=== PATIENT | male | born 1965 | race Caucasian/White ===

== ENCOUNTER 2017-08-10 19:44 | Observation (INO) | payer BC ==
[2017-08-10] MEDS ORDERED: Nitroglycerin 0.4 MG Tab.SL ONE ×4 (19:51→22:00)
[2017-08-10] MEDS ORDERED: Sodium Chloride 0.9% 1,000 ML IV ONE (20:09)
[2017-08-10] MEDS ORDERED: Nitroglycerin 0.4 MG Tab.SL SL PRN (20:12)
[2017-08-10] MEDS ORDERED: Morphine 2 MG/ML Syringe IVPUSH ONE ×2 (20:13→20:28)
[2017-08-10 20:27] LABS: CHLORIDE,CL 102 mmol/L (98-107); SODIUM,NA 137 mmol/L (136-145)
--- NOTE | 2017-08-10 20:39 | EDM.PDOC ---
ED HPI GENERAL MEDICAL PROBLEM - General Chief Complaint: Chest Pain Stated Complaint: chest pain Time Seen by Provider: 08/10/17 19:45 Source of Information: Reports: Patient, Family History Limitations: Reports: No Limitations - History of Present Illness INITIAL COMMENTS - FREE TEXT/NARRATIVE: Patient is a is a 52-year-old who was brought in by his secondary to chest pain patient states that the chest pain started about 5 minutes before leaving work once arrived at home he had a meal and then when out to feed the horses the pain intensified and was radiating to left arm, his brought him in for evaluation, patient has history of coronary arterial disease with 9 stents placed patient has been doing fairly well for about the last year and 3 months Onset: Today, Sudden Duration: Hour(s):, Constant, Heavy Location: Reports: Chest Quality: Reports: Sharp, Stabbing Severity: Severe Improves with: Reports: Medication Worsens with: Reports: Movement Context: Reports: Activity, Other (Coronary arterial disease) Associated Symptoms: Reports: Chest Pain - Related Data Allergies Allergy/AdvReac Type Severity Reaction Status Date / Time clarithromycin [From Biaxin] Allergy Rash Verified 08/10/17 20:18 Gadolinium-Containing Allergy Hives Verified 08/10/17 20:18 Contrast Medi gadoteridol [From Prohance] Allergy Hives Verified 08/10/17 20:18 Iodinated Contrast- Oral and Allergy Hives Verified 08/10/17 20:18 IV Dye ondansetron HCl Allergy Rash Verified 08/10/17 20:18 [From Zofran (as hydrochloride)] Penicillins Allergy Rash Verified 08/10/17 20:18 Bqxefso-Yha-Wbw Reductase Allergy rabdomyalisis, Verified 08/10/17 20:18 Inhibitor muscle aches Home Meds: Home Meds Baclofen 10 mg PO QID PRN 06/13/13 [History] Metoprolol Tartrate [Lopressor] 100 mg PO Q12H 06/13/13 [History] Pantoprazole Sodium 40 mg PO QAM 06/13/13 [History] clonazePAM [Clonazepam] 4 mg PO BEDTIME 06/13/13 [History] traZODone HCl [Trazodone HCl] 100 mg PO BEDTIME 06/13/13 [History] Prasugrel [Effient] 10 mg PO QAM 09/12/13 [History] Cholecalciferol (Vitamin D3) [Vitamin D3] 400 units PO QAM 03/12/15 [History] Aspirin 325 mg PO QAM 07/03/15 [History] Evolocumab [Repatha Sureclick] 140 mg SQ ASDIRECTED 05/06/16 [History] Benzonatate [Tessalon Perles] 100 mg PO TID #21 cap 06/08/16 [Rx] Cefdinir [Omnicef] 300 mg PO BID 06/08/16 [History] Past Medical History HEENT History: Reports: Allergic Rhinitis, Impaired Vision, Other (See Below) Other HEENT History: Glasses Cardiovascular History: Reports: Angina, CAD, High Cholesterol, Hypertension, PTCA, Stents, Syncope, Other (See Below) Other Cardiovascular History: stents x10 with most recent procedures as below, history of recurrent syncope, dyslipidemia Respiratory History: Reports: COPD, Other (See Below) Other Respiratory History: COPD by chest x-ray Gastrointestinal History: Reports: Cholelithiasis, GERD. Denies: Celiac Disease , Chronic Constipation, Chronic Diarrhea, Colon Polyp, Diverticulosis, Gastritis , GI Bleed, Hepatitis, Helicobacter Pylori, Hiatal Hernia, Inflammatory Bowel Disease, Irritable Bowel Syndrome, Jaundice, Pancreatitis Genitourinary History: Reports: Renal Calculus, Other (See Below) Other Genitourinary History: History of hyperurcemia with recurrent right-sided urolithiasis with last episode about 2004, bilateral epididymal cysts left greater than right Musculoskeletal History: Reports: Arthritis, Back Pain, Chronic, Fracture, Gout , Osteoarthritis, Osteoporosis, Other (See Below) Other Musculoskeletal History: Left clavicular fracture and left scapular fracture in about 2007, right sided rib fractures x3 in about 2008, hyperuricemia diagnosed on 05/23/14 with no previous history of gout attacks, history of previous spinal fusion as below with degenerative disc disease in the L2-L5 region by MRI as below, polymyalgia rheumatica, left talar subchondral cyst Neurological History: Reports: Concussion, Headaches, Chronic, Head Trauma, Migraines, Other (See Below) Other Neuro History: Borderline cerebral atrophy by CT scan of the head on , previous head concussion in about 2008 Psychiatric History: Reports: Addiction, Anxiety, Depression, Other (See Below) Other Psychiatric History: Chronic Klonopin and trazodone use with previous of chronic narcotic use/seeking behavior secondary to his osteoarthritis Endocrine/Metabolic History: Reports: Osteoporosis, Vitamin D Deficiency Hematologic History: Reports: Polycythemia, Other (See Below) Other Hematologic History: Polycythemia requiring phlebotomies in the past Immunologic History: Reports: None. Denies: AIDS, HIV, SLE Oncologic (Cancer) History: Reports: None. Denies: Basal Cell Carcinoma, Hodgkin's Lymphoma, Leukemia, Lymphoma, Malignant Melanoma, Non-Hodgkin's Lymphoma, Squamous Cell Carcinoma Dermatologic History: Reports: None. Denies: Eczema, Psoriasis - Infectious Disease History Infectious Disease History: Reports: Chicken Pox - Past Surgical History HEENT Surgical History: Reports: Oral Surgery, Tonsillectomy, Other (See Below) Cardiovascular Surgical History: Reports: Coronary Artery Bypass, Coronary Artery Stent, Other (See Below) GI Surgical History: Reports: Appendectomy, Cholecystectomy, Colonoscopy, EGD, Hernia, Inguinal, Other (See Below) Male Surgical History: Reports: Circumcision, Renal Calculus, Other (See Below) Neurological Surgical History: Reports: Lumbar Spine, Spinal Fusion, Other (See Below) Musculoskeletal Surgical History: Reports: Arthroscopic Procedure, Other (See Below) - Past Imaging History Past Imaging History: Reports: Angiography, CAT Scan, DEXA Scan, HIDA Scan, MRI , Stress Testing, Ultrasound Social & Family History - Family History HEENT: Reports: Allergic Rhinitis, Other (See Below) Other HEENT Family History: 4 brothers with allergic rhinitis Cardiac: Reports: Afib, Arrhythmia, Bypass, CAD, Heart Failure, High Cholesterol , MA, Other (See Below) Other Cardiac Family History: Father with fatal CHF at age 64 with father having an MA and CABG x4 at age 45, brother with atrial fibrillation, parents with hyperlipidemia, father with hypertension Respiratory: Reports: COPD, Other (See Below) Other Respiratory Family Hisory: Father with COPD with history of tobacco use GI: Reports: Diverticulosis, Other (See Below) Other GI Family History: Brother with diverticulosis : Reports: Renal Calculus, Renal Disease/Insufficiency, Other (See Below) Other Family History: Father with urolithiasis, mother with fatal renal disease/renal failure at about age 82 OBGYN: Reports: None. Denies: Dysfunctional uterine bleeding, Recurrent Spontaneous Musculoskeletal: Reports: Arthritis, Osteoarthritis, Other (See Below) Other Musculoskeletal Family History: Mother with osteoarthritis Neurological: Reports: None. Denies: Alzheimers Disease, Cerebral Aneurysms, CVA, Dementia, Migraines, MS, Neuropathy, Peripheral, Parkinson's, Seizure, TIA Psychiatric: Reports: None. Denies: Abuse, Victim of, ADD, ADHD, Anxiety, Depression, Psych Hospitalization(s), Suicide Attempt Endocrine/Metabolic: Reports: Diabetes, Type I, Diabetes, type II, IDDM, Other ( See Below) Other Endocrine/Metabolic Family History: Father and niece with type I IDDM both in their 20s, sister with IDDM, mother with AODM Hematologic: Reports: Anemia, Other (See Below) Other Hematologic Family History: Brother with history of lower GI bleed secondary to diverticulosis Immunologic: Reports: None. Denies: AIDS, HIV, SLE Dermatologic: Reports: None. Denies: Eczema, Psoriasis Oncologic: Reports: None. Denies: Colon, Hodgkin's Lymphoma, Leukemia, Non- Hodgkin's Lymphoma, Prostate, Skin - Tobacco Use Smoking Status *Q: Former Smoker Years of Tobacco use: 23 Packs/Tins Daily: 1.0 Used Tobacco, but Quit: Yes Month Tobacco Last Used: Between ages 15 and 38 with average use of 1 pack per day Second Hand Smoke Exposure: No - Caffeine Use Caffeine Use: Reports: Coffee Caffeine Use Comment: 2 pops a day and 2 cups of coffee a day - Alcohol Use Days Per Week of Alcohol Use: 0 (No previous DWIs, problems with alcohol abuse, etc.) Number of Drinks Per Day: 0 Total Drinks Per Week: 0 - Recreational Drug Use Recreational Drug Use: No Drug Use in Last 12 Months: No Recreational Drug Type: Denies: Amphetamines (Speed), Cocaine, Heroin, Inhalants (Glues, Solvents, Aerosols), LSD (Acid), Marijuana/Hashish, Methamphetamine, Morphine Recreational Drug Use Frequency: Daily - Living Situation & Occupation Living situation: Reports: , , with Spouse, with Family Occupation: Employed ED ROS GENERAL - Review of Systems Review Of Systems: See Below Constitutional: Reports: No Symptoms. Denies: Diaphoresis HEENT: Reports: No Symptoms Respiratory: Reports: Shortness of Breath Cardiovascular: Reports: Chest Pain (Radiating to left arm) Endocrine: Reports: No Symptoms GI/Abdominal: Reports: No Symptoms : Reports: No Symptoms Musculoskeletal: Reports: No Symptoms Skin: Reports: No Symptoms Neurological: Reports: No Symptoms Psychiatric: Reports: No Symptoms ED EXAM, GENERAL - Physical Exam Exam: See Below Exam Limited By: No Limitations General Appearance: Alert, WD/WN, No Apparent Distress Ears: Normal External Exam, Normal Canal, Hearing Grossly Normal, Normal TMs Ear Exam: Bilateral Ear: Auricle Normal, Canal Normal, TM normal Nose: Normal Inspection, Normal Mucosa, No Blood Throat/Mouth: Normal Inspection, Normal Lips, Normal Teeth, Normal Gums, Normal Oropharynx, Normal Voice, No Airway Compromise Head: Atraumatic, Normocephalic Neck: Normal Inspection, Supple, Non-Tender, Full Range of Motion Respiratory/Chest: Lungs Clear, Chest Non-Tender, Respiratory Distress Cardiovascular: Regular Rate, Rhythm, No Murmur GI/Abdominal: Normal Bowel Sounds, Soft, Non-Tender, No Organomegaly, No Distention, No Abnormal Bruit, No Mass (Male) Exam: Deferred Rectal (Males) Exam: Deferred Back Exam: Normal Inspection, Full Range of Motion, NT Extremities: Normal Inspection, Normal Range of Motion, Non-Tender, Normal Capillary Refill, No Pedal Edema Neurological: Alert, Oriented, CN II-XII Intact, Normal Cognition, Normal Gait, Normal Reflexes, No Motor/Sensory Deficits Psychiatric: Normal Affect, Normal Mood Skin Exam: Warm, Dry, Intact, Normal Color, No Rash Lymphatic: No Adenopathy Course - Vital Signs Last Recorded V/S: Last Vital Signs Temp Pulse Resp BP 149/90 H 08/10/17 20:21 Pulse Ox - Orders/Labs/Meds Orders: Active Orders 24 hr Category Date Time Status EKG Documentation Completion [RC] ASDIRECTED Care 08/10/17 20:25 Ordered Chest 1V Frontal [CR] Stat Exams 08/10/17 20:12 Ordered LACTIC ACID [CHEM] Stat Lab 08/10/17 20:03 Received Nitroglycerin [Nitrostat] Med 08/10/17 20:12 Ordered 0.4 mg SL Q5M PRN Medication Orders Nitroglycerin (Nitrostat) 0.4 mg SL Q5M PRN PRN Reason: Chest Pain Labs: Laboratory Tests 08/10/17 08/10/17 08/10/17 Range/Units 20:03 20:03 20:03 WBC 9.6 (4.0-10.2) K/uL RBC 5.44 H (4.33-5.41) M/uL Hgb 17.2 H (13.1-16.8) g/dL Hct 49.5 H (39.0-49.0) % MCV 91.0 (84.0-98.0) fL MCH 31.6 (28.2-33.3) pg MCHC 34.7 (31.7-36.0) g/dL RDW 13.7 (11.2-14.1) % Plt Count 172 (150-350) K/uL Neut % (Auto) 65.5 (45.0-80.0) % Lymph % (Auto) 20.9 (10.0-50.0) % Ball[place] % (Auto) 10.9 (2.0-14.0) % Eos % (Auto) 2.1 (0.0-5.0) % Baso % (Auto) 0.6 (0.0-2.0) % Neut # (Auto) 6.25 (1.40-7.00) K/uL Lymph # (Auto) 2.00 (0.50-3.50) K/uL Ball[place] # (Auto) 1.04 H (0.00-1.00) K/uL Eos # (Auto) 0.20 (0.00-0.50) K/uL Baso # (Auto) 0.06 (0.00-0.20) K/uL PT 11.0 (9.8-11.7) SEC INR 1.0 APTT 26.6 (22.1-29.8) SEC D-Dimer, Quantitative (0-400) ng/mL Sodium 137 (136-145) mmol/L Potassium 4.2 (3.5-5.1) mmol/L Chloride 102 (98-107) mmol/L Carbon Dioxide 24.5 (21.0-32.0) mmol/L BUN 23 H (7-18) mg/dL Creatinine 1.09 (0.51-1.17) mg/dL Est Cr Clr Drug Dosing 70.73 mL/min Estimated GFR (MDRD) > 60 mL/min Glucose 91 (74-106) mg/dL Calcium 9.4 (8.5-10.1) mg/dL Magnesium 2.0 (1.8-2.4) mg/dL Total Bilirubin 1.1 H (0.2-1.0) mg/dL AST 31 (15-37) U/L ALT 54 (12-78) U/L Alkaline Phosphatase 98 (46-116) IU/L Creatine Kinase 250 (26-308) U/L Creatine Kinase Index 0.4 (0.0-2.5) % CK-MB (CK-2) 1.10 (0.00-3.60) ng/mL Troponin I 0.000 (0.000-0.056) ng/mL NT-Pro-B Natriuret Pep 20 (0-125) pg/mL Total Protein 8.1 (6.4-8.2) g/dL Albumin 4.1 (3.4-5.0) g/dL 08/10/17 Range/Units 20:03 WBC (4.0-10.2) K/uL RBC (4.33-5.41) M/uL Hgb (13.1-16.8) g/dL Hct (39.0-49.0) % MCV (84.0-98.0) fL MCH (28.2-33.3) pg MCHC (31.7-36.0) g/dL RDW (11.2-14.1) % Plt Count (150-350) K/uL Neut % (Auto) (45.0-80.0) % Lymph % (Auto) (10.0-50.0) % Ballard % (Auto) (2.0-14.0) % Eos % (Auto) (0.0-5.0) % Baso % (Auto) (0.0-2.0) % Neut # (Auto) (1.40-7.00) K/uL Lymph # (Auto) (0.50-3.50) K/uL Ballard # (Auto) (0.00-1.00) K/uL Eos # (Auto) (0.00-0.50) K/uL Baso # (Auto) (0.00-0.20) K/uL PT (9.8-11.7) SEC INR APTT (22.1-29.8) SEC D-Dimer, Quantitative 454 H (0-400) ng/mL Sodium (136-145) mmol/L Potassium (3.5-5.1) mmol/L Chloride (98-107) mmol/L Carbon Dioxide (21.0-32.0) mmol/L BUN (7-18) mg/dL Creatinine (0.51-1.17) mg/dL Est Cr Clr Drug Dosing mL/min Estimated GFR (MDRD) mL/min Glucose (74-106) mg/dL Calcium (8.5-10.1) mg/dL Magnesium (1.8-2.4) mg/dL Total Bilirubin (0.2-1.0) mg/dL AST (15-37) U/L ALT (12-78) U/L Alkaline Phosphatase (46-116) IU/L Creatine Kinase (26-308) U/L Creatine Kinase Index (0.0-2.5) % CK-MB (CK-2) (0.00-3.60) ng/mL Troponin I (0.000-0.056) ng/mL NT-Pro-B Natriuret Pep (0-125) pg/mL Total Protein (6.4-8.2) g/dL Albumin (3.4-5.0) g/dL Meds: Medications Generic Name Dose Route Start Last Admin Trade Name Freq PRN Reason Stop Dose Admin Nitroglycerin 0.4 mg 08/10/17 20:12 Nitrostat SL Q5M PRN Chest Pain Discontinued Medications Generic Name Dose Route Start Last Admin Trade Name Freq PRN Reason Stop Dose Admin Morphine Sulfate 2 mg 08/10/17 20:13 08/10/17 20:20 Morphine IVPUSH 08/10/17 20:14 2 mg ONETIME ONE Administration Morphine Sulfate 2 mg 08/10/17 20:28 Morphine IVPUSH 08/10/17 20:29 ONETIME ONE Nitroglycerin Confirm 08/10/17 19:51 08/10/17 20:21 Nitrostat Administered 08/10/17 19:52 Not Given Dose 0.4 mg .ROUTE .STK-MED ONE Departure - Departure Time of Disposition: 21:00 Disposition: Refer to Observation Condition: Fair Clinical Impression: Chest pain at rest - Problem List & Annotations (1) Coronary arteriosclerosis, CAD SNOMED Code(s): 81642178 Code(s): I25.10 - ATHSCL HEART DISEASE OF [place] CORONARY ARTERY W/O ANG PCTRS Status: Acute Priority: High Current Visit: No Annotation/Comment: : Patient seen with chest pain history of severe coronary tube disease troponins negative BNP negative plan is to observe him overnight dual troponins 3 contact cardiology in the morning if indicated. (2) HTN, Benign essential hypertension SNOMED Code(s): 6153839 Code(s): I10 - ESSENTIAL (PRIMARY) HYPERTENSION Status: Chronic Priority : Medium Current Visit: No Annotation/Comment:: Blood Pressure mildly elevated secondary to colic type pain, however improved with adequate control during this visit - Problem List Review Problem List Initiated/Reviewed/Updated: Yes - My Orders Last 24 Hours: My Active Orders 08/10/17 20:03 LACTIC ACID [CHEM] Stat 08/10/17 20:12 Chest 1V Frontal [CR] Stat Nitroglycerin [Nitrostat] 0.4 mg SL Q5M PRN 08/10/17 20:25 EKG Documentation Completion [RC] ASDIRECTED - Assessment/Plan Admission H&P: Please use this note as an admission H&P Last 24 Hours: My Active Orders 08/10/17 20:03 LACTIC ACID [CHEM] Stat 08/10/17 20:12 Chest 1V Frontal [CR] Stat Nitroglycerin [Nitrostat] 0.4 mg SL Q5M PRN 08/10/17 20:25 EKG Documentation Completion [RC] ASDIRECTED Plan: Admit to hospital for observation and treatment troponins 3
[2017-08-10] MEDS ORDERED: Non-Formulary Medication 1 Each (Metoprolol Tartrate 100 MG) PO SCH (21:30)
[2017-08-10] MEDS: Morphine 2 MG/ML Syringe IVPUSH PRN (21:40)
[2017-08-10] MEDS: traZODone 50 MG Tab PO SCH (23:02)
[2017-08-10] MEDS: Metoprolol Tartrate 50 MG Tab PO SCH (23:02)
[2017-08-11] MEDS: Morphine 2 MG/ML Syringe IVPUSH PRN ×5 (01:07→19:50)
[2017-08-11] MEDS: Pantoprazole 40 MG Tab.CR PO SCH (07:51)
[2017-08-11] MEDS: Metoprolol Tartrate 50 MG Tab PO SCH ×2 (07:51→17:22)
[2017-08-11] MEDS: Cholecalciferol (Vitamin D3) 400 Unit Tab PO SCH (07:51)
[2017-08-11] MEDS: PRASUGREL 10 MG PO SCH (07:52)
[2017-08-11] MEDS ORDERED: Metoprolol Tartrate 50 MG Tab PO SCH (08:00)
--- NOTE | 2017-08-11 13:29 | PCM.PN ---
- General Info Date of Service: 08/11/17 Functional Status: Reports: Other (still with chest pain relieved by morphine) - Review of Systems General: Reports: Other (nausea) HEENT: Reports: Headaches Pulmonary: Reports: No Symptoms Cardiovascular: Reports: Chest Pain Gastrointestinal: Reports: Nausea Genitourinary: Reports: No Symptoms Musculoskeletal: Reports: Back Pain Skin: Reports: No Symptoms Neurological: Reports: No Symptoms Psychiatric: Reports: No Symptoms - Patient Data Vitals - Most Recent: Last Vital Signs Temp 98.0 F 08/11/17 12:00 Pulse 67 08/11/17 12:00 Resp 20 08/11/17 12:00 BP 111/71 08/11/17 12:00 Pulse Ox 97 08/11/17 12:00 Weight - Most Recent: 196 lb 9.591 oz I&O - Last 24 Hours: Intake & Output 08/10/17 08/11/17 08/11/17 22:59 06:59 14:59 Intake Total 440 Balance 440 Lab Results Last 24 Hours: Laboratory Results - last 24 hr 08/11/17 08/11/17 08/11/17 Range/Units 01:00 07:20 07:20 D-Dimer, Quantitative 231 (0-400) ng/mL Troponin I 0.000 0.000 (0.000-0.056) ng/mL Med Orders - Current: Current Medications Cholecalciferol (Vitamin D3) [address] [facility] Last Admin: 08/11/17 07:51 Dose: 400 units Metoprolol Tartrate (Lopressor) 100 mg PO BID [facility] Last Admin: 08/11/17 07:51 Dose: 100 mg Morphine Sulfate (Morphine) 2 mg IVPUSH Q1H PRN PRN Reason: Chest Pain Last Admin: 08/11/17 11:51 Dose: 2 mg Nitroglycerin (Nitrostat) 0.4 mg SL Q5M PRN PRN Reason: Chest Pain Non-Formulary Medication (Prasugrel [Effient]) [address] [facility] Last Admin: 08/11/17 07:52 Dose: Not Given Pantoprazole Sodium (Protonix) [address] [facility] Last Admin: 08/11/17 07:51 Dose: 40 mg Sodium Chloride (Saline Flush) 10 ml FLUSH ASDIRECTED PRN PRN Reason: Keep Vein Open Trazodone HCl (Trazodone) 100 mg PO BEDTIME [facility] Last Admin: 08/10/17 23:02 Dose: 100 mg Discontinued Medications Sodium Chloride (Normal Saline) 1,000 mls @ as directed IV .STK-MED ONE Stop: 08/10/17 20:10 Metoprolol Tartrate (Lopressor) 100 mg PO BID [facility] Morphine Sulfate (Morphine) 2 mg IVPUSH ONETIME ONE Stop: 08/10/17 20:14 Last Admin: 08/10/17 20:20 Dose: 2 mg Morphine Sulfate (Morphine) 2 mg IVPUSH ONETIME ONE Stop: 08/10/17 20:29 Last Admin: 08/10/17 20:33 Dose: 2 mg Nitroglycerin (Nitrostat) Confirm Administered Dose 0.4 mg .ROUTE .STK-MED ONE Stop: 08/10/17 19:52 Last Admin: 08/10/17 20:21 Dose: Not Given Nitroglycerin (Nitrostat) 0.4 mg .ROUTE .STK-MED ONE Stop: 08/10/17 22:01 Nitroglycerin (Nitrostat) 0.4 mg .ROUTE .STK-MED ONE Stop: 08/10/17 22:01 Nitroglycerin (Nitrostat) 0.4 mg .ROUTE .STK-MED ONE Stop: 08/10/17 22:01 Non-Formulary Medication (Metoprolol Tartrate) 100 mg PO Q12H [facility] Last Admin: 08/10/17 22:56 Dose: Not Given - Exam Quality Assessment: Supplemental Oxygen, DVT Prophylaxis General: Alert, Cooperative, No Acute Distress HEENT: Mucous Membr. Moist/[place] Neck: Trachea Midline, No JVD Lungs: Clear to Auscultation, Normal Respiratory Effort Cardiovascular: Regular Rate, Regular Rhythm GI/Abdominal Exam: Soft, Non-Tender, No Distention, Abnormal Bowel Sounds ( hyperactive) (Male) Exam: Deferred Back Exam: Normal Inspection Extremities: Normal Inspection, Non-Tender, No Pedal Edema Skin: Warm, Dry, Intact Neurological: No New Focal Deficit Psy/Mental Status: Alert, Normal Affect, Normal Mood - Problem List & Annotations (1) Chest pain at rest SNOMED Code(s): 5254062 Code(s): R07.9 - CHEST PAIN, UNSPECIFIED Status: Acute Current Visit: Yes (2) Chest pain of uncertain etiology SNOMED Code(s): 98254702 Code(s): R07.89 - OTHER CHEST PAIN Status: Acute Priority: High Current Visit: No (3) Coronary arteriosclerosis, CAD SNOMED Code(s): 28745878 Code(s): I25.10 - ATHSCL HEART DISEASE OF [place] CORONARY ARTERY W/O ANG PCTRS Status: Acute Priority: High Current Visit: No Annotation/Comment: : Patient seen with chest pain history of severe coronary tube disease troponins negative BNP negative plan is to observe him overnight dual troponins 3 contact cardiology in the morning if indicated. (4) Asthma without status asthmaticus SNOMED Code(s): 07621077 Code(s): J45.909 - UNSPECIFIED ASTHMA, UNCOMPLICATED Status: Chronic Current Visit: No (5) COPD (chronic obstructive pulmonary disease) SNOMED Code(s): 53163256 Code(s): J44.9 - CHRONIC OBSTRUCTIVE PULMONARY DISEASE, UNSPECIFIED Status : Chronic Priority: Medium Current Visit: No Qualifiers: COPD type: emphysema Emphysema type: panlobular Qualified Code(s): J43.1 - Panlobular emphysema Annotation/Comment:: No recent fever or bronchitic-type symptoms (6) Chronic anxiety SNOMED Code(s): 431363056 Code(s): F41.9 - ANXIETY DISORDER, UNSPECIFIED Status: Chronic Current Visit: No (7) Chronic back pain SNOMED Code(s): 299496276 Code(s): M54.9 - DORSALGIA, UNSPECIFIED; G89.29 - OTHER CHRONIC PAIN Status : Chronic Priority: High Current Visit: No Annotation/Comment:: Acute exacerbation of his low back pain with good results with treatment in the emergency room as above. Work excuse provided. Topical care, sedation precautions, etc. discussed (8) Coronary artery disease SNOMED Code(s): 02507592 Code(s): I25.10 - ATHSCL HEART DISEASE OF [place] CORONARY ARTERY W/O ANG PCTRS Status: Chronic Priority: Medium Current Visit: No Qualifiers: Coronary Disease-Associated Artery/Lesion type: [place] artery [place] vs. transplanted heart: [place] heart Associated angina: without angina Qualified Code(s): I25.10 - Atherosclerotic heart disease of [place] coronary artery without angina pectoris Annotation/Comment:: No recent chest pain or anginal complaints (9) Gastroesophageal reflux disease with esophagitis SNOMED Code(s): 879283773 Code(s): K21.0 - GASTRO-ESOPHAGEAL REFLUX DISEASE WITH ESOPHAGITIS Status: Chronic Priority: Medium Current Visit: No Annotation/Comment:: Under good control with no change in current medical therapy (10) HTN, Benign essential hypertension SNOMED Code(s): 9936981 Code(s): I10 - ESSENTIAL (PRIMARY) HYPERTENSION Status: Chronic Priority : Medium Current Visit: No Annotation/Comment:: Blood Pressure mildly elevated secondary to colic type pain, however improved with adequate control during this visit (11) Hyperlipidemia SNOMED Code(s): 53775122 Code(s): E78.5 - HYPERLIPIDEMIA, UNSPECIFIED Status: Chronic Priority: Medium Current Visit: No Qualifiers: Hyperlipidemia type: mixed hyperlipidemia Qualified Code(s): E78.2 - Mixed hyperlipidemia Annotation/Comment:: Currently under therapy (12) Hypertension SNOMED Code(s): 53494516 Code(s): I10 - ESSENTIAL (PRIMARY) HYPERTENSION Status: Chronic Priority : Medium Current Visit: No Qualifiers: Hypertension type: essential hypertension Qualified Code(s): I10 - Essential (primary) hypertension Annotation/Comment:: Blood pressure somewhat elevated initially in the emergency room secondary to his pain with blood pressures normally under good control by his history. Patient denies any medication noncompliance (13) Hyperuricemia SNOMED Code(s): 04995302 Code(s): E79.0 - HYPERURICEMIA W/O SIGNS OF INFLAM ARTHRIT AND TOPHACEOUS DIS Status: Chronic Priority: Low Current Visit: No Annotation/Comment: : Newly diagnosed today-? (14) Migraine SNOMED Code(s): 49295390 Code(s): G43.909 - MIGRAINE, UNSP, NOT INTRACTABLE, WITHOUT STATUS MIGRAINOSUS Status: Chronic Current Visit: No Annotation/Comment:: Good response to IV therapy as above. No further additional medications especially in light of patient's previous history of narcotic abuse. Patient sleeping and symptom-free at time of discharge. No work excuse apparently needed (15) Mixed anxiety and depressive disorder SNOMED Code(s): 177783916 Code(s): F41.8 - OTHER SPECIFIED ANXIETY DISORDERS Status: Chronic Priority: Medium Current Visit: No Annotation/Comment:: Adequate control by his history (16) Moderate recurrent major depression SNOMED Code(s): 295494987 Code(s): F33.1 - MAJOR DEPRESSIVE DISORDER, RECURRENT, MODERATE Status: Chronic Current Visit: No (17) Osteoarthritis SNOMED Code(s): 906194994 Code(s): M19.90 - UNSPECIFIED OSTEOARTHRITIS, UNSPECIFIED SITE Status: Chronic Priority: Medium Current Visit: No Qualifiers: Osteoarthritis location: multiple joints Osteoarthritis type: primary Qualified Code(s): M15.0 - Primary generalized (osteo)arthritis Annotation/Comment:: Stable by history with history of hyperuricemia and polymyalgia rheumatica (18) Peptic reflux disease SNOMED Code(s): 02760759 Code(s): K21.9 - GASTRO-ESOPHAGEAL REFLUX DISEASE WITHOUT ESOPHAGITIS Status: Chronic Priority: Medium Current Visit: No Annotation/Comment:: Stable by history (19) Vitamin D deficiency SNOMED Code(s): 04700190 Code(s): E55.9 - VITAMIN D DEFICIENCY, UNSPECIFIED Status: Chronic Current Visit: No - Problem List Review Problem List Initiated/Reviewed/Updated: Yes - My Orders Last 24 Hours: My Active Orders 08/11/17 11:53 Sodium Chloride 0.9% [Saline Flush] 10 ml FLUSH ASDIRECTED PRN 08/11/17 13:19 Promethazine [Phenergan] 25 mg IM Q6H PRN 08/18/17 08:00 Echo Comp wo Cont [US] Routine - Plan Plan:: 08/11/17 Alfredito Ko MD Still with some chest pain and now back pain. Nausea. Wanting phenergan. He was told his heart might be enlarged. Will order echocardiogram.
[2017-08-11] MEDS: Promethazine 25 MG/ML SDV IM PRN ×2 (14:16→19:50)
[2017-08-11] MEDS: Sodium Chloride 0.9% 10 ML Syringe FLUSH PRN ×2 (14:18→19:51)
[2017-08-11] MEDS: traZODone 50 MG Tab PO SCH (19:51)
[2017-08-12] MEDS: Promethazine 25 MG/ML SDV IM PRN (04:48)
[2017-08-12] MEDS: Pantoprazole 40 MG Tab.CR PO SCH (07:31)
[2017-08-12] MEDS: Cholecalciferol (Vitamin D3) 400 Unit Tab PO SCH (07:31)
[2017-08-12] MEDS: Sodium Chloride 0.9% 10 ML Syringe FLUSH PRN (07:32)
[2017-08-12] MEDS: PRASUGREL 10 MG PO SCH (07:35)
[2017-08-12] MEDS: Metoprolol Tartrate 50 MG Tab PO SCH (08:36)
[2017-08-12 09:37] LABS: CHLORIDE,CL 103 mmol/L (98-107); SODIUM,NA 137 mmol/L (136-145)
[2017-08-12] MEDS ORDERED: Acetaminophen 325 MG Tab PO PRN (13:00)
[2017-08-12 15:59] VITALS: BP 143/89
--- NOTE | 2017-08-12 17:12 | PCM.PN ---
- General Info Date of Service: 08/12/17 Functional Status: Reports: Pain Controlled - Review of Systems General: Reports: No Symptoms HEENT: Reports: No Symptoms Pulmonary: Reports: No Symptoms Cardiovascular: Reports: No Symptoms Gastrointestinal: Reports: No Symptoms Genitourinary: Reports: No Symptoms Musculoskeletal: Reports: No Symptoms Skin: Reports: No Symptoms Neurological: Reports: No Symptoms Psychiatric: Reports: No Symptoms - Patient Data Vitals - Most Recent: Last Vital Signs Temp 98.3 F 08/12/17 15:57 Pulse 84 08/12/17 15:57 Resp 18 08/12/17 15:57 BP 143/89 H 08/12/17 15:57 Pulse Ox 97 08/12/17 15:57 Weight - Most Recent: 196 lb 9.591 oz I&O - Last 24 Hours: Intake & Output 08/12/17 08/12/17 08/12/17 06:59 14:59 22:59 Intake Total 720 Balance 720 Lab Results Last 24 Hours: Laboratory Results - last 24 hr 08/12/17 08/12/17 Range/Units 09:02 09:02 WBC 8.6 (4.0-10.2) K/uL RBC 5.44 H (4.33-5.41) M/uL Hgb 17.3 H (13.1-16.8) g/dL Hct 50.1 H (39.0-49.0) % MCV 92.1 (84.0-98.0) fL MCH 31.8 (28.2-33.3) pg MCHC 34.5 (31.7-36.0) g/dL RDW 13.8 (11.2-14.1) % Plt Count 155 (150-350) K/uL Neut % (Auto) 67.8 (45.0-80.0) % Lymph % (Auto) 18.4 (10.0-50.0) % [place] % (Auto) 11.4 (2.0-14.0) % Eos % (Auto) 1.9 (0.0-5.0) % Baso % (Auto) 0.5 (0.0-2.0) % Neut # (Auto) 5.82 (1.40-7.00) K/uL Lymph # (Auto) 1.58 (0.50-3.50) K/uL [place] # (Auto) 0.98 (0.00-1.00) K/uL Eos # (Auto) 0.16 (0.00-0.50) K/uL Baso # (Auto) 0.04 (0.00-0.20) K/uL Sodium 137 (136-145) mmol/L Potassium 3.9 (3.5-5.1) mmol/L Chloride 103 (98-107) mmol/L Carbon Dioxide 27.0 (21.0-32.0) mmol/L BUN 23 H (7-18) mg/dL Creatinine 0.97 (0.51-1.17) mg/dL Est Cr Clr Drug Dosing 79.88 mL/min Estimated GFR (MDRD) > 60 mL/min Glucose 119 H (74-106) mg/dL Calcium 9.1 (8.5-10.1) mg/dL Total Bilirubin 1.1 H (0.2-1.0) mg/dL AST 58 H (15-37) U/L ALT 56 (12-78) U/L Alkaline Phosphatase 91 (46-116) IU/L Troponin I 0.000 (0.000-0.056) ng/mL Total Protein 7.5 (6.4-8.2) g/dL Albumin 3.7 (3.4-5.0) g/dL Med Orders - Current: Current Medications Acetaminophen (Tylenol) 650 mg PO Q4H PRN PRN Reason: Pain/Fever Last Admin: 08/12/17 13:18 Dose: 650 mg Cholecalciferol (Vitamin D3) 400 units PO [facility] Last Admin: 08/12/17 07:31 Dose: 400 units Metoprolol Tartrate (Lopressor) 100 mg PO BID [facility] Last Admin: 08/12/17 08:36 Dose: Not Given Morphine Sulfate (Morphine) 2 mg IVPUSH Q1H PRN PRN Reason: Chest Pain Last Admin: 08/11/17 19:50 Dose: 2 mg Nitroglycerin (Nitrostat) 0.4 mg SL Q5M PRN PRN Reason: Chest Pain Non-Formulary Medication (Prasugrel [Effient]) 10 mg PO [facility] Last Admin: 08/12/17 07:35 Dose: Not Given Pantoprazole Sodium (Protonix) 40 mg PO [facility] Last Admin: 08/12/17 07:31 Dose: 40 mg Promethazine HCl (Phenergan) 25 mg IM Q6H PRN PRN Reason: Nausea/Vomiting Last Admin: 08/12/17 04:48 Dose: 25 mg Sodium Chloride (Saline Flush) 10 ml FLUSH ASDIRECTED PRN PRN Reason: Keep Vein Open Last Admin: 08/12/17 07:32 Dose: 10 ml Trazodone HCl (Trazodone) 100 mg PO BEDTIME [facility] Last Admin: 08/11/17 19:51 Dose: 100 mg Discontinued Medications Sodium Chloride (Normal Saline) 1,000 mls @ as directed IV .STK-MED ONE Stop: 08/10/17 20:10 Metoprolol Tartrate (Lopressor) 100 mg PO BID [facility] Morphine Sulfate (Morphine) 2 mg IVPUSH ONETIME ONE Stop: 08/10/17 20:14 Last Admin: 08/10/17 20:20 Dose: 2 mg Morphine Sulfate (Morphine) 2 mg IVPUSH ONETIME ONE Stop: 08/10/17 20:29 Last Admin: 08/10/17 20:33 Dose: 2 mg Nitroglycerin (Nitrostat) Confirm Administered Dose 0.4 mg .ROUTE .STK-MED ONE Stop: 08/10/17 19:52 Last Admin: 08/10/17 20:21 Dose: Not Given Nitroglycerin (Nitrostat) 0.4 mg .ROUTE .STK-MED ONE Stop: 08/10/17 22:01 Nitroglycerin (Nitrostat) 0.4 mg .ROUTE .STK-MED ONE Stop: 08/10/17 22:01 Nitroglycerin (Nitrostat) 0.4 mg .ROUTE .STK-MED ONE Stop: 08/10/17 22:01 Non-Formulary Medication (Metoprolol Tartrate) 100 mg PO Q12H [facility] Last Admin: 08/10/17 22:56 Dose: Not Given - Exam General: Alert, Cooperative, No Acute Distress HEENT: Mucous Membr. Moist/[place] Neck: Trachea Midline, No JVD Lungs: Clear to Auscultation, Normal Respiratory Effort Cardiovascular: Regular Rate, Regular Rhythm GI/Abdominal Exam: Soft, Non-Tender, No Distention (Male) Exam: Deferred Back Exam: Normal Inspection, Decreased Range of Motion Extremities: Normal Inspection, Non-Tender, No Pedal Edema Skin: Warm, Dry, Intact Neurological: No New Focal Deficit Psy/Mental Status: Alert, Normal Affect, Normal Mood - Problem List & Annotations (1) Chest pain at rest SNOMED Code(s): 8655566 Code(s): R07.9 - CHEST PAIN, UNSPECIFIED Status: Acute Current Visit: Yes (2) Chest pain of uncertain etiology SNOMED Code(s): 21403263 Code(s): R07.89 - OTHER CHEST PAIN Status: Acute Priority: High Current Visit: No (3) Coronary arteriosclerosis, CAD SNOMED Code(s): 81525517 Code(s): I25.10 - ATHSCL HEART DISEASE OF [place] CORONARY ARTERY W/O ANG PCTRS Status: Acute Priority: High Current Visit: No Annotation/Comment: : Patient seen with chest pain history of severe coronary tube disease troponins negative BNP negative plan is to observe him overnight dual troponins 3 contact cardiology in the morning if indicated. (4) Asthma without status asthmaticus SNOMED Code(s): 71939027 Code(s): J45.909 - UNSPECIFIED ASTHMA, UNCOMPLICATED Status: Chronic Current Visit: No (5) COPD (chronic obstructive pulmonary disease) SNOMED Code(s): 34233806 Code(s): J44.9 - CHRONIC OBSTRUCTIVE PULMONARY DISEASE, UNSPECIFIED Status : Chronic Priority: Medium Current Visit: No Qualifiers: COPD type: emphysema Emphysema type: panlobular Qualified Code(s): J43.1 - Panlobular emphysema Annotation/Comment:: No recent fever or bronchitic-type symptoms (6) Chronic anxiety SNOMED Code(s): 080276232 Code(s): F41.9 - ANXIETY DISORDER, UNSPECIFIED Status: Chronic Current Visit: No (7) Chronic back pain SNOMED Code(s): 621626004 Code(s): M54.9 - DORSALGIA, UNSPECIFIED; G89.29 - OTHER CHRONIC PAIN Status : Chronic Priority: High Current Visit: No Annotation/Comment:: Acute exacerbation of his low back pain with good results with treatment in the emergency room as above. Work excuse provided. Topical care, sedation precautions, etc. discussed (8) Coronary artery disease SNOMED Code(s): 03996524 Code(s): I25.10 - ATHSCL HEART DISEASE OF [place] CORONARY ARTERY W/O ANG PCTRS Status: Chronic Priority: Medium Current Visit: No Qualifiers: Coronary Disease-Associated Artery/Lesion type: [place] artery [place] vs. transplanted heart: [place] heart Associated angina: without angina Qualified Code(s): I25.10 - Atherosclerotic heart disease of [place] coronary artery without angina pectoris Annotation/Comment:: No recent chest pain or anginal complaints (9) Gastroesophageal reflux disease with esophagitis SNOMED Code(s): 614792882 Code(s): K21.0 - GASTRO-ESOPHAGEAL REFLUX DISEASE WITH ESOPHAGITIS Status: Chronic Priority: Medium Current Visit: No Annotation/Comment:: Under good control with no change in current medical therapy (10) HTN, Benign essential hypertension SNOMED Code(s): 0873371 Code(s): I10 - ESSENTIAL (PRIMARY) HYPERTENSION Status: Chronic Priority : Medium Current Visit: No Annotation/Comment:: Blood Pressure mildly elevated secondary to colic type pain, however improved with adequate control during this visit (11) Hyperlipidemia SNOMED Code(s): 24778708 Code(s): E78.5 - HYPERLIPIDEMIA, UNSPECIFIED Status: Chronic Priority: Medium Current Visit: No Qualifiers: Hyperlipidemia type: mixed hyperlipidemia Qualified Code(s): E78.2 - Mixed hyperlipidemia Annotation/Comment:: Currently under therapy (12) Hypertension SNOMED Code(s): 95431950 Code(s): I10 - ESSENTIAL (PRIMARY) HYPERTENSION Status: Chronic Priority : Medium Current Visit: No Qualifiers: Hypertension type: essential hypertension Qualified Code(s): I10 - Essential (primary) hypertension Annotation/Comment:: Blood pressure somewhat elevated initially in the emergency room secondary to his pain with blood pressures normally under good control by his history. Patient denies any medication noncompliance (13) Hyperuricemia SNOMED Code(s): 80244984 Code(s): E79.0 - HYPERURICEMIA W/O SIGNS OF INFLAM ARTHRIT AND TOPHACEOUS DIS Status: Chronic Priority: Low Current Visit: No Annotation/Comment: : Newly diagnosed today-? (14) Migraine SNOMED Code(s): 03888094 Code(s): G43.909 - MIGRAINE, UNSP, NOT INTRACTABLE, WITHOUT STATUS MIGRAINOSUS Status: Chronic Current Visit: No Annotation/Comment:: Good response to IV therapy as above. No further additional medications especially in light of patient's previous history of narcotic abuse. Patient sleeping and symptom-free at time of discharge. No work excuse apparently needed (15) Mixed anxiety and depressive disorder SNOMED Code(s): 673846285 Code(s): F41.8 - OTHER SPECIFIED ANXIETY DISORDERS Status: Chronic Priority: Medium Current Visit: No Annotation/Comment:: Adequate control by his history (16) Moderate recurrent major depression SNOMED Code(s): 478276049 Code(s): F33.1 - MAJOR DEPRESSIVE DISORDER, RECURRENT, MODERATE Status: Chronic Current Visit: No (17) Osteoarthritis SNOMED Code(s): 723812667 Code(s): M19.90 - UNSPECIFIED OSTEOARTHRITIS, UNSPECIFIED SITE Status: Chronic Priority: Medium Current Visit: No Qualifiers: Osteoarthritis location: multiple joints Osteoarthritis type: primary Qualified Code(s): M15.0 - Primary generalized (osteo)arthritis Annotation/Comment:: Stable by history with history of hyperuricemia and polymyalgia rheumatica (18) Peptic reflux disease SNOMED Code(s): 07673973 Code(s): K21.9 - GASTRO-ESOPHAGEAL REFLUX DISEASE WITHOUT ESOPHAGITIS Status: Chronic Priority: Medium Current Visit: No Annotation/Comment:: Stable by history (19) Vitamin D deficiency SNOMED Code(s): 26713156 Code(s): E55.9 - VITAMIN D DEFICIENCY, UNSPECIFIED Status: Chronic Current Visit: No - Problem List Review Problem List Initiated/Reviewed/Updated: Yes - My Orders Last 24 Hours: My Active Orders 08/12/17 13:00 Acetaminophen [Tylenol] 650 mg PO Q4H PRN 08/12/17 17:02 Discontinue Telemetry Monitoring [Cardiac Monitoring Discontinue] [RC] Click to Edit Peripheral IV Discontinue [OM.PC] Routine 08/12/17 17:09 Ready for Discharge [RC] PER UNIT ROUTINE 08/18/17 08:00 Echo Comp wo Cont [US] Routine - Plan Plan:: 08/11/17 Alfredito Ko MD Still with some chest pain and now back pain. Nausea. Wanting phenergan. He was told his heart might be enlarged. Will order echocardiogram. 08/12/17 Alfredito Ko MD Feels better. Troponins negative. Home today. Echocardiogram as outpatient and follow up with [facility] cardiology.
--- NOTE | 2017-08-12 17:13 | PCM.DCSUM1 ---
Discharge Summary - Discharge Data Discharge Date: 08/12/17 Discharge Disposition: Home, Self-Care 01 Condition: Good - Discharge Diagnosis/Problem(s) (1) Chest pain at rest SNOMED Code(s): 4686655 ICD Code: R07.9 - CHEST PAIN, UNSPECIFIED Status: Acute Current Visit: Yes (2) Chest pain of uncertain etiology SNOMED Code(s): 52908806 ICD Code: R07.89 - OTHER CHEST PAIN Status: Acute Priority: High Current Visit: No (3) Coronary arteriosclerosis, CAD SNOMED Code(s): 51389669 ICD Code: I25.10 - ATHSCL HEART DISEASE OF [place] CORONARY ARTERY W/O ANG PCTRS Status: Acute Priority: High Current Visit: No Problem Details: Patient seen with chest pain history of severe coronary tube disease troponins negative BNP negative plan is to observe him overnight dual troponins 3 contact cardiology in the morning if indicated. (4) Asthma without status asthmaticus SNOMED Code(s): 61593267 ICD Code: J45.909 - UNSPECIFIED ASTHMA, UNCOMPLICATED Status: Chronic Current Visit: No (5) COPD (chronic obstructive pulmonary disease) SNOMED Code(s): 08812865 ICD Code: J44.9 - CHRONIC OBSTRUCTIVE PULMONARY DISEASE, UNSPECIFIED Status : Chronic Priority: Medium Current Visit: No Problem Details: No recent fever or bronchitic-type symptoms Qualifiers: COPD type: emphysema Emphysema type: panlobular Qualified Code(s): J43.1 - Panlobular emphysema (6) Chronic anxiety SNOMED Code(s): 548023821 ICD Code: F41.9 - ANXIETY DISORDER, UNSPECIFIED Status: Chronic Current Visit: No (7) Chronic back pain SNOMED Code(s): 217873917 ICD Code: M54.9 - DORSALGIA, UNSPECIFIED; G89.29 - OTHER CHRONIC PAIN Status: Chronic Priority: High Current Visit: No Problem Details: Acute exacerbation of his low back pain with good results with treatment in the emergency room as above. Work excuse provided. Topical care, sedation precautions, etc. discussed (8) Coronary artery disease SNOMED Code(s): 19998108 ICD Code: I25.10 - ATHSCL HEART DISEASE OF [place] CORONARY ARTERY W/O ANG PCTRS Status: Chronic Priority: Medium Current Visit: No Problem Details : No recent chest pain or anginal complaints Qualifiers: Coronary Disease-Associated Artery/Lesion type: [place] artery [place] vs. transplanted heart: [place] heart Associated angina: without angina Qualified Code(s): I25.10 - Atherosclerotic heart disease of [place] coronary artery without angina pectoris (9) Gastroesophageal reflux disease with esophagitis SNOMED Code(s): 766216895 ICD Code: K21.0 - GASTRO-ESOPHAGEAL REFLUX DISEASE WITH ESOPHAGITIS Status : Chronic Priority: Medium Current Visit: No Problem Details: Under good control with no change in current medical therapy (10) HTN, Benign essential hypertension SNOMED Code(s): 2063729 ICD Code: I10 - ESSENTIAL (PRIMARY) HYPERTENSION Status: Chronic Priority : Medium Current Visit: No Problem Details: Blood Pressure mildly elevated secondary to colic type pain, however improved with adequate control during this visit (11) Hyperlipidemia SNOMED Code(s): 53740155 ICD Code: E78.5 - HYPERLIPIDEMIA, UNSPECIFIED Status: Chronic Priority: Medium Current Visit: No Problem Details: Currently under therapy Qualifiers: Hyperlipidemia type: mixed hyperlipidemia Qualified Code(s): E78.2 - Mixed hyperlipidemia (12) Hypertension SNOMED Code(s): 19434534 ICD Code: I10 - ESSENTIAL (PRIMARY) HYPERTENSION Status: Chronic Priority : Medium Current Visit: No Problem Details: Blood pressure somewhat elevated initially in the emergency room secondary to his pain with blood pressures normally under good control by his history. Patient denies any medication noncompliance Qualifiers: Hypertension type: essential hypertension Qualified Code(s): I10 - Essential (primary) hypertension (13) Hyperuricemia SNOMED Code(s): 30995629 ICD Code: E79.0 - HYPERURICEMIA W/O SIGNS OF INFLAM ARTHRIT AND TOPHACEOUS DIS Status: Chronic Priority: Low Current Visit: No Problem Details: Newly diagnosed today-? (14) Migraine SNOMED Code(s): 86371851 ICD Code: G43.909 - MIGRAINE, UNSP, NOT INTRACTABLE, WITHOUT STATUS MIGRAINOSUS Status: Chronic Current Visit: No Problem Details: Good response to IV therapy as above. No further additional medications especially in light of patient's previous history of narcotic abuse. Patient sleeping and symptom-free at time of discharge. No work excuse apparently needed (15) Mixed anxiety and depressive disorder SNOMED Code(s): 597811918 ICD Code: F41.8 - OTHER SPECIFIED ANXIETY DISORDERS Status: Chronic Priority: Medium Current Visit: No Problem Details: Adequate control by his history (16) Moderate recurrent major depression SNOMED Code(s): 206659374 ICD Code: F33.1 - MAJOR DEPRESSIVE DISORDER, RECURRENT, MODERATE Status: Chronic Current Visit: No (17) Osteoarthritis SNOMED Code(s): 140867885 ICD Code: M19.90 - UNSPECIFIED OSTEOARTHRITIS, UNSPECIFIED SITE Status: Chronic Priority: Medium Current Visit: No Problem Details: Stable by history with history of hyperuricemia and polymyalgia rheumatica Qualifiers: Osteoarthritis location: multiple joints Osteoarthritis type: primary Qualified Code(s): M15.0 - Primary generalized (osteo)arthritis (18) Peptic reflux disease SNOMED Code(s): 21178584 ICD Code: K21.9 - GASTRO-ESOPHAGEAL REFLUX DISEASE WITHOUT ESOPHAGITIS Status: Chronic Priority: Medium Current Visit: No Problem Details: Stable by history (19) Vitamin D deficiency SNOMED Code(s): 88821416 ICD Code: E55.9 - VITAMIN D DEFICIENCY, UNSPECIFIED Status: Chronic Current Visit: No - Patient Instructions Diet: Heart Healthy Diet Activity: As Tolerated Driving: May Drive Today Showering/Bathing: May Shower Other/Special Instructions: Echocardiogram next Thursday08/18/17 at the [facility] in [place]. The hospital will call you with the time. Follow up with director semiconductor at [facility]. We will try to get you an appointment with Dr. Beal. - Discharge Plan Home Medications: Home Meds Baclofen 10 mg PO QID PRN 06/13/13 [History] Metoprolol Tartrate [Lopressor] 100 mg PO Q12H 06/13/13 [History] Pantoprazole Sodium 40 mg PO QAM 06/13/13 [History] clonazePAM [Clonazepam] 4 mg PO BEDTIME 06/13/13 [History] traZODone HCl [Trazodone HCl] 2 tab PO BEDTIME 06/13/13 [History] Prasugrel [Effient] 10 mg PO QAM 09/12/13 [History] Cholecalciferol (Vitamin D3) [Vitamin D3] 400 units PO QAM 03/12/15 [History] Aspirin 325 mg PO QAM 07/03/15 [History] Evolocumab [Repatha Sureclick] 140 mg SQ ASDIRECTED 05/06/16 [History] Nitroglycerin [IJP: Nitroglycerin] 0.4 mg SL Q5M PRN tablet, sublingual [Rx] Forms: ED Department Discharge Referrals: PCP,Unknown [Ordering Only Provider] - - Discharge Summary/Plan Comment DC Time >30 min.: No - Patient Data Vitals - Most Recent: Last Vital Signs Temp 98.3 F 08/12/17 15:57 Pulse 84 08/12/17 15:57 Resp 18 08/12/17 15:57 BP 143/89 H 08/12/17 15:57 Pulse Ox 97 08/12/17 15:57 Weight - Most Recent: 196 lb 9.591 oz I&O - Last 24 hours: Intake & Output 08/12/17 08/12/17 08/12/17 06:59 14:59 22:59 Intake Total 720 Balance 720 Lab Results - Last 24 hrs: Laboratory Results - last 24 hr 08/12/17 08/12/17 Range/Units 09:02 09:02 WBC 8.6 (4.0-10.2) K/uL RBC 5.44 H (4.33-5.41) M/uL Hgb 17.3 H (13.1-16.8) g/dL Hct 50.1 H (39.0-49.0) % MCV 92.1 (84.0-98.0) fL MCH 31.8 (28.2-33.3) pg MCHC 34.5 (31.7-36.0) g/dL RDW 13.8 (11.2-14.1) % Plt Count 155 (150-350) K/uL Neut % (Auto) 67.8 (45.0-80.0) % Lymph % (Auto) 18.4 (10.0-50.0) % [place] % (Auto) 11.4 (2.0-14.0) % Eos % (Auto) 1.9 (0.0-5.0) % Baso % (Auto) 0.5 (0.0-2.0) % Neut # (Auto) 5.82 (1.40-7.00) K/uL Lymph # (Auto) 1.58 (0.50-3.50) K/uL [place] # (Auto) 0.98 (0.00-1.00) K/uL Eos # (Auto) 0.16 (0.00-0.50) K/uL Baso # (Auto) 0.04 (0.00-0.20) K/uL Sodium 137 (136-145) mmol/L Potassium 3.9 (3.5-5.1) mmol/L Chloride 103 (98-107) mmol/L Carbon Dioxide 27.0 (21.0-32.0) mmol/L BUN 23 H (7-18) mg/dL Creatinine 0.97 (0.51-1.17) mg/dL Est Cr Clr Drug Dosing 79.88 mL/min Estimated GFR (MDRD) > 60 mL/min Glucose 119 H (74-106) mg/dL Calcium 9.1 (8.5-10.1) mg/dL Total Bilirubin 1.1 H (0.2-1.0) mg/dL AST 58 H (15-37) U/L ALT 56 (12-78) U/L Alkaline Phosphatase 91 (46-116) IU/L Troponin I 0.000 (0.000-0.056) ng/mL Total Protein 7.5 (6.4-8.2) g/dL Albumin 3.7 (3.4-5.0) g/dL Med Orders - Current: Current Medications Acetaminophen (Tylenol) 650 mg PO Q4H PRN PRN Reason: Pain/Fever Last Admin: 08/12/17 13:18 Dose: 650 mg Cholecalciferol (Vitamin D3) 400 units PO [facility] Last Admin: 08/12/17 07:31 Dose: 400 units Metoprolol Tartrate (Lopressor) 100 mg PO BID [facility]END[facility] TO [facility] Last Admin: 08/12/17 08:36 Dose: Not Given Morphine Sulfate (Morphine) 2 mg IVPUSH Q1H PRN PRN Reason: Chest Pain Last Admin: 08/11/17 19:50 Dose: 2 mg Nitroglycerin (Nitrostat) 0.4 mg SL Q5M PRN PRN Reason: Chest Pain Non-Formulary Medication (Prasugrel [Effient]) 10 mg PO [facility] Last Admin: 08/12/17 07:35 Dose: Not Given Pantoprazole Sodium (Protonix) 40 mg PO [facility] Last Admin: 08/12/17 07:31 Dose: 40 mg Promethazine HCl (Phenergan) 25 mg IM Q6H PRN PRN Reason: Nausea/Vomiting Last Admin: 08/12/17 04:48 Dose: 25 mg Sodium Chloride (Saline Flush) 10 ml FLUSH ASDIRECTED PRN PRN Reason: Keep Vein Open Last Admin: 08/12/17 07:32 Dose: 10 ml Trazodone HCl (Trazodone) 100 mg PO BEDTIME [facility]END[facility] TO [facility] Last Admin: 08/11/17 19:51 Dose: 100 mg Discontinued Medications Sodium Chloride (Normal Saline) 1,000 mls @ as directed IV .STK-MED ONE Stop: 08/10/17 20:10 Metoprolol Tartrate (Lopressor) 100 mg PO BID [facility] TO [facility] Morphine Sulfate (Morphine) 2 mg IVPUSH ONETIME ONE Stop: 08/10/17 20:14 Last Admin: 08/10/17 20:20 Dose: 2 mg Morphine Sulfate (Morphine) 2 mg IVPUSH ONETIME ONE Stop: 08/10/17 20:29 Last Admin: 08/10/17 20:33 Dose: 2 mg Nitroglycerin (Nitrostat) Confirm Administered Dose 0.4 mg .ROUTE .STK-MED ONE Stop: 08/10/17 19:52 Last Admin: 08/10/17 20:21 Dose: Not Given Nitroglycerin (Nitrostat) 0.4 mg .ROUTE .STK-MED ONE Stop: 08/10/17 22:01 Nitroglycerin (Nitrostat) 0.4 mg .ROUTE .STK-MED ONE Stop: 08/10/17 22:01 Nitroglycerin (Nitrostat) 0.4 mg .ROUTE .STK-MED ONE Stop: 08/10/17 22:01 Non-Formulary Medication (Metoprolol Tartrate) 100 mg PO Q12H PENDING SALE TO [facility] Last Admin: 08/10/17 22:56 Dose: Not Given *Q Meaningful Use (DIS) - VTE *Q VTE Criteria *Q: - Stroke *Q Stroke Criteria *Q: - AMI *Q AMI Criteria *Q:
== END 2017-08-12 17:55 | disposition home or self-care (01) ==
LOC: LL.ED 19:44 → LL.MS 21:00
PROVIDERS: ADMIT Family Medicine; ATTEND Family Medicine
DX: R07.89 Other chest pain (principal); I25.10 Atherosclerotic heart disease of native coronary artery without angina pectoris; J45.909 Unspecified asthma, uncomplicated; J43.1 Panlobular emphysema; F41.9 Anxiety disorder, unspecified; M54.9 Dorsalgia, unspecified; I10 Essential (primary) hypertension; E78.5 Hyperlipidemia, unspecified; E79.0 Hyperuricemia without signs of inflammatory arthritis and tophaceous disease; G43.909 Migraine, unspecified, not intractable, without status migrainosus; F33.1 Major depressive disorder, recurrent, moderate; M15.0 Primary generalized (osteo)arthritis; K21.9 Gastro-esophageal reflux disease without esophagitis; E55.9 Vitamin D deficiency, unspecified; Z79.82 Long term (current) use of aspirin; Z79.899 Other long term (current) drug therapy; Z88.0 Allergy status to penicillin; Z88.1 Allergy status to other antibiotic agents; Z88.8 Allergy status to other drugs, medicaments and biological substances; Z91.041 Radiographic dye allergy status; Z87.891 Personal history of nicotine dependence
CPT/HCPCS: 36415; 71045; 80053; 82550; 82553; 83605; 83735; 83880; 84484; 85025; 85379; 85610; 85730; 93005; 96361; 96374; 99285; A9270-GY; J2270; J2550; J7030; J7050

== ENCOUNTER 2017-09-30 19:26 | Emergency (ER) | payer BC ==
[2017-09-30] MEDS ORDERED: Sodium Chloride 0.9% 10 ML Syringe FLUSH PRN (19:34)
[2017-09-30] MEDS: Promethazine 25 MG/ML SDV IM ONE (20:02)
[2017-09-30] MEDS: Ondansetron 4 MG/2 ML SDV IVPUSH ONE (20:34)
[2017-09-30 20:57] LABS: CHLORIDE,CL 104 mmol/L (98-107)
[2017-09-30 21:02] LABS: SODIUM,NA 135 mmol/L (136-145)
[2017-09-30] MEDS: Sodium Chloride 0.9% 1,000 ML IV ONE (21:31)
--- NOTE | 2017-09-30 21:50 | EDM.PDOC ---
ED HPI GENERAL MEDICAL PROBLEM - General Chief Complaint: Gastrointestinal Problem Stated Complaint: chills, nausea, vomiting Time Seen by Provider: 09/30/17 20:00 Source of Information: Reports: Patient History Limitations: Reports: No Limitations - History of Present Illness INITIAL COMMENTS - FREE TEXT/NARRATIVE: Patient comes to ER complaining of sudden onset feeling chilled followed by nausea and vomiting. This started while he was returning from [facility] after having an angiogram and stent placement. By the time he arrived in the ER , chills had resolved. Patient still had nausea/emesis and some abdominal discomfort. No bowel changes. No fevers. No other acute changes. Procedure performed by (mid LAD stent) Abdomen Pain Score (Numeric/FACES): 4 - Related Data Allergies Allergy/AdvReac Type Severity Reaction Status Date / Time clarithromycin [From Biaxin] Allergy Rash Verified 09/30/17 19:31 Gadolinium-Containing Allergy Hives Verified 09/30/17 19:31 Contrast Medi gadoteridol [From Prohance] Allergy Hives Verified 09/30/17 19:31 Iodinated Contrast- Oral and Allergy Hives Verified 09/30/17 19:31 IV Dye ondansetron HCl Allergy Rash Verified 09/30/17 19:31 [From Zofran (as hydrochloride)] Penicillins Allergy Rash Verified 09/30/17 19:31 [id number]-[id number]-Tjl Reductase Allergy rabdomyalisis, Verified 09/30/17 19:31 Inhibitor muscle aches Home Meds: Home Meds Baclofen 10 mg PO QID PRN 06/13/13 [History] Metoprolol Tartrate [Lopressor] 100 mg PO Q12H 06/13/13 [History] Pantoprazole Sodium 40 mg PO QAM 06/13/13 [History] clonazePAM [Clonazepam] 4 mg PO BEDTIME 06/13/13 [History] traZODone HCl [Trazodone HCl] 2 tab PO BEDTIME 06/13/13 [History] Prasugrel [Effient] 10 mg PO QAM 09/12/13 [History] Cholecalciferol (Vitamin D3) [Vitamin D3] 400 units PO QAM 03/12/15 [History] Aspirin 325 mg PO QAM 07/03/15 [History] Evolocumab [Repatha Sureclick] 140 mg SQ ASDIRECTED 05/06/16 [History] Nitroglycerin [IJP: Nitroglycerin] 0.4 mg SL Q5M PRN tablet, sublingual [Rx] Past Medical History HEENT History: Reports: Allergic Rhinitis, Impaired Vision, Other (See Below) Other HEENT History: Glasses Cardiovascular History: Reports: Angina, CAD, High Cholesterol, Hypertension, PTCA, Stents, Syncope, Other (See Below) Other Cardiovascular History: stents x10 with most recent procedures as below, history of recurrent syncope, dyslipidemia Respiratory History: Reports: COPD, Other (See Below) Other Respiratory History: COPD by chest x-ray Gastrointestinal History: Reports: Cholelithiasis, GERD Genitourinary History: Reports: Renal Calculus, Other (See Below) Other Genitourinary History: History of hyperurcemia with recurrent right-sided urolithiasis with last episode about 2004, bilateral epididymal cysts left greater than right Musculoskeletal History: Reports: Arthritis, Back Pain, Chronic, Fracture, Gout , Osteoarthritis, Osteoporosis, Other (See Below) Other Musculoskeletal History: Left clavicular fracture and left scapular fracture in about 2007, right sided rib fractures x3 in about 2008, hyperuricemia diagnosed on 05/23/14 with no previous history of gout attacks, history of previous spinal fusion as below with degenerative disc disease in the L2-L5 region by MRI as below, polymyalgia rheumatica, left talar subchondral cyst Neurological History: Reports: Concussion, Headaches, Chronic, Head Trauma, Migraines, Other (See Below) Other Neuro History: Borderline cerebral atrophy by CT scan of the head on , previous head concussion in about 2008 Psychiatric History: Reports: Addiction, Anxiety, Depression, Other (See Below) Other Psychiatric History: Chronic Klonopin and trazodone use with previous of chronic narcotic use/seeking behavior secondary to his osteoarthritis Endocrine/Metabolic History: Reports: Osteoporosis, Vitamin D Deficiency Hematologic History: Reports: Polycythemia, Other (See Below) Other Hematologic History: Polycythemia requiring phlebotomies in the past Immunologic History: Reports: None Oncologic (Cancer) History: Reports: None Dermatologic History: Reports: None - Infectious Disease History Infectious Disease History: Reports: Chicken Pox - Past Surgical History Head Surgeries/Procedures: Reports: None HEENT Surgical History: Reports: Oral Surgery, Tonsillectomy, Other (See Below) Cardiovascular Surgical History: Reports: Coronary Artery Bypass, Coronary Artery Stent, Other (See Below) GI Surgical History: Reports: Appendectomy, Cholecystectomy, Colonoscopy, EGD, Hernia, Inguinal, Other (See Below) Male Surgical History: Reports: Circumcision, Renal Calculus, Other (See Below) Neurological Surgical History: Reports: Lumbar Spine, Spinal Fusion, Other (See Below) Musculoskeletal Surgical History: Reports: Arthroscopic Procedure, Other (See Below) - Past Imaging History Past Imaging History: Reports: Angiography, CAT Scan, DEXA Scan, HIDA Scan, MRI , Stress Testing, Ultrasound Social & Family History - Family History HEENT: Reports: Allergic Rhinitis, Other (See Below) Other HEENT Family History: 4 brothers with allergic rhinitis Cardiac: Reports: Afib, Arrhythmia, Bypass, CAD, Heart Failure, High Cholesterol , HI, Other (See Below) Other Cardiac Family History: Father with fatal CHF at age 64 with father having an HI and CABG x4 at age 45, brother with atrial fibrillation, parents with hyperlipidemia, father with hypertension Respiratory: Reports: COPD, Other (See Below) Other Respiratory Family Hisory: Father with COPD with history of tobacco use GI: Reports: Diverticulosis, Other (See Below) Other GI Family History: Brother with diverticulosis : Reports: Renal Calculus, Renal Disease/Insufficiency, Other (See Below) Other Family History: Father with urolithiasis, mother with fatal renal disease/renal failure at about age 82 OBGYN: Reports: None Musculoskeletal: Reports: Arthritis, Osteoarthritis, Other (See Below) Other Musculoskeletal Family History: Mother with osteoarthritis Neurological: Reports: None Psychiatric: Reports: None Endocrine/Metabolic: Reports: Diabetes, Type I, Diabetes, type II, IDDM, Other ( See Below) Other Endocrine/Metabolic Family History: Father and niece with type I IDDM both in their 20s, sister with IDDM, mother with AODM Hematologic: Reports: Anemia, Other (See Below) Other Hematologic Family History: Brother with history of lower GI bleed secondary to diverticulosis Immunologic: Reports: None Dermatologic: Reports: None Oncologic: Reports: None - Tobacco Use Smoking Status *Q: Former Smoker Years of Tobacco use: 23 Packs/Tins Daily: 1.0 Used Tobacco, but Quit: Yes Month/Year Tobacco Last Used: Between ages 15 and 38 with average use of 1 pack per day Second Hand Smoke Exposure: No - Caffeine Use Caffeine Use: Reports: Coffee Caffeine Use Comment: 2 pops a day and 2 cups of coffee a day - Alcohol Use Days Per Week of Alcohol Use: 0 (No previous DWIs, problems with alcohol abuse, etc.) Number of Drinks Per Day: 0 Total Drinks Per Week: 0 - Recreational Drug Use Recreational Drug Use: No Drug Use in Last 12 Months: No Recreational Drug Type: Denies: Amphetamines (Speed), Cocaine, Heroin, Inhalants (Glues, Solvents, Aerosols), LSD (Acid), Marijuana/Hashish, Methamphetamine, Morphine Recreational Drug Use Frequency: Daily - Living Situation & Occupation Living situation: Reports: , , with Spouse, with Family Occupation: Employed ED ROS GENERAL - Review of Systems Review Of Systems: See Below Constitutional: Reports: Chills, Decreased Appetite. Denies: Fever, Weakness, Fatigue, Night Sweats, Diaphoresis HEENT: Reports: No Symptoms Respiratory: Reports: No Symptoms Cardiovascular: Reports: No Symptoms. Denies: Chest Pain, Lightheadedness, Palpitations, Syncope GI/Abdominal: Reports: Abdominal Pain, Decreased Appetite, Nausea, Vomiting. Denies: Black Stool, Constipation, Diarrhea, Distension, Hematemesis : Reports: No Symptoms Musculoskeletal: Reports: No Symptoms Skin: Reports: No Symptoms, Other (Percutaneous angiogram right arm) Neurological: Reports: No Symptoms Psychiatric: Reports: No Symptoms Hematologic/Lymphatic: Reports: No Symptoms ED EXAM, GI/ABD - Physical Exam Exam: See Below Exam Limited By: No Limitations General Appearance: Alert, WD/WN, No Apparent Distress, Mild Distress (emesis) Eyes: Bilateral: Normal Appearance, EOMI Ears: Normal External Exam Nose: No: Nasal Deformity, Nasal Swelling, Nasal Drainage Throat/Mouth: Normal Lips, Normal Voice, No Airway Compromise Head: Atraumatic, Normocephalic Neck: Normal Inspection, Supple, Non-Tender, Full Range of Motion Respiratory/Chest: No Respiratory Distress, Lungs Clear, Normal Breath Sounds, No Accessory Muscle Use Cardiovascular: Regular Rate, Rhythm, No Edema, No Murmur GI/Abdominal Exam: Soft, Abnormal Bowel Sounds (mild decrease all quadrants), Other (no tenderness elicited with palpation of all 4 quadrants. ) (Male) Exam: Deferred Rectal (Males) Exam: Deferred Back Exam: Normal Inspection. No: CVA Tenderness (L), CVA Tenderness (R) Extremities: Normal Inspection, Non-Tender, Normal Capillary Refill Neurological: Alert, Oriented, CN II-XII Intact, Normal Cognition, Normal Gait, No Motor/Sensory Deficits Psychiatric: Normal Affect, Normal Mood Skin Exam: Warm, Intact, Normal Color EKG INTERPRETATION EKG Date: 09/30/17 Time: 19:39 Rhythm: NSR Rate (Beats/Min): 87 [place]: Normal P-Wave: Present QRS: Normal ST-T: Normal QT: Normal Comparison: No Change (overall no change except for higher rate today) Course - Vital Signs Last Recorded V/S: Last Vital Signs Temp 36.7 C 09/30/17 19:28 Pulse 81 09/30/17 23:30 Resp 21 H 09/30/17 23:30 BP 151/90 H 09/30/17 23:30 Pulse Ox 93 L 09/30/17 23:30 - Orders/Labs/Meds Labs: Laboratory Tests 09/30/17 09/30/17 Range/Units 20:33 21:02 WBC 16.4 H (4.0-10.2) K/uL RBC 5.72 H (4.33-5.41) M/uL Hgb 18.3 H* (13.1-16.8) g/dL Hct 50.7 H (39.0-49.0) % MCV 88.6 D (84.0-98.0) fL MCH 32.0 (28.2-33.3) pg MCHC 36.1 H (31.7-36.0) g/dL RDW 13.4 (11.2-14.1) % Plt Count 184 (150-350) K/uL Neut % (Auto) 81.0 H (45.0-80.0) % Lymph % (Auto) 8.7 L (10.0-50.0) % [place] % (Auto) 9.8 (2.0-14.0) % Eos % (Auto) 0.4 (0.0-5.0) % Baso % (Auto) 0.1 (0.0-2.0) % Neut # (Auto) 13.30 H (1.40-7.00) K/uL Lymph # (Auto) 1.42 (0.50-3.50) K/uL [place] # (Auto) 1.60 H (0.00-1.00) K/uL Eos # (Auto) 0.07 (0.00-0.50) K/uL Baso # (Auto) 0.02 (0.00-0.20) K/uL Sodium 135 L (136-145) mmol/L Potassium 5.5 H D (3.5-5.1) mmol/L Chloride 104 (98-107) mmol/L Carbon Dioxide 22.1 (21.0-32.0) mmol/L BUN 26 H (7-18) mg/dL Creatinine 0.78 (0.51-1.17) mg/dL Est Cr Clr Drug Dosing 98.84 mL/min Estimated GFR (MDRD) > 60 mL/min Glucose 134 H (74-106) mg/dL Calcium 9.2 (8.5-10.1) mg/dL Total Bilirubin 0.9 (0.2-1.0) mg/dL AST 46 H (15-37) U/L ALT 37 (12-78) U/L Alkaline Phosphatase 99 (46-116) IU/L Troponin I 0.003 (0.000-0.056) ng/mL Total Protein 8.0 (6.4-8.2) g/dL Albumin 3.6 (3.4-5.0) g/dL Meds: Medications Discontinued Medications Generic Name Dose Route Start Last Admin Trade Name Freq PRN Reason Stop Dose Admin Acetaminophen 650 mg 09/30/17 21:49 09/30/17 22:01 Tylenol PO 09/30/17 21:50 650 mg NOW ONE Administration Sodium Chloride 1,000 mls @ 999 mls/hr 09/30/17 21:28 09/30/17 21:55 Normal Saline IV 09/30/17 22:28 999 mls/hr .BOLUS ONE Infusion Ondansetron HCl 4 mg 09/30/17 19:34 09/30/17 20:34 Zofran IVPUSH 09/30/17 19:35 Not Given ONETIME ONE Promethazine HCl 25 mg 09/30/17 19:40 09/30/17 20:02 Phenergan IM 09/30/17 19:41 25 mg ONETIME ONE Administration Sodium Chloride 10 ml 09/30/17 19:34 Saline Flush FLUSH ASDIRECTED PRN Keep Vein Open - Re-Assessments/Exams Free Text/Narrative Re-Assessment/Exam: 09/30/17 21:53 Patient improved with phenergan IM. Very difficult to get labs as well as place IV. Labs performed via fingerstick. Hgb 18. K 5.5 (suspect hemolyzed specimen). Normal EKG, negative Troponin. WBC elevated at 16. May reflect demargination due to viral infection vs stress of nausea/emesis. Differential includes gastroenteritis as well as medication side effects. Fluids given. Call placed to at [place]. Discussed patient/complaints /labs. suspects nausea and emesis could very well be related to medications given to pt today during procedures at [place]. He did not feel that patient needed to return to [place]. Patient at this time would like to be discharged home after IV fluids are given. We did discuss the option of overnight observation. Patient at this time does not wish to stay here. Precautions reviewed prior to discharge. Pt to return to ER if he has chest pain/worsening problems. Recheck of potassium recommended tomorrow. Departure - Departure Time of Disposition: 22:45 Disposition: Home, Self-Care 01 Condition: Good Clinical Impression: Status post coronary artery stent placement, Dehydration Nausea & vomiting Qualifiers: Vomiting type: unspecified Vomiting Intractability: non-intractable Qualified Code(s): R11.2 - Nausea with vomiting, unspecified - Discharge Information Referrals: Sheets-Sandra Ko MD [Primary Care Provider] - Forms: ED Department Discharge Additional Instructions: Home, rest. Follow up as needed if you have worsening problems/chest pain, etc. Drink plenty of water. Stay hydrated! Suspect that you most likely either reacted to some of the medicines you received during your procedure today, or possibly have a viral GI infection. Have your potassium rechecked tomorrow. Call [facility] to arrange this. It was elevated tonight but that is likely due to using the blood from a fingerstick.
[2017-09-30] MEDS: Acetaminophen 325 MG Tab PO ONE (22:01)
[2017-09-30 23:31] VITALS: BP 151/90
== END 2017-09-30 22:57 | disposition home or self-care (01) ==
LOC: LL.ED 19:26
DX: E86.0 Dehydration (principal); R11.2 Nausea with vomiting, unspecified; E10.9 Type 1 diabetes mellitus without complications; I25.10 Atherosclerotic heart disease of native coronary artery without angina pectoris; E78.00 Pure hypercholesterolemia, unspecified; I10 Essential (primary) hypertension; J44.9 Chronic obstructive pulmonary disease, unspecified; Z88.1 Allergy status to other antibiotic agents; Z88.8 Allergy status to other drugs, medicaments and biological substances; Z88.0 Allergy status to penicillin; Z79.899 Other long term (current) drug therapy; Z87.442 Personal history of urinary calculi; Z90.49 Acquired absence of other specified parts of digestive tract; Z87.891 Personal history of nicotine dependence; Z95.5 Presence of coronary angioplasty implant and graft
CPT/HCPCS: 36415; 80053; 84484; 85025; 93005; 96360; 96372; 99284; A9270-GY; J2550; J7030

== ENCOUNTER 2017-12-22 13:12 | Inpatient (IN) | payer BC ==
[2017-12-22] MEDS ORDERED: Lactated Ringers 1,000 ML IV ONE (13:28)
--- NOTE | 2017-12-22 13:28 | EDM.PDOC ---
ED HPI GENERAL MEDICAL PROBLEM - General Chief Complaint: General Stated Complaint: fever, chills, lumbar pain Time Seen by Provider: 12/22/17 13:20 Source of Information: Reports: Patient, Old Records ([facility] chart/EMR), Other (Telephone consultation with regular provider, Gifty Sena PA-C, at [facility] [place]. Limited records from [facility] [place].) History Limitations: Reports: No Limitations - History of Present Illness INITIAL COMMENTS - FREE TEXT/NARRATIVE: The patient was brought to the emergency room via wheelchair from [facility] [place] for further evaluation in the emergency room of 2-3 day history of nonspecific fever , chills, and arthralgias including the left hip and back. He had a fever of 103.5 2 days ago with no known exposure to infection, food poisoning, etc. The patient did take 1000 mg of Tylenol at about 9 AM this morning. He has had some nausea without emesis with no excessive heat exposure, etc. The patient did have a normal bowel movement earlier this morning. Note some anorexia with decreased oral and fluid intake during the last couple of days. No recent history of abdominal pain, heartburn, diarrhea, melena, gross hematochezia, or any food intolerance, including fatty foods, etc.. He denies any gross hematuria , colic, or other UTI symptoms. The patient denies any chest pain/pressure, heart flutter, dizziness, orthostasis, orthopnea, diaphoresis, paresthesias, recent decreased exercise tolerance, or any other anginal-type symptoms. The patient also denies any recent cough, wheezing, dyspnea, etc.. Onset: Gradual Onset Date: 12/20/17 Onset Time: 00:00 Duration: Constant Location: Reports: Back, Lower Extremity, Left, Generalized. Denies: Head, Face , Neck, Chest, Abdomen, Upper Extremity, Left, Upper Extremity, Right, Lower Extremity, Right, Radiates to Quality: Reports: Ache, Same as Previous Episode Severity: Severe Improves with: Reports: None Worsens with: Reports: None Context: Reports: Other (As above). Denies: Sick Contact Associated Symptoms: Reports: Fever/Chills, Loss of Appetite, Nausea/Vomiting ( No emesis). Denies: Confusion, Chest Pain, Cough, Diaphoresis, Headaches, Malaise, Seizure, Shortness of Breath, Syncope Treatments PRESS LEADER: Reports: Acetaminophen Lumbar/bilat hip Pain Score (Numeric/FACES): 10 - Related Data Allergies Allergy/AdvReac Type Severity Reaction Status Date / Time clarithromycin [From Biaxin] Allergy Rash Verified 09/30/17 19:31 Gadolinium-Containing Allergy Hives Verified 09/30/17 19:31 Contrast Medi gadoteridol [From Prohance] Allergy Hives Verified 09/30/17 19:31 Iodinated Contrast- Oral and Allergy Hives Verified 09/30/17 19:31 IV Dye ondansetron HCl Allergy Rash Verified 09/30/17 19:31 [From Zofran (as hydrochloride)] Penicillins Allergy Rash Verified 09/30/17 19:31 Npqcrkt-Rys-Tii Reductase Allergy rabdomyalisis, Verified 09/30/17 19:31 Inhibitor muscle aches Home Meds: Home Meds Baclofen 10 mg PO QID PRN 06/13/13 [History] Metoprolol Tartrate [Lopressor] 100 mg PO Q12H 06/13/13 [History] Pantoprazole Sodium 40 mg PO QAM 06/13/13 [History] clonazePAM [Clonazepam] 4 mg PO BEDTIME 06/13/13 [History] traZODone HCl [Trazodone HCl] 2 tab PO BEDTIME 06/13/13 [History] Prasugrel [Effient] 10 mg PO QAM 09/12/13 [History] Cholecalciferol (Vitamin D3) [Vitamin D3] 400 units PO QAM 03/12/15 [History] Aspirin 325 mg PO QAM 07/03/15 [History] Evolocumab [Repatha Sureclick] 140 mg SQ ASDIRECTED 05/06/16 [History] Nitroglycerin [IJP: Nitroglycerin] 0.4 mg SL Q5M PRN tablet, sublingual [Rx] Cefuroxime Axetil [Ceftin] 500 mg PO BID 12/22/17 [History] Fluticasone Propionate [Flonase Allergy Relief] 1 spray NS BID PRN 12/22/17 [ History] Promethazine [Phenergan] 25 mg IJ ASDIRECTED PRN 12/22/17 [History] Past Medical History HEENT History: Reports: Allergic Rhinitis, Impaired Vision, Other (See Below). Denies: Cataract, Glaucoma, Hard of Hearing, Macular Degeneration, Retinal Detachment Other HEENT History: He wears glasses. Cardiovascular History: Reports: Angina, CAD, High Cholesterol, Hypertension, RI , PTCA, Stents, Syncope, Other (See Below). Denies: Afib, Aneurysm, Arrhythmia , Blood Clots/VTE/DVT, Heart Failure, Heart Murmur, PVD Other Cardiovascular History: stents x10 with most recent procedures as below, history of recurrent syncope, dyslipidemia Respiratory History: Reports: Bronchitis, Recurrent, COPD, Intubation, Previous , Other (See Below). Denies: Asthma, Intubation, Difficult, PE, Pneumothorax Other Respiratory History: COPD by chest x-ray Gastrointestinal History: Reports: Cholelithiasis, GERD, Other (See Below). Denies: Celiac Disease, Chronic Constipation, Chronic Diarrhea, Colon Polyp, Diverticulosis, Fecal Incontinence, Gastritis, GI Bleed, Hepatitis, Inflammatory Bowel Disease, Irritable Bowel Syndrome, Jaundice, Pancreatitis, PUD Other Gastrointestinal History: Fatty liver. Genitourinary History: Reports: Renal Calculus, Other (See Below). Denies: Acute Renal Failure, BPH, Chronic Renal Insuffiency, Hydronephrosis, STD, Urinary Incontinence, UTI, Recurrent Other Genitourinary History: History of hyperurcemia with recurrent right-sided urolithiasis with last episode about 2004, bilateral epididymal cysts left greater than right Musculoskeletal History: Reports: Arthritis, Back Pain, Chronic, Fracture, Gout , Neck Pain, Chronic, Osteoarthritis, Osteoporosis, Other (See Below). Denies: RA, SLE Other Musculoskeletal History: Left clavicular fracture and left scapular fracture in about 2007, right sided rib fractures x3 in about 2008, left-sided 12th rib fracture, hyperuricemia diagnosed on 05/23/14 with no previous history of gout attacks, history of previous spinal fusion as below with degenerative disc disease in the L2-L5 region by MRI as below, polymyalgia rheumatica, left talar subchondral cyst Neurological History: Reports: Concussion, Headaches, Chronic, Head Trauma, Migraines, Other (See Below). Denies: Alzheimers Disease, Cerebral Aneurysms, CVA, MS, Parkinson's, Seizure, TIA Other Neuro History: Borderline cerebral atrophy by CT scan of the head on , previous head concussion in about 2008 Psychiatric History: Reports: Addiction, Anxiety, Depression, Other (See Below) . Denies: Abuse, Victim of, ADD, ADHD, Dementia, Psych Hospitalization(s), PTSD , Suicide Attempt, Suicidal Ideation Other Psychiatric History: Chronic Klonopin and trazodone use with previous of chronic narcotic use/seeking behavior secondary to his osteoarthritis Endocrine/Metabolic History: Reports: Obesity/BMI 30+, Osteoporosis, Vitamin D Deficiency. Denies: Diabetes, Type I, Diabetes, Type II, Diabetes Mellitus, Type 3c, Hypothyroidism, IDDM Hematologic History: Reports: Polycythemia, Other (See Below). Denies: Anemia, Blood Transfusion(s), Iron Deficiency Other Hematologic History: Polycythemia requiring phlebotomies in the past Immunologic History: Reports: None. Denies: AIDS, HIV, SLE Oncologic (Cancer) History: Reports: None. Denies: Basal Cell Carcinoma, Colon , Hodgkin's Lymphoma, Leukemia, Lymphoma, Malignant Melanoma, Non-Hodgkin's Lymphoma, Prostate, Squamous Cell Carcinoma Dermatologic History: Reports: None. Denies: Eczema, Psoriasis - Infectious Disease History Infectious Disease History: Reports: Chicken Pox. Denies: C-Difficile, CRE- Carbapenem-Resistant Enterobacteriaceae, Measles, Meningitis, Mononucleosis, MRSA, Mumps, Pertussis (Whooping Cough), Rheumatic Fever, Rubella, Scarlet Fever , Shingles, TB, VRE - Past Surgical History Head Surgeries/Procedures: Reports: None HEENT Surgical History: Reports: None, Oral Surgery, Tonsillectomy, Other (See Below). Denies: Adenoidectomy, Cataract Surgery, Eye Surgery, Laser Surgery, LASIK, Myringotomy w Tube(s), Naso-Sinus Surgery Other HEENT Surgeries/Procedures: Phelps teeth extraction 4 at about age 17 Multiple teeth extractions. Tonsillectomy at about age 24. Cardiovascular Surgical History: Reports: Coronary Artery Bypass, Coronary Artery Stent, Other (See Below) Other Cardiovascular Surgeries/Procedures: He has had a total of at least 10 previous cardiac stents initially at age 38 then in about [id number] with PTCA/ stent 2 of the LAD in about 2004 with PTCA of the obtuse marginal artery at the same time. Subsequent PTCA/stent of the right coronary artery in about 2006. PTCA/stent 2 at [facility] on 07/20/14. PTCA/stent 1 in August 2017 also at [facility]. Respiratory Surgical History: Reports: None. Denies: Thoracentesis GI Surgical History: Reports: Appendectomy, Cholecystectomy, Colonoscopy, EGD, Hernia, Inguinal, Other (See Below). Denies: Hernia, Abdominal, Hernia Repair/ Other, Polypectomy Other GI Surgeries/Procedures: Appendectomy at about age 43 with subsequent laparoscopic cholecystectomy also at age 43. Last EGD and colonoscopy on . Bilateral inguinal hernia repair at about age 34. Male Surgical History: Reports: Circumcision, Renal Calculus, Other (See Below). Denies: TURBT-Transurethral Resection of Bladder Tumor, TURP- Transurethral Resection of Prostate Other Male Surgeries/Procedures: Circumcision as an . Right ureteral stone extraction at age 39. Endocrine Surgical History: Reports: None. Denies: Thyroid Biopsy Neurological Surgical History: Reports: Lumbar Spine, Spinal Fusion, Other (See Below). Denies: C-Spine, Discectomy, Laminectomy, Sacral Spine, Thoracic Spine , Vertebroplasty Other Neurological Surgeries/Procedures: L5-S1 spinal fusion in about 2006. Musculoskeletal Surgical History: Reports: Arthroscopic Procedure, Other (See Below). Denies: Carpal Tunnel, Ganglion Cyst, Joint Replacement, ORIF, Shoulder Surgery Other Musculoskeletal Surgeries/Procedures:: Left elbow arthroscopic surgery in about 2003. Oncologic Surgical History: Reports: None Dermatological Surgical History: Reports: None - Past Imaging History Past Imaging History: Reports: Angiography (August 2017 with results not available.), Cardiac Echo (Last echocardiogram on 08/18/17 with ejection fraction of 6065 percent.), CAT Scan (CT of the abdomen and pelvis on 10/09/17. CT of the head on 09/28/15 with previous evaluations on 02/09/14 and 01/18/13. Cardiac CT in August 2012. CT of the lumbar spine on 02/15/11. CT of the abdomen and pelvis with stone protocol negative on 07/23/10. [address] of the thoracic and lumbar region on 11/30/13 with previous evaluation on 10/11/11.), DEXA Scan (.), HIDA Scan (10/19/11.), MRI (MRI of the left ankle on 08/19/15 and the right ankle on 11/29/13. MRI of the right shoulder on 02/13/15. MRI of the lumbar spine on 12/20/13.), Stress Testing (Low Level cardiac stress test on 10/15/17.), Ultrasound (Bilateral scrotal ultrasound on 02/11/15. Abdominal ultrasound on 15/03.) Social & Family History - Family History HEENT: Reports: Allergic Rhinitis, Other (See Below). Denies: Glaucoma, Macular Degeneration, Retinal Detachment Other HEENT Family History: 4 brothers with allergic rhinitis Cardiac: Reports: Afib, Arrhythmia, Bypass, CAD, Heart Failure, High Cholesterol , RI, Other (See Below). Denies: Aneurysm, Blood Clots/VTE/DVT, Hypertension, PVD/COD, Syncope Other Cardiac Family History: Father with fatal CHF at age 64 with father having an RI and CABG x4 at age 45, brother with atrial fibrillation, parents with hyperlipidemia, father with hypertension Respiratory: Reports: COPD, Other (See Below). Denies: Asthma, PE, Sleep Apnea Other Respiratory Family Hisory: Father with COPD with history of tobacco use GI: Reports: Diverticulosis, Other (See Below). Denies: Celiac Disease, Cholelithiasis, Colon Polyps, GERD, Inflammatory Bowel Disease, Irritable Bowel Syndrome Other GI Family History: Brother with diverticulosis : Reports: Dialysis, Renal Calculus, Renal Disease/Insufficiency, Other (See Below) Other Family History: Father with urolithiasis, mother with fatal renal disease/renal failure at about age 82 with history of dialysis. OBGYN: Reports: None. Denies: Endometriosis, Recurrent Spontaneous Musculoskeletal: Reports: Arthritis, Osteoarthritis, Other (See Below). Denies : Gout, RA, SLE Other Musculoskeletal Family History: Mother with osteoarthritis Neurological: Reports: None. Denies: Alzheimers Disease, Cerebral Aneurysms, CVA, Dementia, Migraines, MS, Parkinson's, Seizure, TIA Psychiatric: Reports: None. Denies: Abuse, Victim of, ADD, ADHD, Bipolar, Psych Hospitalization(s), PTSD, Suicide Attempt, Other (See Below) Endocrine/Metabolic: Reports: Diabetes, Type I, Diabetes, type II, IDDM, Other ( See Below). Denies: Diabetes, Gestational, Diabetes Mellitus, Type 3c, Hypothyroidism Other Endocrine/Metabolic Family History: Father and niece with type I IDDM both in their 20s, sister with IDDM, mother with AODM Hematologic: Reports: Anemia, Other (See Below) Other Hematologic Family History: Brother with history of lower GI bleed secondary to diverticulosis Immunologic: Reports: None. Denies: AIDS, HIV, SLE Dermatologic: Reports: None. Denies: Eczema, Psoriasis Oncologic: Reports: None, Other (See Below). Denies: Colon, Prostate, Skin Other Oncologic Family History: Brother with unknown type of "blood" cancer at age 63. - Caffeine Use Caffeine Use: Reports: Coffee, Soda. Denies: Energy Drinks, Tea Caffeine Use Comment: 2 pops a day and 2 cups of coffee a day - Alcohol Use Alcohol Use History: No Days Per Week of Alcohol Use: 0 Number of Drinks Per Day: 0 Total Drinks Per Week: 0 Alcohol Use in Last Twelve Months: No - Recreational Drug Use Recreational Drug Use: No Drug Use in Last 12 Months: No Recreational Drug Type: Denies: Amphetamines (Speed), Cocaine, Heroin, Inhalants (Glues, Solvents, Aerosols), LSD (Acid), Marijuana/Hashish, Methamphetamine, Morphine, Oxycodone - Living Situation & Occupation Living situation: Reports: (Second since 1999 with 2 step children from this marriage), (First with no children from that marriage), with Spouse, with Family Occupation: Employed ([employer] department at [employer] [place] ED ROS GENERAL - Review of Systems Review Of Systems: ROS reveals no pertinent complaints other than HPI. ED EXAM, GENERAL - Physical Exam Exam: See Below Exam Limited By: No Limitations General Appearance: Alert, WD/WN, No Apparent Distress, Anxious (Moderate) Eye Exam: Bilateral Eye: EOMI, Normal Inspection (No nystagmus), PERRL Ears: Normal External Exam, Normal Canal, Hearing Grossly Normal, Normal TMs Nose: Normal Inspection, Normal Mucosa, No Blood Throat/Mouth: Normal Lips, Normal Gums, Normal Voice, No Airway Compromise. No : Normal Teeth (Multiple missing teeth), Normal Oropharynx (Dry oral mucosa), Dysphagia, Inflammation, Perioral Cyanosis Head: Atraumatic, Normocephalic. No: Facial Swelling, Facial Tenderness, Sinus Tenderness Neck: Normal Inspection, Supple, Non-Tender, Full Range of Motion. No: Carotid Bruit, Lymphadenopathy (L), Lymphadenopathy (R), Thyromegaly Respiratory/Chest: No Respiratory Distress, Lungs Clear, Normal Breath Sounds, No Accessory Muscle Use, Chest Non-Tender. No: Pleural Rub, Retractions Cardiovascular: Normal Peripheral Pulses, No Edema, No Gallop, No JVD, No Murmur , No Rub, Tachycardia (Regular rhythm). No: Gallop/S3, Gallop/S4, Friction Rub Peripheral Pulses: 2+: Radial (L), Radial (R), Dorsalis Pedis (L), Dorsalis Pedis (R) GI/Abdominal: Normal Bowel Sounds, Soft, Non-Tender, No Organomegaly, No Distention, No Abnormal Bruit, No Mass, Other (Obese). No: Guarding (Male) Exam: Deferred Rectal (Males) Exam: Deferred Back Exam: Normal Inspection, Full Range of Motion. No: CVA Tenderness (L), CVA Tenderness (R), Muscle Spasm Extremities: Normal Range of Motion, Non-Tender, No Pedal Edema, Normal Capillary Refill, Other (34 centimeter area of ecchymosis over the distal ulnar surface of the left humerus secondary to recent minor contusion on the saddle horn a couple days ago with no history of fall or significant injury). No: Matilda's Sign Neurological: Alert, Oriented, CN II-XII Intact, Normal Cognition, Normal Gait, Normal Reflexes (Negative Babinski), No Motor/Sensory Deficits Psychiatric: Anxious (Moderate), Depressed Mood (Moderate with adequate eye contact). No: Flat Affect, Tearful Skin Exam: Warm, Dry, Intact, No Rash, Ecchymosis (As above). No: Diaphoretic, Jaundice, Lymphangitis, Petechiae, Wound/Incision Lymphatic: No Adenopathy Course - Vital Signs Last Recorded V/S: Last Vital Signs Temp 38.1 C 12/22/17 14:32 Pulse 105 H 12/22/17 14:32 Resp 18 12/22/17 14:32 BP 129/88 12/22/17 14:32 Pulse Ox 98 12/22/17 14:32 Vital Signs - 24 hr 12/22/17 12/22/17 12/22/17 13:18 13:32 14:00 Temperature [ 36.9 C Oral] Pulse, 95 112 H 106 H Peripheral [ Brachial] Respiratory 20 17 18 Rate Blood Pressure 137/84 136/88 112/91 H [Upper Arm] O2 Sat by Pulse 97 97 99 Oximetry - Orders/Labs/Meds Orders: Active Orders 24 hr Category Date Time Status Cardiac Monitoring [RC] . DIRECTED Care 12/22/17 13:30 Active Peripheral IV Care [RC] . DIRECTED Care 12/22/17 13:28 Active CULTURE BLOOD [BC] Stat Lab 12/22/17 12:20 Received CULTURE BLOOD [BC] Stat Lab 12/22/17 13:37 Received CULTURE URINE [RM] Routine Lab 12/22/17 12:00 Received Lactated Ringers [Ringers, Lactated] 1,000 ml Med 12/22/17 13:45 Active IV ASDIRECTED Sodium Chloride 0.9% [Saline Flush] Med 12/22/17 13:28 Active 10 ml FLUSH ASDIRECTED PRN Blood Culture x2 Reflex Set [OM.PC] Urgent Oth 12/22/17 13:28 Ordered Obtain Past Medical Record [OM.PC] Routine Oth 12/22/17 13:28 Active Peripheral IV Insertion Adult [OM.PC] Routine Oth 12/22/17 13:28 Ordered Medication Orders Lactated Ringer's (Ringers, Lactated) 1,000 mls @ 150 mls/hr IV ASDIRECTED REYES Sodium Chloride (Saline Flush) 10 ml FLUSH ASDIRECTED PRN PRN Reason: Keep Vein Open Labs: Laboratory Tests 12/22/17 Range/Units 12:20 Lactic Acid 2.2 H (0.4-2.0) mmol/L Blood cultures 2 were collected Urine specimen collected from [facility] [place] was set up for culture and sensitivity by her laboratory. Blood work from [facility] [place] showed a sodium of 133, creatinine 1.40, total protein 8.9, ALT 98, AST 82, amylase 17, lipase 142, CRP 16.1 hemoglobin 19.6, with otherwise normal WBCs of 7.5 and total bilirubin of 0.7. UA showed no evidence of infection Meds: Medications Generic Name Dose Route Start Last Admin Trade Name Freq PRN Reason Stop Dose Admin Lactated Ringer's 1,000 mls @ 150 mls/hr 12/22/17 13:45 Ringers, Lactated IV ASDIRECTED REYES Sodium Chloride 10 ml 12/22/17 13:28 Saline Flush FLUSH ASDIRECTED PRN Keep Vein Open Discontinued Medications Generic Name Dose Route Start Last Admin Trade Name Freq PRN Reason Stop Dose Admin Lactated Ringer's 1,000 mls @ 999 mls/hr 12/22/17 13:28 12/22/17 13:56 Ringers, Lactated IV 12/22/17 14:28 999 mls/hr .BOLUS ONE Administration - Radiology Interpretation Free Text/Narrative:: Chest x-ray, 2 views, shows evidence of mild COPD changes with additional mild to moderate osteoarthritic changes. Mild prominence of the proximal aortic arch with no cardiomegaly, pulmonary infiltrates, pneumothorax, CHF, etc. Abdominal x-rays, 2 views, shows evidence of a 3?4 centimeters circular hypercalcification in the right hepatic lobe of unknown significance. Otherwise nonspecific mildly increased bowel gaseous pattern with no fluid levels, free air, ileus, or obstruction. Surgical clips noted in the right upper quadrant distant with previous cholecystectomy. Note status post L5-S1 spinal fixation. Mild to moderate bilateral coxarthrosis. Departure - Departure Time of Disposition: 14:30 Disposition: Refer to Observation Preliminary Cause of *Q: Sepsis & Multi System Organ Failure Clinical Impression: Dehydration, COPD (chronic obstructive pulmonary disease), HTN, Benign essential hypertension, Hyperlipidemia, Osteoarthritis, Mixed anxiety and depressive disorder, Peptic reflux disease, Coronary arteriosclerosis, CAD, Lactic acid increased, Polycythemia, Hyponatremia, Elevated LFTs - Discharge Information *PRESCRIPTION DRUG MONITORING PROGRAM REVIEWED*: Not Applicable *COPY OF PRESCRIPTION DRUG MONITORING REPORT IN PATIENT MORRO: Not Applicable - Problem List & Annotations (1) Dehydration SNOMED Code(s): 85159317 Code(s): E86.0 - DEHYDRATION Status: Acute Priority: High Current Visit : Yes Onset Date: 12/22/17 Annotation/Comment:: Note some dehydration with secondary hyponatremia. Aggressive IV hydration initially with 1 L lactated Ringer's IV bolus with subsequent progressive lactated Ringer's during observation. He will be admitted to observation status with close observation of his abdominal symptoms. (2) Lactic acid increased SNOMED Code(s): 98736562 Code(s): E87.2 - ACIDOSIS Status: Acute Priority: High Current Visit: Yes Onset Date: 12/22/17 Annotation/Comment:: Mildly elevated lactic acid elevation with normal CBCs, however elevated CRP and some tachycardia. Patient initially afebrile however did have fever prior to admission. Blood cultures 2 were collected. Initiate antibiotic therapy. Cardiac monitoring initiated in the emergency room with continuation during this hospitalization. No direct evidence of sepsis, however observe closely. Aggressive IV hydration as above with repeat lactic acid level in 3 hours and also in the a.m. leukocytosis (3) Elevated LFTs SNOMED Code(s): 956707778, 178412750 Code(s): R94.5 - ABNORMAL RESULTS OF LIVER FUNCTION STUDIES Status: Acute Priority: High Current Visit: Yes Onset Date: 12/22/17 Annotation/ Comment:: Persistent LFTs elevation today with previous history of LFTs elevation likely secondary to fatty liver. Note 34 centimeter circular lesion the right hepatic lobe. Consider CT scan of the abdomen and pelvis in the a.m. depending on his clinical course. (4) Hyponatremia SNOMED Code(s): 36515752 Code(s): E87.1 - HYPO-OSMOLALITY AND HYPONATREMIA Status: Acute Priority : Medium Current Visit: Yes Onset Date: 12/22/17 Annotation/Comment:: As above (5) Polycythemia SNOMED Code(s): 669061275 Code(s): D75.1 - SECONDARY POLYCYTHEMIA Status: Chronic Priority: Medium Current Visit: Yes Annotation/Comment:: History of polycythemia likely secondary to his COPD with no recent phlebotomies. Dehydration is a contributing component today. Continue to observe closely with repeat blood work in the a.m. (6) COPD (chronic obstructive pulmonary disease) SNOMED Code(s): 74253979 Code(s): J44.9 - CHRONIC OBSTRUCTIVE PULMONARY DISEASE, UNSPECIFIED Status : Chronic Priority: Medium Current Visit: Yes Annotation/Comment:: No recent bronchitic-type symptoms with no current medical therapy. Consider PFTs on an outpatient basis. Qualifiers: COPD type: emphysema Emphysema type: panlobular Qualified Code(s): J43.1 - Panlobular emphysema (7) HTN, Benign essential hypertension SNOMED Code(s): 4477787 Code(s): I10 - ESSENTIAL (PRIMARY) HYPERTENSION Status: Chronic Priority : Medium Current Visit: Yes Annotation/Comment:: Blood Pressures stable in the emergency room despite borderline question of sepsis. Continue to observe closely during this hospitalization. (8) Hyperlipidemia SNOMED Code(s): 65969536 Code(s): E78.5 - HYPERLIPIDEMIA, UNSPECIFIED Status: Chronic Priority: Medium Current Visit: Yes Annotation/Comment:: Currently under therapy. Note elevated LFTs. Lipid panel in the a.m. Qualifiers: Hyperlipidemia type: mixed hyperlipidemia Qualified Code(s): E78.2 - Mixed hyperlipidemia (9) Mixed anxiety and depressive disorder SNOMED Code(s): 007153599 Code(s): F41.8 - OTHER SPECIFIED ANXIETY DISORDERS Status: Chronic Priority: Medium Current Visit: Yes Annotation/Comment:: Adequate control by his history (10) Osteoarthritis SNOMED Code(s): 192980096 Code(s): M19.90 - UNSPECIFIED OSTEOARTHRITIS, UNSPECIFIED SITE Status: Chronic Priority: Medium Current Visit: Yes Annotation/Comment:: Stable by history with exception of nonspecific low back and left hip pain. Note history of hyperuricemia and polymyalgia rheumatica. Qualifiers: Osteoarthritis location: multiple joints Osteoarthritis type: primary Qualified Code(s): M15.0 - Primary generalized (osteo)arthritis (11) Peptic reflux disease SNOMED Code(s): 743455799 Code(s): K21.9 - GASTRO-ESOPHAGEAL REFLUX DISEASE WITHOUT ESOPHAGITIS Status: Chronic Priority: Medium Current Visit: Yes Annotation/Comment:: Stable by history. Initiate high dose IV Pepcid and IV Protonix. - Problem List Review Problem List Initiated/Reviewed/Updated: Yes - My Orders Last 24 Hours: My Active Orders 12/22/17 12:00 CULTURE URINE [RM] Routine 12/22/17 12:20 CULTURE BLOOD [BC] Stat 12/22/17 13:28 Peripheral IV Care [RC] . DIRECTED Sodium Chloride 0.9% [Saline Flush] 10 ml FLUSH ASDIRECTED PRN Blood Culture x2 Reflex Set [OM.PC] Urgent Obtain Past Medical Record [OM.PC] Routine Peripheral IV Insertion Adult [OM.PC] Routine 12/22/17 13:30 Cardiac Monitoring [RC] . DIRECTED 12/22/17 13:37 CULTURE BLOOD [BC] Stat 12/22/17 13:45 Lactated Ringers [Ringers, Lactated] 1,000 ml IV ASDIRECTED - Assessment/Plan Admission H&P: Please use this note as an admission H&P Last 24 Hours: My Active Orders 12/22/17 12:00 CULTURE URINE [RM] Routine 12/22/17 12:20 CULTURE BLOOD [BC] Stat 12/22/17 13:28 Peripheral IV Care [RC] . DIRECTED Sodium Chloride 0.9% [Saline Flush] 10 ml FLUSH ASDIRECTED PRN Blood Culture x2 Reflex Set [OM.PC] Urgent Obtain Past Medical Record [OM.PC] Routine Peripheral IV Insertion Adult [OM.PC] Routine 12/22/17 13:30 Cardiac Monitoring [RC] . DIRECTED 12/22/17 13:37 CULTURE BLOOD [BC] Stat 12/22/17 13:45 Lactated Ringers [Ringers, Lactated] 1,000 ml IV ASDIRECTED Assessment:: As above Plan: As above. Extensive precautions were given to the patient, who is in agreement with the treatment plan. Sedation precautions with no driving, etc. for 18 hours because of emergency room medications.
[2017-12-22] MEDS ORDERED: Fluticasone Propionate Nasal Spray 16 GM Bottle NASBOTH PRN (14:52)
[2017-12-22] MEDS ORDERED: Ketorolac 30 MG/ML SDV IVPUSH ONE (15:04)
[2017-12-22] MEDS: Metoclopramide 10 MG/2 ML SDV IVPUSH PRN ×2 (15:14→21:56)
[2017-12-22] MEDS: Acetaminophen 325 MG Tab PO PRN ×2 (15:15→20:17)
[2017-12-22] MEDS: traMADol 50 MG Tab PO PRN (15:58)
[2017-12-22] MEDS: Baclofen 10 MG Tab PO PRN (15:59)
[2017-12-22] MEDS: cefTRIAXone 1 GM in Sodium Chloride 0.9% 100 ML IV SCH (16:00)
[2017-12-22] MEDS: Famotidine 20 MG/2 ML SDV IVPUSH SCH (16:01)
[2017-12-22] MEDS: Sodium Chloride 0.9% 10 ML Syringe FLUSH PRN ×3 (16:01→20:20)
[2017-12-22] MEDS: metroNIDAZOLE/Normal Saline 500 MG in Premix Bag 1 BAG IV SCH (16:01)
[2017-12-22] MEDS: Pantoprazole 40 MG Vial IVPUSH SCH (16:01)
[2017-12-22] MEDS: Metoprolol Tartrate 50 MG Tab PO SCH (20:18)
[2017-12-22] MEDS: Sodium Chloride 0.9% 10 ML Syringe FLUSH SCH (20:21)
[2017-12-22] MEDS: Ketorolac 15 MG/ML SDV IVPUSH PRN (21:58)
[2017-12-22] MEDS: traZODone 50 MG Tab PO SCH (21:58)
[2017-12-23] MEDS: Sodium Chloride 0.9% 10 ML Syringe FLUSH PRN ×12 (01:55→18:45)
[2017-12-23] MEDS: metroNIDAZOLE/Normal Saline 500 MG in Premix Bag 1 BAG IV SCH ×3 (01:55→17:39)
[2017-12-23] MEDS: Pantoprazole 40 MG Vial IVPUSH SCH ×2 (03:54→16:58)
[2017-12-23] MEDS: traMADol 50 MG Tab PO PRN ×2 (03:55→19:25)
[2017-12-23] MEDS: Famotidine 20 MG/2 ML SDV IVPUSH SCH ×2 (03:55→16:58)
[2017-12-23] MEDS: cefTRIAXone 1 GM in Sodium Chloride 0.9% 100 ML IV SCH ×2 (04:41→16:58)
[2017-12-23] MEDS ORDERED: methylPREDNISolone Sodium Succinate 125 MG/2 ML SDV IVPUSH ONE (06:00)
[2017-12-23] MEDS ORDERED: diphenhydrAMINE 25 MG Cap PO ONE (06:00)
[2017-12-23] MEDS ORDERED: Acetaminophen 500 MG Tab PO ONE (06:00)
[2017-12-23] MEDS: Lactated Ringers 1,000 ML IV SCH ×3 (06:06→23:10)
[2017-12-23 07:27] LABS: CHLORIDE,CL 99 mmol/L (98-107); SODIUM,NA 133 mmol/L (136-145)
[2017-12-23] MEDS: Sodium Chloride 0.9% 10 ML Syringe FLUSH SCH ×2 (07:52→19:26)
[2017-12-23] MEDS ORDERED: Iopamidol 612 MG/ML 100 ML Bottle IVPUSH ONE (08:00)
[2017-12-23] MEDS: Metoclopramide 10 MG/2 ML SDV IVPUSH PRN (08:52)
--- NOTE | 2017-12-23 08:58 | PCM.PN ---
- General Info Date of Service: 12/23/17 Admission Dx/Problem (Free Text): 1. Sepsis 2. Abdominal pain with developing ileus 3. Dehydration Functional Status: Reports: Pain Controlled, Tolerating Diet, Ambulating, Urinating. Denies: New Symptoms, Incentive Spirometry Pain Score: 7 - Review of Systems General: Reports: Fever, Chills. Denies: Weakness, Fatigue, Night Sweats, Appetite (Adequate) HEENT: Reports: Headaches (Occasional). Denies: Dysphasia, Ear Pain, Eye Pain, Glasses, Post Nasal Drip, Sinus Congestion, Sore Throat, Rhinitis, Visual Changes Pulmonary: Reports: No Symptoms. Denies: Shortness of Breath, Pleuritic Chest Pain, Cough, Sputum, Wheezing Cardiovascular: Reports: No Symptoms. Denies: Chest Pain, Palpitations, Dyspnea on Exertion, Orthopnea, PND, Edema, Lightheadedness Gastrointestinal: Reports: Abdominal Pain, Nausea (Yesterday however not this morning with current Reglan therapy). Denies: Constipation, Decreased Appetite , Diarrhea (2 loose bowel movements since admission), Flatus, Hematochezia, Melena, Vomiting Genitourinary: Reports: No Symptoms. Denies: Dysuria, Frequency, Burning, Pain , Urgency, Incontinence, Hematuria, Retention, Flank Pain Musculoskeletal: Reports: No Symptoms. Denies: Neck Pain, Shoulder Pain, Arm Pain, Back Pain, Leg Pain Skin: Reports: No Symptoms. Denies: Jaundice, Pallor, Diaphoresis, Bruising Neurological: Reports: Headache (Yesterday but not this morning). Denies: Confusion, Dizziness, Numbness, Paresthesia, Tingling, Weakness Psychiatric: Reports: Depression (Mild), Anxiety (Mildimproved). Denies: Agitation, Cravings, Hallucinations, Suicidal Ideation - Patient Data Vitals - Most Recent: Last Vital Signs Temp 37.1 C 12/23/17 08:00 Pulse 82 12/23/17 08:00 Resp 16 12/23/17 08:00 BP 122/74 12/23/17 08:00 Pulse Ox 94 L 12/23/17 08:00 Vital Signs - 24 hr 12/22/17 12/22/17 12/22/17 13:18 13:32 14:00 Temperature [ 36.9 C Oral] Pulse, Peripheral Pulse, 95 112 H 106 H Peripheral [ Brachial] Respiratory 20 17 18 Rate Blood Pressure Blood Pressure 137/84 136/88 112/91 H [Upper Arm] O2 Sat by Pulse 97 97 99 Oximetry 12/22/17 12/22/17 12/22/17 14:32 15:00 16:00 Temperature [ 38.1 C 37.8 C Oral] Pulse, Peripheral Pulse, 105 H 95 Peripheral [ Brachial] Respiratory 18 16 Rate Blood Pressure Blood Pressure 129/88 116/72 [Upper Arm] O2 Sat by Pulse 98 96 94 L Oximetry 12/22/17 12/22/17 12/22/17 17:50 20:00 20:18 Temperature [ 37.3 C 36.6 C Oral] Pulse, 85 Peripheral Pulse, 85 Peripheral [ Brachial] Respiratory 14 Rate Blood Pressure 117/84 Blood Pressure 117/84 [Upper Arm] O2 Sat by Pulse 97 Oximetry 12/22/17 12/23/17 12/23/17 23:43 04:00 08:00 Temperature [ 36.4 C 36.7 C 37.1 C Oral] Pulse, Peripheral Pulse, 67 77 82 Peripheral [ Brachial] Respiratory 16 16 16 Rate Blood Pressure Blood Pressure 129/56 L 143/81 H 122/74 [Upper Arm] O2 Sat by Pulse 95 95 94 L Oximetry Weight - Most Recent: 88.451 kg I&O - Last 24 Hours: Intake & Output 12/22/17 12/23/17 12/23/17 22:59 06:59 14:59 Intake Total 1215 Output Total 100 Balance 1215 -100 Imaging Impressions - Last 24 Hours: Official x-ray report, from chest x-ray, 2 views, and abdominal x-rays, 2 views , from 12/22/17, which were ordered by [facility] prior to admission, shows evidence of possible developing ileus. No mention of previously suspected right hepatic lesions, however. manager monitoring shows normal sinus rhythm in the 80s his morning with previous borderline tachycardia in the 110s shortly after admission. No ectopy or arrhythmia Lab Results Last 24 Hours: Laboratory Results - last 24 hr 12/22/17 12/22/17 12/23/17 Range/Units 12:20 17:35 07:00 WBC 5.1 (4.0-10.2) K/uL RBC 5.20 (4.33-5.41) M/uL Hgb 16.4 D (13.1-16.8) g/dL Hct 46.5 (39.0-49.0) % MCV 89.4 (84.0-98.0) fL MCH 31.5 (28.2-33.3) pg MCHC 35.3 (31.7-36.0) g/dL RDW 13.5 (11.2-14.1) % Plt Count 124 L (150-350) K/uL Neut % (Auto) 81.9 H (45.0-80.0) % Lymph % (Auto) 7.4 L (10.0-50.0) % [place] % (Auto) 10.3 (2.0-14.0) % Eos % (Auto) 0.2 (0.0-5.0) % Baso % (Auto) 0.2 (0.0-2.0) % Neut # (Auto) 4.21 (1.40-7.00) K/uL Lymph # (Auto) 0.38 L (0.50-3.50) K/uL [place] # (Auto) 0.53 (0.00-1.00) K/uL Eos # (Auto) 0.01 (0.00-0.50) K/uL Baso # (Auto) 0.01 (0.00-0.20) K/uL Sodium (136-145) mmol/L Potassium (3.5-5.1) mmol/L Chloride (98-107) mmol/L Carbon Dioxide (21.0-32.0) mmol/L BUN (7-18) mg/dL Creatinine (0.51-1.17) mg/dL Est Cr Clr Drug Dosing mL/min Estimated GFR (MDRD) mL/min Glucose (74-106) mg/dL Lactic Acid 2.2 H 0.9 (0.4-2.0) mmol/L Calcium (8.5-10.1) mg/dL Total Bilirubin (0.2-1.0) mg/dL AST (15-37) U/L ALT (12-78) U/L Alkaline Phosphatase (46-116) IU/L Total Protein (6.4-8.2) g/dL Albumin (3.4-5.0) g/dL Triglycerides (30-150) mg/dL Cholesterol (100-200) mg/dL LDL Cholesterol, Calc (0-100) mg/dL HDL Cholesterol (40-60) mg/dL Amylase (25-115) U/L Lipase (73-393) U/L 12/23/17 12/23/17 Range/Units 07:00 07:00 WBC (4.0-10.2) K/uL RBC (4.33-5.41) M/uL Hgb (13.1-16.8) g/dL Hct (39.0-49.0) % MCV (84.0-98.0) fL MCH (28.2-33.3) pg MCHC (31.7-36.0) g/dL RDW (11.2-14.1) % Plt Count (150-350) K/uL Neut % (Auto) (45.0-80.0) % Lymph % (Auto) (10.0-50.0) % [place] % (Auto) (2.0-14.0) % Eos % (Auto) (0.0-5.0) % Baso % (Auto) (0.0-2.0) % Neut # (Auto) (1.40-7.00) K/uL Lymph # (Auto) (0.50-3.50) K/uL [place] # (Auto) (0.00-1.00) K/uL Eos # (Auto) (0.00-0.50) K/uL Baso # (Auto) (0.00-0.20) K/uL Sodium 133 L (136-145) mmol/L Potassium 3.6 (3.5-5.1) mmol/L Chloride 99 (98-107) mmol/L Carbon Dioxide 24.3 (21.0-32.0) mmol/L BUN 17 (7-18) mg/dL Creatinine 0.99 (0.51-1.17) mg/dL Est Cr Clr Drug Dosing 74.95 mL/min Estimated GFR (MDRD) > 60 mL/min Glucose 103 (74-106) mg/dL Lactic Acid 0.8 (0.4-2.0) mmol/L Calcium 8.5 (8.5-10.1) mg/dL Total Bilirubin 0.5 (0.2-1.0) mg/dL AST 69 H (15-37) U/L ALT 85 H (12-78) U/L Alkaline Phosphatase 85 (46-116) IU/L Total Protein 6.7 (6.4-8.2) g/dL Albumin 2.9 L (3.4-5.0) g/dL Triglycerides 199 H (30-150) mg/dL Cholesterol 263 H (100-200) mg/dL LDL Cholesterol, Calc 208 H (0-100) mg/dL HDL Cholesterol 15 L (40-60) mg/dL Amylase 15 L (25-115) U/L Lipase 127 (73-393) U/L Fred Results Last 24 Hours: Microbiology 12/22/17 15:00 Stool Occult Blood (FRED) - Final Stool / Feces NEGATIVE OCCULT BLOOD Preliminary urine culture results shows no growth per laboratory Preliminary blood culture results 2 positive for gram-negative rods per laboratory Med Orders - Current: Current Medications Acetaminophen (Tylenol) 650 mg PO Q4H PRN PRN Reason: Pain Last Admin: 12/22/17 20:17 Dose: 650 mg Aspirin (Aspirin) 325 mg PO QAM [facility] Baclofen (Lioresal) 10 mg PO QID PRN PRN Reason: Muscle Spasm Last Admin: 12/22/17 15:59 Dose: 10 mg Famotidine (Pepcid) 20 mg IVPUSH Q12H [facility] Last Admin: 12/23/17 03:55 Dose: 20 mg Fluticasone Propionate (Flonase) 1 gm NASBOTH BID PRN PRN Reason: Allergies Lactated Ringer's (Ringers, Lactated) 1,000 mls @ 150 mls/hr IV ASDIRECTED [facility] Last Admin: 12/23/17 06:06 Dose: 150 mls/hr Ceftriaxone Sodium 1 gm/ (Sodium Chloride) 100 mls @ 200 mls/hr IV Q12H [facility] Last Admin: 12/23/17 04:41 Dose: 200 mls/hr Metronidazole 500 mg/ Premix 100 mls @ 100 mls/hr IV Q8H [facility] Last Admin: 12/23/17 01:55 Dose: 100 mls/hr Vancomycin HCl 1 gm/ Dextrose/ (Water) 250 mls @ 165 mls/hr IV Q24H [facility] Last Admin: 12/23/17 03:02 Dose: 165 mls/hr Ketorolac Tromethamine (Toradol) 15 mg IVPUSH Q6H PRN PRN Reason: Pain (severe 7-10) Stop: 12/27/17 15:05 Last Admin: 12/22/17 21:58 Dose: 15 mg Metoclopramide HCl (Reglan) 10 mg IVPUSH Q6H PRN PRN Reason: Nausea/Vomiting Last Admin: 12/22/17 21:56 Dose: 10 mg Metoprolol Tartrate (Lopressor) 100 mg PO Q12HR [facility] Last Admin: 12/22/17 20:18 Dose: 100 mg Prasugrel [Effient] (10 Mg Own Med) 0 mg PO QAM [facility] Pantoprazole Sodium (Protonix Iv) 40 mg IVPUSH Q12H [facility] Last Admin: 12/23/17 03:54 Dose: 40 mg Sodium Chloride (Saline Flush) 10 ml FLUSH ASDIRECTED PRN PRN Reason: Keep Vein Open Last Admin: 12/23/17 04:42 Dose: 10 ml Sodium Chloride (Saline Flush) 10 ml FLUSH Q12HR [facility] Last Admin: 12/23/17 07:52 Dose: Not Given Tramadol HCl (Ultram) 50 mg PO Q6H PRN PRN Reason: Pain (moderate 4-6) Last Admin: 12/23/17 03:55 Dose: 50 mg Trazodone HCl (Trazodone) 200 mg PO BEDTIME [facility] Last Admin: 12/22/17 21:58 Dose: 200 mg Discontinued Medications Acetaminophen (Tylenol Extra Strength) 1,000 mg PO ONETIME ONE Stop: 12/23/17 06:01 Last Admin: 12/23/17 05:26 Dose: 1,000 mg Diphenhydramine HCl (Benadryl) 50 mg PO ONETIME ONE Stop: 12/23/17 06:01 Last Admin: 12/23/17 05:25 Dose: 50 mg Famotidine (Pepcid) 20 mg IVPUSH Q12H [facility] Lactated Ringer's (Ringers, Lactated) 1,000 mls @ 999 mls/hr IV .BOLUS ONE Stop: 12/22/17 14:28 Last Admin: 12/22/17 13:56 Dose: 999 mls/hr Ceftriaxone Sodium 1 gm/ (Sodium Chloride) 100 mls @ 200 mls/hr IV Q12H [facility] Metronidazole 500 mg/ Premix 100 mls @ 100 mls/hr IV Q8H [facility] Iopamidol (Isovue-300 (61%)) 100 ml IVPUSH ONETIME ONE Stop: 12/23/17 08:01 Ketorolac Tromethamine (Toradol) 30 mg IVPUSH ONETIME ONE Stop: 12/22/17 15:05 Last Admin: 12/22/17 15:14 Dose: 30 mg Methylprednisolone Sodium Succinate (Solu-Medrol) 125 mg IVPUSH ONETIME ONE Stop: 12/23/17 06:01 Last Admin: 12/23/17 05:25 Dose: 125 mg Pantoprazole Sodium (Protonix Iv) 40 mg IVPUSH Q12H [facility]YES - Exam Quality Assessment: DVT Prophylaxis. No: Supplemental Oxygen, Central Line/PICC , Urine Catheter, Skin Breakdown, Restraints General: Alert, Oriented, Cooperative, No Acute Distress HEENT: Pupils Equal, Pupils Reactive, EOMI, Mucous Membr. Moist/[place] Neck: Supple, Trachea Midline, No JVD, No Thyromegaly, +2 Carotid Pulse wo Bruit. No: Lymphadenopathy Lungs: Clear to Auscultation, Normal Respiratory Effort. No: Rub Cardiovascular: Regular Rate, Regular Rhythm, No Murmurs. No: Gallops, Rubs GI/Abdominal Exam: No Organomegaly, No Distention, No Abnormal Bruit, No Mass, Rebound (Borderline), Tender (Mild to moderate diffuse palpation pain), Abnormal Bowel Sounds (Moderately increased diffuse bowel sounds non-high- pitched in nature). No: Guarding (Male) Exam: Deferred Back Exam: Normal Inspection, Full Range of Motion. No: CVA Tenderness (L), CVA Tenderness (R), Muscle Spasm Extremities: Normal Inspection, Normal Range of Motion, Non-Tender, No Pedal Edema, Normal Capillary Refill. No: Matilda's Sign Peripheral Pulses: 2+: Radial (L), Radial (R), Dorsalis Pedis (L), Dorsalis Pedis (R) Skin: Warm, Dry, Intact Neurological: No New Focal Deficit Psy/Mental Status: Anxious (Mild improved), Depressed (Mild improved). No: Agitated, Hallucinations, Withdrawal Symptoms - Problem List & Annotations (1) Sepsis SNOMED Code(s): 12995275 Code(s): A41.9 - SEPSIS, UNSPECIFIED ORGANISM Status: Acute Priority: High Current Visit: Yes Onset Date: ~12/22/17 Qualifiers: Sepsis type: sepsis due to unspecified organism Qualified Code(s): A41.9 - Sepsis, unspecified organism Annotation/Comment:: Preliminary blood cultures 2 were positive for gram- negative rods as above. Results were obtained in the linen grader hours on with immediate initiation of vancomycin. Note previous initiation of IV Rocephin and IV Flagyl, which will also be continued. CT scan of the abdomen and pelvis to be conducted this morning as below. Secondary to confirmation of sepsis the patient was changed from observation status to inpatient/acute care on 12/23. (2) Lactic acid increased SNOMED Code(s): 93342080 Code(s): E87.2 - ACIDOSIS Status: Acute Priority: High Current Visit: Yes Onset Date: 12/22/17 Annotation/Comment:: Mildly elevated lactic acid elevation on admission with normal follow-up lactic acid levels 2 including this morning. Note normal CBCs, however elevated CRP and some tachycardia on admission. Patient initially afebrile however did have fever prior to admission. Blood cultures 2 were collected with preliminary results as above. Continue aggressive antibiotic therapy as above. Cardiac monitoring initiated in the emergency room secondary to suspicions of possible developing sepsis. (3) Dehydration SNOMED Code(s): 16776756 Code(s): E86.0 - DEHYDRATION Status: Acute Priority: High Current Visit : Yes Onset Date: 12/22/17 Annotation/Comment:: Note some dehydration on admission with secondary hyponatremia, which persists this morning. Continue aggressive IV hydration with initially 1 L lactated Ringer's IV bolus given in the emergency room with subsequent aggressive lactated Ringer's after admission. He was initially admitted to observation status with close observation of his abdominal symptoms, including abdominal checks with vitals. Note subsequent transfer to inpatient care secondary to sepsis as above. (4) Elevated LFTs SNOMED Code(s): 938311436, 632697126 Code(s): R94.5 - ABNORMAL RESULTS OF LIVER FUNCTION STUDIES Status: Acute Priority: High Current Visit: Yes Onset Date: 12/22/17 Annotation/ Comment:: Persistent LFTs elevation today with previous history of LFTs elevation likely secondary to fatty liver. Secondary to sepsis, previous amylase elevation, etc. CT scan of the abdomen with IV and oral contrast will be conducted this morning with patient premedicated with IV Solu-Medrol and oral Benadryl and Tylenol secondary to his previous allergy to contrast medium, including hives. Note 34 centimeter circular lesion in the right hepatic lobe based on my initial lesion of yesterday's x-rays was not mentioned in official radiological report as above. (5) Hyponatremia SNOMED Code(s): 47487973 Code(s): E87.1 - HYPO-OSMOLALITY AND HYPONATREMIA Status: Acute Priority : Medium Current Visit: Yes Onset Date: 12/22/17 Annotation/Comment:: As above (6) Polycythemia SNOMED Code(s): 781472289 Code(s): D75.1 - SECONDARY POLYCYTHEMIA Status: Chronic Priority: Medium Current Visit: Yes Annotation/Comment:: History of polycythemia likely secondary to his COPD with no recent phlebotomies. Dehydration was a contributing component on admission. Continue to observe closely with repeat blood work in the a.m. (7) COPD (chronic obstructive pulmonary disease) SNOMED Code(s): 80002636 Code(s): J44.9 - CHRONIC OBSTRUCTIVE PULMONARY DISEASE, UNSPECIFIED Status : Chronic Priority: Medium Current Visit: Yes Qualifiers: COPD type: emphysema Emphysema type: panlobular Qualified Code(s): J43.1 - Panlobular emphysema Annotation/Comment:: No recent bronchitic-type symptoms with no current medical therapy. Negative chest x-ray prior to admission as above. Sputum culture to be obtained. Consider PFTs on an outpatient basis. (8) HTN, Benign essential hypertension SNOMED Code(s): 2045166 Code(s): I10 - ESSENTIAL (PRIMARY) HYPERTENSION Status: Chronic Priority : Medium Current Visit: Yes Annotation/Comment:: Blood Pressures stable in the emergency room despite sepsis. Continue IV hydration as above continued close observation during this hospitalization. (9) Hyperlipidemia SNOMED Code(s): 37062906 Code(s): E78.5 - HYPERLIPIDEMIA, UNSPECIFIED Status: Chronic Priority: Medium Current Visit: Yes Qualifiers: Hyperlipidemia type: mixed hyperlipidemia Qualified Code(s): E78.2 - Mixed hyperlipidemia Annotation/Comment:: Currently under therapy. Note elevated LFTs as above likely secondary to fatty liver. Lipid panel this morning shows severe dyslipidemia. Continue to observe for now with medication adjustment depending on his clinical course. (10) Mixed anxiety and depressive disorder SNOMED Code(s): 051784089 Code(s): F41.8 - OTHER SPECIFIED ANXIETY DISORDERS Status: Chronic Priority: Medium Current Visit: Yes Annotation/Comment:: Adequate control during this hospitalization and improved from admission. (11) Osteoarthritis SNOMED Code(s): 210672906 Code(s): M19.90 - UNSPECIFIED OSTEOARTHRITIS, UNSPECIFIED SITE Status: Chronic Priority: Medium Current Visit: Yes Qualifiers: Osteoarthritis location: multiple joints Osteoarthritis type: primary Qualified Code(s): M15.0 - Primary generalized (osteo)arthritis Annotation/Comment:: Stable by history with exception of nonspecific low back and left hip pain on admission. Note history of hyperuricemia and polymyalgia rheumatica with no gout-type symptoms, etc.. IV Toradol given initially for pain control. (12) Peptic reflux disease SNOMED Code(s): 995238463 Code(s): K21.9 - GASTRO-ESOPHAGEAL REFLUX DISEASE WITHOUT ESOPHAGITIS Status: Chronic Priority: Medium Current Visit: Yes Annotation/Comment:: Stable by history. Continue high dose IV Pepcid and IV Protonix during this hospitalization. (13) Ileus SNOMED Code(s): 542641956 Code(s): K56.7 - ILEUS, UNSPECIFIED Status: Acute Priority: High Current Visit: Yes Onset Date: 12/22/17 Annotation/Comment:: Borderline beginning ileus per x-ray report as above. Patient did have 2 large bowel movement since admission. CT scan of the abdomen and pelvis as above. Patient's abdominal pain adequately controlled with IV Toradol. Nausea resolved with IV Reglan. Continue abdominal checks with vitals. (14) Hypoalbuminemia SNOMED Code(s): 680065246 Code(s): E88.09 - OTH DISORDERS OF PLASMA-PROTEIN METABOLISM, NEC Status: Acute Priority: Medium Current Visit: Yes Onset Date: ~12/23/17 Annotation/Comment:: Consider high-protein Glucerna supplements once patient's condition improve. (15) Coronary artery disease SNOMED Code(s): 01132733 Code(s): I25.10 - ATHSCL HEART DISEASE OF [place] CORONARY ARTERY W/O ANG PCTRS Status: Chronic Priority: Medium Current Visit: Yes Qualifiers: Coronary Disease-Associated Artery/Lesion type: [place] artery [place] vs. transplanted heart: [place] heart Associated angina: without angina Qualified Code(s): I25.10 - Atherosclerotic heart disease of [place] coronary artery without angina pectoris Annotation/Comment:: No recent chest pain or anginal complaints. Continue telemetry as above. - Problem List Review Problem List Initiated/Reviewed/Updated: Yes - My Orders Last 24 Hours: My Active Orders 12/22/17 12:00 CULTURE URINE [RM] Routine 12/22/17 12:20 CULTURE BLOOD [BC] Stat 12/22/17 13:28 Peripheral IV Care [RC] . DIRECTED Sodium Chloride 0.9% [Saline Flush] 10 ml FLUSH ASDIRECTED PRN Blood Culture x2 Reflex Set [OM.PC] Urgent Peripheral IV Insertion Adult [OM.PC] Routine 12/22/17 13:30 Cardiac Monitoring [RC] . DIRECTED 12/22/17 13:37 CULTURE BLOOD [BC] Stat 12/22/17 13:45 Lactated Ringers [Ringers, Lactated] 1,000 ml IV ASDIRECTED 12/22/17 14:52 Baclofen [Lioresal] 10 mg PO QID PRN Fluticasone Propionate [Flonase] 1 gm NASBOTH BID PRN 12/22/17 15:00 Communication Order [RC] Q4HR Communication Order [RC] ROUTINE Height and Weight [RC] DAILY Intake and Output Strict [RC] ASDIRECTED Oxygen Therapy [RC] PRN Pulse Oximetry [RC] ASDIRECTED Up With Assistance [RC] ASDIRECTED Vital Signs [RC] Q4HR OCCULT BLOOD DIAGNOSTIC [OP] Routine Acetaminophen [Tylenol] 650 mg PO Q4H PRN Metoclopramide [Reglan] 10 mg IVPUSH Q6H PRN traMADol [Ultram] 50 mg PO Q6H PRN GM Immunization Reflex [OM.PC] Click To Edit 12/22/17 15:02 Communication Order [RC] 199912/22/17 16:00 Famotidine [Pepcid] 20 mg IVPUSH Q12H Pantoprazole [ProTONIX IV] 40 mg IVPUSH Q12H cefTRIAXone [Rocephin] 1 gm Sodium Chloride 0.9% [Normal Saline] 100 ml IV Q12H 12/22/17 16:12 Resuscitation Status Routine 12/22/17 17:00 metroNIDAZOLE/Normal Saline [Flagyl 500 MG in NS 100 ML] 500 mg Premix Bag 1 bag IV Q8H 12/22/17 20:00 Metoprolol Tartrate [Lopressor] 100 mg PO Q12HR Sodium Chloride 0.9% [Saline Flush] 10 ml FLUSH Q12HR traZODone 200 mg PO BEDTIME 12/22/17 21:00 Ketorolac [Toradol] 15 mg IVPUSH Q6H PRN 12/22/17 23:10 H PYLORI STOOL ANTIGEN [MREF] Routine 12/23/17 03:00 Vancomycin 1 gm Dextrose 5% in Water 250 ml IV Q24H 12/23/17 05:11 Abdomen Pelvis w Cont [CT] Urgent Abdomen Pelvis w Cont [CT] Urgent Abdomen Series w Chest 1V [CR] Routine 12/23/17 08:00 Aspirin 325 mg PO QAM Prasugrel [Effient] 0 mg PO QAM 12/23/17 08:47 Admission Status [Patient Status] [ADT] Routine 12/23/17 Breakfast Nothing per Oral Now Diet [DIET] 12/24/17 05:11 Abdomen Series w Chest 1V [CR] Routine AMYLASE [CHEM] Routine CBC WITH AUTO DIFF [HEME] Routine COMPREHENSIVE METABOLIC PN,CMP [CHEM] Routine CRP [C-REACTIVE PROTEIN] [CHEM] Routine LIPASE [CHEM] Routine - Assessment Assessment:: As above - Plan Plan:: As above. Extensive precautions were given to the patient, who is in agreement with the treatment plan. The patient will require about 3-4 days of inpatient/ acute care secondary to multiple health problems as above.
[2017-12-23] MEDS: PRASUGREL 10 MG PO SCH (10:12)
[2017-12-23] MEDS: Metoprolol Tartrate 50 MG Tab PO SCH ×2 (10:13→19:23)
[2017-12-23] MEDS: Aspirin 325 MG Tab PO SCH (10:13)
[2017-12-23] MEDS: Ketorolac 15 MG/ML SDV IVPUSH PRN ×3 (11:23→23:10)
[2017-12-23] MEDS ORDERED: Pantoprazole 40 MG Vial IVPUSH SCH (15:00)
[2017-12-23] MEDS ORDERED: metroNIDAZOLE/Normal Saline 500 MG in Premix Bag 1 BAG IV SCH (15:00)
[2017-12-23] MEDS ORDERED: cefTRIAXone 1 GM in Sodium Chloride 0.9% 100 ML IV SCH (15:00)
[2017-12-23] MEDS ORDERED: Famotidine 20 MG/2 ML SDV IVPUSH SCH (15:00)
[2017-12-23] MEDS: Acetaminophen 325 MG Tab PO PRN (19:21)
[2017-12-23] MEDS: traZODone 50 MG Tab PO SCH (19:26)
[2017-12-23] MEDS: Baclofen 10 MG Tab PO PRN (23:10)
[2017-12-24] MEDS: metroNIDAZOLE/Normal Saline 500 MG in Premix Bag 1 BAG IV SCH ×2 (01:15→08:03)
[2017-12-24] MEDS: Acetaminophen 325 MG Tab PO PRN (01:15)
[2017-12-24] MEDS: traMADol 50 MG Tab PO PRN (01:17)
[2017-12-24] MEDS: Sodium Chloride 0.9% 10 ML Syringe FLUSH PRN ×2 (01:19→04:16)
[2017-12-24] MEDS: Pantoprazole 40 MG Vial IVPUSH SCH (04:12)
[2017-12-24] MEDS: cefTRIAXone 1 GM in Sodium Chloride 0.9% 100 ML IV SCH (04:12)
[2017-12-24] MEDS: Ketorolac 15 MG/ML SDV IVPUSH PRN (04:15)
[2017-12-24] MEDS: Famotidine 20 MG/2 ML SDV IVPUSH SCH (04:16)
[2017-12-24 07:38] LABS: CHLORIDE,CL 105 mmol/L (98-107); SODIUM,NA 138 mmol/L (136-145)
[2017-12-24 07:52] VITALS: BP 131/90
[2017-12-24] MEDS: Aspirin 325 MG Tab PO SCH (08:04)
[2017-12-24] MEDS: PRASUGREL 10 MG PO SCH (08:04)
[2017-12-24] MEDS: Metoprolol Tartrate 50 MG Tab PO SCH (08:05)
[2017-12-24] MEDS: Sodium Chloride 0.9% 10 ML Syringe FLUSH SCH (08:06)
--- NOTE | 2017-12-24 10:00 | PCM.DCSUM1 ---
Discharge Summary - Hospital Course HPI Initial Comments: See emergency room note/admission H&P Brief History: See emergency room note/admission H&P Diagnosis: Stroke: No Modified [place] Scale: No Symptoms at All Modified [place] Scale Score: 0 - Discharge Data Discharge Date: 12/24/17 Discharge Disposition: Home, Self-Care 01 Preliminary Cause of *Q: Sepsis & Multi System Organ Failure Condition: Good - Discharge Diagnosis/Problem(s) (1) Sepsis SNOMED Code(s): 26194914 ICD Code: A41.9 - SEPSIS, UNSPECIFIED ORGANISM Status: Acute Priority: High Current Visit: Yes Onset Date: ~12/22/17 Problem Details: Final blood culture and sensitivity results obtained with sepsis with salmonella from unknown source. The organism is sensitive to both Rocephin and Augmentin. Preliminary blood cultures 2 were positive for gram-negative rods. Results were obtained in the medical cost consultant hours on 12/23 with immediate initiation of additional IV vancomycin. Note previous initiation of IV Rocephin and IV Flagyl with patient to be discharged on oral Augmentin and probiotics. CT scan of the abdomen and pelvis conducted on 12/23 with results as below. Secondary to confirmation of sepsis the patient was changed from observation status to inpatient/acute care on 12/23 with patient recovering more quickly than anticipated and denies any current abdominal pain. He is having some moderate diarrhea secondary to aggressive antibody therapy as above with no direct evidence of C. difficile. Close follow-up by regular provider as per discharge instructions. He does not need a work excuse by his history. Hygiene issues were discussed including disinfecting the toilet seat, hands, etc. after each use. Family members will be tested, if they become symptomatic. He will also throw out all his vegetables at home and any other possible sources for salmonella, including recently recalled crackers. Once again source of infection is unknown at this time. Note newly diagnosed positive H pylori as above with additional treatment at discharge. Qualifiers: Sepsis type: sepsis due to unspecified organism Qualified Code(s): A41.9 - Sepsis, unspecified organism (2) Lactic acid increased SNOMED Code(s): 13376665 ICD Code: E87.2 - ACIDOSIS Status: Acute Priority: High Current Visit: Yes Onset Date: 12/22/17 Problem Details: Mildly elevated lactic acid elevation on admission with normal follow-up lactic acid levels 2. Note normal CBCs, however elevated CRP and some tachycardia on admission. Patient initially afebrile however did have fever prior to admission. Blood cultures 2 were collected with results as above. Continue aggressive antibiotic therapy as above. Cardiac monitoring was initiated in the emergency room secondary to suspicions of possible developing sepsis. (3) Dehydration SNOMED Code(s): 23639440 ICD Code: E86.0 - DEHYDRATION Status: Acute Priority: High Current Visit: Yes Onset Date: 12/22/17 Problem Details: Note some dehydration on admission with secondary hyponatremia, which is resolved this morning. Continue aggressive oral fluids at home. Note previous aggressive IV hydration initially with 1 L lactated Ringer's IV bolus given in the emergency room with subsequent aggressive lactated Ringer's during this entire hospitalization. He was initially admitted to observation status with close observation of his abdominal symptoms, including abdominal checks with vitals. Note subsequent transfer to inpatient care secondary to sepsis as above. (4) Elevated LFTs SNOMED Code(s): 632862191, 718252823 ICD Code: R94.5 - ABNORMAL RESULTS OF LIVER FUNCTION STUDIES Status: Acute Priority: High Current Visit: Yes Onset Date: 12/22/17 Problem Details : Resolved LFTs elevation today with previous history of LFTs elevation likely secondary to fatty liver. Secondary to sepsis, previous amylase elevation, etc. CT scan of the abdomen with IV and oral contrast was conducted on 12/23 with patient premedicated with IV Solu-Medrol and oral Benadryl and Tylenol secondary to his previous allergy to contrast medium, including hives. No allergic reactions after CT scan, which the patient tolerated well. Note 34 centimeter circular lesion in the right hepatic lobe based on my initial lesion of initial x-rays on admission was not mentioned in official radiological report and was also not present at yesterday's CT scan. (5) Hyponatremia SNOMED Code(s): 27723806 ICD Code: E87.1 - HYPO-OSMOLALITY AND HYPONATREMIA Status: Acute Priority : Medium Current Visit: Yes Onset Date: 12/22/17 Problem Details: As above (6) Polycythemia SNOMED Code(s): 472290300 ICD Code: D75.1 - SECONDARY POLYCYTHEMIA Status: Chronic Priority: Medium Current Visit: Yes Problem Details: History of polycythemia likely secondary to his COPD with no recent phlebotomies. Dehydration was a contributing component on admission. Continue to observe closely with repeat blood work at follow-up. Note previous history of tobacco use between ages 17 and 38 with maximum use of one pack per day. (7) COPD (chronic obstructive pulmonary disease) SNOMED Code(s): 45010816 ICD Code: J44.9 - CHRONIC OBSTRUCTIVE PULMONARY DISEASE, UNSPECIFIED Status : Chronic Priority: Medium Current Visit: Yes Problem Details: No recent bronchitic-type symptoms with no current medical therapy. Negative chest x-ray prior to admission as above. Sputum culture to be obtained. Consider PFTs on an outpatient basis. Qualifiers: COPD type: emphysema Emphysema type: panlobular Qualified Code(s): J43.1 - Panlobular emphysema (8) HTN, Benign essential hypertension SNOMED Code(s): 1700677 ICD Code: I10 - ESSENTIAL (PRIMARY) HYPERTENSION Status: Chronic Priority : Medium Current Visit: Yes Problem Details: Blood Pressures stable during this hospitalization despite sepsis. IV hydration was conducted as above. (9) Hyperlipidemia SNOMED Code(s): 78768601 ICD Code: E78.5 - HYPERLIPIDEMIA, UNSPECIFIED Status: Chronic Priority: Medium Current Visit: Yes Problem Details: Currently under therapy. Note elevated LFTs as above likely secondary to fatty liver. Lipid panel on 12/23 shows severe dyslipidemia with patient a candidate for more aggressive anticholesterol therapy, which will be discussed with his regular provider at follow-up. The patient was also counseled extensively on day of discharge with additional dietary information provided. Note significant history of heart disease as below. Probable medication adjustment at follow-up. Qualifiers: Hyperlipidemia type: mixed hyperlipidemia Qualified Code(s): E78.2 - Mixed hyperlipidemia (10) Mixed anxiety and depressive disorder SNOMED Code(s): 977011235 ICD Code: F41.8 - OTHER SPECIFIED ANXIETY DISORDERS Status: Chronic Priority: Medium Current Visit: Yes Problem Details: Adequate control during this hospitalization and improved from admission. (11) Osteoarthritis SNOMED Code(s): 056582431 ICD Code: M19.90 - UNSPECIFIED OSTEOARTHRITIS, UNSPECIFIED SITE Status: Chronic Priority: Medium Current Visit: Yes Problem Details: Stable by history with exception of initial nonspecific low back and left hip pain on admission. Note history of hyperuricemia and polymyalgia rheumatica with no gout -type symptoms, etc.. IV Toradol given initially for pain control. No significant arthritic complaints at discharge. Qualifiers: Osteoarthritis location: multiple joints Osteoarthritis type: primary Qualified Code(s): M15.0 - Primary generalized (osteo)arthritis (12) Peptic reflux disease SNOMED Code(s): 568854088 ICD Code: K21.9 - GASTRO-ESOPHAGEAL REFLUX DISEASE WITHOUT ESOPHAGITIS Status: Chronic Priority: Medium Current Visit: Yes Problem Details: Stable by history. High dose IV Pepcid and IV Protonix during this hospitalization. Note newly diagnosed H. pylori infection, which will be treated at discharge as below. (13) Ileus SNOMED Code(s): 183641973 ICD Code: K56.7 - ILEUS, UNSPECIFIED Status: Acute Priority: High Current Visit: Yes Onset Date: 12/22/17 Problem Details: Borderline beginning ileus per initial x-ray report on admission, however not evident in follow-up CT scan or today's x-rays as below. Patient did have 2 large bowel movement on day of admission with some mild diarrhea secondary to current antibody therapy. Patient's abdominal pain and nausea completely resolved at discharge with previous IV Toradol and IV Reglan therapy. (14) Hypoalbuminemia SNOMED Code(s): 500069952 ICD Code: E88.09 - OTH DISORDERS OF PLASMA-PROTEIN METABOLISM, NEC Status: Acute Priority: Medium Current Visit: Yes Onset Date: ~12/23/17 Problem Details: Initiate high-protein Glucerna supplements once patient's condition improve. (15) Coronary artery disease SNOMED Code(s): 14433303 ICD Code: I25.10 - ATHSCL HEART DISEASE OF [place] CORONARY ARTERY W/O ANG PCTRS Status: Chronic Priority: Medium Current Visit: Yes Problem Details: No recent chest pain or anginal complaints including during this entire hospitalization. Telemetry was normal during this hospitalization. Qualifiers: Coronary Disease-Associated Artery/Lesion type: [place] artery [place] vs. transplanted heart: [place] heart Associated angina: without angina Qualified Code(s): I25.10 - Atherosclerotic heart disease of [place] coronary artery without angina pectoris (16) Helicobacter pylori (H. pylori) infection SNOMED Code(s): 667898781 ICD Code: A04.8 - OTHER SPECIFIED BACTERIAL INTESTINAL INFECTIONS Status: Acute Priority: High Current Visit: Yes Onset Date: 12/24/17 Problem Details: As above (17) Diverticulosis SNOMED Code(s): 862170363 ICD Code: K57.90 - DVRTCLOS OF INTEST, PART UNSP, W/O PERF OR ABSCESS W/O BLEED Status: Acute Priority: Medium Current Visit: Yes Onset Date: Problem Details: Diverticulosis diet at discharge. Qualifiers: Diverticulosis site: diverticulosis of large intestine - Patient Summary/Data Operative Procedure(s) Performed: None Complications: None Consults: None Labs Pending at D/C: Final abdominal x-ray report from 12/24/17. Recommended Follow-up Testing/Procedures: As per discharge instructions Planned Operative Procedure(s) after DC: None however repeat EGD and colonoscopy depending on his clinical course with last procedures performed in 2015. - Patient Instructions Diet: Heart Healthy Diet Diet, Other: Diverticulosis. High-protein Glucerna supplement twice a day as snacks Activity: As Tolerated Driving: May Drive Today Showering/Bathing: May Shower Notify Provider of: Fever, Increased Pain, Nausea and/or Vomiting Other/Special Instructions: 1. Followup with your regular provider in 10-14 days as directed, including recommended CBC and comprehensive metabolic panel. Bring these discharge instructions with you to that visit. 2. Discuss follow- up stool specimens for culture and sensitivities and H. pylori antigen at that time with your regular provider. 3. Hygiene precautions as discussed, including disinfection of toilet seats, hands, etc. 4. Discuss possible more aggressive therapy for your severe dyslipidemia with consideration of additional statin therapy. 5. Strict compliance with low-fat, low-cholesterol , diverticulosis diet with weight loss and exercise in moderation as discussed. 6. Consider lung function tests/PFTs depending on your follow-up symptoms. 7. Throw out all fruits and vegetables and any other suspected foods, including crackers, etc. as discussed. 8. Immediately after this visit verify that your cellular telephone's voicemail has been activated and is empty. Also verify that your home telephone's answering machine is operating properly and has space to receive messages. Note that it is sometimes necessary for us to be able to contact you at a later date to discuss your medical care. 9. Repeat CT scan of the abdomen and pelvis with IV and oral contrast in about 36 months per recommendations from radiology secondary to nonspecific mesenteric lymph node enlargement during evaluation on 12/23/17. - Discharge Plan *PRESCRIPTION DRUG MONITORING PROGRAM REVIEWED*: Not Applicable *COPY OF PRESCRIPTION DRUG MONITORING REPORT IN PATIENT MORRO: Not Applicable Prescriptions/Med Rec: Amoxicillin/Potassium Clav [Augmentin 875-125 Tablet] 1 each PO BIDMEALS #20 tablet Bismuth Subsalicylate [Pepto-Bismol] 524 mg PO QID #112 tab.chew Lactobacillus Acidophilus/Fos [Acidophilus Probiotic Tablet] 2 each PO TID #90 tablet metroNIDAZOLE [Flagyl] 500 mg PO Q8H #42 tab Pantoprazole Sodium [Protonix] 40 mg PO BID #60 tablet. Home Medications: Home Meds Baclofen 10 mg PO QID PRN 06/13/13 [History] Metoprolol Tartrate [Lopressor] 100 mg PO Q12H 06/13/13 [History] clonazePAM [Clonazepam] 4 mg PO BEDTIME 06/13/13 [History] traZODone HCl [Trazodone HCl] 2 tab PO BEDTIME 06/13/13 [History] Prasugrel [Effient] 10 mg PO QAM 09/12/13 [History] Cholecalciferol (Vitamin D3) [Vitamin D3] 400 units PO QAM 03/12/15 [History] Aspirin 325 mg PO QAM 07/03/15 [History] Evolocumab [Repatha Sureclick] 140 mg SQ ASDIRECTED 05/06/16 [History] Nitroglycerin [IJP: Nitroglycerin] 0.4 mg SL Q5M PRN tablet, sublingual [Rx] Fluticasone Propionate [Flonase Allergy Relief] 1 spray NS BID PRN 12/22/17 [ History] Acetaminophen [Tylenol] 650 mg PO Q4H PRN tablet 12/24/17 [Rx] Amoxicillin/Potassium Clav [Augmentin 875-125 Tablet] 1 each PO BIDMEALS #20 tablet 12/24/17 [Rx] Bismuth Subsalicylate [Pepto-Bismol] 524 mg PO QID #112 tab.chew 12/24/17 [Rx] Lactobacillus Acidophilus/Fos [Acidophilus Probiotic Tablet] 2 each PO TID #90 tablet 12/24/17 [Rx] Pantoprazole Sodium [Protonix] 40 mg PO BID #60 tablet. 12/24/17 [Rx] metroNIDAZOLE [Flagyl] 500 mg PO Q8H #42 tab 12/24/17 [Rx] Patient Handouts: Helicobacter Pylori Infection, Heart-Healthy Eating Plan, Fat and Cholesterol Restricted Diet, [id number], Vancomycin injection, Diverticulosis, Metronidazole injection, Salmonella Gastroenteritis, Adult Forms: ED Department Discharge Referrals: Gifty Sena PA [Primary Care Provider] - - Discharge Summary/Plan Comment DC Time >30 min.: Yes (Coordination of care ) Discharge Summary/Plan Comment: As above. Extensive precautions were given to the patient, who is in agreement with the treatment plan. See Patient Instructions for further treatment and plan. - General Info Admission Dx/Problem (Free Text: 1. Sepsis 2. Abdominal pain with developing ileus 3. Dehydration Functional Status: Reports: Pain Controlled, Tolerating Diet, Ambulating, Urinating. Denies: New Symptoms, Incentive Spirometry Numeric/FACES Score: 0 - Review of Systems General: Reports: No Symptoms. Denies: Fever, Weakness, Fatigue, Malaise, Chills, Night Sweats, Appetite (Appetite good) HEENT: Reports: No Symptoms. Denies: Ear Pain, Eye Pain, Headaches, Post Nasal Drip, Sinus Congestion, Sore Throat, Rhinitis, Visual Changes Pulmonary: Reports: No Symptoms. Denies: Shortness of Breath, Pleuritic Chest Pain, Cough, Sputum, Wheezing Cardiovascular: Reports: No Symptoms. Denies: Chest Pain, Palpitations, Dyspnea on Exertion, Orthopnea, PND, Edema, Lightheadedness Gastrointestinal: Reports: Diarrhea (Mild to moderate secondary to current antibody therapy). Denies: Abdominal Pain, Constipation, Decreased Appetite, Difficulty Swallowing, Flatus, Hematochezia, Melena, Nausea, Vomiting Genitourinary: Reports: No Symptoms. Denies: Dysuria, Frequency, Burning, Pain , Urgency, Incontinence, Hematuria, Retention, Flank Pain Musculoskeletal: Reports: No Symptoms. Denies: Neck Pain, Shoulder Pain, Arm Pain, Back Pain, Leg Pain Skin: Reports: No Symptoms. Denies: Jaundice, Pallor, Diaphoresis, Bruising, Pruritis, Rash Neurological: Reports: No Symptoms. Denies: Confusion, Dizziness, Headache, Numbness, Paresthesia, Tingling, Weakness Psychiatric: Reports: No Symptoms. Denies: Confusion, Depression, Anxiety, Agitation, Cravings, Hallucinations - Patient Data Vitals - Most Recent: Last Vital Signs Temp 36.6 C 12/24/17 07:50 Pulse 65 12/24/17 08:05 Resp 16 12/24/17 07:50 BP 131/90 12/24/17 08:05 Pulse Ox 96 12/24/17 07:50 Vital Signs - 24 hr 12/23/17 12/23/17 12/23/17 12:00 16:00 19:18 Temperature [ 36.4 C 36.6 C 36.3 C Oral] Temperature [ Temporal] Pulse, Peripheral Pulse, 70 72 Peripheral [ Pulse Oximetry] Respiratory 16 18 Rate Blood Pressure Blood Pressure 127/81 127/88 117/84 [Upper Arm] O2 Sat by Pulse 95 94 L 97 Oximetry 12/23/17 12/24/17 12/24/17 19:23 00:00 04:00 Temperature [ Oral] Temperature [ 36.6 C 37.1 C Temporal] Pulse, 72 Peripheral Pulse, 68 67 Peripheral [ Pulse Oximetry] Respiratory 14 16 Rate Blood Pressure 117/70 Blood Pressure 127/84 119/74 [Upper Arm] O2 Sat by Pulse 95 95 Oximetry 12/24/17 12/24/17 07:50 08:05 Temperature [ 36.6 C Oral] Temperature [ Temporal] Pulse, 65 Peripheral Pulse, 65 Peripheral [ Pulse Oximetry] Respiratory 16 Rate Blood Pressure 131/90 Blood Pressure 131/90 [Upper Arm] O2 Sat by Pulse 96 Oximetry Weight - Most Recent: 87.26 kg I&O - Last 24 hours: Intake & Output 12/23/17 12/24/17 12/24/17 22:59 06:59 14:59 Intake Total 236 2180 100 Output Total 150 500 Balance 86 1680 100 Imaging Impressions - Last 24 hrs: laboratory monitor shows normal sinus rhythm in the 60s with no ectopy or arrhythmia Acute abdominal x-ray shows mild COPD changes with mild prominence of the proximal aortic arch but no cardiomegaly, CHF, pulmonary infiltrates, pneumothorax, free air, fluid levels, ileus, or obstruction. Note status post lumbar spine fixation and laparoscopic cholecystectomy. Persistent moderate stool. Report for CT scan of the abdomen and pelvis with both oral and IV contrast from 12/23/[address] evidence of ileus with only mildly prominent mesenteric lymph nodes in the right lower quadrant noted near the cecum. No evidence of pancreatitis. Additional evidence of sigmoid diverticulosis without diverticulitis. Lab Results - Last 24 hrs: Laboratory Results - last 24 hr 12/24/17 12/24/17 Range/Units 07:10 07:10 WBC 5.7 (4.0-10.2) K/uL RBC 4.69 (4.33-5.41) M/uL Hgb 14.8 D (13.1-16.8) g/dL Hct 42.0 (39.0-49.0) % MCV 89.6 (84.0-98.0) fL MCH 31.6 (28.2-33.3) pg MCHC 35.2 (31.7-36.0) g/dL RDW 13.5 (11.2-14.1) % Plt Count 130 L (150-350) K/uL Neut % (Auto) 70.9 (45.0-80.0) % Lymph % (Auto) 15.0 (10.0-50.0) % [place] % (Auto) 13.9 (2.0-14.0) % Eos % (Auto) 0.0 (0.0-5.0) % Baso % (Auto) 0.2 (0.0-2.0) % Neut # (Auto) 4.02 (1.40-7.00) K/uL Lymph # (Auto) 0.85 (0.50-3.50) K/uL [place] # (Auto) 0.79 (0.00-1.00) K/uL Eos # (Auto) 0.00 (0.00-0.50) K/uL Baso # (Auto) 0.01 (0.00-0.20) K/uL Sodium 138 (136-145) mmol/L Potassium 3.7 (3.5-5.1) mmol/L Chloride 105 (98-107) mmol/L Carbon Dioxide 26.3 (21.0-32.0) mmol/L BUN 17 (7-18) mg/dL Creatinine 0.83 (0.51-1.17) mg/dL Est Cr Clr Drug Dosing 89.40 mL/min Estimated GFR (MDRD) > 60 mL/min Glucose 133 H (74-106) mg/dL Calcium 8.3 L (8.5-10.1) mg/dL Total Bilirubin 0.2 (0.2-1.0) mg/dL AST 37 (15-37) U/L ALT 62 (12-78) U/L Alkaline Phosphatase 71 (46-116) IU/L C-Reactive Protein 7.6 H (<=0.9) mg/dL Total Protein 5.8 L (6.4-8.2) g/dL Albumin 2.5 L (3.4-5.0) g/dL Amylase 15 L (25-115) U/L Lipase 112 (73-393) U/L Laboratory Tests 12/22/17 12/22/17 12/23/17 Range/Units 12:20 17:35 07:00 WBC 5.1 (4.0-10.2) K/uL RBC 5.20 (4.33-5.41) M/uL Hgb 16.4 D (13.1-16.8) g/dL Hct 46.5 (39.0-49.0) % MCV 89.4 (84.0-98.0) fL MCH 31.5 (28.2-33.3) pg MCHC 35.3 (31.7-36.0) g/dL RDW 13.5 (11.2-14.1) % Plt Count 124 L (150-350) K/uL Neut % (Auto) 81.9 H (45.0-80.0) % Lymph % (Auto) 7.4 L (10.0-50.0) % [place] % (Auto) 10.3 (2.0-14.0) % Eos % (Auto) 0.2 (0.0-5.0) % Baso % (Auto) 0.2 (0.0-2.0) % Neut # (Auto) 4.21 (1.40-7.00) K/uL Lymph # (Auto) 0.38 L (0.50-3.50) K/uL [place] # (Auto) 0.53 (0.00-1.00) K/uL Eos # (Auto) 0.01 (0.00-0.50) K/uL Baso # (Auto) 0.01 (0.00-0.20) K/uL Sodium (136-145) mmol/L Potassium (3.5-5.1) mmol/L Chloride (98-107) mmol/L Carbon Dioxide (21.0-32.0) mmol/L BUN (7-18) mg/dL Creatinine (0.51-1.17) mg/dL Est Cr Clr Drug Dosing mL/min Estimated GFR (MDRD) mL/min Glucose (74-106) mg/dL Lactic Acid 2.2 H 0.9 (0.4-2.0) mmol/L Calcium (8.5-10.1) mg/dL Total Bilirubin (0.2-1.0) mg/dL AST (15-37) U/L ALT (12-78) U/L Alkaline Phosphatase (46-116) IU/L C-Reactive Protein (<=0.9) mg/dL Total Protein (6.4-8.2) g/dL Albumin (3.4-5.0) g/dL Triglycerides (30-150) mg/dL Cholesterol (100-200) mg/dL LDL Cholesterol, Calc (0-100) mg/dL HDL Cholesterol (40-60) mg/dL Amylase (25-115) U/L Lipase (73-393) U/L 12/23/17 12/23/17 12/24/17 Range/Units 07:00 07:00 07:10 WBC 5.7 (4.0-10.2) K/uL RBC 4.69 (4.33-5.41) M/uL Hgb 14.8 D (13.1-16.8) g/dL Hct 42.0 (39.0-49.0) % MCV 89.6 (84.0-98.0) fL MCH 31.6 (28.2-33.3) pg MCHC 35.2 (31.7-36.0) g/dL RDW 13.5 (11.2-14.1) % Plt Count 130 L (150-350) K/uL Neut % (Auto) 70.9 (45.0-80.0) % Lymph % (Auto) 15.0 (10.0-50.0) % [place] % (Auto) 13.9 (2.0-14.0) % Eos % (Auto) 0.0 (0.0-5.0) % Baso % (Auto) 0.2 (0.0-2.0) % Neut # (Auto) 4.02 (1.40-7.00) K/uL Lymph # (Auto) 0.85 (0.50-3.50) K/uL [place] # (Auto) 0.79 (0.00-1.00) K/uL Eos # (Auto) 0.00 (0.00-0.50) K/uL Baso # (Auto) 0.01 (0.00-0.20) K/uL Sodium 133 L (136-145) mmol/L Potassium 3.6 (3.5-5.1) mmol/L Chloride 99 (98-107) mmol/L Carbon Dioxide 24.3 (21.0-32.0) mmol/L BUN 17 (7-18) mg/dL Creatinine 0.99 (0.51-1.17) mg/dL Est Cr Clr Drug Dosing 74.95 mL/min Estimated GFR (MDRD) > 60 mL/min Glucose 103 (74-106) mg/dL Lactic Acid 0.8 (0.4-2.0) mmol/L Calcium 8.5 (8.5-10.1) mg/dL Total Bilirubin 0.5 (0.2-1.0) mg/dL AST 69 H (15-37) U/L ALT 85 H (12-78) U/L Alkaline Phosphatase 85 (46-116) IU/L C-Reactive Protein (<=0.9) mg/dL Total Protein 6.7 (6.4-8.2) g/dL Albumin 2.9 L (3.4-5.0) g/dL Triglycerides 199 H (30-150) mg/dL Cholesterol 263 H (100-200) mg/dL LDL Cholesterol, Calc 208 H (0-100) mg/dL HDL Cholesterol 15 L (40-60) mg/dL Amylase 15 L (25-115) U/L Lipase 127 (73-393) U/L // Range/Units 07:10 WBC (4.0-10.2) K/uL RBC (4.33-5.41) M/uL Hgb (13.1-16.8) g/dL Hct (39.0-49.0) % MCV (84.0-98.0) fL MCH (28.2-33.3) pg MCHC (31.7-36.0) g/dL RDW (11.2-14.1) % Plt Count (150-350) K/uL Neut % (Auto) (45.0-80.0) % Lymph % (Auto) (10.0-50.0) % [place] % (Auto) (2.0-14.0) % Eos % (Auto) (0.0-5.0) % Baso % (Auto) (0.0-2.0) % Neut # (Auto) (1.40-7.00) K/uL Lymph # (Auto) (0.50-3.50) K/uL [place] # (Auto) (0.00-1.00) K/uL Eos # (Auto) (0.00-0.50) K/uL Baso # (Auto) (0.00-0.20) K/uL Sodium 138 (136-145) mmol/L Potassium 3.7 (3.5-5.1) mmol/L Chloride 105 (98-107) mmol/L Carbon Dioxide 26.3 (21.0-32.0) mmol/L BUN 17 (7-18) mg/dL Creatinine 0.83 (0.51-1.17) mg/dL Est Cr Clr Drug Dosing 89.40 mL/min Estimated GFR (MDRD) > 60 mL/min Glucose 133 H (74-106) mg/dL Lactic Acid (0.4-2.0) mmol/L Calcium 8.3 L (8.5-10.1) mg/dL Total Bilirubin 0.2 (0.2-1.0) mg/dL AST 37 (15-37) U/L ALT 62 (12-78) U/L Alkaline Phosphatase 71 (46-116) IU/L C-Reactive Protein 7.6 H (<=0.9) mg/dL Total Protein 5.8 L (6.4-8.2) g/dL Albumin 2.5 L (3.4-5.0) g/dL Triglycerides (30-150) mg/dL Cholesterol (100-200) mg/dL LDL Cholesterol, Calc (0-100) mg/dL HDL Cholesterol (40-60) mg/dL Amylase 15 L (25-115) U/L Lipase 112 (73-393) U/L [facility] Results - Last 24 hrs: Microbiology 12/22/17 23:10 Helicobacter pylori Antigen - Final Stool / Feces 12/22/17 13:37 Aerobic Blood Culture - Final Blood - Venous - Lab Draw Anaerobic Blood Culture - Final 12/22/17 12:20 Aerobic Blood Culture - Final Blood - Venous Salmonella [place] Anaerobic Blood Culture - Final 12/22/17 15:00 Stool Occult Blood ([facility]) - Final Stool / Feces NEGATIVE OCCULT BLOOD Stool specimen positive for H. pylori antigen. [place] [facility] [place] with mixed [place]. Med Orders - Current: Current Medications Acetaminophen (Tylenol) 650 mg PO Q4H PRN PRN Reason: Pain Last Admin: 12/24/17 01:15 Dose: 650 mg Aspirin (Aspirin) 325 mg PO QAM [facility] [place] Last Admin: 12/24/17 08:04 Dose: 325 mg Baclofen (Lioresal) 10 mg PO QID PRN PRN Reason: Muscle Spasm Last Admin: 12/23/17 23:10 Dose: 10 mg Famotidine (Pepcid) 20 mg IVPUSH Q12H [facility] [place] Last Admin: 12/24/17 04:16 Dose: 20 mg Fluticasone Propionate (Flonase) 1 gm NASBOTH BID PRN PRN Reason: Allergies Lactated Ringer's (Ringers, Lactated) 1,000 mls @ 125 mls/hr IV ASDIRECTED [facility] [place] Last Admin: 12/23/17 23:10 Dose: 150 mls/hr Ceftriaxone Sodium 1 gm/ (Sodium Chloride) 100 mls @ 200 mls/hr IV Q12H [facility] [place] Last Admin: 12/24/17 04:12 Dose: 200 mls/hr Metronidazole 500 mg/ Premix 100 mls @ 100 mls/hr IV Q8H [facility] [place] Last Admin: 12/24/17 08:03 Dose: 100 mls/hr Vancomycin HCl 1 gm/ Sodium (Chloride) 250 mls @ 165 mls/hr IV Q24H [facility] [place] Last Admin: 12/24/17 04:15 Dose: 165 mls/hr Ketorolac Tromethamine (Toradol) 15 mg IVPUSH Q6H PRN PRN Reason: Pain (severe 7-10) Stop: 12/25/17 15:05 Last Admin: 12/24/17 04:15 Dose: 15 mg Metoclopramide HCl (Reglan) 10 mg IVPUSH Q6H PRN PRN Reason: Nausea/Vomiting Last Admin: 12/23/17 08:52 Dose: 10 mg Metoprolol Tartrate (Lopressor) 100 mg PO Q12HR [facility] [place] Last Admin: 12/24/17 08:05 Dose: 100 mg Prasugrel [Effient] (10 Mg Own Med) 0 mg PO QAM [facility] [place] Last Admin: 12/24/17 08:04 Dose: 10 mg Pantoprazole Sodium (Protonix Iv) 40 mg IVPUSH Q12H [facility] [place] Last Admin: 12/24/17 04:12 Dose: 40 mg Sodium Chloride (Saline Flush) 10 ml FLUSH ASDIRECTED PRN PRN Reason: Keep Vein Open Last Admin: 12/24/17 04:16 Dose: 10 ml Sodium Chloride (Saline Flush) 10 ml FLUSH Q12HR [facility] [place] Last Admin: 12/24/17 08:06 Dose: 10 ml Tramadol HCl (Ultram) 50 mg PO Q6H PRN PRN Reason: Pain (moderate 4-6) Last Admin: 12/24/17 01:17 Dose: 50 mg Trazodone HCl (Trazodone) 200 mg PO BEDTIME [facility] [place] Last Admin: 12/23/17 19:26 Dose: 200 mg Discontinued Medications Acetaminophen (Tylenol Extra Strength) 1,000 mg PO ONETIME ONE Stop: 12/23/17 06:01 Last Admin: 12/23/17 05:26 Dose: 1,000 mg Diphenhydramine HCl (Benadryl) 50 mg PO ONETIME ONE Stop: 12/23/17 06:01 Last Admin: 12/23/17 05:25 Dose: 50 mg Famotidine (Pepcid) 20 mg IVPUSH Q12H [facility] [place] Lactated Ringer's (Ringers, Lactated) 1,000 mls @ 999 mls/hr IV .BOLUS ONE Stop: 12/22/17 14:28 Last Admin: 12/22/17 13:56 Dose: 999 mls/hr Ceftriaxone Sodium 1 gm/ (Sodium Chloride) 100 mls @ 200 mls/hr IV Q12H [facility] [place] Metronidazole 500 mg/ Premix 100 mls @ 100 mls/hr IV Q8H [facility] [place] Vancomycin HCl 1 gm/ Dextrose/ (Water) 250 mls @ 165 mls/hr IV Q24H [facility] [place] Last Admin: 12/23/17 03:02 Dose: 165 mls/hr Iopamidol (Isovue-300 (61%)) 100 ml IVPUSH ONETIME ONE Stop: 12/23/17 08:01 Last Admin: 12/23/17 17:37 Dose: Not Given Ketorolac Tromethamine (Toradol) 30 mg IVPUSH ONETIME ONE Stop: 12/22/17 15:05 Last Admin: 12/22/17 15:14 Dose: 30 mg Methylprednisolone Sodium Succinate (Solu-Medrol) 125 mg IVPUSH ONETIME ONE Stop: 12/23/17 06:01 Last Admin: 12/23/17 05:25 Dose: 125 mg Pantoprazole Sodium (Protonix Iv) 40 mg IVPUSH Q12H [facility] [place] - Exam Quality Assessment: Reports: DVT Prophylaxis. Denies: Supplemental Oxygen, Central Line/PICC, Urine Catheter, Skin Breakdown General: Reports: Alert, Oriented, Cooperative, No Acute Distress HEENT: Reports: Pupils Equal, Pupils Reactive, EOMI, Mucous Membr. Moist/[place]. Denies: Scleral Icterus Neck: Reports: Supple, Trachea Midline, No JVD, No Thyromegaly, +2 Carotid Pulse wo Bruit. Denies: Lymphadenopathy Lungs: Reports: Clear to Auscultation, Normal Respiratory Effort. Denies: Rhonchi, Rub, Wheezing Cardiovascular: Reports: Regular Rate, Regular Rhythm, No Murmurs. Denies: Gallops, Rubs GI/Abdominal Exam: Normal Bowel Sounds, Soft, Non-Tender, No Organomegaly, No Distention, No Abnormal Bruit, No Mass, Pelvis Stable, Other (Obese). No: Guarding (Male) Exam: Deferred Rectal (Males) Exam: Deferred Back Exam: Reports: Normal Inspection, Full Range of Motion. Denies: CVA Tenderness (L), CVA Tenderness (R), Muscle Spasm Extremities: Normal Inspection, Normal Range of Motion, Non-Tender, No Pedal Edema, Normal Capillary Refill. No: Amtilda's Sign Skin: Reports: Warm, Dry, Intact. Denies: Ecchymosis Neurological: Reports: No New Focal Deficit Psy/Mental Status: Reports: Alert, Normal Affect, Normal Mood. Denies: Depressed, Agitated, Hallucinations, Withdrawal Symptoms
--- NOTE | 2017-12-24 11:07 | PCM.SN ---
- Free Text/Narrative Note: Note that patient denies previous allergy to penicillin with previous reaction of nonspecific fatigue but no significant rash, hives, etc. Penicillin will be removed from patient's allergy list.
== END 2017-12-24 12:22 | disposition home or self-care (01) | DRG 720 ==
LOC: LL.ED 13:12 → UNDOADMOB 14:23 → LL.MS 14:23 → OBSVTOIN 12-23 08:47
PROVIDERS: ADMIT Family Medicine; ATTEND Family Medicine
DX: A02.1 Salmonella sepsis (principal); E86.0 Dehydration; E87.1 Hypo-osmolality and hyponatremia; E87.2 Acidosis; K56.7 Ileus, unspecified; J44.9 Chronic obstructive pulmonary disease, unspecified; K57.30 Diverticulosis of large intestine without perforation or abscess without bleeding; I10 Essential (primary) hypertension; D75.1 Secondary polycythemia; E78.2 Mixed hyperlipidemia; E88.09 Other disorders of plasma-protein metabolism, not elsewhere classified; F41.8 Other specified anxiety disorders; M15.0 Primary generalized (osteo)arthritis; K21.9 Gastro-esophageal reflux disease without esophagitis; I25.10 Atherosclerotic heart disease of native coronary artery without angina pectoris; K76.0 Fatty (change of) liver, not elsewhere classified; B96.81 Helicobacter pylori [H. pylori] as the cause of diseases classified elsewhere; Z88.8 Allergy status to other drugs, medicaments and biological substances; Z79.899 Other long term (current) drug therapy; Z88.0 Allergy status to penicillin; Z79.82 Long term (current) use of aspirin
CPT/HCPCS: 36415; 74022; 74177; 80053; 80061; 82150; 82272; 83605; 83690; 85025; 86140; 87040; 87077; 87086; 87186; 87338; 96360; 96361; 96365; 96366; 96367; 96375; 96376; 99285; A9270-GY; C9113; G0378; J0696; J1885; J2765; J2930; J3370; J3490; J7050; J7060; J7120; Q9967

== ENCOUNTER 2018-10-28 20:19 | Observation (INO) | payer BC ==
[2018-10-28] MEDS ORDERED: Aspirin 81 MG Tab.Chew CHEW ONE (20:20)
[2018-10-28] MEDS ORDERED: Famotidine 20 MG/2 ML SDV IVPUSH ONE (20:20)
[2018-10-28] MEDS ORDERED: Ticagrelor 90 MG Tab PO ONE (20:20)
--- NOTE | 2018-10-28 20:20 | EDM.PDOC ---
ED HPI GENERAL MEDICAL PROBLEM - General Chief Complaint: Chest Pain Stated Complaint: chest pain Time Seen by Provider: 10/28/18 20:20 Source of Information: Reports: Patient, Old Records ([facility] chart/EMR) History Limitations: Reports: No Limitations - History of Present Illness INITIAL COMMENTS - FREE TEXT/NARRATIVE: Patient drove himself to the emergency room via private automobile for evaluation of 9/10 left-sided chest pressure radiating to the left arm with additional nausea and dyspnea and symptoms starting at about 19:15 hours this evening. The patient did take one sublingual nitroglycerin about 45 minutes prior to arrival with a repeat dose about 15 minutes prior to arrival with no improvement of his symptoms. He has been off of his aspirin and Effient for the last couple of weeks secondary to epidural steroid injections, although the patient did take 325 mg of aspirin earlier this morning. The patient denies any heart flutter, dizziness, orthostasis, orthopnea, diaphoresis, paresthesias, recent decreased exercise tolerance, or any other anginal-type symptoms. No recent history of abdominal pain, heartburn, emesis, diarrhea, melena, gross hematochezia, or any food intolerance, including fatty foods, etc.. He denies any gross hematuria, colic, or other UTI symptoms. The patient also denies any recent fever, cough, wheezing, dyspnea, etc.. Onset: Today, Sudden Onset Date: 10/28/18 Onset Time: 19:15 Duration: Constant Location: Reports: Head, Face, Chest, Upper Extremity, Left, Radiates to (As above). Denies: Abdomen, Back, Pelvis, Upper Extremity, Right Quality: Reports: Pressure, Same as Previous Episode Severity: Severe Improves with: Reports: None Worsens with: Reports: None Context: Denies: Sick Contact, Trauma Associated Symptoms: Reports: Chest Pain, Nausea/Vomiting (As above), Shortness of Breath. Denies: Confusion, Cough, Diaphoresis, Fever/Chills, Headaches, Loss of Appetite, Malaise, Syncope, Weakness Treatments SPEARER: Reports: Nitroglycerin Left Chest Pain Score (Numeric/FACES): 9 - Related Data Allergies Allergy/AdvReac Type Severity Reaction Status Date / Time clarithromycin [From Biaxin] Allergy Rash Verified 10/28/18 20:35 Gadolinium-Containing Allergy Hives Verified 10/28/18 20:35 Contrast Medi gadoteridol [From Prohance] Allergy Hives Verified 10/28/18 20:35 Iodinated Contrast- Oral and Allergy Hives Verified 10/28/18 20:35 IV Dye ondansetron [From Zofran] Allergy Shortness Verified 10/28/18 21:20 of Breath ondansetron HCl Allergy Rash Verified 10/28/18 20:35 [From Zofran (as hydrochloride)] Kjaibzn-Xcs-Sop Reductase Allergy rabdomyalisis, Verified 10/28/18 20:35 Inhibitor muscle aches Home Meds: Home Meds Baclofen 10 mg PO QID PRN 06/13/13 [History] Metoprolol Tartrate [Lopressor] 100 mg PO BID 06/13/13 [History] clonazePAM [Clonazepam] 4 mg PO BEDTIME 06/13/13 [History] traZODone HCl [Trazodone HCl] 2 tab PO BEDTIME 06/13/13 [History] Prasugrel [Effient] 10 mg PO QAM 09/12/13 [History] Cholecalciferol (Vitamin D3) [Vitamin D3] 400 units PO QAM 03/12/15 [History] Aspirin 325 mg PO QAM 07/03/15 [History] Evolocumab [Repatha Sureclick] 140 mg SQ ASDIRECTED 05/06/16 [History] Nitroglycerin [IJP: Nitroglycerin] 0.4 mg SL Q5M PRN tablet, sublingual [Rx] Acetaminophen [Tylenol] 650 mg PO Q4H PRN tablet 12/24/17 [Rx] Pantoprazole Sodium [Protonix] 40 mg PO BID #60 tablet. 12/24/17 [Rx] Past Medical History HEENT History: Reports: Allergic Rhinitis, Impaired Vision, Other (See Below). Denies: Cataract, Glaucoma, Hard of Hearing, Macular Degeneration, Retinal Detachment Other HEENT History: He wears glasses. Cardiovascular History: Reports: Angina, CAD, High Cholesterol, Hypertension, FL , PTCA, Stents, Syncope, Other (See Below). Denies: Afib, Aneurysm, Arrhythmia , Blood Clots/VTE/DVT, Heart Failure, Heart Murmur, PVD Other Cardiovascular History: stents x10 with most recent procedures as below, history of recurrent syncope, dyslipidemia Respiratory History: Reports: Bronchitis, Recurrent, COPD, Intubation, Previous , Other (See Below). Denies: Asthma, Intubation, Difficult, PE, Pneumothorax, Sleep Apnea, TB Other Respiratory History: COPD by chest x-ray Gastrointestinal History: Reports: Cholelithiasis, GERD, Helicobacter Pylori, Other (See Below). Denies: Celiac Disease, Chronic Constipation, Chronic Diarrhea, Colon Polyp, Fecal Incontinence, Gastritis, GI Bleed, Hepatitis, Hiatal Hernia, Jaundice, Pancreatitis, PUD Other Gastrointestinal History: Fatty liver. Genitourinary History: Reports: Renal Calculus, Other (See Below). Denies: Acute Renal Failure, Chronic Renal Insuffiency, STD, Urinary Incontinence, UTI, Recurrent Other Genitourinary History: History of hyperurcemia with recurrent right-sided urolithiasis with last episode about 2004, bilateral epididymal cysts left greater than right Musculoskeletal History: Reports: Arthritis, Back Pain, Chronic, Fracture, Gout , Neck Pain, Chronic, Osteoarthritis, Osteoporosis, Other (See Below). Denies: RA, SLE Other Musculoskeletal History: Left clavicular fracture and left scapular fracture in about 2007, right sided rib fractures x3 in about 2008, left-sided 12th rib fracture, hyperuricemia diagnosed on 05/23/14 with no previous history of gout attacks, history of previous spinal fusion as below with degenerative disc disease in the L2-L5 region by MRI as below with epidural steroid injection in the lumbar region in August 2018, polymyalgia rheumatica, left talar subchondral cyst. Bilateral pes planus. Neurological History: Reports: Concussion, Headaches, Chronic, Head Trauma, Migraines, Other (See Below). Denies: Cerebral Aneurysms, CVA, MS, Neuropathy, Peripheral, Parkinson's, Seizure, TIA, Vertigo Other Neuro History: Borderline cerebral atrophy by CT scan of the head on , previous head concussion in about 2008 Psychiatric History: Reports: Addiction, Anxiety, Depression, Other (See Below) . Denies: Abuse, Victim of, ADD, ADHD, Psych Hospitalization(s), PTSD, Suicide Attempt, Suicidal Ideation Other Psychiatric History: Chronic Klonopin and trazodone use with previous of chronic narcotic use/seeking behavior secondary to his osteoarthritis Endocrine/Metabolic History: Reports: Obesity/BMI 30+, Osteoporosis, Vitamin D Deficiency, Other (See Below). Denies: Diabetes, Type I, Diabetes, Type II, Diabetes Mellitus, Type 3c, Hypothyroidism, IDDM Other Endocrine/Metabolic History: Hyponatremia. Hematologic History: Reports: Polycythemia, Other (See Below). Denies: Anemia, Blood Transfusion(s), Iron Deficiency Other Hematologic History: Polycythemia requiring phlebotomies in the past Immunologic History: Reports: None. Denies: AIDS, HIV, SLE Oncologic (Cancer) History: Reports: None. Denies: Basal Cell Carcinoma, Hodgkin's Lymphoma, Leukemia, Lymphoma, Malignant Melanoma, Non-Hodgkin's Lymphoma, Squamous Cell Carcinoma Dermatologic History: Reports: None. Denies: Eczema, Psoriasis, Venous Stasis Dermatitis - Infectious Disease History Infectious Disease History: Reports: Chicken Pox, Helicobacter Pylori, Other ( See Below). Denies: C-Difficile, Measles, Meningitis, Mononucleosis, MRSA, Mumps, Rheumatic Fever, Rubella, TB Other Infectious Disease History: Salmonella sepsis/positive in blood cultures without sequelae. - Past Surgical History Head Surgeries/Procedures: Reports: None HEENT Surgical History: Reports: None, Oral Surgery, Tonsillectomy, Other (See Below). Denies: Adenoidectomy, Cataract Surgery, Eye Surgery, Laser Surgery, LASIK, Myringotomy w Tube(s), Naso-Sinus Surgery Other HEENT Surgeries/Procedures: [place] teeth extraction 4 at about age 17. Multiple teeth extractions. Tonsillectomy at about age 24. Cardiovascular Surgical History: Reports: Coronary Artery Bypass, Coronary Artery Stent, Other (See Below). Denies: Varicose, Vascular Surgery Other Cardiovascular Surgeries/Procedures: He has had a total of at least 10 previous cardiac stents initially at age 38 then in about [id number] with PTCA/ stent 2 of the LAD in about 2004 with PTCA of the obtuse marginal artery at the same time. Subsequent PTCA/stent of the right coronary artery in about 2006. PTCA/stent 2 at [facility] on 07/20/14. PTCA/stent 1 in August 2017 also at [facility]. Respiratory Surgical History: Reports: None. Denies: Thoracentesis GI Surgical History: Reports: Appendectomy, Cholecystectomy, Colonoscopy, EGD, Hernia, Inguinal, Other (See Below). Denies: Hernia, Abdominal, Hernia Repair/ Other, Polypectomy Other GI Surgeries/Procedures: Appendectomy at about age 43 with subsequent laparoscopic cholecystectomy also at age 43. Last EGD and colonoscopy on . Bilateral inguinal hernia repair at about age 34. Male Surgical History: Reports: Circumcision, Renal Calculus, Other (See Below) Other Male Surgeries/Procedures: Circumcision as an . Right ureteral stone extraction at age 39. Endocrine Surgical History: Reports: None Neurological Surgical History: Reports: Lumbar Spine, Spinal Fusion, Other (See Below). Denies: C-Spine, Discectomy, Laminectomy, Thoracic Spine, Vertebroplasty Other Neurological Surgeries/Procedures: L5-S1 spinal fusion in about 2006. Musculoskeletal Surgical History: Reports: Arthroscopic Procedure, Other (See Below). Denies: Carpal Tunnel, Ganglion Cyst, Joint Replacement, ORIF, Shoulder Surgery Other Musculoskeletal Surgeries/Procedures:: Left elbow arthroscopic surgery in about 2003. Oncologic Surgical History: Reports: None Dermatological Surgical History: Reports: None - Past Imaging History Past Imaging History: Reports: Angiography (August 2017 with results not available.), Cardiac Echo (Last echocardiogram on 08/18/17 with ejection fraction of 6065 percent.), CAT Scan (CT of the abdomen and pelvis on 12/23/17 and 10/09/17. CT of the head on 09/28/15 with previous evaluations on 02/09/14 and 01/18/13. Cardiac CT in August 2012. CT of the lumbar spine on 02/15/11. CT of the abdomen and pelvis with stone protocol negative on 07/23/[address]. [address] of the thoracic and lumbar region on 11/30/13 with previous evaluation on 10/11/11.), DEXA Scan (10/04/10.), HIDA Scan (10/19/11.), MRI (MRI of the lumbar spine on 05/24. MRI of the left ankle on 08/19/15 and the right ankle on 11/29/13. MRI of the right shoulder on 02/13/15. MRI of the lumbar spine on 12/20/13.), Stress Testing ([place] cardiac stress test on 10/15/17.), Ultrasound ([place] ultrasound on 04/30/88/12/16. Bilateral scrotal ultrasound on 02/11/15. Abdominal ultrasound on 11/13/09.) Social & Family History - Family History HEENT: Reports: Allergic Rhinitis, Other (See Below). Denies: Glaucoma, Macular Degeneration, Retinal Detachment Other HEENT Family History: 4 brothers with allergic rhinitis Cardiac: Reports: Afib, Arrhythmia, Bypass, CAD, Cardiomyopathy, Heart Failure, High Cholesterol, FL, Other (See Below). Denies: Aneurysm, Blood Clots/VTE/DVT , Heart Murmur, Hypertension, PVD/COD, Syncope Other Cardiac Family History: Father with fatal CHF at age 64 with father having an FL and CABG x4 at age 45, brother with atrial fibrillation, parents with hyperlipidemia, father with hypertension Respiratory: Reports: COPD, Other (See Below). Denies: Asthma, PE, Pneumothorax , Sleep Apnea Other Respiratory Family Hisory: Father with COPD with history of tobacco use GI: Reports: Diverticulosis, Other (See Below). Denies: Celiac Disease, Cholelithiasis, Colon Polyps, GERD, GI bleed, Inflammatory Bowel Disease, Irritable Bowel Syndrome, PUD Other GI Family History: Brother with diverticulosis : Reports: Dialysis, Renal Calculus, Renal Disease/Insufficiency, Other (See Below) Other Family History: Father with urolithiasis, mother with fatal renal disease/renal failure at about age 82 with history of dialysis. OBGYN: Reports: None. Denies: Endometriosis, Recurrent Spontaneous Musculoskeletal: Reports: Arthritis, Osteoarthritis, Other (See Below). Denies : Gout, RA, SLE Other Musculoskeletal Family History: Mother with osteoarthritis Neurological: Reports: None. Denies: Alzheimers Disease, Cerebral Aneurysms, CVA, Dementia, MS, Neuropathy, Peripheral, Parkinson's, Seizure, TIA Psychiatric: Reports: None. Denies: Abuse, Victim of, ADD, ADHD, Anxiety, Depression, Psych Hospitalization(s), PTSD, Suicide Attempt Endocrine/Metabolic: Reports: Diabetes, Type I, Diabetes, type II, IDDM, Other ( See Below). Denies: Diabetes, Gestational, Diabetes Mellitus, Type 3c, Hypothyroidism Other Endocrine/Metabolic Family History: Father and niece with type I IDDM both in their 20s, sister with IDDM, mother with AODM Hematologic: Reports: Anemia, Other (See Below). Denies: SLE Other Hematologic Family History: Brother with history of lower GI bleed secondary to diverticulosis Immunologic: Reports: None. Denies: AIDS, HIV, SLE Dermatologic: Reports: None. Denies: Eczema, Psoriasis Oncologic: Reports: Other (See Below) Other Oncologic Family History: Brother with unknown type of "blood" cancer at age 63 which did require stem cell implant. - Tobacco Use Smoking Status *Q: Former Smoker Tobacco Use Within Last Twelve Months: Cigarettes Years of Tobacco use: 21 Packs/Tins Daily: 1 Packs/Tins Daily Comment: Patient smoked between ages 17 and 38. Used Tobacco, but Quit: No Smoking Cessation Information Provided To Patient: No Second Hand Smoke Exposure: No Second Hand Smoke Education Provided: No - Caffeine Use Caffeine Use: Reports: Coffee, Soda. Denies: Energy Drinks, Tea Caffeine Use Comment: 2 pops a day and 2 cups of coffee a day - Alcohol Use Alcohol Use History: No Days Per Week of Alcohol Use: 0 Number of Drinks Per Day: 0 Number of Drinks Per Day Comment: No previous DWIs, problems with alcohol abuse , etc. Total Drinks Per Week: 0 Alcohol Use in Last Twelve Months: No - Recreational Drug Use Recreational Drug Use: No Drug Use in Last 12 Months: No Recreational Drug Type: Denies: Amphetamines (Speed), Cocaine, Heroin, Inhalants (Glues, Solvents, Aerosols), LSD (Acid), Marijuana/Hashish, Methamphetamine, Morphine, Oxycodone - Living Situation & Occupation Living situation: Reports: (Second since 1999 with 2 step children from this marriage), (First with no children from that marriage), with Spouse Occupation: Employed ([employer] department at [employer]. 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 ED EXAM, GENERAL - Physical Exam Exam: See Below Exam Limited By: No Limitations General Appearance: Alert, WD/WN, No Apparent Distress, Anxious (Moderate) Eye Exam: Bilateral Eye: EOMI, Normal Inspection (No nystagmus), PERRL Ears: Normal External Exam, Normal Canal, Hearing Grossly Normal, Normal TMs Nose: Normal Inspection, Normal Mucosa, No Blood Throat/Mouth: Normal Inspection, Normal Lips, Normal Teeth, Normal Gums, Normal Oropharynx, Normal Voice, No Airway Compromise. No: Dysphagia, Perioral Cyanosis Head: Atraumatic, Normocephalic. No: Facial Swelling, Facial Tenderness, Sinus Tenderness Neck: Normal Inspection, Supple, Non-Tender, Full Range of Motion. No: Carotid Bruit, Lymphadenopathy (L), Lymphadenopathy (R), Thyromegaly Respiratory/Chest: No Respiratory Distress, Lungs Clear, Normal Breath Sounds, No Accessory Muscle Use, Chest Non-Tender. No: Pleural Rub, Retractions Cardiovascular: Normal Peripheral Pulses, Regular Rate, Rhythm, No Edema, No Gallop, No JVD, No Murmur, No Rub. No: Gallop/S3, Gallop/S4, Friction Rub Peripheral Pulses: 2+: Radial (L), Radial (R), Dorsalis Pedis (L), Dorsalis Pedis (R) GI/Abdominal: Normal Bowel Sounds, Soft, Non-Tender, No Organomegaly, No Distention, No Abnormal Bruit, No Mass, Other (Obese). No: Guarding (Male) Exam: Deferred Rectal (Males) Exam: Deferred Back Exam: Normal Inspection, Full Range of Motion. No: CVA Tenderness (L), CVA Tenderness (R), Muscle Spasm Extremities: Normal Inspection, Normal Range of Motion, Non-Tender, No Pedal Edema, Normal Capillary Refill, Other (Moderate pes planus). No: Matilda's Sign Neurological: Alert, Oriented, CN II-XII Intact, Normal Cognition, Normal Gait, Normal Reflexes (Negative Babinski's), No Motor/Sensory Deficits Psychiatric: Anxious (Moderate), Depressed Mood (Mild with adequate eye contact) Skin Exam: Warm, Dry, Intact, Normal Color, No Rash. No: Diaphoretic, Wound/ Incision Lymphatic: No Adenopathy EKG INTERPRETATION EKG Date: 10/28/18 Time: 20:22 Rhythm: NSR Rate (Beats/Min): 78 [place]: Normal (Left cardiac axis) P-Wave: Enlarged (Diffuse biphasic P wavesmild) QRS: Normal (0.08 seconds borderline T-wave inversion in lead aVL) ST-T: Normal QT: Normal MI/PQ Interval: 0.16 seconds Comparison: No Change (Last EKG on 04/29/18, although mild sinus bradycardia 55 at that time.) EKG Interpretation Comments: 1. No acute ischemic changes 2. Left atrial enlargement Course - Vital Signs Last Recorded V/S: Last Vital Signs Temp 36.9 C 10/28/18 20:20 Pulse 74 10/28/18 22:15 Resp 13 10/28/18 22:15 BP 111/90 10/28/18 22:15 Pulse Ox 95 10/28/18 22:15 Vital Signs - 24 hr 10/28/18 10/28/18 10/28/18 20:20 20:40 20:50 Temperature [ 36.9 C Temporal] Pulse, 75 Peripheral Pulse, 82 80 Peripheral [ Pulse Oximetry] Respiratory 13 12 Rate Blood Pressure 135/91 H Blood Pressure 135/91 H 128/85 [Left Upper Arm ] O2 Sat by Pulse 93 L 93 L Oximetry 10/28/18 10/28/18 10/28/18 21:15 21:30 21:45 Temperature [ Temporal] Pulse, Peripheral Pulse, 79 72 67 Peripheral [ Pulse Oximetry] Respiratory 12 12 12 Rate Blood Pressure Blood Pressure 117/94 H 108/77 135/86 [Left Upper Arm ] O2 Sat by Pulse 93 L 92 L 94 L Oximetry 10/28/18 10/28/18 22:00 22:15 Temperature [ Temporal] Pulse, Peripheral Pulse, 70 74 Peripheral [ Pulse Oximetry] Respiratory 13 13 Rate Blood Pressure Blood Pressure 120/92 H 111/90 [Left Upper Arm ] O2 Sat by Pulse 93 L 95 Oximetry - Orders/Labs/Meds Orders: Active Orders 24 hr Category Date Time Status Cardiac Monitoring [RC] . DIRECTED Care 10/28/18 20:20 Active EKG Documentation Completion [RC] ASDIRECTED Care 10/28/18 20:20 Active Oxygen Therapy, ED [RC] CONTINUOUS Care 10/28/18 20:20 Active Peripheral IV Care [RC] . DIRECTED Care 10/28/18 20:20 Active Pulse Oximetry [RC] PRN Care 10/28/18 20:20 Active Up With Assistance [RC] PFP Care 10/28/18 20:20 Active Vital Signs [RC] PFP Care 10/28/18 20:20 Active Nothing per Oral Now Diet [DIET] Diet 10/28/18 Breakfast Active Chest 1V Frontal [CR] Stat Exams 10/28/18 20:20 Taken Nitroglycerin [Nitrostat] Med 10/28/18 20:33 Stat 0.4 mg SL ONETIME STA Sodium Chloride 0.9% [Saline Flush] Med 10/28/18 20:20 Active 10 ml FLUSH ASDIRECTED PRN Obtain Past Medical Record [OM.PC] Urgent Oth 10/28/18 20:20 Active Peripheral IV Insertion Adult [OM.PC] Stat Oth 10/28/18 20:20 Ordered Resuscitation Status Stat Resus Stat 10/28/18 20:20 Ordered EKG 12 Lead [EK] Stat Ther 10/28/18 20:20 Ordered Medication Orders Nitroglycerin (Nitrostat) 0.4 mg SL ONETIME STA Stop: 10/29/18 20:34 Last Admin: 10/28/18 20:40 Dose: 0.4 mg Sodium Chloride (Saline Flush) 10 ml FLUSH ASDIRECTED PRN PRN Reason: Keep Vein Open Last Admin: 10/28/18 21:18 Dose: 10 ml Admin: 10/28/18 21:17 Dose: 10 ml Admin: 10/28/18 20:42 Dose: 10 ml Admin: 10/28/18 20:28 Dose: 10 ml Labs: Laboratory Tests 10/28/18 10/28/18 10/28/18 Range/Units 20:20 20:20 20:20 WBC 7.7 (4.0-10.2) K/uL RBC 5.60 H (4.33-5.41) M/uL Hgb 17.6 H D (13.1-16.8) g/dL Hct 50.4 H (39.0-49.0) % MCV 90.0 D (84.0-98.0) fL MCH 31.4 (28.2-33.3) pg MCHC 34.9 (31.7-36.0) g/dL RDW 13.5 (11.2-14.1) % Plt Count 158 (150-350) K/uL Neut % (Auto) 57.5 (45.0-80.0) % Lymph % (Auto) 27.6 (10.0-50.0) % Dent % (Auto) 11.6 (2.0-14.0) % Eos % (Auto) 2.5 (0.0-5.0) % Baso % (Auto) 0.8 (0.0-2.0) % Neut # (Auto) 4.45 (1.40-7.00) K/uL Lymph # (Auto) 2.14 (0.50-3.50) K/uL Dent # (Auto) 0.90 (0.00-1.00) K/uL Eos # (Auto) 0.19 (0.00-0.50) K/uL Baso # (Auto) 0.06 (0.00-0.20) K/uL PT 10.5 (9.5-12.0) SEC INR 1.0 APTT 31.1 (21.0-31.3) SEC D-Dimer, Quantitative 243 (0-400) ng/mL Sodium (136-145) mmol/L Potassium (3.5-5.1) mmol/L Chloride (98-107) mmol/L Carbon Dioxide (21.0-32.0) mmol/L BUN (7-18) mg/dL Creatinine (0.51-1.17) mg/dL Est Cr Clr Drug Dosing Estimated GFR (MDRD) mL/min Glucose (74-106) mg/dL Lactic Acid (0.4-2.0) mmol/L Uric Acid (2.6-7.2) mg/dL Calcium (8.5-10.1) mg/dL Magnesium (1.8-2.4) mg/dL Total Bilirubin (0.2-1.0) mg/dL AST (15-37) U/L ALT (12-78) U/L Alkaline Phosphatase (46-116) IU/L Creatine Kinase (26-308) U/L Creatine Kinase Index (0.0-2.5) % CK-MB (CK-2) (0.00-3.60) ng/mL Troponin I (0.000-0.056) ng/mL NT-Pro-B Natriuret Pep (0-125) pg/mL Total Protein (6.4-8.2) g/dL Albumin (3.4-5.0) g/dL TSH, Ultra Sensitive (0.358-3.740) mIU/mL 10/28/18 10/28/18 Range/Units 20:20 20:20 WBC (4.0-10.2) K/uL RBC (4.33-5.41) M/uL Hgb (13.1-16.8) g/dL Hct (39.0-49.0) % MCV (84.0-98.0) fL MCH (28.2-33.3) pg MCHC (31.7-36.0) g/dL RDW (11.2-14.1) % Plt Count (150-350) K/uL Neut % (Auto) (45.0-80.0) % Lymph % (Auto) (10.0-50.0) % Dent % (Auto) (2.0-14.0) % Eos % (Auto) (0.0-5.0) % Baso % (Auto) (0.0-2.0) % Neut # (Auto) (1.40-7.00) K/uL Lymph # (Auto) (0.50-3.50) K/uL Dent # (Auto) (0.00-1.00) K/uL Eos # (Auto) (0.00-0.50) K/uL Baso # (Auto) (0.00-0.20) K/uL PT (9.5-12.0) SEC INR APTT (21.0-31.3) SEC D-Dimer, Quantitative (0-400) ng/mL Sodium 141 (136-145) mmol/L Potassium 3.6 (3.5-5.1) mmol/L Chloride 105 (98-107) mmol/L Carbon Dioxide 26.9 (21.0-32.0) mmol/L BUN 23 H (7-18) mg/dL Creatinine 1.02 (0.51-1.17) mg/dL Est Cr Clr Drug Dosing TNP Estimated GFR (MDRD) > 60 mL/min Glucose 95 (74-106) mg/dL Lactic Acid 0.8 (0.4-2.0) mmol/L Uric Acid 6.6 (2.6-7.2) mg/dL Calcium 9.0 (8.5-10.1) mg/dL Magnesium 2.1 (1.8-2.4) mg/dL Total Bilirubin 0.6 (0.2-1.0) mg/dL AST 32 (15-37) U/L ALT 49 (12-78) U/L Alkaline Phosphatase 91 (46-116) IU/L Creatine Kinase 261 (26-308) U/L Creatine Kinase Index 0.5 (0.0-2.5) % CK-MB (CK-2) 1.20 (0.00-3.60) ng/mL Troponin I 0.000 (0.000-0.056) ng/mL NT-Pro-B Natriuret Pep 25 (0-125) pg/mL Total Protein 7.4 (6.4-8.2) g/dL Albumin 3.8 (3.4-5.0) g/dL TSH, Ultra Sensitive 1.728 (0.358-3.740) mIU/mL Meds: Medications Generic Name Dose Route Start Last Admin Trade Name Freq PRN Reason Stop Dose Admin Nitroglycerin 0.4 mg 10/28/18 20:33 10/28/18 20:40 Nitrostat SL 10/29/18 20:34 0.4 mg ONETIME STA Administration Sodium Chloride 10 ml 10/28/18 20:20 10/28/18 21:18 Saline Flush FLUSH 10 ml ASDIRECTED PRN Administration Keep Vein Open Discontinued Medications Generic Name Dose Route Start Last Admin Trade Name Freq PRN Reason Stop Dose Admin Aspirin 324 mg 10/28/18 20:20 10/28/18 20:27 Aspirin CHEW 10/28/18 20:21 324 mg ONETIME ONE Administration Famotidine 40 mg 10/28/18 20:20 10/28/18 20:28 Pepcid IVPUSH 10/28/18 20:21 40 mg ONETIME ONE Administration Fentanyl 100 mcg 10/28/18 21:05 10/28/18 21:16 Sublimaze IVPUSH 10/28/18 21:06 100 mcg ONETIME ONE Administration Lorazepam 1 mg 10/28/18 21:06 10/28/18 21:16 Ativan IVPUSH 10/28/18 21:07 1 mg ONETIME ONE Administration Metoprolol Tartrate 2.5 mg 10/28/18 20:34 10/28/18 20:40 Lopressor IVPUSH 10/28/18 20:35 2.5 mg ONETIME ONE Administration Ondansetron HCl 4 mg 10/28/18 21:05 Zofran IVPUSH 10/28/18 21:06 ONETIME ONE Ticagrelor 180 mg 10/28/18 20:20 10/28/18 20:27 Brilinta PO 10/28/18 20:21 180 mg ONETIME ONE Administration - Radiology Interpretation Free Text/Narrative:: technology officer shows normal sinus rhythm with heart rate in the 70s to 80s with no ectopy or arrhythmia Chest x-ray, portable, shows mild pulmonary obstructive disease with no pulmonary infiltrates, CHF, cardiomegaly, pneumothorax, etc. Departure - Departure Time of Disposition: 22:20 Disposition: Refer to Observation Condition: Good Clinical Impression: Mixed anxiety and depressive disorder, Peptic reflux disease, Chest pain of uncertain etiology, Polycythemia, Dyslipidemia COPD (chronic obstructive pulmonary disease) Qualifiers: COPD type: emphysema Emphysema type: panlobular Qualified Code(s): J43.1 - Panlobular emphysema Hypertension Qualifiers: Hypertension type: essential hypertension Qualified Code(s): I10 - Essential ( primary) hypertension Osteoarthritis Qualifiers: Osteoarthritis location: multiple joints Osteoarthritis type: primary Qualified Code(s): M15.0 - Primary generalized (osteo)arthritis Hyperlipidemia Qualifiers: Hyperlipidemia type: mixed hyperlipidemia Qualified Code(s): E78.2 - Mixed hyperlipidemia Coronary artery disease Qualifiers: Coronary Disease-Associated Artery/Lesion type: habemat[place]l artery [place] vs. transplanted heart: habematolel heart Associated angina: without angina Qualified Code(s): I25.10 - Atherosclerotic heart disease of habematolel coronary artery without angina pectoris Referrals: Sandra Mackay MD [Primary Care Provider] - Forms: ED Department Discharge Care Plan Goals: See plan. - Problem List & Annotations (1) Chest pain of uncertain etiology SNOMED Code(s): 79232673 Code(s): R07.89 - OTHER CHEST PAIN Status: Acute Priority: High Onset Date: 10/28/18 Annotation/Comment:: Chest Pain protocol initiated immediately upon patient's arrival to the emergency room. Note significant previous cardiac history as above. Initiate standard rule out [place] orders. Cardiology consultation depending on his clinical course. Symptoms improved at time of admission. (2) COPD (chronic obstructive pulmonary disease) SNOMED Code(s): 68087706 Code(s): J44.9 - CHRONIC OBSTRUCTIVE PULMONARY DISEASE, UNSPECIFIED Status : Chronic Priority: Medium Annotation/Comment:: No recent bronchitic-type symptoms with no current medical therapy. Negative chest x-ray prior to admission as above. Consider PFTs on an outpatient basis. Qualifiers: COPD type: emphysema Emphysema type: panlobular Qualified Code(s): J43.1 - Panlobular emphysema (3) Hypertension SNOMED Code(s): 35861372 Code(s): I10 - ESSENTIAL (PRIMARY) HYPERTENSION Status: Chronic Priority : Medium Annotation/Comment:: Continue to observe blood pressure closely throughout hospitalization. No sequelae from nitroglycerin tablets 3 and IV Lopressor therapy. Qualifiers: Hypertension type: essential hypertension Qualified Code(s): I10 - Essential (primary) hypertension (4) Mixed anxiety and depressive disorder SNOMED Code(s): 500414880 Code(s): F41.8 - OTHER SPECIFIED ANXIETY DISORDERS Status: Chronic Priority: Medium Annotation/Comment:: Moderate control based on today's exam. Continue to observe closely with medication adjustments by his regular provider depending on his clinical course. (5) Osteoarthritis SNOMED Code(s): 512276502 Code(s): M19.90 - UNSPECIFIED OSTEOARTHRITIS, UNSPECIFIED SITE Status: Chronic Priority: Medium Annotation/Comment:: Note recent epidural steroid injection of the lumbar spine about one week ago with aspirin and Effient on hold as above. Note history of polymyalgia and hyperuricemia without history of gout attacks. His arthritis has otherwise been stable. Qualifiers: Osteoarthritis location: multiple joints Osteoarthritis type: primary Qualified Code(s): M15.0 - Primary generalized (osteo)arthritis (6) Peptic reflux disease SNOMED Code(s): 482388580 Code(s): K21.9 - GASTRO-ESOPHAGEAL REFLUX DISEASE WITHOUT ESOPHAGITIS Status: Chronic Priority: Medium Annotation/Comment:: Stable by history. High dose IV Pepcid given as GI prophylaxis with previously treated H. pylori infection. (7) Polycythemia SNOMED Code(s): 366614279 Code(s): D75.1 - SECONDARY POLYCYTHEMIA Status: Chronic Priority: Medium Annotation/Comment:: History of polycythemia likely secondary to his COPD with no recent phlebotomies. Continue to observe closely with repeat blood work at follow-up. Note previous history of tobacco use between ages 17 and 38 with maximum use of one pack per day. (8) Dyslipidemia SNOMED Code(s): 058933184 Code(s): E78.5 - HYPERLIPIDEMIA, UNSPECIFIED Status: Chronic Priority: Medium Annotation/Comment:: History of fatty liver. Lipid panel and glycosylated hemoglobin in the a.m. - Problem List Review Problem List Initiated/Reviewed/Updated: Yes - My Orders Last 24 Hours: My Active Orders 10/28/18 20:20 Cardiac Monitoring [RC] . DIRECTED EKG Documentation Completion [RC] ASDIRECTED Oxygen Therapy, ED [RC] CONTINUOUS Peripheral IV Care [RC] . DIRECTED Pulse Oximetry [RC] PRN Up With Assistance [RC] PFP Vital Signs [RC] PFP Chest 1V Frontal [CR] Stat Sodium Chloride 0.9% [Saline Flush] 10 ml FLUSH ASDIRECTED PRN Obtain Past Medical Record [OM.PC] Urgent Peripheral IV Insertion Adult [OM.PC] Stat Resuscitation Status Stat EKG 12 Lead [EK] Stat 10/28/18 20:33 Nitroglycerin [Nitrostat] 0.4 mg SL ONETIME STA 10/28/18 Breakfast Nothing per Oral Now Diet [DIET] - Assessment/Plan Admission H&P: Please use this note as an admission H&P Last 24 Hours: My Active Orders 10/28/18 20:20 Cardiac Monitoring [RC] . DIRECTED EKG Documentation Completion [RC] ASDIRECTED Oxygen Therapy, ED [RC] CONTINUOUS Peripheral IV Care [RC] . DIRECTED Pulse Oximetry [RC] PRN Up With Assistance [RC] PFP Vital Signs [RC] PFP Chest 1V Frontal [CR] Stat Sodium Chloride 0.9% [Saline Flush] 10 ml FLUSH ASDIRECTED PRN Obtain Past Medical Record [OM.PC] Urgent Peripheral IV Insertion Adult [OM.PC] Stat Resuscitation Status Stat EKG 12 Lead [EK] Stat 10/28/18 20:33 Nitroglycerin [Nitrostat] 0.4 mg SL ONETIME STA 10/28/18 Breakfast Nothing per Oral Now Diet [DIET] Assessment:: As above Plan: As above. Extensive precautions were given to the patient, who is in agreement with the treatment plan. The patient's condition is stable enough for observation status and general supervision.
[2018-10-28] MEDS: Sodium Chloride 0.9% 10 ML Syringe FLUSH PRN ×4 (20:28→21:18)
[2018-10-28] MEDS ORDERED: Nitroglycerin 0.4 MG Tab.SL SL STA (20:33)
[2018-10-28] MEDS ORDERED: Metoprolol Tartrate 5 MG/5 ML SDV IVPUSH ONE (20:34)
[2018-10-28 20:56] LABS: CHLORIDE,CL 105 mmol/L (98-107); SODIUM,NA 141 mmol/L (136-145)
[2018-10-28] MEDS ORDERED: fentaNYL 100 MCG/2 ML SDV IVPUSH ONE (21:05)
[2018-10-28] MEDS ORDERED: Ondansetron 4 MG/2 ML SDV IVPUSH ONE (21:05)
[2018-10-28] MEDS ORDERED: LORazepam 2 MG/ML SDV IVPUSH ONE (21:06)
[2018-10-28] MEDS ORDERED: Baclofen 10 MG Tab PO PRN (23:34)
[2018-10-28] MEDS ORDERED: Non-Formulary Medication 1 Each (Evolocumab [Repatha Sureclick] 140 MG) SQ SCH (23:34)
[2018-10-28] MEDS ORDERED: Sodium Chloride 0.9% 10 ML Syringe FLUSH PRN (23:35)
[2018-10-29] MEDS: Acetaminophen 325 MG Tab PO PRN ×2 (01:57→08:50)
[2018-10-29] MEDS ORDERED: Meperidine PF 50 MG/ML Amp IM ONE ×2 (02:56→03:00)
[2018-10-29] MEDS ORDERED: Promethazine 25 MG/ML SDV IM ONE ×2 (02:57→03:00)
[2018-10-29] MEDS ORDERED: Phenytoin 1,000 MG in Sodium Chloride 0.9% 100 ML IV ONE (03:45)
[2018-10-29] MEDS ORDERED: PRASUGREL 10 MG PO SCH (08:00)
[2018-10-29] MEDS ORDERED: Aspirin 325 MG Tab PO SCH (08:00)
[2018-10-29] MEDS ORDERED: Metoprolol Tartrate 50 MG Tab PO SCH (08:00)
[2018-10-29 08:01] LABS: CHLORIDE,CL 107 mmol/L (98-107); SODIUM,NA 142 mmol/L (136-145)
[2018-10-29 08:10] LABS: HEMOGLOBIN A1C 5.8 % (4.3-5.7)
[2018-10-29] MEDS ORDERED: Lactated Ringers 1,000 ML IV ONE (08:27)
[2018-10-29] MEDS ORDERED: methylPREDNISolone Sodium Succinate 125 MG/2 ML SDV IVPUSH ONE (08:27)
[2018-10-29] MEDS: Sodium Chloride 0.9% 10 ML Syringe FLUSH PRN (08:51)
[2018-10-29] MEDS ORDERED: Lactated Ringers 1,000 ML IV SCH (09:30)
--- NOTE | 2018-10-29 13:12 | PCM.DCSUM1 ---
Discharge Summary - Hospital Course HPI Initial Comments: See emergency room note/admission H&P Brief History: See emergency room note/admission H&P Diagnosis: Stroke: No Modified Castleberry Scale: No Symptoms at All Modified Castleberry Scale Score: 0 - Discharge Data Discharge Date: 10/29/18 Discharge Disposition: Home, Self-Care 01 Condition: Good - Discharge Diagnosis/Problem(s) (1) Chest pain of uncertain etiology SNOMED Code(s): 17897043 ICD Code: R07.89 - OTHER CHEST PAIN Status: Acute Priority: High Current Visit: No Onset Date: 10/28/18 Problem Details: Negative workup for acute WA. Note that patient had recently been off his aspirin and Effient secondary to steroid epidural lumbar injection about one week ago. Only mild 3/ 10 nonspecific left-sided chest wall discomfort at this time with no true anginal complaints. Note moderate CPK elevation this morning with normal CK MB and cardiac index. No evidence of rhabdomyolysis despite heat wave yesterday prior to patient's admission to this facility. His CRP was also negative this morning with no rashes, etc.. As a precautionary measure patient was given a 1 L IV bolus of lactated Ringer's with additional continuation of lactated Ringer' s at 100 ml/h until hospital discharge. Solu-Medrol 125 mg was given IV morning with Depo-Medrol also to be given at discharge. He will be initiated on Coenzyme Q10 at discharge with close follow-up by his regular provider as per discharge instructions. Chest Pain protocol was initiated immediately upon patient's arrival to the emergency room. Note significant previous cardiac history as per emergency room note. Cardiology consultation at follow-up depending on his clinical course. He may benefit from a repeat Cardiolite stress test. Work excuse was provided with activity restrictions discussed. Note that his symptoms had already improved at time of admission. (2) COPD (chronic obstructive pulmonary disease) SNOMED Code(s): 21864162 ICD Code: J44.9 - CHRONIC OBSTRUCTIVE PULMONARY DISEASE, UNSPECIFIED Status : Chronic Priority: Medium Current Visit: No Problem Details: No recent bronchitic-type symptoms with no current medical therapy. Negative chest x-ray prior to admission. Consider PFTs on an outpatient basis. Qualifiers: COPD type: emphysema Emphysema type: panlobular Qualified Code(s): J43.1 - Panlobular emphysema (3) Hypertension SNOMED Code(s): 69337530 ICD Code: I10 - ESSENTIAL (PRIMARY) HYPERTENSION Status: Chronic Priority : Medium Current Visit: No Problem Details: Blood pressures remained stable throughout hospitalization. No sequelae from nitroglycerin tablets 3 and IV Lopressor therapy during initial care both prior to arrival and in the emergency room. Close follow-up by his regular provider. Qualifiers: Hypertension type: essential hypertension Qualified Code(s): I10 - Essential (primary) hypertension (4) Mixed anxiety and depressive disorder SNOMED Code(s): 881772454 ICD Code: F41.8 - OTHER SPECIFIED ANXIETY DISORDERS Status: Chronic Priority: Medium Current Visit: No Problem Details: Moderate control based on exams during this hospitalization and in the emergency room. Continue to observe closely with medication adjustments by his regular provider depending on his clinical course. Some anxiety component to patient's chest pain symptoms. (5) Osteoarthritis SNOMED Code(s): 454622898 ICD Code: M19.90 - UNSPECIFIED OSTEOARTHRITIS, UNSPECIFIED SITE Status: Chronic Priority: Medium Current Visit: No Problem Details: Note recent epidural steroid injection of the lumbar spine about one week ago with aspirin and Effient on hold as above. Note history of polymyalgia and hyperuricemia without history of gout attacks. His arthritis has otherwise been stable, despite CPK elevation as above. Qualifiers: Osteoarthritis location: multiple joints Osteoarthritis type: primary Qualified Code(s): M15.0 - Primary generalized (osteo)arthritis (6) Peptic reflux disease SNOMED Code(s): 707423698 ICD Code: K21.9 - GASTRO-ESOPHAGEAL REFLUX DISEASE WITHOUT ESOPHAGITIS Status: Chronic Priority: Medium Current Visit: No Problem Details: Stable by history. High dose IV Pepcid given as GI prophylaxis in the emergency room with previously treated H. pylori infection. Consider further GI workup depending on his clinical course. (7) Polycythemia SNOMED Code(s): 309670490 ICD Code: D75.1 - SECONDARY POLYCYTHEMIA Status: Chronic Priority: Medium Current Visit: No Problem Details: History of polycythemia likely secondary to his COPD with no recent phlebotomies and improved elevated hemoglobin prior to discharge. Continue to observe closely by his regular providers. Note previous history of tobacco use between ages 17 and 38 with maximum use of one pack per day. (8) Dyslipidemia SNOMED Code(s): 043283347 ICD Code: E78.5 - HYPERLIPIDEMIA, UNSPECIFIED Status: Chronic Priority: Medium Current Visit: No Problem Details: Persistent severe dyslipidemia based on lipid profile this morning despite his Repatha therapy. 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 Note known history of fatty liver. Compliance with his heart healthy diet was strongly encouraged with information provided at discharge. Weight loss in moderation is also advisable. His glycosylated hemoglobin this morning was normal at 5.8%. (9) Elevated CK SNOMED Code(s): 871690841 ICD Code: R74.8 - ABNORMAL LEVELS OF OTHER SERUM ENZYMES Status: Acute Priority: High Current Visit: Yes Onset Date: 10/29/18 Problem Details: As above. Note progressive CK elevation today despite aggressive therapy as above. He actually feels better after the progressive therapy this morning than he did earlier today. Close follow-up by regular provider as per discharge instructions. - Patient Summary/Data Operative Procedure(s) Performed: None Complications: None Consults: None Labs Pending at D/C: None Recommended Follow-up Testing/Procedures: As per discharge instructions Planned Operative Procedure(s) after DC: None Hospital Course: Patient was placed in observation status on telemetry with negative workup for acute WA as above. Despite CPK elevation no evidence of anginal complaints with aggressive treatment on day of discharge as above. Emotional support was provided. Patient was given a work excuse. Close follow-up by his regular provider as above. No complications during this hospitalization. - Patient Instructions Diet: Heart Healthy Diet Activity: No Strenuous Activities (50% maximum activity level until released by your regular providers) Driving: May Drive Today Showering/Bathing: May Shower Notify Provider of: Increased Pain, Nausea and/or Vomiting Other/Special Instructions: 1. Followup with your regular provider in 5-7 days as directed for reevaluation and recommended repeat EKG, CBC, comprehensive metabolic panel, troponin I, CK, and CK-MB. Bring these discharge instructions with you to that visit. 2. Discuss possible repeat Cardiolite stress test, cardiology referral and/or adjustment of your cholesterol therapy with your regular provider at follow-up. 3. Work excuse- See Form. 4. Strict compliance with low-fat, low-cholesterol diet with weight loss in moderation. 5. Immediately after this visit verify that your cellular telephone's voicemail has been activated and is empty. Also verify that your home telephone's answering machine is operating properly and has space to receive messages. Note that it is sometimes necessary for us to be able to contact you at a later date to discuss your medical care. 6. Please remember that we are ALWAYS here for you and want to answer any questions you may have. Feel free to call the hospital any time and we call you back JAX. - Discharge Plan *PRESCRIPTION DRUG MONITORING PROGRAM REVIEWED*: No *COPY OF PRESCRIPTION DRUG MONITORING REPORT IN PATIENT MORRO: No Prescriptions/Med Rec: Ubidecarenone [Coenzyme Q10] 100 mg PO BID #60 cap Home Medications: Home Meds Baclofen 10 mg PO QID PRN 06/13/13 [History] Metoprolol Tartrate [Lopressor] 100 mg PO BID 06/13/13 [History] clonazePAM [Clonazepam] 4 mg PO BEDTIME 06/13/13 [History] traZODone HCl [Trazodone HCl] 2 tab PO BEDTIME 06/13/13 [History] Prasugrel [Effient] 10 mg PO QAM 09/12/13 [History] Cholecalciferol (Vitamin D3) [Vitamin D3] 400 units PO QAM 03/12/15 [History] Aspirin 325 mg PO QAM 07/03/15 [History] Evolocumab [Repatha Sureclick] 140 mg SQ ASDIRECTED 05/06/16 [History] Nitroglycerin [IJP: Nitroglycerin] 0.4 mg SL Q5M PRN tablet, sublingual [Rx] Acetaminophen [Tylenol] 650 mg PO Q4H PRN tablet 12/24/17 [Rx] Pantoprazole Sodium [Protonix] 40 mg PO BID #60 tablet. 12/24/17 [Rx] Acetaminophen [Tylenol] 650 mg PO Q4H PRN tablet 10/29/18 [Rx] Ubidecarenone [Coenzyme Q10] 100 mg PO BID #60 cap 10/29/18 [Rx] Oxygen Therapy Mode: Room Air Patient Handouts: Heart-Healthy Eating Plan, [id number] Forms: Return to Work/Inpatient LLN, ED Department Discharge Referrals: Sheets-Sandra Ko MD [Primary Care Provider] - - Discharge Summary/Plan Comment DC Time >30 min.: Yes (Coordination of care ) Discharge Summary/Plan Comment: As above. Extensive precautions were given to the patient, who is in agreement with the treatment plan. See Patient Instructions for further treatment and plan. - General Info Date of Service: 10/29/18 Functional Status: Reports: Pain Controlled, Tolerating Diet, Ambulating, Urinating, Incentive Spirometry. Denies: New Symptoms Numeric/FACES Score: 3 - Review of Systems General: Denies: Fever, Weakness, Fatigue, Malaise, Chills, Night Sweats, Appetite (Appetite good) HEENT: Reports: No Symptoms. Denies: Ear Pain, Eye Pain, Headaches, Post Nasal Drip, Sinus Congestion, Sore Throat, Rhinitis, Visual Changes Pulmonary: Reports: Other (Nonspecific chest wall pain). Denies: Shortness of Breath, Pleuritic Chest Pain, Cough, Sputum, Hemoptysis, Wheezing Cardiovascular: Reports: Chest Pain (As above). Denies: Palpitations, Dyspnea on Exertion, Orthopnea, PND, Edema, Lightheadedness Gastrointestinal: Reports: No Symptoms. Denies: Abdominal Pain, Constipation, Decreased Appetite, Diarrhea, Difficulty Swallowing, Flatus, Hematochezia, Melena, Nausea, Vomiting Genitourinary: Reports: No Symptoms. Denies: Dysuria, Frequency, Burning, Pain , Urgency, Incontinence, Hematuria, Retention, Flank Pain Musculoskeletal: Reports: No Symptoms. Denies: Neck Pain, Shoulder Pain, Arm Pain, Back Pain, Leg Pain Skin: Reports: No Symptoms. Denies: Diaphoresis, Bruising Neurological: Reports: No Symptoms. Denies: Confusion, Dizziness, Headache, Numbness, Paresthesia, Weakness Psychiatric: Reports: No Symptoms. Denies: Confusion, Depression, Anxiety, Agitation, Hallucinations - Patient Data Vitals - Most Recent: Last Vital Signs Temp 36.6 C 10/29/18 11:41 Pulse 57 L 10/29/18 11:41 Resp 14 10/29/18 11:41 BP 125/93 H 10/29/18 11:41 Pulse Ox 100 10/29/18 11:41 Weight - Most Recent: 84.958 kg I&O - Last 24 hours: Intake & Output 10/28/18 10/29/18 10/29/18 22:59 06:59 14:59 Intake Total 1000 Balance 1000 Imaging Impressions - Last 24 hrs: monitor worker showed normal sinus rhythm in the 60s to 70s with no ectopy or arrhythmia. Chest x-ray, portable, on 10/28/18 shows mild pulmonary obstructive disease with no pulmonary infiltrates, CHF, cardiomegaly, pneumothorax, etc. I initial read. Chest x-ray report does indicate some borderline pulmonary vascular congestion, however. Lab Results - Last 24 hrs: Laboratory Results - last 24 hr 10/28/18 10/28/18 10/28/18 Range/Units 20:20 20:20 20:20 WBC 7.7 (4.0-10.2) K/uL RBC 5.60 H (4.33-5.41) M/uL Hgb 17.6 H D (13.1-16.8) g/dL Hct 50.4 H (39.0-49.0) % MCV 90.0 D (84.0-98.0) fL MCH 31.4 (28.2-33.3) pg MCHC 34.9 (31.7-36.0) g/dL RDW 13.5 (11.2-14.1) % Plt Count 158 (150-350) K/uL Neut % (Auto) 57.5 (45.0-80.0) % Lymph % (Auto) 27.6 (10.0-50.0) % [place] % (Auto) 11.6 (2.0-14.0) % Eos % (Auto) 2.5 (0.0-5.0) % Baso % (Auto) 0.8 (0.0-2.0) % Neut # (Auto) 4.45 (1.40-7.00) K/uL Lymph # (Auto) 2.14 (0.50-3.50) K/uL [place] # (Auto) 0.90 (0.00-1.00) K/uL Eos # (Auto) 0.19 (0.00-0.50) K/uL Baso # (Auto) 0.06 (0.00-0.20) K/uL PT 10.5 (9.5-12.0) SEC INR 1.0 APTT 31.1 (21.0-31.3) SEC D-Dimer, Quantitative 243 (0-400) ng/mL Sodium (136-145) mmol/L Potassium (3.5-5.1) mmol/L Chloride (98-107) mmol/L Carbon Dioxide (21.0-32.0) mmol/L BUN (7-18) mg/dL Creatinine (0.51-1.17) mg/dL Est Cr Clr Drug Dosing Estimated GFR (MDRD) mL/min Glucose (74-106) mg/dL Hemoglobin A1c (4.3-5.7) % Lactic Acid (0.4-2.0) mmol/L Uric Acid (2.6-7.2) mg/dL Calcium (8.5-10.1) mg/dL Magnesium (1.8-2.4) mg/dL Total Bilirubin (0.2-1.0) mg/dL AST (15-37) U/L ALT (12-78) U/L Alkaline Phosphatase (46-116) IU/L Creatine Kinase (26-308) U/L Creatine Kinase Index (0.0-2.5) % CK-MB (CK-2) (0.00-3.60) ng/mL Troponin I (0.000-0.056) ng/mL C-Reactive Protein (<=0.9) mg/dL NT-Pro-B Natriuret Pep (0-125) pg/mL Total Protein (6.4-8.2) g/dL Albumin (3.4-5.0) g/dL Triglycerides (30-150) mg/dL Cholesterol (100-200) mg/dL LDL Cholesterol, Calc (0-100) mg/dL HDL Cholesterol (40-60) mg/dL TSH, Ultra Sensitive (0.358-3.740) mIU/mL 10/28/18 10/28/18 10/29/18 Range/Units 20:20 20:20 07:17 WBC 6.1 (4.0-10.2) K/uL RBC 5.44 H (4.33-5.41) M/uL Hgb 17.0 H (13.1-16.8) g/dL Hct 49.7 H (39.0-49.0) % MCV 91.4 (84.0-98.0) fL MCH 31.3 (28.2-33.3) pg MCHC 34.2 (31.7-36.0) g/dL RDW 13.5 (11.2-14.1) % Plt Count 146 L (150-350) K/uL Neut % (Auto) 56.9 (45.0-80.0) % Lymph % (Auto) 27.8 (10.0-50.0) % [place] % (Auto) 12.1 (2.0-14.0) % Eos % (Auto) 2.5 (0.0-5.0) % Baso % (Auto) 0.7 (0.0-2.0) % Neut # (Auto) 3.49 (1.40-7.00) K/uL Lymph # (Auto) 1.70 (0.50-3.50) K/uL [place] # (Auto) 0.74 (0.00-1.00) K/uL Eos # (Auto) 0.15 (0.00-0.50) K/uL Baso # (Auto) 0.04 (0.00-0.20) K/uL PT (9.5-12.0) SEC INR APTT (21.0-31.3) SEC D-Dimer, Quantitative (0-400) ng/mL Sodium 141 (136-145) mmol/L Potassium 3.6 (3.5-5.1) mmol/L Chloride 105 (98-107) mmol/L Carbon Dioxide 26.9 (21.0-32.0) mmol/L BUN 23 H (7-18) mg/dL Creatinine 1.02 (0.51-1.17) mg/dL Est Cr Clr Drug Dosing TNP Estimated GFR (MDRD) > 60 mL/min Glucose 95 (74-106) mg/dL Hemoglobin A1c (4.3-5.7) % Lactic Acid 0.8 (0.4-2.0) mmol/L Uric Acid 6.6 (2.6-7.2) mg/dL Calcium 9.0 (8.5-10.1) mg/dL Magnesium 2.1 (1.8-2.4) mg/dL Total Bilirubin 0.6 (0.2-1.0) mg/dL AST 32 (15-37) U/L ALT 49 (12-78) U/L Alkaline Phosphatase 91 (46-116) IU/L Creatine Kinase 261 (26-308) U/L Creatine Kinase Index 0.5 (0.0-2.5) % CK-MB (CK-2) 1.20 (0.00-3.60) ng/mL Troponin I 0.000 (0.000-0.056) ng/mL C-Reactive Protein (<=0.9) mg/dL NT-Pro-B Natriuret Pep 25 (0-125) pg/mL Total Protein 7.4 (6.4-8.2) g/dL Albumin 3.8 (3.4-5.0) g/dL Triglycerides (30-150) mg/dL Cholesterol (100-200) mg/dL LDL Cholesterol, Calc (0-100) mg/dL HDL Cholesterol (40-60) mg/dL TSH, Ultra Sensitive 1.728 (0.358-3.740) mIU/mL 10/29/18 10/29/18 10/29/18 Range/Units 07:17 07:17 07:17 WBC (4.0-10.2) K/uL RBC (4.33-5.41) M/uL Hgb (13.1-16.8) g/dL Hct (39.0-49.0) % MCV (84.0-98.0) fL MCH (28.2-33.3) pg MCHC (31.7-36.0) g/dL RDW (11.2-14.1) % Plt Count (150-350) K/uL Neut % (Auto) (45.0-80.0) % Lymph % (Auto) (10.0-50.0) % [place] % (Auto) (2.0-14.0) % Eos % (Auto) (0.0-5.0) % Baso % (Auto) (0.0-2.0) % Neut # (Auto) (1.40-7.00) K/uL Lymph # (Auto) (0.50-3.50) K/uL [place] # (Auto) (0.00-1.00) K/uL Eos # (Auto) (0.00-0.50) K/uL Baso # (Auto) (0.00-0.20) K/uL PT (9.5-12.0) SEC INR APTT (21.0-31.3) SEC D-Dimer, Quantitative (0-400) ng/mL Sodium 142 (136-145) mmol/L Potassium 3.9 (3.5-5.1) mmol/L Chloride 107 (98-107) mmol/L Carbon Dioxide 27.9 (21.0-32.0) mmol/L BUN 23 H (7-18) mg/dL Creatinine 1.05 (0.51-1.17) mg/dL Est Cr Clr Drug Dosing 69.86 Estimated GFR (MDRD) > 60 mL/min Glucose 127 H (74-106) mg/dL Hemoglobin A1c 5.8 H (4.3-5.7) % Lactic Acid (0.4-2.0) mmol/L Uric Acid (2.6-7.2) mg/dL Calcium 8.7 (8.5-10.1) mg/dL Magnesium (1.8-2.4) mg/dL Total Bilirubin 0.4 (0.2-1.0) mg/dL AST 33 (15-37) U/L ALT 45 (12-78) U/L Alkaline Phosphatase 86 (46-116) IU/L Creatine Kinase 476 H (26-308) U/L Creatine Kinase Index 0.4 (0.0-2.5) % CK-MB (CK-2) 1.80 (0.00-3.60) ng/mL Troponin I 0.000 (0.000-0.056) ng/mL C-Reactive Protein 0.5 (<=0.9) mg/dL NT-Pro-B Natriuret Pep (0-125) pg/mL Total Protein 6.9 (6.4-8.2) g/dL Albumin 3.5 (3.4-5.0) g/dL Triglycerides 157 H (30-150) mg/dL Cholesterol 258 H (100-200) mg/dL LDL Cholesterol, Calc 204 H (0-100) mg/dL HDL Cholesterol 23 L (40-60) mg/dL TSH, Ultra Sensitive (0.358-3.740) mIU/mL Laboratory Tests 10/28/18 10/28/18 10/28/18 Range/Units 20:20 20:20 20:20 WBC 7.7 (4.0-10.2) K/uL RBC 5.60 H (4.33-5.41) M/uL Hgb 17.6 H D (13.1-16.8) g/dL Hct 50.4 H (39.0-49.0) % MCV 90.0 D (84.0-98.0) fL MCH 31.4 (28.2-33.3) pg MCHC 34.9 (31.7-36.0) g/dL RDW 13.5 (11.2-14.1) % Plt Count 158 (150-350) K/uL Neut % (Auto) 57.5 (45.0-80.0) % Lymph % (Auto) 27.6 (10.0-50.0) % [place] % (Auto) 11.6 (2.0-14.0) % Eos % (Auto) 2.5 (0.0-5.0) % Baso % (Auto) 0.8 (0.0-2.0) % Neut # (Auto) 4.45 (1.40-7.00) K/uL Lymph # (Auto) 2.14 (0.50-3.50) K/uL [place] # (Auto) 0.90 (0.00-1.00) K/uL Eos # (Auto) 0.19 (0.00-0.50) K/uL Baso # (Auto) 0.06 (0.00-0.20) K/uL PT 10.5 (9.5-12.0) SEC INR 1.0 APTT 31.1 (21.0-31.3) SEC D-Dimer, Quantitative 243 (0-400) ng/mL Sodium (136-145) mmol/L Potassium (3.5-5.1) mmol/L Chloride (98-107) mmol/L Carbon Dioxide (21.0-32.0) mmol/L BUN (7-18) mg/dL Creatinine (0.51-1.17) mg/dL Est Cr Clr Drug Dosing Estimated GFR (MDRD) mL/min Glucose (74-106) mg/dL Hemoglobin A1c (4.3-5.7) % Lactic Acid (0.4-2.0) mmol/L Uric Acid (2.6-7.2) mg/dL Calcium (8.5-10.1) mg/dL Magnesium (1.8-2.4) mg/dL Total Bilirubin (0.2-1.0) mg/dL AST (15-37) U/L ALT (12-78) U/L Alkaline Phosphatase (46-116) IU/L Creatine Kinase (26-308) U/L Creatine Kinase Index (0.0-2.5) % CK-MB (CK-2) (0.00-3.60) ng/mL Troponin I (0.000-0.056) ng/mL C-Reactive Protein (<=0.9) mg/dL NT-Pro-B Natriuret Pep (0-125) pg/mL Total Protein (6.4-8.2) g/dL Albumin (3.4-5.0) g/dL Triglycerides (30-150) mg/dL Cholesterol (100-200) mg/dL LDL Cholesterol, Calc (0-100) mg/dL HDL Cholesterol (40-60) mg/dL TSH, Ultra Sensitive (0.358-3.740) mIU/mL 10/28/18 10/28/18 10/29/18 Range/Units 20:20 20:20 07:17 WBC 6.1 (4.0-10.2) K/uL RBC 5.44 H (4.33-5.41) M/uL Hgb 17.0 H (13.1-16.8) g/dL Hct 49.7 H (39.0-49.0) % MCV 91.4 (84.0-98.0) fL MCH 31.3 (28.2-33.3) pg MCHC 34.2 (31.7-36.0) g/dL RDW 13.5 (11.2-14.1) % Plt Count 146 L (150-350) K/uL Neut % (Auto) 56.9 (45.0-80.0) % Lymph % (Auto) 27.8 (10.0-50.0) % [place] % (Auto) 12.1 (2.0-14.0) % Eos % (Auto) 2.5 (0.0-5.0) % Baso % (Auto) 0.7 (0.0-2.0) % Neut # (Auto) 3.49 (1.40-7.00) K/uL Lymph # (Auto) 1.70 (0.50-3.50) K/uL [place] # (Auto) 0.74 (0.00-1.00) K/uL Eos # (Auto) 0.15 (0.00-0.50) K/uL Baso # (Auto) 0.04 (0.00-0.20) K/uL PT (9.5-12.0) SEC INR APTT (21.0-31.3) SEC D-Dimer, Quantitative (0-400) ng/mL Sodium 141 (136-145) mmol/L Potassium 3.6 (3.5-5.1) mmol/L Chloride 105 (98-107) mmol/L Carbon Dioxide 26.9 (21.0-32.0) mmol/L BUN 23 H (7-18) mg/dL Creatinine 1.02 (0.51-1.17) mg/dL Est Cr Clr Drug Dosing TNP Estimated GFR (MDRD) > 60 mL/min Glucose 95 (74-106) mg/dL Hemoglobin A1c (4.3-5.7) % Lactic Acid 0.8 (0.4-2.0) mmol/L Uric Acid 6.6 (2.6-7.2) mg/dL Calcium 9.0 (8.5-10.1) mg/dL Magnesium 2.1 (1.8-2.4) mg/dL Total Bilirubin 0.6 (0.2-1.0) mg/dL AST 32 (15-37) U/L ALT 49 (12-78) U/L Alkaline Phosphatase 91 (46-116) IU/L Creatine Kinase 261 (26-308) U/L Creatine Kinase Index 0.5 (0.0-2.5) % CK-MB (CK-2) 1.20 (0.00-3.60) ng/mL Troponin I 0.000 (0.000-0.056) ng/mL C-Reactive Protein (<=0.9) mg/dL NT-Pro-B Natriuret Pep 25 (0-125) pg/mL Total Protein 7.4 (6.4-8.2) g/dL Albumin 3.8 (3.4-5.0) g/dL Triglycerides (30-150) mg/dL Cholesterol (100-200) mg/dL LDL Cholesterol, Calc (0-100) mg/dL HDL Cholesterol (40-60) mg/dL TSH, Ultra Sensitive 1.728 (0.358-3.740) mIU/mL 10/29/18 10/29/18 10/29/18 Range/Units 07:17 07:17 07:17 WBC (4.0-10.2) K/uL RBC (4.33-5.41) M/uL Hgb (13.1-16.8) g/dL Hct (39.0-49.0) % MCV (84.0-98.0) fL MCH (28.2-33.3) pg MCHC (31.7-36.0) g/dL RDW (11.2-14.1) % Plt Count (150-350) K/uL Neut % (Auto) (45.0-80.0) % Lymph % (Auto) (10.0-50.0) % [place] % (Auto) (2.0-14.0) % Eos % (Auto) (0.0-5.0) % Baso % (Auto) (0.0-2.0) % Neut # (Auto) (1.40-7.00) K/uL Lymph # (Auto) (0.50-3.50) K/uL [place] # (Auto) (0.00-1.00) K/uL Eos # (Auto) (0.00-0.50) K/uL Baso # (Auto) (0.00-0.20) K/uL PT (9.5-12.0) SEC INR APTT (21.0-31.3) SEC D-Dimer, Quantitative (0-400) ng/mL Sodium 142 (136-145) mmol/L Potassium 3.9 (3.5-5.1) mmol/L Chloride 107 (98-107) mmol/L Carbon Dioxide 27.9 (21.0-32.0) mmol/L BUN 23 H (7-18) mg/dL Creatinine 1.05 (0.51-1.17) mg/dL Est Cr Clr Drug Dosing 69.86 Estimated GFR (MDRD) > 60 mL/min Glucose 127 H (74-106) mg/dL Hemoglobin A1c 5.8 H (4.3-5.7) % Lactic Acid (0.4-2.0) mmol/L Uric Acid (2.6-7.2) mg/dL Calcium 8.7 (8.5-10.1) mg/dL Magnesium (1.8-2.4) mg/dL Total Bilirubin 0.4 (0.2-1.0) mg/dL AST 33 (15-37) U/L ALT 45 (12-78) U/L Alkaline Phosphatase 86 (46-116) IU/L Creatine Kinase 476 H (26-308) U/L Creatine Kinase Index 0.4 (0.0-2.5) % CK-MB (CK-2) 1.80 (0.00-3.60) ng/mL Troponin I 0.000 (0.000-0.056) ng/mL C-Reactive Protein 0.5 (<=0.9) mg/dL NT-Pro-B Natriuret Pep (0-125) pg/mL Total Protein 6.9 (6.4-8.2) g/dL Albumin 3.5 (3.4-5.0) g/dL Triglycerides 157 H (30-150) mg/dL Cholesterol 258 H (100-200) mg/dL LDL Cholesterol, Calc 204 H (0-100) mg/dL HDL Cholesterol 23 L (40-60) mg/dL TSH, Ultra Sensitive (0.358-3.740) mIU/mL 10/29/18 Range/Units 15:30 WBC (4.0-10.2) K/uL RBC (4.33-5.41) M/uL Hgb (13.1-16.8) g/dL Hct (39.0-49.0) % MCV (84.0-98.0) fL MCH (28.2-33.3) pg MCHC (31.7-36.0) g/dL RDW (11.2-14.1) % Plt Count (150-350) K/uL Neut % (Auto) (45.0-80.0) % Lymph % (Auto) (10.0-50.0) % [place] % (Auto) (2.0-14.0) % Eos % (Auto) (0.0-5.0) % Baso % (Auto) (0.0-2.0) % Neut # (Auto) (1.40-7.00) K/uL Lymph # (Auto) (0.50-3.50) K/uL [place] # (Auto) (0.00-1.00) K/uL Eos # (Auto) (0.00-0.50) K/uL Baso # (Auto) (0.00-0.20) K/uL PT (9.5-12.0) SEC INR APTT (21.0-31.3) SEC D-Dimer, Quantitative (0-400) ng/mL Sodium (136-145) mmol/L Potassium (3.5-5.1) mmol/L Chloride (98-107) mmol/L Carbon Dioxide (21.0-32.0) mmol/L BUN (7-18) mg/dL Creatinine (0.51-1.17) mg/dL Est Cr Clr Drug Dosing Estimated GFR (MDRD) mL/min Glucose (74-106) mg/dL Hemoglobin A1c (4.3-5.7) % Lactic Acid (0.4-2.0) mmol/L Uric Acid (2.6-7.2) mg/dL Calcium (8.5-10.1) mg/dL Magnesium (1.8-2.4) mg/dL Total Bilirubin (0.2-1.0) mg/dL AST (15-37) U/L ALT (12-78) U/L Alkaline Phosphatase (46-116) IU/L Creatine Kinase 756 H (26-308) U/L Creatine Kinase Index 0.3 (0.0-2.5) % CK-MB (CK-2) 2.10 (0.00-3.60) ng/mL Troponin I 0.000 (0.000-0.056) ng/mL C-Reactive Protein (<=0.9) mg/dL NT-Pro-B Natriuret Pep (0-125) pg/mL Total Protein (6.4-8.2) g/dL Albumin (3.4-5.0) g/dL Triglycerides (30-150) mg/dL Cholesterol (100-200) mg/dL LDL Cholesterol, Calc (0-100) mg/dL HDL Cholesterol (40-60) mg/dL TSH, Ultra Sensitive (0.358-3.740) mIU/mL [facility] Results - Last 24 hrs: None Med Orders - Current: Current Medications Acetaminophen (Tylenol) 650 mg PO Q4H PRN PRN Reason: Pain Last Admin: 10/29/18 08:50 Dose: 650 mg Aspirin (Aspirin) 325 mg PO QAM [facility] Last Admin: 10/29/18 08:49 Dose: 325 mg Baclofen (Lioresal) 10 mg PO QID PRN PRN Reason: Muscle Spasm Clonazepam (Klonopin) 4 mg PO BEDTIME [facility] Lactated Ringer's (Ringers, Lactated) 1,000 mls @ 100 mls/hr IV ASDIRECTED [facility] Last Admin: 10/29/18 10:11 Dose: 100 mls/hr Metoprolol Tartrate (Lopressor) 100 mg PO BID [facility] Last Admin: 10/29/18 08:40 Dose: 100 mg Nitroglycerin (Nitrostat) 0.4 mg SL ONETIME STA Stop: 10/29/18 20:34 Last Admin: 10/28/18 20:40 Dose: 0.4 mg Non-Formulary Medication (Evolocumab [Repatha Sureclick]) 140 mg SQ ASDIRECTED REYES Non-Formulary Medication (Prasugrel [Effient]) 10 mg PO QAM [facility] Sodium Chloride (Saline Flush) 10 ml FLUSH ASDIRECTED PRN PRN Reason: Keep Vein Open Last Admin: 10/29/18 08:51 Dose: 10 ml Sodium Chloride (Saline Flush) 10 ml FLUSH Q12HR PRN PRN Reason: Keep Vein Open Trazodone HCl (Trazodone) 200 mg PO BEDTIME [facility] [facility] Discontinued Medications Aspirin (Aspirin) 324 mg CHEW ONETIME ONE Stop: 10/28/18 20:21 Last Admin: 10/28/18 20:27 Dose: 324 mg Famotidine (Pepcid) 40 mg IVPUSH ONETIME ONE Stop: 10/28/18 20:21 Last Admin: 10/28/18 20:28 Dose: 40 mg Fentanyl (Sublimaze) 100 mcg IVPUSH ONETIME ONE Stop: 10/28/18 21:06 Last Admin: 10/28/18 21:16 Dose: 100 mcg Lactated Ringer's (Ringers, Lactated) 1,000 mls @ 999 mls/hr IV .BOLUS ONE Stop: 10/29/18 09:27 Last Admin: 10/29/18 08:51 Dose: 999 mls/hr Lorazepam (Ativan) 1 mg IVPUSH ONETIME ONE Stop: 10/28/18 21:07 Last Admin: 10/28/18 21:16 Dose: 1 mg Meperidine HCl (Demerol) 50 mg IM ONETIME ONE Stop: 10/29/18 02:57 Last Admin: 10/29/18 04:38 Dose: Not Given Meperidine HCl (Demerol) 50 mg IM ONETIME ONE Stop: 10/29/18 03:01 Last Admin: 10/29/18 03:36 Dose: 50 mg Methylprednisolone Sodium Succinate (Solu-Medrol) 125 mg IVPUSH ONETIME ONE Stop: 10/29/18 08:28 Last Admin: 10/29/18 08:49 Dose: 125 mg Metoprolol Tartrate (Lopressor) 2.5 mg IVPUSH ONETIME ONE Stop: 10/28/18 20:35 Last Admin: 10/28/18 20:40 Dose: 2.5 mg Ondansetron HCl (Zofran) 4 mg IVPUSH ONETIME ONE Stop: 10/28/18 21:06 Last Admin: 10/29/18 01:24 Dose: Not Given Promethazine HCl (Phenergan) 50 mg IM ONETIME ONE Stop: 10/29/18 02:58 Last Admin: 10/29/18 04:39 Dose: Not Given Promethazine HCl (Phenergan) 50 mg IM ONETIME ONE Stop: 10/29/18 03:01 Last Admin: 10/29/18 03:36 Dose: 50 mg Ticagrelor (Brilinta) 180 mg PO ONETIME ONE Stop: 10/28/18 20:21 Last Admin: 10/28/18 20:27 Dose: 180 mg - Exam Quality Assessment: Reports: DVT Prophylaxis. Denies: Supplemental Oxygen, Central Line/PICC, Urine Catheter, Skin Breakdown, Restraints General: Reports: Alert, Oriented, Cooperative, No Acute Distress HEENT: Reports: Pupils Equal, Pupils Reactive, EOMI, Mucous Membr. Moist/[place] Neck: Reports: Supple, Trachea Midline, No JVD, No Thyromegaly, +2 Carotid Pulse wo Bruit. Denies: Thyromegaly Lungs: Reports: Clear to Auscultation, Normal Respiratory Effort. Denies: Rub Cardiovascular: Reports: Regular Rate, Regular Rhythm, No Murmurs. Denies: Gallops, Rubs GI/Abdominal Exam: Normal Bowel Sounds, Soft, Non-Tender, No Organomegaly, No Distention, No Abnormal Bruit, No Mass, Other (Obese). No: Guarding (Male) Exam: Deferred Rectal (Males) Exam: Deferred Back Exam: Reports: Normal Inspection, Full Range of Motion. Denies: CVA Tenderness (L), CVA Tenderness (R), Muscle Spasm Extremities: Normal Inspection, Normal Range of Motion, Non-Tender, No Pedal Edema, Normal Capillary Refill. No: Matilda's Sign Skin: Reports: Warm, Dry, Intact. Denies: Ecchymosis Neurological: Reports: No New Focal Deficit Psy/Mental Status: Reports: Anxious (Moderate), Depressed (Mild to moderate with adequate eye contact). Denies: Agitated, Hallucinations, Withdrawal Symptoms EKG INTERPRETATION EKG Date: 10/29/18 Time: 07:48 Rhythm: Other (Mild sinus bradycardia) Rate (Beats/Min): 58 [place]: Normal (Left cardiac axis) P-Wave: Enlarged (Moderate diffuse biphasic P waves) QRS: Normal (0.09 seconds with some repolarization changes) ST-T: Other (Nonspecific increased ST changes in lead 3) QT: Normal ME/PQ Interval: 0.16 seconds Comparison: Change From Previous EKG (As above since 10/28/18, including new bradycardia) EKG Interpretation Comments: 1. No acute ischemic changes 2. Sinus bradycardia-mild 3. Left atrial enlargement
[2018-10-29 15:46] VITALS: BP 128/78
[2018-10-29] MEDS ORDERED: methylPREDNISolone Acetate 80 MG/ML SDV IM ONE (16:40)
--- NOTE | 2018-10-29 17:29 | PCM.SN ---
- Free Text/Narrative Note: Note that patient's work excuse was corrected by hand with actual return to work date of 11/04/18.
[2018-10-29] MEDS ORDERED: traZODone 50 MG Tab PO SCH (20:00)
== END 2018-10-29 17:45 | disposition home or self-care (01) ==
LOC: LL.ED 20:19 → UNDOADMOB 22:59 → LL.MS 22:59
PROVIDERS: ADMIT Family Medicine; ATTEND Family Medicine
DX: R07.89 Other chest pain (principal); R74.8 Abnormal levels of other serum enzymes; J43.1 Panlobular emphysema; I10 Essential (primary) hypertension; I25.10 Atherosclerotic heart disease of native coronary artery without angina pectoris; I25.2 Old myocardial infarction; E78.00 Pure hypercholesterolemia, unspecified; F41.8 Other specified anxiety disorders; K21.9 Gastro-esophageal reflux disease without esophagitis; D75.1 Secondary polycythemia; M15.0 Primary generalized (osteo)arthritis; Z88.1 Allergy status to other antibiotic agents; Z88.8 Allergy status to other drugs, medicaments and biological substances; Z91.041 Radiographic dye allergy status; Z95.5 Presence of coronary angioplasty implant and graft; Z87.891 Personal history of nicotine dependence; Z79.82 Long term (current) use of aspirin; Z79.899 Other long term (current) drug therapy
CPT/HCPCS: 36415; 71045; 80053; 80061; 82550; 82553; 83036; 83605; 83735; 83880; 84443; 84484; 84550; 85025; 85379; 85610; 85730; 86140; 93005; 96361; 96372; 96374; 96375; 99285-25; A9270-GY; G0378; J1040; J2060; J2175; J2550; J2930; J3010; J3490; J7120

== ENCOUNTER 2019-01-27 08:01 | Day surgery (SDC) | payer BC ==
[~2019-01-27 08:01] MED LIST: Lactated Ringers 1,000 ML IV SCH; Sodium Chloride 0.9% 10 ML Syringe FLUSH PRN
[2019-01-27] MEDS ORDERED: fentaNYL 100 MCG/2 ML SDV ONE ×2 (08:31→09:01)
[2019-01-27] MEDS ORDERED: Midazolam 1 MG/ML 2 ML SDV ONE ×2 (08:31→09:01)
[2019-01-27] MEDS ORDERED: Ketamine 500 mg/10 ML MDV ONE ×2 (08:31→09:01)
[2019-01-27] MEDS ORDERED: Propofol 200 MG/20 ML SDV ONE ×3 (08:31→09:01)
--- NOTE | 2019-01-27 09:10 | PCM.PN ---
- General Info Date of Service: 01/27/19 - Review of Systems Systems Review Comment:: 54 y/o male with painful lipomas on back here for excision. The site of these 3 lipomas is confirmed with the patient and marked. Proposed procedure again discussed with the patient. He has been advised that removal of these lipomas may not relieve all of his back pain. His health status has not significantly changed recently. He agrees to proceed. - Patient Data Vitals - Most Recent: Last Vital Signs Temp 98.7 F 01/27/19 08:34 Pulse 80 01/27/19 08:34 Resp 18 01/27/19 08:34 BP 127/85 01/27/19 08:34 Pulse Ox 97 01/27/19 08:34 Weight - Most Recent: 81.647 kg Med Orders - Current: Current Medications Lactated Ringer's (Ringers, Lactated) 1,000 mls @ 100 mls/hr IV ASDIRECTED REYES Last Admin: 01/27/19 08:29 Dose: 100 mls/hr Sodium Chloride (Saline Flush) 10 ml FLUSH ASDIRECTED PRN PRN Reason: Keep Vein Open Discontinued Medications Fentanyl (Sublimaze) Confirm Administered Dose 100 mcg .ROUTE .STK-MED ONE Stop: 01/27/19 08:32 Ketamine HCl (Ketalar) Confirm Administered Dose 500 mg .ROUTE .STK-MED ONE Stop: 01/27/19 08:32 Midazolam HCl (Versed 1 Mg/Ml) Confirm Administered Dose 2 mg .ROUTE .STK-MED ONE Stop: 01/27/19 08:32 Propofol (Diprivan 20 Ml) Confirm Administered Dose 600 mg .ROUTE .STK-MED ONE Stop: 01/27/19 08:32 Propofol (Diprivan 20 Ml) Confirm Administered Dose 200 mg .ROUTE .STK-MED ONE Stop: 01/27/19 08:33 - Problem List Review Problem List Initiated/Reviewed/Updated: Yes - Assessment Assessment:: Painful masses on back - Plan Plan:: Removal of masses on back
[2019-01-27] MEDS ORDERED: Bupivacaine 0.25%/EPINEPHrine 1:200,000 30 ML SDV INJECT ONE (09:21)
--- NOTE | 2019-01-27 10:13 | PCM.OPNOTE ---
- General Post-Op/Procedure Note Date of Surgery/Procedure: 01/27/19 Operative Procedure(s): Excision of back masses Findings: Soft tissue masses in lower back with appearance consistent with lipomas. No apparent muscle invasion. Pre Op Diagnosis: Masses on back Post-Op Diagnosis: Same Anesthesia Technique: Local, MAC Primary Surgeon: Hesham Amezcua Pathology: masses from back EBL in mLs: 10 Complications: None Condition: Good
[2019-01-27 10:35] VITALS: BP 140/100
--- NOTE | 2019-01-27 16:57 | OR ---
Date of Procedure: 01/27/2019 PREOPERATIVE DIAGNOSIS: Masses on back. POSTOPERATIVE DIAGNOSIS: Masses on back. OPERATION PERFORMED: Excision of masses on back. INDICATIONS FOR SURGERY: This 54-year-old male has developed masses in 2 areas of his left lower back. These are deep to the skin. They are painful for the patient and are not resolving spontaneously. He comes now to have these removed because they are symptomatic for him and also to rule out a malignancy. FINDINGS: In the left lower back, the patient has 2 areas where masses are present. More superior and medially, there is an area where there are 2 masses by palpation and little lower laterally in the superior aspect of the buttocks, a single mass is palpable. In both locations, the tissue appears to be consistent with benign fatty tissue. There is no apparent invasion of the underlying muscle. In the lower region, one small section of the tissue was somewhat firm. All tissue removed was submitted for pathology. DESCRIPTION OF PROCEDURE: The patient was taken to the operating room. He was given intravenous sedation and placed in the prone position. The location of the masses had been confirmed with the patient and previously marked. This area was sterilely prepped and draped. At both areas, the region is anesthetized with Marcaine with epinephrine and then a linear incision was made over the areas where the masses were present. Dissection proceeded into the subcutaneous region and then using cautery and sharp dissection, fatty tissue down to the underlying muscle fascia was removed to clear tissue from the region of the symptomatic masses for the patient. In the lower area, the region of tissue removed was 4 x 3 cm in size. In the more superior area, the region of tissue removed was 5 x 3 cm in size. The tissue removed was submitted for pathology. When hemostasis had been assured in both areas of dissection and careful examination showed no other indication of abnormal mass, the wounds were closed by approximating the subcutaneous tissue with interrupted 4-0 Vicryl and the skin with a running 4-0 Vicryl subcuticular stitch. Benzoin and Steri-Strips were applied. Antibiotic ointment and sterile dressing were placed. The patient was then taken from the operating room in satisfactory condition. ESTIMATED BLOOD LOSS: 10 mL. COMPLICATIONS: None. PROGNOSIS: Good. ROSELYN Amezcua MD /[id number]
== END 2019-01-27 11:08 | disposition home or self-care (01) ==
LOC: LL.SDS 08:01
PROVIDERS: ATTEND Surgery
DX: D17.1 Benign lipomatous neoplasm of skin and subcutaneous tissue of trunk (principal); I25.10 Atherosclerotic heart disease of native coronary artery without angina pectoris; I10 Essential (primary) hypertension; J45.909 Unspecified asthma, uncomplicated; F32.9 Major depressive disorder, single episode, unspecified; F41.9 Anxiety disorder, unspecified; M54.16 Radiculopathy, lumbar region; Z88.0 Allergy status to penicillin; Z88.8 Allergy status to other drugs, medicaments and biological substances; Z91.041 Radiographic dye allergy status; Z95.5 Presence of coronary angioplasty implant and graft; Z79.899 Other long term (current) drug therapy
CPT/HCPCS: J2250; J2704; J3010; J7120

== ENCOUNTER 2019-02-08 12:22 | Emergency (ER) | payer BC ==
[2019-02-08 12:30] VITALS: BP 124/88; PULSE 65
--- NOTE | 2019-02-08 12:50 | EDM.PDOC ---
ED HPI GENERAL MEDICAL PROBLEM - General Chief Complaint: General Stated Complaint: Back pain Time Seen by Provider: 02/08/19 12:45 Source of Information: Reports: Patient, Old Records ([facility] chart/EMR) History Limitations: Reports: No Limitations - History of Present Illness INITIAL COMMENTS - FREE TEXT/NARRATIVE: Patient drove himself to the emergency room via private automobile for evaluation of 03/10 bilateral upper lumbar cramping type pain with symptoms starting at about 3 AM this morning. Patient does have a long history of chronic low back pain with aggressive current medical therapy. He denies any recent fall, injury, paresthesias, neurological deficits, etc. His pain does radiate into his legs bilaterally and also to the upper portions of his thoracic region. Note that the patient was evaluated by his regular provider, Gifty Sena PA-C, at [facility], yesterday for possible post operative cellulitis after excision of benign lipomas from his lumbar region in this facility on . He denies any fever, however has not measured his temperature. The patient did take his normal medications this morning with additional 650 mg of Tylenol at about 10 AM this morning. No recent history of abdominal pain, heartburn, nausea, diarrhea, melena, gross hematochezia, or any food intolerance , including fatty foods, etc.. The patient also denies any recent cough, wheezing, dyspnea, etc.. The patient denies any chest pain/pressure, heart flutter, dizziness, orthostasis, orthopnea, diaphoresis, paresthesias, recent decreased exercise tolerance, or any other anginal-type symptoms. No history of gross hematuria, colic, or other UTI symptoms. Onset: Today, Gradual Onset Date: 02/08/19 Onset Time: 03:00 Duration: Constant, Getting Worse Location: Reports: Back, Lower Extremity, Left, Lower Extremity, Right, Radiates to (As above). Denies: Head, Face, Neck, Chest, Abdomen, Upper Extremity, Left, Upper Extremity, Right Quality: Reports: Same as Previous Episode, Throbbing Severity: Severe Improves with: Reports: Rest Worsens with: Reports: Movement Context: Reports: Other (As above). Denies: Sick Contact, Trauma Associated Symptoms: Denies: Confusion, Chest Pain, Cough, Diaphoresis, Fever/ Chills, Loss of Appetite, Malaise, Nausea/Vomiting, Seizure, Shortness of Breath , Syncope, Weakness Treatments [employer] SECTION: Reports: Cold Therapy Back Pain Score (Numeric/FACES): 10 - Related Data Allergies Allergy/AdvReac Type Severity Reaction Status Date / Time clarithromycin [From Biaxin] Allergy Rash Verified 01/27/19 08:30 Gadolinium-Containing Allergy Hives Verified 01/27/19 08:30 Contrast Medi gadoteridol [From Prohance] Allergy Hives Verified 01/27/19 08:30 Iodinated Contrast Media Allergy Hives Verified 01/27/19 08:30 ondansetron [From Zofran] Allergy Shortness Verified 01/27/19 08:48 of Breath, Hives ondansetron HCl Allergy Rash,Shortness Verified 01/27/19 08:48 [From Zofran (as of breath hydrochloride)] Penicillins Allergy Other Verified 01/27/19 08:30 Lfbnvkk-Dpc-Kfm Reductase Allergy rabdomyalisis, Verified 01/27/19 08:30 Inhibitor muscle aches Home Meds: Home Meds Metoprolol Tartrate [Lopressor] 100 mg PO BID 06/13/13 [History] clonazePAM [Clonazepam] 2 mg PO BEDTIME 06/13/13 [History] traZODone HCl [Trazodone HCl] 200 mg PO BEDTIME 06/13/13 [History] Prasugrel [Effient] 10 mg PO QAM 09/12/13 [History] Cholecalciferol (Vitamin D3) [Vitamin D3] 400 units PO QAM 03/12/15 [History] Aspirin 325 mg PO QAM 07/03/15 [History] Evolocumab [Repatha Sureclick] 140 mg SQ ASDIRECTED 05/06/16 [History] Nitroglycerin [IJP: Nitroglycerin] 0.4 mg SL Q5M PRN tablet, sublingual [Rx] Acetaminophen [Tylenol] 650 mg PO Q4H PRN tablet 10/29/18 [Rx] Gabapentin [Neurontin] 300 mg PO TID 01/26/19 [History] Pantoprazole Sodium [Protonix] 40 mg PO BID 01/26/19 [History] tiZANidine HCl [Tizanidine HCl] 2 mg PO TID PRN 08/28/19 [History] Baclofen 10 mg PO TID PRN 02/08/19 [History] Levalbuterol HCl [Xopenex] 1 inh INH Q6HR PRN 02/08/19 [History] levoFLOXacin [Levaquin] 500 mg PO DAILY 02/08/19 [History] Past Medical History HEENT History: Reports: Allergic Rhinitis, Impaired Vision, Other (See Below). Denies: Cataract, Glaucoma, Hard of Hearing, Macular Degeneration, Otitis Media Other HEENT History: He wears glasses. Cardiovascular History: Reports: Angina, CAD, High Cholesterol, Hypertension, NC , PTCA, Stents, Syncope, Other (See Below). Denies: Afib, Aneurysm, Arrhythmia , Blood Clots/VTE/DVT, Cardiomyopathy, Heart Failure, Heart Murmur Other Cardiovascular History: stents x10 with most recent procedures as below, history of recurrent syncope, dyslipidemia Respiratory History: Reports: Bronchitis, Recurrent, COPD, Intubation, Previous , Other (See Below). Denies: Asthma, Intubation, Difficult, PE, Pneumonia, Recurrent, Pneumothorax, Sleep Apnea, TB Other Respiratory History: COPD by chest x-ray Gastrointestinal History: Reports: Bowel Obstruction, Cholelithiasis, GERD, Helicobacter Pylori, Other (See Below). Denies: Celiac Disease, Chronic Constipation, Chronic Diarrhea, Colon Polyp, Diverticulosis, Fecal Incontinence , GI Bleed, Hiatal Hernia, Inflammatory Bowel Disease, Irritable Bowel Syndrome , Jaundice, Pancreatitis, PUD Other Gastrointestinal History: Previous borderline ileus. Fatty liver. Genitourinary History: Reports: Renal Calculus, Other (See Below). Denies: Acute Renal Failure, BPH, Chronic Renal Insuffiency, STD, Urinary Incontinence, UTI, Recurrent Other Genitourinary History: History of hyperurcemia with recurrent right-sided urolithiasis with last episode about 2004, bilateral epididymal cysts left greater than right Musculoskeletal History: Reports: Arthritis, Back Pain, Chronic, Fracture, Gout , Neck Pain, Chronic, Osteoarthritis, Osteoporosis, Other (See Below). Denies: RA, SLE Other Musculoskeletal History: Left clavicular fracture and left scapular fracture in about 2007, right sided rib fractures x3 in about 2008, left-sided 12th rib fracture, hyperuricemia diagnosed on 05/23/14 with no previous history of gout attacks, history of previous spinal fusion as below with degenerative disc disease in the L2-L5 region by MRI as below with epidural steroid injection in the lumbar region in August 2018, polymyalgia rheumatica, left talar subchondral cyst. Bilateral pes planus. Neurological History: Reports: Concussion, Headaches, Chronic, Head Trauma, Migraines, Neuropathy, Peripheral, Other (See Below). Denies: Cerebral Aneurysms, CVA, Neuropathy, Diabetic, Parkinson's, Seizure, TIA, Vertigo Other Neuro History: Borderline cerebral atrophy by CT scan of the head on , previous head concussion in about 2008 Psychiatric History: Reports: Addiction, Anxiety, Depression, Other (See Below) . Denies: Abuse, Victim of, ADD, ADHD, Alzheimers Disease, Dementia, Psych Hospitalization(s), PTSD, Suicide Attempt, Suicidal Ideation Other Psychiatric History: Chronic Klonopin and trazodone use with previous of chronic narcotic use/seeking behavior secondary to his osteoarthritis Endocrine/Metabolic History: Reports: Obesity/BMI 30+, Osteoporosis, Vitamin D Deficiency, Other (See Below). Denies: Diabetes, Type I, Diabetes, Type II, Diabetes Mellitus, Type 3c, Hyperthyroidism, Osteopenia Other Endocrine/Metabolic History: Hypoalbuminemia. Hyponatremia. Hematologic History: Reports: Polycythemia, Other (See Below). Denies: Anemia, Blood Transfusion(s), Iron Deficiency Other Hematologic History: Polycythemia requiring phlebotomies in the past Immunologic History: Reports: None. Denies: AIDS, HIV, SLE Oncologic (Cancer) History: Reports: None. Denies: Basal Cell Carcinoma, Colon , Hodgkin's Lymphoma, Leukemia, Lymphoma, Malignant Melanoma, Non-Hodgkin's Lymphoma, Prostate, Squamous Cell Carcinoma Dermatologic History: Reports: Other (See Below). Denies: Eczema, Psoriasis Other Dermatologic History: Benign lower subcutaneous lumbar lipomas with excisions as below. Left gluteal cystic lesion. - Infectious Disease History Infectious Disease History: Reports: Chicken Pox, Helicobacter Pylori, Other ( See Below). Denies: C-Difficile, Measles, Meningitis, Mononucleosis, MRSA, Mumps, Rheumatic Fever, Rubella, TB Other Infectious Disease History: Salmonella sepsis/positive in blood cultures without sequelae. - Past Surgical History Head Surgeries/Procedures: Reports: None HEENT Surgical History: Reports: None, Oral Surgery, Tonsillectomy, Other (See Below). Denies: Adenoidectomy, Eye Surgery, Laser Surgery, LASIK, Myringotomy w Tube(s), Naso-Sinus Surgery Other HEENT Surgeries/Procedures: Temple teeth extraction 4 at about age 17. Multiple teeth extractions. Tonsillectomy at about age 24. Cardiovascular Surgical History: Reports: Coronary Artery Bypass, Coronary Artery Stent, Other (See Below). Denies: Varicose Other Cardiovascular Surgeries/Procedures: He has had a total of at least 10 previous cardiac stents initially at age 38 then in about 4320-5580 with PTCA/ stent 2 of the LAD in about 2004 with PTCA of the obtuse marginal artery at the same time. Subsequent PTCA/stent of the right coronary artery in about 2006. PTCA/stent 2 at [facility] on 07/20/14. PTCA/stent 1 in August 2017 also at [facility]. Respiratory Surgical History: Reports: None. Denies: Thoracentesis GI Surgical History: Reports: Appendectomy, Cholecystectomy, Colonoscopy, EGD, Hernia, Inguinal, Other (See Below). Denies: Hernia, Abdominal, Hernia Repair/ Other Other GI Surgeries/Procedures: Appendectomy at about age 43 with subsequent laparoscopic cholecystectomy also at age 43. Last EGD and colonoscopy on . Bilateral inguinal hernia repair at about age 34. Male Surgical History: Reports: Circumcision, Renal Calculus, Other (See Below). Denies: TURP-Transurethral Resection of Prostate, Vasectomy Other Male Surgeries/Procedures: Circumcision as an . Right ureteral stone extraction at age 39. Endocrine Surgical History: Reports: None. Denies: Thyroid Biopsy Neurological Surgical History: Reports: Lumbar Spine, Spinal Fusion, Other (See Below). Denies: C-Spine, Discectomy, Laminectomy, Sacral Spine, Thoracic Spine , Vertebroplasty Other Neurological Surgeries/Procedures: L5-S1 spinal fusion in about 2006. Musculoskeletal Surgical History: Reports: Arthroscopic Procedure, Other (See Below). Denies: Arthroscopic Knee, Carpal Tunnel, Ganglion Cyst, Joint Replacement, ORIF, Shoulder Surgery Other Musculoskeletal Surgeries/Procedures:: Left elbow arthroscopic surgery in about 2003. Oncologic Surgical History: Reports: None Dermatological Surgical History: Reports: Other (See Below) Other Dermatological Surgeries/Procedures: Excision of benign subcutaneous lipomas from the lumbar region on 01/27/19. - Past Imaging History Past Imaging History: Reports: Angiography (August 2017 with results not available.), Cardiac Echo (Last echocardiogram on 08/18/17 with ejection fraction of 6065 percent.), CAT Scan (CT of the abdomen and pelvis on 12/23/17 and 10/09/17. CT of the head on 09/28/15 with previous evaluations on 02/09/14 and 01/18/13. Cardiac CT in August 2012. CT of the lumbar spine on 02/15/11. CT of the abdomen and pelvis with stone protocol negative on 07/23/[address]. [address] of the thoracic and lumbar region on 11/30/13 with previous evaluation on 10/11/11.), DEXA Scan (10/04/10.), HIDA Scan (10/19/11.), MRI (MRI of the lumbar spine on 05/24. MRI of the left ankle on 08/19/15 and the right ankle on 11/29/13. MRI of the right shoulder on 02/13/15. MRI of the lumbar spine on 12/20/13.), Stress Testing ([place] cardiac stress test on 10/15/17.), Ultrasound ([place] ultrasound on 04/30/88/12/16. Bilateral scrotal ultrasound on 02/11/15. Abdominal ultrasound on 11/13/09.) Social & Family History - Family History HEENT: Reports: Allergic Rhinitis, Other (See Below). Denies: Glaucoma, Macular Degeneration, Retinal Detachment Other HEENT Family History: 4 brothers with allergic rhinitis Cardiac: Reports: Afib, Arrhythmia, Bypass, CAD, Cardiomyopathy, Heart Failure, High Cholesterol, NC, Other (See Below). Denies: Aneurysm, Blood Clots/VTE/DVT , Heart Murmur, Hypertension, PVD/COD, Syncope Other Cardiac Family History: Father with fatal CHF at age 64 with father having an NC and CABG x4 at age 45, brother with atrial fibrillation, parents with hyperlipidemia, father with hypertension Respiratory: Reports: COPD, Other (See Below). Denies: Asthma, PE, Pneumothorax , Sleep Apnea Other Respiratory Family Hisory: Father with COPD with history of tobacco use GI: Reports: Diverticulosis, GI bleed, Other (See Below). Denies: Celiac Disease, Cholelithiasis, Colon Polyps, GERD, Inflammatory Bowel Disease, Irritable Bowel Syndrome, PUD Other GI Family History: Brother with diverticulosis and lower GI bleed as below. : Reports: Dialysis, Renal Calculus, Renal Disease/Insufficiency, Other (See Below) Other Family History: Father with urolithiasis, mother with fatal renal disease/renal failure at about age 82 with history of dialysis. OBGYN: Reports: None. Denies: Endometriosis, Recurrent Spontaneous Musculoskeletal: Reports: Arthritis, Osteoarthritis, Other (See Below). Denies : Gout, RA, SLE Other Musculoskeletal Family History: Mother with osteoarthritis Neurological: Reports: None. Denies: Alzheimers Disease, Cerebral Aneurysms, CVA, Dementia, MS, Neuropathy, Peripheral, Parkinson's, Seizure, TIA Psychiatric: Reports: None. Denies: Abuse, Victim of, ADD, ADHD, Anxiety, Depression, Psych Hospitalization(s), PTSD, Suicide Attempt Endocrine/Metabolic: Reports: Diabetes, Type I, Diabetes, type II, IDDM, Other ( See Below). Denies: Diabetes, Gestational, Diabetes Mellitus, Type 3c, Hypothyroidism Other Endocrine/Metabolic Family History: Father and niece with type I IDDM both in their 20s, sister with IDDM, mother with AODM Hematologic: Reports: Anemia, Other (See Below). Denies: SLE Other Hematologic Family History: Brother with history of lower GI bleed secondary to diverticulosis Immunologic: Reports: None. Denies: AIDS, HIV, SLE Dermatologic: Reports: None. Denies: Eczema, Psoriasis Oncologic: Reports: Other (See Below) Other Oncologic Family History: Brother with unknown type of "blood" cancer at age 63 which did require stem cell implant. - Tobacco Use Smoking Status *Q: Former Smoker Tobacco Use Within Last Twelve Months: No Years of Tobacco use: 21 Packs/Tins Daily: 1 Packs/Tins Daily Comment: Patient smoked between ages 17 and 38. Used Tobacco, but Quit: Yes Smoking Cessation Information Provided To Patient: No Second Hand Smoke Exposure: No Second Hand Smoke Education Provided: No - Caffeine Use Caffeine Use: Reports: Coffee, Soda. Denies: Energy Drinks, Tea Caffeine Use Comment: 2 pops a day and 2 cups of coffee a day - Alcohol Use Alcohol Use History: No Days Per Week of Alcohol Use: 0 Number of Drinks Per Day: 0 Number of Drinks Per Day Comment: No previous DWIs, problems with alcohol abuse , etc. Total Drinks Per Week: 0 Alcohol Use in Last Twelve Months: No - Recreational Drug Use Recreational Drug Use: No Drug Use in Last 12 Months: No Recreational Drug Type: Denies: Amphetamines (Speed), Cocaine, Heroin, Inhalants (Glues, Solvents, Aerosols), LSD (Acid), Marijuana/Hashish, Methamphetamine, Morphine, Oxycodone - Living Situation & Occupation Living situation: Reports: (Second since 1999 with 2 step children from this marriage), (First with no children from that marriage), with Spouse Occupation: Employed ([employer] department at [employer] ED ROS GENERAL - Review of Systems Review Of Systems: ROS reveals no pertinent complaints other than HPI. ED EXAM, GENERAL - Physical Exam Exam: See Below Exam Limited By: No Limitations General Appearance: Alert, WD/WN, No Apparent Distress, Anxious (Moderate) Head: Atraumatic, Normocephalic Neck: Normal Inspection, Supple, Non-Tender, Full Range of Motion. No: Lymphadenopathy (L), Lymphadenopathy (R), Thyromegaly Respiratory/Chest: No Respiratory Distress, Lungs Clear, Normal Breath Sounds, No Accessory Muscle Use, Chest Non-Tender. No: Pleural Rub, Retractions Cardiovascular: Normal Peripheral Pulses, Regular Rate, Rhythm, No Edema, No Gallop, No JVD, No Murmur, No Rub. No: Gallop/S3, Gallop/S4, Friction Rub Peripheral Pulses: 2+: Radial (L), Radial (R), Dorsalis Pedis (L), Dorsalis Pedis (R) GI/Abdominal: Normal Bowel Sounds, Soft, Non-Tender, No Organomegaly, No Distention, No Abnormal Bruit, No Mass, Pelvis Stable, Other ( obese). No: Guarding (Male) Exam: Deferred Rectal (Males) Exam: Deferred Back Exam: Decreased Range of Motion (Mild), Muscle Spasm (Upper lumbar bilateral right greater than left), Paraspinal Tenderness (Upper lumbar region bilaterally as above), Other (6 cm in diameter moderate swelling at site of excision of benign lipoma in the left lower lumbar region with no local warming , range, lymphangitis, etc. with only minimal localized tenderness. Possibility of small subcutaneous hematoma in this area. Excision sites from the lipomas 2 in this area does show surrounding 10 cm x 30 cm area of old ecchymosis with no significant tenderness in this area.). No: CVA Tenderness (L), CVA Tenderness ( R), Vertebral Tenderness Extremities: Normal Inspection, Normal Range of Motion, Non-Tender, No Pedal Edema, Normal Capillary Refill. No: Matilda's Sign Neurological: Alert, Oriented, CN II-XII Intact, Normal Cognition, Normal Gait, Normal Reflexes (Negative Babinski's), No Motor/Sensory Deficits Psychiatric: Anxious (Moderate), Depressed Mood (Mild) Skin Exam: Ecchymosis (As above), Wound/Incision (As abovepostoperative site). No: Diaphoretic, Lymphangitis Lymphatic: No Adenopathy Course - Vital Signs Last Recorded V/S: Last Vital Signs Temp 36.6 C 02/08/19 12:23 Pulse 65 02/08/19 12:23 Resp 20 02/08/19 12:23 BP 124/88 02/08/19 12:23 Pulse Ox 99 02/08/19 12:23 Vital Signs - 24 hr 02/08/19 12:23 Temperature [ 36.6 C Temporal] Pulse, 65 Peripheral [ Right Pulse Oximetry] Respiratory 20 Rate Blood Pressure 124/88 [Right Upper Arm] O2 Sat by Pulse 99 Oximetry - Orders/Labs/Meds Orders: Active Orders 24 hr Category Date Time Status Obtain Past Medical Record [OM.PC] Routine Oth 02/08/19 13:00 Ordered Labs: None Meds: Medications Discontinued Medications Generic Name Dose Route Start Last Admin Trade Name Freq PRN Reason Stop Dose Admin Diazepam 10 mg 02/08/19 13:00 Valium IM 02/08/19 13:01 ONETIME ONE Ketorolac Tromethamine 60 mg 02/08/19 13:00 Toradol IM 02/08/19 13:01 ONETIME ONE - Radiology Interpretation Free Text/Narrative:: None Departure - Departure Time of Disposition: 13:40 Disposition: Home, Self-Care 01 Condition: Good Clinical Impression: Mixed anxiety and depressive disorder, Peptic reflux disease Hypertension Qualifiers: Hypertension type: essential hypertension Qualified Code(s): I10 - Essential ( primary) hypertension Coronary artery disease Qualifiers: Coronary Disease-Associated Artery/Lesion type: [place] artery [place] vs. transplanted heart: [place] heart Associated angina: without angina Qualified Code(s): I25.10 - Atherosclerotic heart disease of [place] coronary artery without angina pectoris COPD (chronic obstructive pulmonary disease) Qualifiers: COPD type: emphysema Emphysema type: panlobular Qualified Code(s): J43.1 - Panlobular emphysema Osteoarthritis Qualifiers: Osteoarthritis location: multiple joints Osteoarthritis type: primary Qualified Code(s): M15.0 - Primary generalized (osteo)arthritis Low back pain Qualifiers: Chronicity: acute Back pain laterality: bilateral Sciatica presence: with sciatica Sciatica laterality: bilateral sciatica Qualified Code(s): M54.42 - Lumbago with sciatica, left side; M54.41 - Lumbago with sciatica, right side Cellulitis Qualifiers: Site of cellulitis: trunk Site of cellulitis of trunk: back Qualified Code(s): L03.312 - Cellulitis of back [any part except buttock] - Discharge Information *PRESCRIPTION DRUG MONITORING PROGRAM REVIEWED*: Not Applicable *COPY OF PRESCRIPTION DRUG MONITORING REPORT IN PATIENT MORRO: Not Applicable Instructions: Chronic Back Pain, Pfen-pg-Codn Referrals: Kerline Raphael NP [Primary Care Provider] - Forms: ED Department Discharge, ED Return to Work/School Form Additional Instructions: 1. Follow up with your regular provider in 7-10 days as needed, if symptoms persist. Bring these discharge instructions with you to that visit. 2. Tylenol 650 mg by mouth every 4 hours and/or OTC ibuprofen 2-3 tabs by mouth every 6 hours with food as directed./needed. You may stagger these medications for 48-72 hours only, which essentially means that you are receiving a pain medication about every 2 hours. Next dose of ibuprofen as needed in 6 hours secondary to medications given in the emergency room 3. BenGay or equivalent, heating pad, and/or ice packs as directed. 4. Sedation precautions with no driving, etc. for 18 hours because of emergency room medications. 5. Work excuse- See Form 6. Advance activity slowly as tolerated/directed. 7. Immediately after this visit verify that your cellular telephone's voicemail has been activated and is empty. Also verify that your home telephone 's answering machine is operating properly and has space to receive messages. Note that it is sometimes necessary for us to be able to contact you at a later date to discuss your medical care. 8. Please remember that we are ALWAYS here for you and want to answer any questions you may have. Feel free to call the hospital any time and we call you back JAX. - Problem List & Annotations (1) Low back pain SNOMED Code(s): 992145724 Code(s): M54.5 - LOW BACK PAIN Status: Acute Priority: High Onset Date : 02/08/19 Annotation/Comment:: Exacerbation of his chronic low back pain as above. Symptoms are not related to previous excision of benign lipomas as above. Various therapeutic options were discussed with the patient. IM Toradol and IM diazepam were given. Symptomatic relief as per discharge instructions. Continue close follow-up by his regular providers. Work excuse provided starting from 02/07 secondary to the patient missing work yesterday from his borderline cellulitis as below. Qualifiers: Chronicity: acute Back pain laterality: bilateral Sciatica presence: with sciatica Sciatica laterality: bilateral sciatica Qualified Code(s): M54.42 - Lumbago with sciatica, left side; M54.41 - Lumbago with sciatica, right side (2) Cellulitis SNOMED Code(s): 400878398 Code(s): L03.90 - CELLULITIS, UNSPECIFIED Status: Acute Priority: High Onset Date: ~02/07/19 Annotation/Comment:: Possible borderline mild postoperative cellulitis as above. IM Rocephin given at [facility] on 02/07 with patient already started on Levaquin. Continue medical therapy for now. Qualifiers: Site of cellulitis: trunk Site of cellulitis of trunk: back Qualified Code(s): L03.312 - Cellulitis of back [any part except buttock] (3) Osteoarthritis SNOMED Code(s): 231110962 Code(s): M19.90 - UNSPECIFIED OSTEOARTHRITIS, UNSPECIFIED SITE Status: Chronic Priority: Medium Annotation/Comment:: Otherwise stable by history. Note history of polymyalgia and hyperuricemia without history of gout attacks. Qualifiers: Osteoarthritis location: multiple joints Osteoarthritis type: primary Qualified Code(s): M15.0 - Primary generalized (osteo)arthritis (4) COPD (chronic obstructive pulmonary disease) SNOMED Code(s): 89571768 Code(s): J44.9 - CHRONIC OBSTRUCTIVE PULMONARY DISEASE, UNSPECIFIED Status : Chronic Priority: Medium Annotation/Comment:: No recent fever or bronchitic-type symptoms with not currently using his Xopenex. Note previous tobacco use history. Consider PFTs on an outpatient basis. Qualifiers: COPD type: emphysema Emphysema type: panlobular Qualified Code(s): J43.1 - Panlobular emphysema (5) Coronary artery disease SNOMED Code(s): 51842433 Code(s): I25.10 - ATHSCL HEART DISEASE OF [place] CORONARY ARTERY W/O ANG PCTRS Status: Chronic Priority: Medium Annotation/Comment:: No recent chest pain or anginal complaints. Qualifiers: Coronary Disease-Associated Artery/Lesion type: [place] [place] artery [place] vs. transplanted heart: [place] heart Associated angina: without angina Qualified Code(s): I25.10 - Atherosclerotic heart disease of [place] coronary artery without angina pectoris (6) Hypertension SNOMED Code(s): 73937582 Code(s): I10 - ESSENTIAL (PRIMARY) HYPERTENSION Status: Chronic Priority : Medium Annotation/Comment:: Stable by history, including during emergency room evaluation. Qualifiers: Hypertension type: essential hypertension Qualified Code(s): I10 - Essential (primary) hypertension (7) Mixed anxiety and depressive disorder SNOMED Code(s): 727295698 Code(s): F41.8 - OTHER SPECIFIED ANXIETY DISORDERS Status: Chronic Priority: Medium Annotation/Comment:: Moderate control based on today's exam. Continue to observe closely with medication adjustments by his regular provider depending on his clinical course. (8) Peptic reflux disease SNOMED Code(s): 671896483 Code(s): K21.9 - GASTRO-ESOPHAGEAL REFLUX DISEASE WITHOUT ESOPHAGITIS Status: Chronic Priority: Medium Annotation/Comment:: Stable by history. - Problem List Review Problem List Initiated/Reviewed/Updated: Yes - My Orders Last 24 Hours: My Active Orders 02/08/19 13:00 Obtain Past Medical Record [OM.PC] Routine - Assessment/Plan Last 24 Hours: My Active Orders 02/08/19 13:00 Obtain Past Medical Record [OM.PC] Routine Assessment:: As above Plan: As above. Extensive precautions were given to the patient, who is in agreement with the treatment plan. See Patient Instructions for further treatment and plan. Sister did drive the patient home.
[2019-02-08] MEDS: Ketorolac 60 MG/2 ML SDV IM ONE (13:07)
== END 2019-02-08 13:40 | disposition home or self-care (01) ==
LOC: LL.ED 12:22
DX: I25.10 Atherosclerotic heart disease of native coronary artery without angina pectoris (principal); J43.1 Panlobular emphysema; K21.9 Gastro-esophageal reflux disease without esophagitis; I10 Essential (primary) hypertension; F41.8 Other specified anxiety disorders; M15.0 Primary generalized (osteo)arthritis; M54.41 Lumbago with sciatica, right side; L03.312 Cellulitis of back [any part except buttock and flank]; E13.9 Other specified diabetes mellitus without complications; I25.2 Old myocardial infarction; F41.9 Anxiety disorder, unspecified; F32.9 Major depressive disorder, single episode, unspecified; F90.9 Attention-deficit hyperactivity disorder, unspecified type; Z90.49 Acquired absence of other specified parts of digestive tract; Z98.890 Other specified postprocedural states; Z98.52 Vasectomy status; Z79.899 Other long term (current) drug therapy; Z79.82 Long term (current) use of aspirin; Z88.0 Allergy status to penicillin; Z88.8 Allergy status to other drugs, medicaments and biological substances; Z91.048 Other nonmedicinal substance allergy status; Z88.1 Allergy status to other antibiotic agents
CPT/HCPCS: 96372; 99283; J1885; J3360

== ENCOUNTER 2019-12-28 08:57 | Emergency (ER) | payer BC ==
[2019-12-28 09:15] VITALS: BP 136/89; PULSE 56
[2019-12-28 09:37] LABS: CHLORIDE,CL 101 mmol/L (98-107); SODIUM,NA 136 mmol/L (136-145)
--- NOTE | 2019-12-28 09:51 | EDM.PDOC ---
ED HPI GENERAL MEDICAL PROBLEM - General Chief Complaint: General Stated Complaint: lightheaded, dizzy, nausea, diarrhea Time Seen by Provider: 12/28/19 09:15 Source of Information: Reports: Patient History Limitations: Reports: No Limitations - History of Present Illness INITIAL COMMENTS - FREE TEXT/NARRATIVE: Pt has had diarrhea for 5 days No fever Some lightheadedness No cough No SOB No chest pain No emesis No travel hx Onset: Gradual Duration: Day(s):, Intermittent Location: Reports: Abdomen Associated Symptoms: Reports: Nausea/Vomiting - Related Data Allergies Allergy/AdvReac Type Severity Reaction Status Date / Time clarithromycin [From Biaxin] Allergy Rash Verified 12/28/19 09:01 Gadolinium-Containing Allergy Hives Verified 12/28/19 09:01 Contrast Medi gadoteridol [From Prohance] Allergy Hives Verified 12/28/19 09:01 Iodinated Contrast Media Allergy Hives Verified 12/28/19 09:01 ondansetron [From Zofran] Allergy Shortness Verified 12/28/19 09:01 of Breath, Hives ondansetron HCl Allergy Rash,Shortness Verified 12/28/19 09:01 [From Zofran (as of breath hydrochloride)] [id number] Reductase Allergy rabdomyalisis, Verified 12/28/19 09:01 Inhibitor muscle aches Home Meds: Home Meds Metoprolol Tartrate [Lopressor] 100 mg PO BID 06/13/13 [History] clonazePAM [Clonazepam] 2 mg PO BEDTIME 06/13/13 [History] traZODone HCl [Trazodone HCl] 200 mg PO BEDTIME 06/13/13 [History] Prasugrel [Effient] 10 mg PO QAM 09/12/13 [History] Cholecalciferol (Vitamin D3) [Vitamin D3] 400 units PO QAM 03/12/15 [History] Aspirin 325 mg PO QAM 07/03/15 [History] Evolocumab [Repatha Sureclick] 140 mg SQ ASDIRECTED 05/06/16 [History] Nitroglycerin [IJP: Nitroglycerin] 0.4 mg SL Q5M PRN tablet, sublingual 08/12/17 [Rx] Acetaminophen [Tylenol] 650 mg PO Q4H PRN tablet 10/29/18 [Rx] Pantoprazole Sodium [Protonix] 40 mg PO BID 01/26/19 [History] levalbuterol HCL [Xopenex] 1 inh INH Q6HR PRN 02/08/19 [History] Past Medical History HEENT History: Reports: Allergic Rhinitis, Impaired Vision, Other (See Below) Other HEENT History: He wears glasses. Cardiovascular History: Reports: Angina, CAD, High Cholesterol, Hypertension, AK, PTCA, Stents, Syncope, Other (See Below) Other Cardiovascular History: stents x10 with most recent procedures as below, history of recurrent syncope, dyslipidemia Respiratory History: Reports: Bronchitis, Recurrent, COPD, Intubation, Previous, Other (See Below) Other Respiratory History: COPD by chest x-ray Gastrointestinal History: Reports: Bowel Obstruction, Cholelithiasis, GERD, Helicobacter Pylori, Other (See Below) Other Gastrointestinal History: Previous borderline ileus. Fatty liver. Genitourinary History: Reports: Renal Calculus, Other (See Below) Other Genitourinary History: History of hyperurcemia with recurrent right-sided urolithiasis with last episode about 2004, bilateral epididymal cysts left greater than right Musculoskeletal History: Reports: Arthritis, Back Pain, Chronic, Fracture, Gout, Neck Pain, Chronic, Osteoarthritis, Osteoporosis, Other (See Below) Other Musculoskeletal History: Left clavicular fracture and left scapular fracture in about 2007, right sided rib fractures x3 in about 2008, left-sided 12th rib fracture, hyperuricemia diagnosed on 05/23/14 with no previous history of gout attacks, history of previous spinal fusion as below with degenerative disc disease in the L2-L5 region by MRI as below with epidural steroid injection in the lumbar region in August 2018, polymyalgia rheumatica, left talar subchondral cyst. Bilateral pes planus. Neurological History: Reports: Concussion, Headaches, Chronic, Head Trauma, Migraines, Neuropathy, Peripheral, Other (See Below) Other Neuro History: Borderline cerebral atrophy by CT scan of the head on 02/09/14, previous head concussion in about 2008 Psychiatric History: Reports: Addiction, Anxiety, Depression, Other (See Below) Other Psychiatric History: Chronic Klonopin and trazodone use with previous of chronic narcotic use/seeking behavior secondary to his osteoarthritis Endocrine/Metabolic History: Reports: Obesity/BMI 30+, Osteoporosis, Vitamin D Deficiency, Other (See Below) Other Endocrine/Metabolic History: Hypoalbuminemia. Hyponatremia. Hematologic History: Reports: Polycythemia, Other (See Below) Other Hematologic History: Polycythemia requiring phlebotomies in the past Immunologic History: Reports: None Oncologic (Cancer) History: Reports: None Dermatologic History: Reports: Other (See Below) Other Dermatologic History: Benign lower subcutaneous lumbar lipomas with e xcisions as below. Left gluteal cystic lesion. - Infectious Disease History Infectious Disease History: Reports: Chicken Pox, Helicobacter Pylori, Other (See Below). Denies: C-Difficile, Measles, Meningitis, Mononucleosis, MRSA, Mumps, Rheumatic Fever, Rubella, TB Other Infectious Disease History: Salmonella sepsis/positive in blood cultures 12/24/17 without sequelae. - Past Surgical History Head Surgeries/Procedures: Reports: None HEENT Surgical History: Reports: None, Oral Surgery, Tonsillectomy, Other (See Below) Other HEENT Surgeries/Procedures: [place] teeth extraction 4 at about age 17. Multiple teeth extractions. Tonsillectomy at about age 24. Cardiovascular Surgical History: Reports: Coronary Artery Bypass, Coronary Artery Stent, Other (See Below) Other Cardiovascular Surgeries/Procedures: He has had a total of at least 10 previous cardiac stents initially at age 38 then in about [id number] with PTCA/stent 2 of the LAD in about 2004 with PTCA of the obtuse marginal artery at the same time. Subsequent PTCA/stent of the right coronary artery in about 2006. PTCA/stent 2 at [facility] on 07/20/14. PTCA/stent 1 in August 2017 also at [facility]. Respiratory Surgical History: Reports: None GI Surgical History: Reports: Appendectomy, Cholecystectomy, Colonoscopy, EGD, Hernia, Inguinal, Other (See Below) Other GI Surgeries/Procedures: Appendectomy at about age 43 with subsequent laparoscopic cholecystectomy also at age 43. Last EGD and colonoscopy on 09/06/15. Bilateral inguinal hernia repair at about age 34. Male Surgical History: Reports: Circumcision, Renal Calculus, Other (See Below) Other Male Surgeries/Procedures: Circumcision as an infant. Right ureteral stone extraction at age 39. Endocrine Surgical History: Reports: None Neurological Surgical History: Reports: Lumbar Spine, Spinal Fusion, Other (See Below) Other Neurological Surgeries/Procedures: L5-S1 spinal fusion in about 2006. Musculoskeletal Surgical History: Reports: Arthroscopic Procedure, Other (See Below) Other Musculoskeletal Surgeries/Procedures:: Left elbow arthroscopic surgery in about 2003. Oncologic Surgical History: Reports: None Dermatological Surgical History: Reports: Other (See Below) - Past Imaging History Past Imaging History: Reports: Angiography (August 2017 with results not available.), Cardiac Echo (Last echocardiogram on 08/18/17 with ejection fraction of 6065 percent.), CAT Scan (CT of the abdomen and pelvis on 12/23/17 and 10/09/17. CT of the head on 09/28/15 with previous evaluations on 02/09/14 and 01/18/13. Cardiac CT in August 2012. CT of the lumbar spine on 02/15/11. CT of the abdomen and pelvis with stone protocol negative on 07/23/10. [address] of the thoracic and lumbar region on 11/30/13 with previous evaluation on 10/11/11.), DEXA Scan (10/04/10.), HIDA Scan (10/19/11.), MRI (MRI of the lumbar spine on 05/24/18. MRI of the left ankle on 08/19/15 and the right ankle on 11/29/13. MRI of the right shoulder on 02/13/15. MRI of the lumbar spine on 12/20/13.), Stress Testing ([place] Level cardiac stress test on 10/15/17.), Ultrasound ([place] ultrasound on 04/30/88. Bilateral scrotal ultrasound on 02/11/15. Abdominal ultrasound on 11/13/09.) Social & Family History - Family History HEENT: Reports: Allergic Rhinitis, Other (See Below) Other HEENT Family History: 4 brothers with allergic rhinitis Cardiac: Reports: Afib, Arrhythmia, Bypass, CAD, Cardiomyopathy, Heart Failure, High Cholesterol, AK, Other (See Below) Other Cardiac Family History: Father with fatal CHF at age 64 with father having an AK and CABG x4 at age 45, brother with atrial fibrillation, parents with hyperlipidemia, father with hypertension Respiratory: Reports: COPD, Other (See Below) Other Respiratory Family Hisory: Father with COPD with history of tobacco use GI: Reports: Diverticulosis, GI bleed, Other (See Below) Other GI Family History: Brother with diverticulosis and lower GI bleed as below. : Reports: Dialysis, Renal Calculus, Renal Disease/Insufficiency, Other (See Below) Other Family History: Father with urolithiasis, mother with fatal renal disease/renal failure at about age 82 with history of dialysis. OBGYN: Reports: None Musculoskeletal: Reports: Arthritis, Osteoarthritis, Other (See Below) Other Musculoskeletal Family History: Mother with osteoarthritis Neurological: Reports: None Psychiatric: Reports: None Endocrine/Metabolic: Reports: Diabetes, Type I, Diabetes, type II, IDDM, Other (See Below) Other Endocrine/Metabolic Family History: Father and niece with type I IDDM both in their 20s, sister with IDDM, mother with AODM Hematologic: Reports: Anemia, Other (See Below) Other Hematologic Family History: Brother with history of lower GI bleed secondary to diverticulosis Immunologic: Reports: None Dermatologic: Reports: None Oncologic: Reports: Other (See Below) Other Oncologic Family History: Brother with unknown type of "blood" cancer at age 63 which did require stem cell implant. - Caffeine Use Caffeine Use: Reports: Coffee, Soda. Denies: Energy Drinks, Tea Caffeine Use Comment: 2 pops a day and 2 cups of coffee a day - Living Situation & Occupation Living situation: Reports: (Second since 1999 with 2 step children from this marriage), (First with no children from that marriage), with Spouse Occupation: Employed ([employer] department at [employer] ED ROS GENERAL - Review of Systems Review Of Systems: See Below Constitutional: Reports: No Symptoms HEENT: Reports: No Symptoms Respiratory: Reports: No Symptoms Cardiovascular: Reports: No Symptoms GI/Abdominal: Reports: Nausea, Vomiting Musculoskeletal: Reports: No Symptoms ED EXAM, GENERAL - Physical Exam Exam: See Below Exam Limited By: No Limitations General Appearance: Alert, WD/WN, No Apparent Distress Throat/Mouth: Normal Oropharynx Neck: Supple Respiratory/Chest: Lungs Clear Cardiovascular: Regular Rate, Rhythm GI/Abdominal: Soft, Non-Tender Extremities: Normal Inspection Course - Vital Signs Last Recorded V/S: Last Vital Signs Temp 97.6 F 12/28/19 09:13 Pulse 56 L 12/28/19 09:13 Resp 18 12/28/19 09:13 BP 136/89 12/28/19 09:13 Pulse Ox 97 12/28/19 09:13 - Orders/Labs/Meds Labs: Laboratory Tests 12/28/19 12/28/19 Range/Units 09:11 09:11 WBC 9.9 (4.0-10.2) K/uL RBC 5.63 H (4.33-5.41) M/uL Hgb 17.8 H D (13.1-16.8) g/dL Hct 51.9 H (39.0-49.0) % MCV 92.2 D (84.0-98.0) fL MCH 31.6 (28.2-33.3) pg MCHC 34.3 (31.7-36.0) g/dL RDW 13.1 (11.2-14.1) % Plt Count 178 (150-350) K/uL Neut % (Auto) 61.8 (45.0-80.0) % Lymph % (Auto) 21.4 (10.0-50.0) % Coal % (Auto) 14.2 H (2.0-14.0) % Eos % (Auto) 2.0 (0.0-5.0) % Baso % (Auto) 0.6 (0.0-2.0) % Neut # (Auto) 6.08 (1.40-7.00) K/uL Lymph # (Auto) 2.11 (0.50-3.50) K/uL Coal # (Auto) 1.40 H (0.00-1.00) K/uL Eos # (Auto) 0.20 (0.00-0.50) K/uL Baso # (Auto) 0.06 (0.00-0.20) K/uL Sodium 136 (136-145) mmol/L Potassium 4.1 (3.5-5.1) mmol/L Chloride 101 (98-107) mmol/L Carbon Dioxide 25.6 (21.0-32.0) mmol/L BUN 18 (7-18) mg/dL Creatinine 1.01 (0.51-1.17) mg/dL Est Cr Clr Drug Dosing TNP Estimated GFR (MDRD) > 60 mL/min Glucose 112 H (74-106) mg/dL Calcium 9.2 (8.5-10.1) mg/dL Total Bilirubin 1.0 (0.2-1.0) mg/dL AST 31 (15-37) U/L ALT 39 (12-78) U/L Alkaline Phosphatase 107 (46-116) IU/L Total Protein 7.7 (6.4-8.2) g/dL Albumin 3.7 (3.4-5.0) g/dL - Re-Assessments/Exams Free Text/Narrative Re-Assessment/Exam: 12/28/19 09:48 See lab Pt stable in ER 12/28/19 09:49 Will test for Covid-19 Departure - Departure Time of Disposition: 10:00 Disposition: Home, Self-Care 01 Clinical Impression: Diarrhea Qualifiers: Diarrhea type: unspecified type Qualified Code(s): R19.7 - Diarrhea, unspecified - Discharge Information *PRESCRIPTION DRUG MONITORING PROGRAM REVIEWED*: Not Applicable *COPY OF PRESCRIPTION DRUG MONITORING REPORT IN PATIENT MORRO: Not Applicable Instructions: Diarrhea, Adult Referrals: Kerline Raphael NP [Primary Care Provider] - Additional Instructions: Diet as tolerated Follow up in clinic Await Covid testing Sepsis Event Note (ED) - Evaluation Sepsis Screening Result: No Definite Risk - Focused Exam Vital Signs: Vital Signs Temp Pulse Resp BP Pulse Ox 12/28/19 09:13 97.6 F 56 L 18 136/89 97
== END 2019-12-28 10:00 | disposition home or self-care (01) ==
LOC: LL.ED 08:57
DX: R19.7 Diarrhea, unspecified (principal); I25.10 Atherosclerotic heart disease of native coronary artery without angina pectoris; I10 Essential (primary) hypertension; I25.2 Old myocardial infarction; Z79.899 Other long term (current) drug therapy; M19.90 Unspecified osteoarthritis, unspecified site; F41.9 Anxiety disorder, unspecified; F32.9 Major depressive disorder, single episode, unspecified; G62.9 Polyneuropathy, unspecified; E66.9 Obesity, unspecified; K21.9 Gastro-esophageal reflux disease without esophagitis; Z88.1 Allergy status to other antibiotic agents; Z91.041 Radiographic dye allergy status; Z88.8 Allergy status to other drugs, medicaments and biological substances; Z95.5 Presence of coronary angioplasty implant and graft; J44.9 Chronic obstructive pulmonary disease, unspecified; Z79.82 Long term (current) use of aspirin
CPT/HCPCS: 36415; 80053; 85025; 99284

== ENCOUNTER 2020-02-20 14:55 | Inpatient (IN) | payer BC ==
[2020-02-20] MEDS ORDERED: oxyCODONE 5 MG Tab PO ONE (15:20)
[2020-02-20] MEDS ORDERED: Cyclobenzaprine 10 MG Tab PO ONE (15:23)
[2020-02-20] MEDS ORDERED: Sodium Chloride 0.9% 10 ML Syringe FLUSH PRN (15:29)
[2020-02-20 16:04] LABS: CHLORIDE,CL 94 mmol/L (98-107); SODIUM,NA 130 mmol/L (136-145)
[2020-02-20] MEDS ORDERED: Ondansetron 4 MG/2 ML SDV IVPUSH PRN (16:33)
[2020-02-20] MEDS ORDERED: Morphine 2 MG/ML SYRINGE IVPUSH PRN (16:33)
[2020-02-20] MEDS ORDERED: Nitroglycerin 0.4 MG Tab.SL SL PRN (16:38)
[2020-02-20] MEDS ORDERED: ClonazePAM 0.5 MG Tab PO PRN (16:38)
[2020-02-20] MEDS ORDERED: Acetaminophen 325 MG Tab PO PRN (16:38)
--- NOTE | 2020-02-20 16:47 | PCM.HP.2 ---
H&P History of Present Illness - General Date of Service: 02/20/20 Admit Problem/Dx: Admission Diagnosis/Problem Admission Diagnosis/Problem Ileus Source of Information: Patient History Limitations: Reports: No Limitations - History of Present Illness Initial Comments - Free Text/Narative: Patient admitted for treatment of suspected post operative ileus after initially being evaluated by A[facility] at [facility] in [facility]. Had low back surgery to replace lumbar hardware last week at [facility] in [place], and was discharged Thursday, three days ago. Since then he has had worsening nausea. Three episodes emesis/none today. Abdominal discomfort/some gaseous distension. Is still passing gas. Has had a banana today but otherwise has had only clear liquids. Had low grade temp over weekend but not today. Denies other changes. Still able to take his meds. No current fever/chills No HEENT changes/URI complaints/sore throat/congestion No Resp changes/cough/wheeze/sob No CV changes/palpitation/chest pain/syncope GI negative for hematemesis/hematochezia. + for 3 episodes emesis over weekend. Had some loose stools. Does not feel constipated. negative/UTI complaints/hematuria MS negative for acute changes/new pain Neuro negative for acute weakness/CHEN/other acute changes. Lower Back Pain Score (Numeric/FACES): 10 - Related Data Allergies/Adverse Reactions: Allergies Allergy/AdvReac Type Severity Reaction Status Date / Time clarithromycin [From Biaxin] Allergy Rash Verified 02/20/20 16:37 Gadolinium-Containing Allergy Hives Verified 02/20/20 16:37 Contrast Medi gadoteridol [From Prohance] Allergy Hives Verified 02/20/20 16:37 Iodinated Contrast Media Allergy Hives Verified 02/20/20 16:37 ondansetron [From Zofran] Allergy Shortness Verified 02/20/20 16:37 of Breath, Hives ondansetron HCl Allergy Rash,Shortness Verified 02/20/20 16:37 [From Zofran (as of breath hydrochloride)] Klkuxyo-Ruq-Dxo Reductase Allergy rabdomyalisis, Verified 02/20/20 16:37 Inhibitor muscle aches Home Medications: Home Meds Metoprolol Tartrate [Lopressor] 100 mg PO BID 06/13/13 [History] traZODone HCl [Trazodone HCl] 100 mg PO BEDTIME 06/13/13 [History] Cholecalciferol (Vitamin D3) [Vitamin D3] 400 units PO QAM 03/12/15 [History] Aspirin 325 mg PO QAM 07/03/15 [History] Nitroglycerin [IJP: Nitroglycerin] 0.4 mg SL Q5M PRN tablet, sublingual 08/12/17 [Rx] Acetaminophen [Tylenol] 650 mg PO Q4H PRN tablet 10/29/18 [Rx] Pantoprazole Sodium [Protonix] 40 mg PO BID 01/26/19 [History] ClonazePAM [KlonoPIN] 1.5 mg PO BEDTIME PRN 02/20/20 [History] Cyclobenzaprine [Flexeril] 5 mg PO TID PRN 02/20/20 [History] Prasugrel HCl [Effient] 10 mg PO DAILY 02/20/20 [History] oxyCODONE 5 mg PO [id number] PRN 02/20/20 [History] Past Medical History HEENT History: Reports: Allergic Rhinitis, Impaired Vision, Other (See Below) Other HEENT History: He wears glasses. Cardiovascular History: Reports: Angina, CAD, High Cholesterol, Hypertension, TX, PTCA, Stents, Syncope, Other (See Below) Other Cardiovascular History: stents x10 with most recent procedures as below, history of recurrent syncope, dyslipidemia Respiratory History: Reports: Bronchitis, Recurrent, COPD, Intubation, Previous, Other (See Below) Other Respiratory History: COPD by chest x-ray Gastrointestinal History: Reports: Bowel Obstruction, Cholelithiasis, GERD, Helicobacter Pylori, Other (See Below) Other Gastrointestinal History: Previous borderline ileus. Fatty liver. Genitourinary History: Reports: Renal Calculus, Other (See Below) Other Genitourinary History: History of hyperurcemia with recurrent right-sided urolithiasis with last episode about 2004, bilateral epididymal cysts left greater than right Musculoskeletal History: Reports: Arthritis, Back Pain, Chronic, Fracture, Gout, Neck Pain, Chronic, Osteoarthritis, Osteoporosis, Other (See Below) Other Musculoskeletal History: Left clavicular fracture and left scapular fracture in about 2007, right sided rib fractures x3 in about 2008, left-sided 12th rib fracture, hyperuricemia diagnosed on 05/23/14 with no previous history of gout attacks, history of previous spinal fusion as below with degenerative disc disease in the L2-L5 region by MRI as below with epidural steroid injection in the lumbar region in August 2018, polymyalgia rheumatica, left talar sub chondral cyst. Bilateral pes planus. Neurological History: Reports: Concussion, Headaches, Chronic, Head Trauma, Migraines, Neuropathy, Peripheral, Other (See Below) Other Neuro History: Borderline cerebral atrophy by CT scan of the head on 02/09/14, previous head concussion in about 2008 Psychiatric History: Reports: Addiction, Anxiety, Depression, Other (See Below) Other Psychiatric History: Chronic Klonopin and trazodone use with previous of chronic narcotic use/seeking behavior secondary to his osteoarthritis Endocrine/Metabolic History: Reports: Obesity/BMI 30+, Osteoporosis, Vitamin D Deficiency, Other (See Below) Other Endocrine/Metabolic History: Hypoalbuminemia. Hyponatremia. Hematologic History: Reports: Polycythemia, Other (See Below) Other Hematologic History: Polycythemia requiring phlebotomies in the past Immunologic History: Reports: None Oncologic (Cancer) History: Reports: None Dermatologic History: Reports: Other (See Below) Other Dermatologic History: Benign lower subcutaneous lumbar lipomas with excisions as below. Left gluteal cystic lesion. - Infectious Disease History Infectious Disease History: Reports: Chicken Pox, Helicobacter Pylori, Other (See Below). Denies: C-Difficile, Measles, Meningitis, Mononucleosis, MRSA, Mumps, Rheumatic Fever, Rubella, TB Other Infectious Disease History: Salmonella sepsis/positive in blood cultures 12/24/17 without sequelae. - Past Surgical History Head Surgeries/Procedures: Reports: None HEENT Surgical History: Reports: None, Oral Surgery, Tonsillectomy, Other (See Below) Other HEENT Surgeries/Procedures: [place] teeth extraction 4 at about age 17. Multiple teeth extractions. Tonsillectomy at about age 24. Cardiovascular Surgical History: Reports: Coronary Artery Bypass, Coronary Artery Stent, Other (See Below) Other Cardiovascular Surgeries/Procedures: He has had a total of at least 10 previous cardiac stents initially at age 38 then in about 1971-4190 with PTCA/stent 2 of the LAD in about 2004 with PTCA of the obtuse marginal artery at the same time. Subsequent PTCA/stent of the right coronary artery in about 2006. PTCA/stent [address] [facility] on 2/19/15. PTCA/stent 1 in August 2017 also at [facility] in [place]. Respiratory Surgical History: Reports: None GI Surgical History: Reports: Appendectomy, Cholecystectomy, Colonoscopy, EGD, Hernia, Inguinal, Other (See Below) Other GI Surgeries/Procedures: Appendectomy at about age 43 with subsequent laparoscopic cholecystectomy also at age 43. Last EGD and colonoscopy on 09/06/15. Bilateral inguinal hernia repair at about age 34. Male Surgical History: Reports: Circumcision, Renal Calculus, Other (See Below) Other Male Surgeries/Procedures: Circumcision as an infant. Right ureteral stone extraction at age 39. Endocrine Surgical History: Reports: None Neurological Surgical History: Reports: Lumbar Spine, Spinal Fusion, Other (See Below) Other Neurological Surgeries/Procedures: L5-S1 spinal fusion in about 2006. New hardware Jan 2020 Musculoskeletal Surgical History: Reports: Arthroscopic Procedure, Other (See Below) Other Musculoskeletal Surgeries/Procedures:: Left elbow arthroscopic surgery in about 2003. Oncologic Surgical History: Reports: None Dermatological Surgical History: Reports: Other (See Below) - Past Imaging History Past Imaging History: Reports: Angiography (August 2017 with results not available.), Cardiac Echo (Last echocardiogram on 08/18/17 with ejection fraction of 6065 percent.), CAT Scan (CT of the abdomen and pelvis on 12/23/17 and 10/09/17. CT of the head on 09/28/15 with previous evaluations on 02/09/14 and 01/18/13. Cardiac CT in August 2012. CT of the lumbar spine on 02/15/11. CT of the abdomen and pelvis with stone protocol negative on 07/23/[address]. [address] of the thoracic and lumbar region on 11/30/13 with previous evaluation on 10/11/11.), DEXA Scan (10/04/10.), HIDA Scan (10/19/11.), MRI (MRI of the lumbar spine on 05/24/18. MRI of the left ankle on 08/19/15 and the right ankle on 11/29/13. MRI of the right shoulder on 02/13/15. MRI of the lumbar spine on 12/20/13.), Stress Testing ([place] cardiac stress test on 10/15/17.), Ultrasound ([place] ultrasound on 04/30/88/12/16. Bilateral scrotal ultrasound on 02/11/15. Abdominal ultrasound on 11/13/09.) Social & Family History - Family History HEENT: Reports: Allergic Rhinitis, Other (See Below) Other HEENT Family History: 4 brothers with allergic rhinitis Cardiac: Reports: Afib, Arrhythmia, Bypass, CAD, Cardiomyopathy, Heart Failure, High Cholesterol, TX, Other (See Below) Other Cardiac Family History: Father with fatal CHF at age 64 with father having an TX and CABG x4 at age 45, brother with atrial fibrillation, parents with hyperlipidemia, father with hypertension Respiratory: Reports: COPD, Other (See Below) Other Respiratory Family Hisory: Father with COPD with history of tobacco use GI: Reports: Diverticulosis, GI bleed, Other (See Below) Other GI Family History: Brother with diverticulosis and lower GI bleed as below. : Reports: Dialysis, Renal Calculus, Renal Disease/Insufficiency, Other (See Below) Other Family History: Father with urolithiasis, mother with fatal renal disease/renal failure at about age 82 with history of dialysis. OBGYN: Reports: None Musculoskeletal: Reports: Arthritis, Osteoarthritis, Other (See Below) Other Musculoskeletal Family History: Mother with osteoarthritis Neurological: Reports: None Psychiatric: Reports: None Endocrine/Metabolic: Reports: Diabetes, Type I, Diabetes, type II, IDDM, Other (See Below) Other Endocrine/Metabolic Family History: Father and niece with type I IDDM both in their 20s, sister with IDDM, mother with AODM Hematologic: Reports: Anemia, Other (See Below) Other Hematologic Family History: Brother with history of lower GI bleed secondary to diverticulosis Immunologic: Reports: None Dermatologic: Reports: None Oncologic: Reports: Other (See Below) Other Oncologic Family History: Brother with unknown type of "blood" cancer at age 63 which did require stem cell implant. 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 Exam - Exam Exam: See Below - Vital Signs Vital Signs: Last Vital Signs Temp 36.8 C 02/20/20 16:34 Pulse 108 H 02/20/20 16:34 Resp 16 02/20/20 16:34 BP 118/90 02/20/20 16:34 Pulse Ox 96 02/20/20 16:34 Weight: 76.657 kg - Exam General: Alert, Oriented, Cooperative HEENT: Conjunctiva Clear, EOMI, Hearing Intact, Mucosa Moist & [place], Nares Patent, Pupils Equal, Pupils Reactive Neck: Supple, Trachea Midline Lungs: Clear to Auscultation, Normal Respiratory Effort Cardiovascular: Regular Rate, Regular Rhythm GI/Abdominal Exam: Soft, Tender (mild-mod diffuse tenderness with palpation all quadrants), Abnormal Bowel Sounds (diminished throughout). No: Guarding, Rigid, Rebound (Male) Exam: Deferred Rectal (Males) Exam: Deferred Back Exam: Other (surgical site healing well/no drainage). No: Muscle Spasm Skin: Warm, Dry, Incision (low back/healing well/no drainage) Neurological: Cranial Nerves Intact, Strength Equal Bilateral Neuro Extensive - Mental Status: Alert, Oriented x3, Normal Mood/Affect, Normal Cognition, Memory Intact Psychiatric: Alert, Normal Affect, Normal Mood - Patient Data Lab Results Last 24 hrs: Laboratory Results - last 24 hr 02/20/20 02/20/20 02/20/20 Range/Units 15:35 15:35 15:35 WBC 8.6 (4.0-10.2) K/uL RBC 5.39 (4.33-5.41) M/uL Hgb 16.5 (13.1-16.8) g/dL Hct 48.1 (39.0-49.0) % MCV 89.2 D (84.0-98.0) fL MCH 30.6 (28.2-33.3) pg MCHC 34.3 (31.7-36.0) g/dL RDW 12.8 (11.2-14.1) % Plt Count 225 (150-350) K/uL Neut % (Auto) 72.9 (45.0-80.0) % Lymph % (Auto) 9.2 L (10.0-50.0) % [place] % (Auto) 16.0 H (2.0-14.0) % Eos % (Auto) 1.5 (0.0-5.0) % Baso % (Auto) 0.4 (0.0-2.0) % Neut # (Auto) 6.25 (1.40-7.00) K/uL Lymph # (Auto) 0.79 (0.50-3.50) K/uL [place] # (Auto) 1.37 H (0.00-1.00) K/uL Eos # (Auto) 0.13 (0.00-0.50) K/uL Baso # (Auto) 0.03 (0.00-0.20) K/uL Sodium 130 L (136-145) mmol/L Potassium 3.8 (3.5-5.1) mmol/L Chloride 94 L (98-107) mmol/L Carbon Dioxide 27.0 (21.0-32.0) mmol/L BUN 29 H (7-18) mg/dL Creatinine 1.02 (0.51-1.17) mg/dL Est Cr Clr Drug Dosing TNP Estimated GFR (MDRD) > 60 mL/min Glucose 150 H (74-106) mg/dL Lactic Acid 2.3 H (0.4-2.0) mmol/L Calcium 9.3 (8.5-10.1) mg/dL Magnesium 2.1 (1.8-2.4) mg/dL Total Bilirubin 1.4 H (0.2-1.0) mg/dL AST 31 (15-37) U/L ALT 34 (12-78) U/L Alkaline Phosphatase 97 (46-116) IU/L Total Protein 7.5 (6.4-8.2) g/dL Albumin 2.9 L (3.4-5.0) g/dL Result Diagrams: 02/20/20 15:35 02/20/20 15:35 Sepsis Event Note - Evaluation Sepsis Screening Result: No Definite Risk - Focused Exam Vital Signs: Vital Signs Temp Pulse Resp BP Pulse Ox 02/20/20 16:34 36.8 C 108 H 16 118/90 96 - Problem List (1) Ileus, postoperative SNOMED Code(s): 536761436 ICD Code: K91.89 - OTH POSTPROCEDURAL COMPLICATIONS AND DISORDERS OF DGSTV SYS; K56.7 - ILEUS, UNSPECIFIED Status: Acute Priority: High Current V isit: Yes Onset Date: ~02/19/20 Problem Details: Gradually increasing nausea/abdominal discomfort with some vomiting since being discharged from [facility] s/p low back surgery three days ago. Still passing gas. Exam/history/xray suggestive of ileus. Clear fluids for now, IV fluid supplementation. May need to place patient NPO/consider NG if he starts vomiting again. (2) Lactic acid increased SNOMED Code(s): 84180616 ICD Code: E87.2 - ACIDOSIS Status: Acute Priority: High Current Visit: No Onset Date: 12/22/17 Problem Details: Mild elevation of lactic acid. No evidence of sepsis noted at this time. Recheck in AM. (3) COPD (chronic obstructive pulmonary disease) SNOMED Code(s): 31131287 ICD Code: J44.9 - CHRONIC OBSTRUCTIVE PULMONARY DISEASE, UNSPECIFIED Status: Chronic Priority: Medium Current Visit: No Problem Details: No recent fever or bronchitic-type symptoms with. Currently stable. Note previous tobacco use history. Qualifiers: COPD type: emphysema Emphysema type: panlobular Qualified Code(s): J43.1 - Panlobular emphysema (4) Coronary artery disease SNOMED Code(s): 10181958 ICD Code: I25.10 - ATHSCL HEART DISEASE OF [place] CORONARY ARTERY W/O ANG PCTRS Status: Chronic Priority: Medium Current Visit: No Problem Details: No recent chest pain or anginal complaints. Has had 10+ stent placements in past. Qualifiers: Coronary Disease-Associated Artery/Lesion type: pal[place] artery [place] vs. transplanted heart: pala heart Associated angina: without angina Qualified Code(s): I25.10 - Atherosclerotic heart disease of [place] coronary artery witho ut angina pectoris (5) Hyperlipidemia SNOMED Code(s): 38650204 ICD Code: E78.5 - HYPERLIPIDEMIA, UNSPECIFIED Status: Chronic Priority: Medium Current Visit: No Problem Details: Currently under therapy. Qualifiers: Hyperlipidemia type: mixed hyperlipidemia Qualified Code(s): E78.2 - Mixed hyperlipidemia (6) Hypertension SNOMED Code(s): 46330236 ICD Code: I10 - ESSENTIAL (PRIMARY) HYPERTENSION Status: Chronic Priority: Medium Current Visit: No Problem Details: Stable by history. O bserve. Qualifiers: Hypertension type: essential hypertension Qualified Code(s): I10 - Essential (primary) hypertension (7) Mixed anxiety and depressive disorder SNOMED Code(s): 430262040 ICD Code: F41.8 - OTHER SPECIFIED ANXIETY DISORDERS Status: Chronic Priority: Medium Current Visit: No Problem Details: Moderate control based on today's exam. Continue to observe closely with medication adjustments by his regular provider depending on his clinical course. (8) Osteoarthritis SNOMED Code(s): 895497060 ICD Code: M19.90 - UNSPECIFIED OSTEOARTHRITIS, UNSPECIFIED SITE Status: Chronic Priority: Medium Current Visit: No Problem Details: Note history of polymyalgia and hyperuricemia without history of gout attacks. Chronic back and neck pain. Qualifiers: Osteoarthritis location: multiple joints Osteoarthritis type: primary (9) Peptic reflux disease SNOMED Code(s): 670442645 ICD Code: K21.9 - GASTRO-ESOPHAGEAL REFLUX DISEASE WITHOUT ESOPHAGITIS Status: Chronic Priority: Low Current Visit: No Problem Details: Stable by history. (10) Polycythemia SNOMED Code(s): 420930009 ICD Code: D75.1 - SECONDARY POLYCYTHEMIA Status: Chronic Priority: Medium Current Visit: No Problem Details: History of polycythemia likely secondary to his COPD. Note previous history of tobacco use between ages 17 and 38 with maximum use of one pack per day. Problem List Initiated/Reviewed/Updated: Yes Orders Last 24hrs: Active Orders 24 hr Category Date Time Status Admission Status [Patient Status] [ADT] Routine ADT 02/20/20 14:55 Active Antiembolic Devices [RC] PER UNIT ROUTINE Care 02/20/20 16:37 Ordered Height and Weight [RC] DAILY Care 02/20/20 16:33 Ordered Intake and Output [RC] QSHIFT Care 02/20/20 16:36 Ordered Oxygen Therapy [RC] PRN Care 02/20/20 16:36 Ordered Pulse Oximetry [RC] PRN Care 02/20/20 16:37 Ordered Up With Assistance [RC] ASDIRECTED Care 02/20/20 16:33 Ordered VTE/DVT Education [RC] PER UNIT ROUTINE Care 02/20/20 16:36 Ordered Vital Signs [RC] Q6HR Care 02/20/20 16:36 Ordered Consult to Occupational Therapy [OT Evaluation and Cons 02/20/20 16:29 Ordered Treatment] [CONS] Routine PT Evaluation and Treatment [CONS] Routine Cons 02/20/20 16:29 Ordered Clear Liquid Diet [DIET] Diet 02/20/20 Dinner Ordered BASIC METABOLIC PANEL,BMP [CHEM] AM Lab 02/21/20 05:11 Ordered BASIC METABOLIC PANEL,BMP [CHEM] AM Lab 02/22/20 05:11 Ordered BASIC METABOLIC PANEL,BMP [CHEM] AM Lab 02/23/20 05:11 Ordered CBC WITH AUTO DIFF [HEME] AM Lab 02/21/20 05:11 Ordered CBC WITH AUTO DIFF [HEME] AM Lab 02/22/20 05:11 Ordered CBC WITH AUTO DIFF [HEME] AM Lab 02/23/20 05:11 Ordered UA RFX DELROY AND CULT IF INDIC [URIN] Routine Lab 02/20/20 15:25 Ordered Acetaminophen [TylenoL] Med 02/20/20 16:38 Ordered 650 mg PO Q4H PRN Aspirin Med 02/21/20 08:00 Ordered 325 mg PO QAM ClonazePAM [KlonoPIN] Med 02/20/20 16:38 Ordered 1.5 mg PO BEDTIME PRN Cyclobenzaprine [Flexeril] Med 02/20/20 16:38 Ordered 5 mg PO TID PRN Metoprolol Tartrate Med 02/20/20 18:00 Ordered 100 mg PO BID Morphine Med 02/20/20 16:33 Ordered 2 mg IVPUSH Q2H PRN Nitroglycerin [Nitrostat] Med 02/20/20 16:38 Ordered 0.4 mg SL Q5M PRN Ondansetron [Zofran] Med 02/20/20 16:33 Ordered 4 mg IVPUSH Q6H PRN Pantoprazole [ProTONIX] Med 02/20/20 18:00 Ordered 40 mg PO BID Prasugrel HCl [Effient] Med 02/21/20 08:00 Ordered 10 mg PO DAILY Sodium Chloride 0.9% [Normal Saline] 1,000 ml Med 02/20/20 15:45 Active IV ASDIRECTED Sodium Chloride 0.9% [Saline Flush] Med 02/20/20 15:29 Active 10 ml FLUSH ASDIRECTED PRN oxyCODONE Med 02/20/20 16:38 Ordered 5 mg PO [id number] PRN traZODone HCl Med 02/20/20 20:00 Ordered 100 mg PO BEDTIME Antiembolic Hose [OM.PC] Per Unit Routine Oth 02/20/20 16:37 Ordered Saline Lock Insert [OM.PC] Routine Oth 02/20/20 15:29 Ordered Resuscitation Status Routine Resus Stat 02/20/20 16:33 Ordered Medication Orders Acetaminophen (Tylenol) 650 mg PO Q4H PRN PRN Reason: Pain Aspirin (Aspirin) 325 mg PO QAM REYES Clonazepam (Klonopin) 1.5 mg PO BEDTIME PRN PRN Reason: Insomnia Sodium Chloride (Normal Saline) 1,000 mls @ 125 mls/hr IV ASDIRECTED REYES Morphine Sulfate (Morphine) 2 mg IVPUSH Q2H PRN PRN Reason: Pain (severe 7-10) Nitroglycerin (Nitrostat) 0.4 mg SL Q5M PRN PRN Reason: Chest Pain Non-Formulary Medication (Cyclobenzaprine [Flexeril]) 5 mg PO TID PRN PRN Reason: Spasms Non-Formulary Medication (Metoprolol Tartrate) 100 mg PO BID REYES Non-Formulary Medication (Prasugrel Hcl [Effient]) 10 mg PO DAILY REYES Non-Formulary Medication (Trazodone Hcl) 100 mg PO BEDTIME REYES Ondansetron HCl (Zofran) 4 mg IVPUSH Q6H PRN PRN Reason: Nausea/Vomiting Oxycodone HCl (Oxycodone) 5 mg PO [id number] PRN PRN Reason: Pain (moderate 4-6) Pantoprazole Sodium (Protonix) 40 mg PO BID REYES Sodium Chloride (Saline Flush) 10 ml FLUSH ASDIRECTED PRN PRN Reason: Keep Vein Open Assessment/Plan Comment:: as above. IV fluid support/clear liquids. Continue to observe. Additional intervention as needed if patient becomes more symptomatic. Anticipate 3-4 day stay depending upon clinical course and if GI tract starts to operate well again. PT/OT requested. - Mortality Measure Prognosis:: Good
[2020-02-20] MEDS ORDERED: Cyclobenzaprine 10 MG Tab PO PRN (16:52)
[2020-02-20] MEDS: Sodium Chloride 0.9% 1,000 ML IV SCH ×2 (17:38→23:19)
[2020-02-20] MEDS: Pantoprazole 40 MG Tab.CR PO SCH (17:39)
[2020-02-20] MEDS: Metoprolol Tartrate 50 MG Tab PO SCH (17:39)
[2020-02-20] MEDS ORDERED: Promethazine 25 MG/ML SDV IM PRN (19:00)
[2020-02-20] MEDS: traZODone 50 MG Tab PO SCH (21:09)
[2020-02-21] MEDS: Sodium Chloride 0.9% 1,000 ML IV SCH ×2 (07:39→15:32)
[2020-02-21] MEDS: Metoprolol Tartrate 50 MG Tab PO SCH ×2 (07:39→19:24)
[2020-02-21] MEDS: Aspirin 325 MG Tab PO SCH (07:40)
[2020-02-21] MEDS: Pantoprazole 40 MG Tab.CR PO SCH ×2 (07:40→19:24)
[2020-02-21] MEDS ORDERED: PRASUGREL HCL 10 MG PO SCH (08:00)
[2020-02-21 08:02] LABS: CHLORIDE,CL 99 mmol/L (98-107); SODIUM,NA 133 mmol/L (136-145)
[2020-02-21] MEDS: oxyCODONE 5 MG Tab PO PRN ×2 (12:21→21:36)
[2020-02-21] MEDS ORDERED: Sodium Chloride 0.9% 1,000 ML IV SCH (17:18)
[2020-02-21] MEDS: traZODone 50 MG Tab PO SCH (19:24)
--- NOTE | 2020-02-22 01:54 | PCM.PN ---
- General Info Date of Service: 02/21/20 Admission Dx/Problem (Free Text): Pt admitted with ileus/bowel obstruction - Review of Systems Pulmonary: Reports: No Symptoms Cardiovascular: Reports: No Symptoms Gastrointestinal: Reports: Abdominal Pain Musculoskeletal: Reports: Other (Recent back surgery) - Patient Data Vitals - Most Recent: Last Vital Signs Temp 99.2 F 02/22/20 00:00 Pulse 94 02/22/20 00:00 Resp 18 02/22/20 00:00 BP 135/91 H 02/22/20 00:00 Pulse Ox 91 L 02/22/20 00:00 Weight - Most Recent: 173 lb 15.997 oz I&O - Last 24 Hours: Intake & Output 02/21/20 02/21/20 02/22/20 10:59 18:59 02:59 Intake Total 2974 1948 Output Total 400 Balance 2574 1948 Lab Results Last 24 Hours: Laboratory Results - last 24 hr 02/21/20 02/21/20 02/21/20 Range/Units 07:35 07:35 07:35 WBC 7.4 (4.0-10.2) K/uL RBC 4.57 (4.33-5.41) M/uL Hgb 14.2 D (13.1-16.8) g/dL Hct 41.7 (39.0-49.0) % MCV 91.2 (84.0-98.0) fL MCH 31.1 (28.2-33.3) pg MCHC 34.1 (31.7-36.0) g/dL RDW 12.5 (11.2-14.1) % Plt Count 194 (150-350) K/uL Neut % (Auto) 66.9 (45.0-80.0) % Lymph % (Auto) 10.1 (10.0-50.0) % [place] % (Auto) 20.6 H (2.0-14.0) % Eos % (Auto) 2.0 (0.0-5.0) % Baso % (Auto) 0.4 (0.0-2.0) % Neut # (Auto) 4.97 (1.40-7.00) K/uL Lymph # (Auto) 0.75 (0.50-3.50) K/uL [place] # (Auto) 1.53 H (0.00-1.00) K/uL Eos # (Auto) 0.15 (0.00-0.50) K/uL Baso # (Auto) 0.03 (0.00-0.20) K/uL Sodium 133 L (136-145) mmol/L Potassium 4.0 (3.5-5.1) mmol/L Chloride 99 (98-107) mmol/L Carbon Dioxide 27.3 (21.0-32.0) mmol/L BUN 22 H (7-18) mg/dL Creatinine 0.70 (0.51-1.17) mg/dL Est Cr Clr Drug Dosing 106.33 mL/min Estimated GFR (MDRD) > 60 mL/min Glucose 106 (74-106) mg/dL Lactic Acid 1.4 (0.4-2.0) mmol/L Calcium 8.4 L (8.5-10.1) mg/dL Specimen Type Urine Color Urine Appearance Urine pH (5.0-9.0) Ur Specific [place] (1.005-1.030) Urine Protein (NEGATIVE) mg/dL Urine Glucose (UA) (NEGATIVE) mg/dL Urine Ketones (NEGATIVE) mg/dL Urine Occult Blood (NEGATIVE) Urine Nitrite (NEGATIVE) Urine Bilirubin (NEGATIVE) Urine Urobilinogen (0.2-1.0) E.U./dL Ur Leukocyte Esterase (NEGATIVE) U Hyaline Cast (Auto) Urine RBC /HPF Urine WBC /HPF Ur Epithelial Cells /LPF Urine Bacteria (NONE TO FEW) /HPF Urine Mucus (NEGATIVE) /LPF 02/21/20 Range/Units 08:05 WBC (4.0-10.2) K/uL RBC (4.33-5.41) M/uL Hgb (13.1-16.8) g/dL Hct (39.0-49.0) % MCV (84.0-98.0) fL MCH (28.2-33.3) pg MCHC (31.7-36.0) g/dL RDW (11.2-14.1) % Plt Count (150-350) K/uL Neut % (Auto) (45.0-80.0) % Lymph % (Auto) (10.0-50.0) % [place] % (Auto) (2.0-14.0) % Eos % (Auto) (0.0-5.0) % Baso % (Auto) (0.0-2.0) % Neut # (Auto) (1.40-7.00) K/uL Lymph # (Auto) (0.50-3.50) K/uL [place] # (Auto) (0.00-1.00) K/uL Eos # (Auto) (0.00-0.50) K/uL Baso # (Auto) (0.00-0.20) K/uL Sodium (136-145) mmol/L Potassium (3.5-5.1) mmol/L Chloride (98-107) mmol/L Carbon Dioxide (21.0-32.0) mmol/L BUN (7-18) mg/dL Creatinine (0.51-1.17) mg/dL Est Cr Clr Drug Dosing mL/min Estimated GFR (MDRD) mL/min Glucose (74-106) mg/dL Lactic Acid (0.4-2.0) mmol/L Calcium (8.5-10.1) mg/dL Specimen Type Urinvoid Urine Color Dark yellow Urine Appearance Clear Urine pH 6.0 (5.0-9.0) Ur Specific [place] 1.025 (1.005-1.030) Urine Protein 30 H (NEGATIVE) mg/dL Urine Glucose (UA) Negative (NEGATIVE) mg/dL Urine Ketones >=160 H (NEGATIVE) mg/dL Urine Occult Blood Negative (NEGATIVE) Urine Nitrite Negative (NEGATIVE) Urine Bilirubin Small H (NEGATIVE) Urine Urobilinogen 1.0 (0.2-1.0) E.U./dL Ur Leukocyte Esterase Negative (NEGATIVE) U Hyaline Cast (Auto) Not Reportable Urine RBC 5-10 H /HPF Urine WBC 0-5 /HPF Ur Epithelial Cells Few /LPF Urine Bacteria Few (NONE TO FEW) /HPF Urine Mucus Few H (NEGATIVE) /LPF Med Orders - Current: Current Medications Acetaminophen (Tylenol) 650 mg PO Q4H PRN PRN Reason: Pain Aspirin (Aspirin) 325 mg PO [facility] Last Admin: 02/21/20 07:40 Dose: 325 mg Documented by: Clonazepam (Klonopin) 1.5 mg PO BEDTIME PRN PRN Reason: Insomnia Cyclobenzaprine HCl (Flexeril) 5 mg PO TID PRN PRN Reason: Spasms Last Admin: 02/21/20 21:36 Dose: 5 mg Documented by: Sodium Chloride (Normal Saline) 1,000 mls @ 100 mls/hr IV ASDIRECTED [facility] Last Admin: 02/22/20 00:07 Dose: 100 mls/hr Documented by: Metoprolol Tartrate (Lopressor) 100 mg PO BID [facility] Last Admin: 02/21/20 19:24 Dose: 100 mg Documented by: Morphine Sulfate (Morphine) 2 mg IVPUSH Q2H PRN PRN Reason: Pain (severe 7-10) Nitroglycerin (Nitrostat) 0.4 mg SL Q5M PRN PRN Reason: Chest Pain Non-Formulary Medication (Prasugrel Hcl [Effient]) 10 mg PO DAILY [facility] Oxycodone HCl (Oxycodone) 5 mg PO Q4H PRN PRN Reason: Pain (moderate 4-6) Last Admin: 02/21/20 21:36 Dose: 5 mg Documented by: [facility] Last Admin: 02/21/20 19:24 Dose: 40 mg Documented by: Promethazine HCl (Phenergan) 25 mg IM Q6H PRN PRN Reason: Nausea/Vomiting Last Admin: 02/20/20 20:10 Dose: 25 mg Documented by: Sodium Chloride (Saline Flush) 10 ml FLUSH ASDIRECTED PRN PRN Reason: Keep Vein Open Trazodone HCl (Trazodone) 100 mg PO BEDTIME [facility] Last Admin: 02/21/20 19:24 Dose: 100 mg Documented by: Discontinued Medications Cyclobenzaprine HCl (Flexeril) 5 mg PO ONETIME ONE Stop: 02/20/20 15:24 Last Admin: 02/20/20 15:52 Dose: 5 mg Documented by: Sodium Chloride (Normal Saline) 1,000 mls @ 125 mls/hr IV ASDIRECTED [facility] Last Admin: 02/21/20 15:32 Dose: 125 mls/hr Documented by: Ondansetron HCl (Zofran) 4 mg IVPUSH Q6H PRN PRN Reason: Nausea/Vomiting Oxycodone HCl (Oxycodone) 5 mg PO ONETIME ONE Stop: 02/20/20 15:21 Last Admin: 02/20/20 15:52 Dose: 5 mg Documented by: - Exam Lungs: Normal Respiratory Effort Cardiovascular: Regular Rhythm GI/Abdominal Exam: Distended, Tender Back Exam: Other (Incision without erythema) Sepsis Event Note - Evaluation Sepsis Screening Result: No Definite Risk - Focused Exam Vital Signs: Vital Signs Temp Pulse Pulse Pulse Resp BP BP 02/22/20 00:00 99.2 F 94 18 135/91 H 02/21/20 19:24 100 128/90 02/21/20 18:00 99.3 F 100 100 20 128/90 Pulse Ox 02/22/20 00:00 91 L 02/21/20 19:24 02/21/20 18:00 96 - Problem List Review Problem List Initiated/Reviewed/Updated: Yes - My Orders Last 24 Hours: My Active Orders 02/21/20 17:18 Sodium Chloride 0.9% [Normal Saline] 1,000 ml IV ASDIRECTED 02/22/20 08:00 Abdomen Series w Chest 1V [CR] Routine - Assessment Assessment:: Imp: Ileus/bowel obstruction - Plan Plan:: as above. IV fluid support/clear liquids. Continue to observe. Additional intervention as needed if patient becomes more symptomatic. Anticipate 3-4 day stay depending upon clinical course and if GI tract starts to operate well again. PT/OT requested.
[2020-02-22 07:50] LABS: CHLORIDE,CL 98 mmol/L (98-107); SODIUM,NA 132 mmol/L (136-145)
[2020-02-22 07:53] VITALS: BP 135/81; PULSE 92
[2020-02-22] MEDS: Metoprolol Tartrate 50 MG Tab PO SCH (08:19)
[2020-02-22] MEDS: Pantoprazole 40 MG Tab.CR PO SCH (08:19)
[2020-02-22] MEDS: Aspirin 325 MG Tab PO SCH (08:19)
--- NOTE | 2020-02-22 11:38 | PCM.DCSUM1 ---
Discharge Summary - Hospital Course Brief History: Pt admitted with ileus/bowel obstruction. Pt now having bowel movements Diagnosis: Stroke: No - Discharge Data Discharge Date: 02/22/20 Discharge Disposition: Home, Self-Care 01 Condition: Good - Referral to Home Health Primary Care Physician: Kerline Raphael NP - Discharge Diagnosis/Problem(s) (1) Ileus, postoperative SNOMED Code(s): 692547749 ICD Code: K91.89 - OTH POSTPROCEDURAL COMPLICATIONS AND DISORDERS OF DGSTV SYS; K56.7 - ILEUS, UNSPECIFIED Status: Acute Priority: High Current Visit: Yes Onset Date: ~02/19/20 Problem Details: Gradually increasing nausea/abdominal discomfort with some vomiting since being discharged from [place] s/p low back surgery three days ago. Still passing gas. Exam/history/xray suggestive of ileus. Clear fluids for now, IV fluid supplementation. Pt now having bowel movements - Patient Summary/Data Consults: Consultations 02/20/20 16:29 Consult to Occupational Therapy [OT Evaluation and Treatment] [CONS] Routine PT Evaluation and Treatment [CONS] Routine - Patient Instructions Diet: Regular Diet as Tolerated Activity: As Tolerated Driving: May Drive Today Showering/Bathing: May Shower Wound/Incision Care: Keep Operative Site/Wound Site Clean and Dry Notify Provider of: Fever, Swelling and Redness - Discharge Plan *PRESCRIPTION DRUG MONITORING PROGRAM REVIEWED*: Not Applicable *COPY OF PRESCRIPTION DRUG MONITORING REPORT IN PATIENT [place]: Not Applicable Home Medications: Home Meds Metoprolol Tartrate [Lopressor] 100 mg PO BID 06/13/13 [History] traZODone HCl [Trazodone HCl] 100 mg PO BEDTIME 06/13/13 [History] Cholecalciferol (Vitamin D3) [Vitamin D3] 400 units PO QAM 03/12/15 [History] Aspirin 325 mg PO QAM 07/03/15 [History] Nitroglycerin [IJP: Nitroglycerin] 0.4 mg SL Q5M PRN tablet, sublingual 08/12/17 [Rx] Acetaminophen [Tylenol] 650 mg PO Q4H PRN tablet 10/29/18 [Rx] Pantoprazole Sodium [Protonix] 40 mg PO BID 01/26/19 [History] ClonazePAM [KlonoPIN] 1.5 mg PO BEDTIME PRN 02/20/20 [History] Cyclobenzaprine [Flexeril] 5 mg PO TID PRN 02/20/20 [History] Prasugrel HCl [Effient] 10 mg PO DAILY 02/20/20 [History] oxyCODONE 5 mg PO [id number] PRN 02/20/20 [History] - Discharge Summary/Plan Comment DC Time >30 min.: No - General Info Date of Service: 02/22/20 - Review of Systems Pulmonary: Reports: No Symptoms Cardiovascular: Reports: No Symptoms Gastrointestinal: Reports: Abdominal Pain Musculoskeletal: Reports: No Symptoms - Patient Data Vitals - Most Recent: Last Vital Signs Temp 99 F 02/22/20 07:53 Pulse 92 02/22/20 08:19 Resp 20 02/22/20 07:53 BP 135/81 02/22/20 08:19 Pulse Ox 93 L 02/22/20 07:53 Weight - Most Recent: 173 lb 15.997 oz I&O - Last 24 hours: Intake & Output 02/22/20 02/22/20 02/22/20 02:59 10:59 18:59 Intake Total 1200 0 Balance 1200 0 Lab Results - Last 24 hrs: Laboratory Results - last 24 hr 02/22/20 02/22/20 Range/Units 07:15 07:15 WBC 7.2 (4.0-10.2) K/uL RBC 4.37 (4.33-5.41) M/uL Hgb 13.4 (13.1-16.8) g/dL Hct 39.8 (39.0-49.0) % MCV 91.1 (84.0-98.0) fL MCH 30.7 (28.2-33.3) pg MCHC 33.7 (31.7-36.0) g/dL RDW 12.4 (11.2-14.1) % Plt Count 195 (150-350) K/uL Neut % (Auto) 68.0 (45.0-80.0) % Lymph % (Auto) 9.6 L (10.0-50.0) % [place] % (Auto) 19.6 H (2.0-14.0) % Eos % (Auto) 2.4 (0.0-5.0) % Baso % (Auto) 0.4 (0.0-2.0) % Neut # (Auto) 4.87 (1.40-7.00) K/uL Lymph # (Auto) 0.69 (0.50-3.50) K/uL [place] # (Auto) 1.40 H (0.00-1.00) K/uL Eos # (Auto) 0.17 (0.00-0.50) K/uL Baso # (Auto) 0.03 (0.00-0.20) K/uL Sodium 132 L (136-145) mmol/L Potassium 3.5 (3.5-5.1) mmol/L Chloride 98 (98-107) mmol/L Carbon Dioxide 24.6 (21.0-32.0) mmol/L BUN 12 (7-18) mg/dL Creatinine 0.62 (0.51-1.17) mg/dL Est Cr Clr Drug Dosing 120.66 mL/min Estimated GFR (MDRD) > 60 mL/min Glucose 88 (74-106) mg/dL Calcium 8.1 L (8.5-10.1) mg/dL Med Orders - Current: Current Medications Acetaminophen (Tylenol) 650 mg PO Q4H PRN PRN Reason: Pain Aspirin (Aspirin) 325 mg PO QAM [facility] Last Admin: 02/22/20 08:19 Dose: 325 mg Documented by: Clonazepam (Klonopin) 1.5 mg PO BEDTIME PRN PRN Reason: Insomnia Cyclobenzaprine HCl (Flexeril) 5 mg PO TID PRN PRN Reason: Spasms Last Admin: 02/21/20 21:36 Dose: 5 mg Documented by: Sodium Chloride (Normal Saline) 1,000 mls @ 100 mls/hr IV ASDIRECTED [facility] Last Admin: 02/22/20 00:07 Dose: 100 mls/hr Documented by: Metoprolol Tartrate (Lopressor) 100 mg PO BID [facility] Last Admin: 02/22/20 08:19 Dose: 100 mg Documented by: Morphine Sulfate (Morphine) 2 mg IVPUSH Q2H PRN PRN Reason: Pain (severe 7-10) Nitroglycerin (Nitrostat) 0.4 mg SL Q5M PRN PRN Reason: Chest Pain Non-Formulary Medication (Prasugrel Hcl [Effient]) 10 mg PO DAILY [facility] Oxycodone HCl (Oxycodone) 5 mg PO Q4H PRN PRN Reason: Pain (moderate 4-6) Last Admin: 02/21/20 21:36 Dose: 5 mg Documented by: Pantoprazole Sodium (Protonix) 40 mg PO BIDAC [facility] Last Admin: 02/22/20 08:19 Dose: 40 mg Documented by: Promethazine HCl (Phenergan) 25 mg IM Q6H PRN PRN Reason: Nausea/Vomiting Last Admin: 02/20/20 20:10 Dose: 25 mg Documented by: Sodium Chloride (Saline Flush) 10 ml FLUSH ASDIRECTED PRN PRN Reason: Keep Vein Open Trazodone HCl (Trazodone) 100 mg PO BEDTIME [facility] Last Admin: 02/21/20 19:24 Dose: 100 mg Documented by: Discontinued Medications Cyclobenzaprine HCl (Flexeril) 5 mg PO ONETIME ONE Stop: 02/20/20 15:24 Last Admin: 02/20/20 15:52 Dose: 5 mg Documented by: Sodium Chloride (Normal Saline) 1,000 mls @ 125 mls/hr IV ASDIRECTED [facility] Last Admin: 02/21/20 15:32 Dose: 125 mls/hr Documented by: Ondansetron HCl (Zofran) 4 mg IVPUSH Q6H PRN PRN Reason: Nausea/Vomiting Oxycodone HCl (Oxycodone) 5 mg PO ONETIME ONE Stop: 02/20/20 15:21 Last Admin: 02/20/20 15:52 Dose: 5 mg Documented by: - Exam Neck: Reports: Supple Lungs: Reports: Clear to Auscultation Cardiovascular: Reports: Regular Rate, Regular Rhythm GI/Abdominal Exam: Soft, Non-Tender Extremities: Other (Incision ok)
== END 2020-02-22 12:00 | disposition home or self-care (01) | DRG 252 ==
LOC: LL.MS 14:55
PROVIDERS: ADMIT Emergency Medicine; ATTEND Family Medicine
DX: K91.89 Other postprocedural complications and disorders of digestive system (principal); K56.7 Ileus, unspecified; H54.7 Unspecified visual loss; I25.10 Atherosclerotic heart disease of native coronary artery without angina pectoris; E78.00 Pure hypercholesterolemia, unspecified; I10 Essential (primary) hypertension; K21.9 Gastro-esophageal reflux disease without esophagitis; M19.90 Unspecified osteoarthritis, unspecified site; G89.29 Other chronic pain; M54.9 Dorsalgia, unspecified; M10.9 Gout, unspecified; M54.2 Cervicalgia; M81.0 Age-related osteoporosis without current pathological fracture; G43.909 Migraine, unspecified, not intractable, without status migrainosus; F41.9 Anxiety disorder, unspecified; F32.9 Major depressive disorder, single episode, unspecified; E66.9 Obesity, unspecified; E55.9 Vitamin D deficiency, unspecified; E87.1 Hypo-osmolality and hyponatremia; E87.2 Acidosis; J43.1 Panlobular emphysema; E78.2 Mixed hyperlipidemia; D75.1 Secondary polycythemia; Z79.899 Other long term (current) drug therapy; Z79.82 Long term (current) use of aspirin; Z88.1 Allergy status to other antibiotic agents; Z91.041 Radiographic dye allergy status; Z88.8 Allergy status to other drugs, medicaments and biological substances; I25.2 Old myocardial infarction; Z95.5 Presence of coronary angioplasty implant and graft; Z87.442 Personal history of urinary calculi; Z90.89 Acquired absence of other organs; Z95.1 Presence of aortocoronary bypass graft; Z90.49 Acquired absence of other specified parts of digestive tract; Z98.1 Arthrodesis status
CPT/HCPCS: 36415; 74022; 80048; 80053; 81001; 83605; 83735; 85025; 97162-GP; 97165-GO; 97530-GP; 97535-GO; 99222; 99232; 99238; A9270-GY; J2550; J7030

== ENCOUNTER 2020-06-30 19:22 | Emergency (ER) | payer BC ==
[2020-06-30 20:03] LABS: CHLORIDE,CL 102 mmol/L (98-107); SODIUM,NA 137 mmol/L (136-145)
--- NOTE | 2020-06-30 20:13 | EDM.PDOC ---
ED HPI GENERAL MEDICAL PROBLEM - General Chief Complaint: Cardiovascular Problem Stated Complaint: bloody stools 2 wks post cardiac bipass Time Seen by Provider: 06/30/20 19:25 Source of Information: Reports: Patient History Limitations: Reports: No Limitations - History of Present Illness INITIAL COMMENTS - FREE TEXT/NARRATIVE: Pt with chest pain today and noted blood in his stool today No rectal or abdominal pain No fever No cough No trauma Onset: Today, Sudden Duration: Hour(s): Location: Reports: Chest, Abdomen Left Thoracic Pain Score (Numeric/FACES): 5 - Related Data Allergies Allergy/AdvReac Type Severity Reaction Status Date / Time clarithromycin [From Biaxin] Allergy Rash Verified 06/30/20 19:55 Gadolinium-Containing Allergy Hives Verified 06/30/20 19:55 Contrast Medi gadoteridol [From Prohance] Allergy Hives Verified 06/30/20 19:55 Iodinated Contrast Media Allergy Hives Verified 06/30/20 19:55 ondansetron [From Zofran] Allergy Shortness Verified 06/30/20 19:55 of Breath, Hives ondansetron HCl Allergy Rash,Shortness Verified 06/30/20 19:55 [From Zofran (as of breath hydrochloride)] Kkrhrwd-Tec-Sei Reductase Allergy rabdomyalisis, Verified 06/30/20 19:55 Inhibitor muscle aches Home Meds: Home Meds Metoprolol Tartrate [Lopressor] 50 mg PO BID 06/13/13 [History] traZODone HCl [Trazodone HCl] 100 mg PO BEDTIME 06/13/13 [History] Cholecalciferol (Vitamin D3) [Vitamin D3] 400 units PO QAM 03/12/15 [History] Aspirin 325 mg PO QAM 07/03/15 [History] Nitroglycerin [IJP: Nitroglycerin] 0.4 mg SL Q5M PRN tablet, sublingual 08/12/17 [Rx] Acetaminophen [Tylenol] 650 mg PO Q4H PRN tablet 10/29/18 [Rx] Pantoprazole Sodium [Protonix] 40 mg PO BID 01/26/19 [History] ClonazePAM [KlonoPIN] 1.5 mg PO BEDTIME PRN 02/20/20 [History] Amiodarone [Cordarone] 100 mg PO DAILY 01/30/21 [History] Past Medical History HEENT History: Reports: Allergic Rhinitis, Impaired Vision, Other (See Below) Other HEENT History: He wears glasses. Cardiovascular History: Reports: Angina, CAD, High Cholesterol, Hypertension, NM, PTCA, Stents, Syncope, Other (See Below) Other Cardiovascular History: stents x10 with most recent procedures as below, history of recurrent syncope, dyslipidemia Respiratory History: Reports: Bronchitis, Recurrent, COPD, Intubation, Previous, Other (See Below) Other Respiratory History: COPD by chest x-ray Gastrointestinal History: Reports: Bowel Obstruction, Cholelithiasis, GERD, Helicobacter Pylori, Other (See Below) Other Gastrointestinal History: Previous borderline ileus. Fatty liver. Genitourinary History: Reports: Renal Calculus, Other (See Below) Other Genitourinary History: History of hyperurcemia with recurrent right-sided urolithiasis with last episode about 2004, bilateral epididymal cysts left greater than right Musculoskeletal History: Reports: Arthritis, Back Pain, Chronic, Fracture, Gout, Neck Pain, Chronic, Osteoarthritis, Osteoporosis, Other (See Below) Other Musculoskeletal History: Left clavicular fracture and left scapular fracture in about 2007, right sided rib fractures x3 in about 2008, left-sided 12th rib fracture, hyperuricemia diagnosed on 05/23/14 with no previous history of gout attacks, history of previous spinal fusion as below with degenerative disc disease in the L2-L5 region by MRI as below with epidural steroid injection in the lumbar region in August 2018, polymyalgia rheumatica, left talar subchondral cyst. Bilateral pes planus. Neurological History: Reports: Concussion, Headaches, Chronic, Head Trauma, Migraines, Neuropathy, Peripheral, Other (See Below) Other Neuro History: Borderline cerebral atrophy by CT scan of the head on 02/09/14, previous head concussion in about 2008 Psychiatric History: Reports: Addiction, Anxiety, Depression, Other (See Below) Other Psychiatric History: Chronic Klonopin and trazodone use with previous of chronic narcotic use/seeking behavior secondary to his osteoarthritis Endocrine/Metabolic History: Reports: Obesity/BMI 30+, Osteoporosis, Vitamin D Deficiency, Other (See Below) Other Endocrine/Metabolic History: Hypoalbuminemia. Hyponatremia. Hematologic History: Reports: Polycythemia, Other (See Below) Other Hematologic History: Polycythemia requiring phlebotomies in the past Immunologic History: Reports: None Oncologic (Cancer) History: Reports: None Dermatologic History: Reports: Other (See Below) Other Dermatologic History: Benign lower subcutaneous lumbar lipomas with excisions as below. Left gluteal cystic lesion. - Infectious Disease History Infectious Disease History: Reports: Chicken Pox, Helicobacter Pylori, Other (See Below). Denies: C-Difficile, Measles, Meningitis, Mononucleosis, MRSA, Mumps, Rheumatic Fever, Rubella, TB Other Infectious Disease History: Salmonella sepsis/positive in blood cultures 12/24/17 without sequelae. - Past Surgical History Head Surgeries/Procedures: Reports: None HEENT Surgical History: Reports: None, Oral Surgery, Tonsillectomy, Other (See Below) Other HEENT Surgeries/Procedures: [place] teeth extraction 4 at about age 17. Multiple teeth extractions. Tonsillectomy at about age 24. Cardiovascular Surgical History: Reports: Coronary Artery Bypass, Coronary Artery Stent, Other (See Below) Other Cardiovascular Surgeries/Procedures: He has had a total of at least 10 previous cardiac stents initially at age 38 then in about [id number] with PTCA/stent 2 of the LAD in about 2004 with PTCA of the obtuse marginal artery at the same time. Subsequent PTCA/stent of the right coronary artery in about 2006. PTCA/stent 2 at [facility] on 07/20/14. PTCA/stent 1 in August 2017 also at [facility]. Respiratory Surgical History: Reports: None GI Surgical History: Reports: Appendectomy, Cholecystectomy, Colonoscopy, EGD, Hernia, Inguinal, Other (See Below) Other GI Surgeries/Procedures: Appendectomy at about age 43 with subsequent laparoscopic cholecystectomy also at age 43. Last EGD and colonoscopy on 09/06/15. Bilateral inguinal hernia repair at about age 34. Male Surgical History: Reports: Circumcision, Renal Calculus, Other (See Below) Other Male Surgeries/Procedures: Circumcision as an infant. Right ureteral stone extraction at age 39. Endocrine Surgical History: Reports: None Neurological Surgical History: Reports: Lumbar Spine, Spinal Fusion, Other (See Below) Other Neurological Surgeries/Procedures: L5-S1 spinal fusion in about 2006. New hardware Jan 2020 Musculoskeletal Surgical History: Reports: Arthroscopic Procedure, Other (See Below) Other Musculoskeletal Surgeries/Procedures:: Left elbow arthroscopic surgery in about 2003. Oncologic Surgical History: Reports: None Dermatological Surgical History: Reports: Other (See Below) - Past Imaging History Past Imaging History: Reports: Angiography (August 2017 with results not available.), Cardiac Echo (Last echocardiogram on 08/18/17 with ejection fraction of 6065 percent.), CAT Scan (CT of the abdomen and pelvis on 12/23/17 and 10/09/17. CT of the head on 09/28/15 with previous evaluations on 02/09/14 and 01/18/13. Cardiac CT in August 2012. CT of the lumbar spine on 02/15/11. CT of the abdomen and pelvis with stone protocol negative on 07/23/10. [address] of the thoracic and lumbar region on 11/30/13 with previous evaluation on 10/11/11.), DEXA Scan (10/04/10.), HIDA Scan (10/19/11.), MRI (MRI of the lumbar spine on 05/24/18. MRI of the left ankle on 08/19/15 and the right ankle on 11/29/13. MRI of the right shoulder on 02/13/15. MRI of the lumbar spine on 12/20/13.), Stress Testing ([place] cardiac stress test on 10/15/17.), Ultrasound ([place] ultrasound on 04/30/88. Bilateral scrotal ultrasound on 02/11/15. Abdominal ultrasound on 11/13/09.) Social & Family History - Family History HEENT: Reports: Allergic Rhinitis, Other (See Below) Other HEENT Family History: 4 brothers with allergic rhinitis Cardiac: Reports: Afib, Arrhythmia, Bypass, CAD, Cardiomyopathy, Heart Failure, High Cholesterol, NM, Other (See Below) Other Cardiac Family History: Father with fatal CHF at age 64 with father having an NM and CABG x4 at age 45, brother with atrial fibrillation, parents with hyperlipidemia, father with hypertension Respiratory: Reports: COPD, Other (See Below) Other Respiratory Family Hisory: Father with COPD with history of tobacco use GI: Reports: Diverticulosis, GI bleed, Other (See Below) Other GI Family History: Brother with diverticulosis and lower GI bleed as below. : Reports: Dialysis, Renal Calculus, Renal Disease/Insufficiency, Other (See Below) Other Family History: Father with urolithiasis, mother with fatal renal disease/renal failure at about age 82 with history of dialysis. OBGYN: Reports: None Musculoskeletal: Reports: Arthritis, Osteoarthritis, Other (See Below) Other Musculoskeletal Family History: Mother with osteoarthritis Neurological: Reports: None Psychiatric: Reports: None Endocrine/Metabolic: Reports: Diabetes, Type I, Diabetes, type II, IDDM, Other (See Below) Other Endocrine/Metabolic Family History: Father and niece with type I IDDM both in their 20s, sister with IDDM, mother with AODM Hematologic: Reports: Anemia, Other (See Below) Other Hematologic Family History: Brother with history of lower GI bleed secondary to diverticulosis Immunologic: Reports: None Dermatologic: Reports: None Oncologic: Reports: Other (See Below) Other Oncologic Family History: Brother with unknown type of "blood" cancer at age 63 which did require stem cell implant. 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 ED ROS GENERAL - Review of Systems Review Of Systems: See Below Constitutional: Reports: No Symptoms HEENT: Reports: No Symptoms Respiratory: Reports: No Symptoms Cardiovascular: Reports: Chest Pain GI/Abdominal: Reports: Bloody Stool : Reports: No Symptoms Musculoskeletal: Reports: No Symptoms ED EXAM, GENERAL - Physical Exam Exam: See Below Exam Limited By: No Limitations General Appearance: Alert, WD/WN, No Apparent Distress Throat/Mouth: Normal Oropharynx Neck: Supple Respiratory/Chest: Lungs Clear Cardiovascular: Regular Rate, Rhythm GI/Abdominal: Soft, Non-Tender Extremities: Normal Inspection Neurological: Alert, Oriented Course - Vital Signs Last Recorded V/S: Last Vital Signs Temp 97.8 F 06/30/20 19:30 Pulse 76 06/30/20 19:30 Resp 16 06/30/20 19:30 BP 111/66 06/30/20 19:30 Pulse Ox 100 06/30/20 19:30 - Orders/Labs/Meds Orders: Active Orders 24 hr Category Date Time Status EKG Documentation Completion [RC] ASDIRECTED Care 06/30/20 19:28 Active Chest 2V [CR] Stat Exams 06/30/20 19:28 Taken Labs: Laboratory Tests 06/30/20 06/30/20 Range/Units 19:36 19:36 WBC 8.5 (4.0-10.2) K/uL RBC 4.76 (4.33-5.41) M/uL Hgb 14.0 (13.1-16.8) g/dL Hct 43.0 (39.0-49.0) % MCV 90.3 (84.0-98.0) fL MCH 29.4 (28.2-33.3) pg MCHC 32.6 (31.7-36.0) g/dL RDW 13.5 (11.2-14.1) % Plt Count 418 H D (150-350) K/uL Neut % (Auto) 61.2 (45.0-80.0) % Lymph % (Auto) 23.8 (10.0-50.0) % [place] % (Auto) 10.0 (2.0-14.0) % Eos % (Auto) 4.1 (0.0-5.0) % Baso % (Auto) 0.9 (0.0-2.0) % Neut # (Auto) 5.21 (1.40-7.00) K/uL Lymph # (Auto) 2.03 (0.50-3.50) K/uL [place] # (Auto) 0.85 (0.00-1.00) K/uL Eos # (Auto) 0.35 (0.00-0.50) K/uL Baso # (Auto) 0.08 (0.00-0.20) K/uL Sodium 137 (136-145) mmol/L Potassium 4.2 (3.5-5.1) mmol/L Chloride 102 (98-107) mmol/L Carbon Dioxide 29.1 (21.0-32.0) mmol/L BUN 25 H (7-18) mg/dL Creatinine 1.02 (0.51-1.17) mg/dL Est Cr Clr Drug Dosing 75.60 mL/min Estimated GFR (MDRD) > 60 mL/min Glucose 96 (74-106) mg/dL Calcium 9.2 (8.5-10.1) mg/dL Total Bilirubin 0.3 (0.2-1.0) mg/dL AST 26 (15-37) U/L ALT 38 (12-78) U/L Alkaline Phosphatase 126 H (46-116) IU/L Troponin I 0.000 (0.000-0.056) ng/mL Total Protein 7.6 (6.4-8.2) g/dL Albumin 3.5 (3.4-5.0) g/dL - Re-Assessments/Exams Free Text/Narrative Re-Assessment/Exam: 06/30/20 20:11 See lab Pt stable in ER Departure - Departure Time of Disposition: 20:15 Disposition: Home, Self-Care 01 Clinical Impression: Rectal bleeding Chest pain Qualifiers: Chest pain type: unspecified Qualified Code(s): R07.9 - Chest pain, unspecified Instructions: Rectal Bleeding, [id number], Nonspecific Chest Pain, Adult Additional Instructions: Follow up in clinic To ER if worse Sepsis Event Note (ED) - Evaluation Sepsis Screening Result: No Definite Risk - Focused Exam Vital Signs: Vital Signs Temp Pulse Resp BP Pulse Ox 06/30/20 19:30 97.8 F 76 16 111/66 100 - My Orders Last 24 Hours: My Active Orders 06/30/20 19:28 EKG Documentation Completion [RC] ASDIRECTED Chest 2V [CR] Stat - Assessment/Plan Last 24 Hours: My Active Orders 06/30/20 19:28 EKG Documentation Completion [RC] ASDIRECTED Chest 2V [CR] Stat
[2020-06-30 20:25] VITALS: BP 111/60; PULSE 66
== END 2020-06-30 20:20 | disposition home or self-care (01) ==
LOC: LL.ED 19:22
DX: R07.9 Chest pain, unspecified (principal); K62.5 Hemorrhage of anus and rectum; I25.10 Atherosclerotic heart disease of native coronary artery without angina pectoris; I10 Essential (primary) hypertension; I25.2 Old myocardial infarction; J44.9 Chronic obstructive pulmonary disease, unspecified; E66.9 Obesity, unspecified; Z68.27 Body mass index [BMI] 27.0-27.9, adult; K21.9 Gastro-esophageal reflux disease without esophagitis; M19.90 Unspecified osteoarthritis, unspecified site; Z88.1 Allergy status to other antibiotic agents; Z91.041 Radiographic dye allergy status; Z88.8 Allergy status to other drugs, medicaments and biological substances; Z79.82 Long term (current) use of aspirin; Z79.899 Other long term (current) drug therapy; Z95.5 Presence of coronary angioplasty implant and graft
CPT/HCPCS: 36415; 71046; 80053; 84484; 85025; 93005; 99285-25

== ENCOUNTER 2020-08-21 02:09 | Emergency (ER) | payer BC ==
[2020-08-21] MEDS ORDERED: Sodium Chloride 0.9% 10 ML Syringe FLUSH PRN (02:19)
[2020-08-21] MEDS ORDERED: Nitroglycerin 0.4 MG Tab.SL ONE (02:54)
[2020-08-21] MEDS ORDERED: Nitroglycerin 0.4 MG Tab.SL SL ONE ×2 (02:55→03:24)
--- NOTE | 2020-08-21 03:04 | EDM.PDOC ---
ED HPI GENERAL MEDICAL PROBLEM - General Chief Complaint: Cardiovascular Problem Stated Complaint: SOB, chest pressure, chills, recent cardiac bipass Time Seen by Provider: 08/21/20 02:48 Source of Information: Reports: Patient, Family History Limitations: Reports: No Limitations - History of Present Illness INITIAL COMMENTS - FREE TEXT/NARRATIVE: Patient comes to ER complaining of not feeling well. Developed left sided chest pain shortly before arrival to ER. Sometimes pain is across entire upper chest. Some SOB/chills at times with this. No radiation of pain reported. No nausea/sweating/fever/GI changes. No new cough/wheezing. Has been recovering from bypass surgery performed two weeks ago at [place]. Chest Pain Score (Numeric/FACES): 9 - Related Data Allergies Allergy/AdvReac Type Severity Reaction Status Date / Time clarithromycin [From Biaxin] Allergy Rash Verified 08/21/20 02:11 Gadolinium-Containing Allergy Hives Verified 08/21/20 02:11 Contrast Medi gadoteridol [From Prohance] Allergy Hives Verified 08/21/20 02:11 Iodinated Contrast Media Allergy Hives Verified 08/21/20 02:11 ondansetron [From Zofran] Allergy Shortness Verified 08/21/20 02:11 of Breath, Hives ondansetron HCl Allergy Rash,Shortness Verified 08/21/20 02:11 [From Zofran (as of breath hydrochloride)] [id number] Reductase Allergy rabdomyalisis, Verified 08/21/20 02:11 Inhibitor muscle aches Home Meds: Home Meds Metoprolol Tartrate [Lopressor] 50 mg PO BID 06/13/13 [History] traZODone HCl [Trazodone HCl] 100 mg PO BEDTIME 06/13/13 [History] Cholecalciferol (Vitamin D3) [Vitamin D3] 400 units PO QAM 03/12/15 [History] Aspirin 325 mg PO QAM 07/03/15 [History] Nitroglycerin [IJP: Nitroglycerin] 0.4 mg SL Q5M PRN tablet, sublingual 08/12/17 [Rx] Acetaminophen [Tylenol] 650 mg PO Q4H PRN tablet 10/29/18 [Rx] Pantoprazole Sodium [Protonix] 40 mg PO BID 01/26/19 [History] ClonazePAM [KlonoPIN] 1.5 mg PO BEDTIME PRN 02/20/20 [History] Past Medical History HEENT History: Reports: Allergic Rhinitis, Impaired Vision, Other (See Below) Other HEENT History: He wears glasses. Cardiovascular History: Reports: Angina, CAD, High Cholesterol, Hypertension, [place], PTCA, Stents, Syncope, Other (See Below) Other Cardiovascular History: stents x10 with most recent procedures as below, history of recurrent syncope, dyslipidemia Respiratory History: Reports: Bronchitis, Recurrent, COPD, Intubation, Previous, Other (See Below) Other Respiratory History: COPD by chest x-ray Gastrointestinal History: Reports: Bowel Obstruction, Cholelithiasis, GERD, Helicobacter Pylori, Other (See Below) Other Gastrointestinal History: Previous borderline ileus. Fatty liver. Genitourinary History: Reports: Renal Calculus, Other (See Below) Other Genitourinary History: History of hyperurcemia with recurrent right-sided urolithiasis with last episode about 2004, bilateral epididymal cysts left greater than right Musculoskeletal History: Reports: Arthritis, Back Pain, Chronic, Fracture, Gout, Neck Pain, Chronic, Osteoarthritis, Osteoporosis, Other (See Below) Other Musculoskeletal History: Left clavicular fracture and left scapular fracture in about 2007, right sided rib fractures x3 in about 2008, left-sided 12th rib fracture, hyperuricemia diagnosed on 05/23/14 with no previous history of gout attacks, history of previous spinal fusion as below with degenerative disc disease in the L2-L5 region by MRI as below with epidural steroid injection in the lumbar region in August 2018, polymyalgia rheumatica, left talar subchondral cyst. Bilateral pes planus. Lumbar surgery 2019. Neurological History: Reports: Concussion, Headaches, Chronic, Head Trauma, Migraines, Neuropathy, Peripheral, Other (See Below) Other Neuro History: Borderline cerebral atrophy by CT scan of the head on 02/09/14, previous head concussion in about 2008 Psychiatric History: Reports: Addiction, Anxiety, Depression, Other (See Below) Other Psychiatric History: Chronic Klonopin and trazodone use with previous of chronic narcotic use/seeking behavior secondary to his osteoarthritis Endocrine/Metabolic History: Reports: Obesity/BMI 30+, Osteoporosis, Vitamin D Deficiency, Other (See Below) Other Endocrine/Metabolic History: Hypoalbuminemia. Hyponatremia. Hematologic History: Reports: Polycythemia, Other (See Below) Other Hematologic History: Polycythemia requiring phlebotomies in the past Immunologic History: Reports: None Oncologic (Cancer) History: Reports: None Dermatologic History: Reports: Other (See Below) Other Dermatologic History: Benign lower subcutaneous lumbar lipomas with excisions as below. Left gluteal cystic lesion. - Infectious Disease History Infectious Disease History: Reports: Chicken Pox, Helicobacter Pylori, Other (See Below) Other Infectious Disease History: Salmonella sepsis/positive in blood cultures 12/24/17 without sequelae. - Past Surgical History Head Surgeries/Procedures: Reports: None HEENT Surgical History: Reports: None, Oral Surgery, Tonsillectomy, Other (See Below) Other HEENT Surgeries/Procedures: [place] teeth extraction 4 at about age 17. Multiple teeth extractions. Tonsillectomy at about age 24. Cardiovascular Surgical History: Reports: Coronary Artery Bypass, Coronary Artery Stent, Other (See Below) Other Cardiovascular Surgeries/Procedures: He has had a total of at least 10 previous cardiac stents initially at age 38 then in about [id number] with PTCA/stent 2 of the LAD in about 2004 with PTCA of the obtuse marginal artery at the same time. Subsequent PTCA/stent of the right coronary artery in about 2006. PTCA/stent 2 at [facility] on 07/20/14. PTCA/stent 1 in August 2017 also at [facility]. Bipass x 02 June 2020. Respiratory Surgical History: Reports: None GI Surgical History: Reports: Appendectomy, Cholecystectomy, Colonoscopy, EGD, Hernia, Inguinal, Other (See Below) Other GI Surgeries/Procedures: Appendectomy at about age 43 with subsequent laparoscopic cholecystectomy also at age 43. Last EGD and colonoscopy on 09/06/15. Bilateral inguinal hernia repair at about age 34. Male Surgical History: Reports: Circumcision, Renal Calculus, Other (See Below) Other Male Surgeries/Procedures: Circumcision as an infant. Right ureteral stone extraction at age 39. Endocrine Surgical History: Reports: None Neurological Surgical History: Reports: Lumbar Spine, Spinal Fusion, Other (See Below) Other Neurological Surgeries/Procedures: L5-S1 spinal fusion in about 2006. New hardware Jan 2020 Musculoskeletal Surgical History: Reports: Arthroscopic Procedure, Other (See Below) Other Musculoskeletal Surgeries/Procedures:: Left elbow arthroscopic surgery in about 2003. Oncologic Surgical History: Reports: None Dermatological Surgical History: Reports: Other (See Below) - Past Imaging History Past Imaging History: Reports: Angiography (August 2017 with results not available.), Cardiac Echo (Last echocardiogram on 08/18/17 with ejection fraction of 6065 percent.), CAT Scan (CT of the abdomen and pelvis on 12/23/17 and 10/09/17. CT of the head on 09/28/15 with previous evaluations on 02/09/14 and 01/18/13. Cardiac CT in August 2012. CT of the lumbar spine on 02/15/11. CT of the abdomen and pelvis with stone protocol negative on 07/23/10. [address] of the thoracic and lumbar region on 11/30/13 with previous evaluation on 10/11/11.), DEXA Scan (10/04/10.), HIDA Scan (10/19/11.), MRI (MRI of the lumbar spine on 05/24/18. MRI of the left ankle on 08/19/15 and the right ankle on 11/29/13. MRI of the right shoulder on 02/13/15. MRI of the lumbar spine on 12/20/13.), Stress Testing ([place] cardiac stress test on 10/15/17.), Ultrasound ([place] ultrasound on 04/30/88/12/16. Bilateral scrotal ultrasound on 02/11/15. Abdominal ultrasound on 11/13/09.) Social & Family History - Family History HEENT: Reports: Allergic Rhinitis, Other (See Below) Other HEENT Family History: 4 brothers with allergic rhinitis Cardiac: Reports: Afib, Arrhythmia, Bypass, CAD, Cardiomyopathy, Heart Failure, High Cholesterol, [place], Other (See Below) Other Cardiac Family History: Father with fatal CHF at age 64 with father having an [place] and CABG x4 at age 45, brother with atrial fibrillation, parents with hyperlipidemia, father with hypertension Respiratory: Reports: COPD, Other (See Below) Other Respiratory Family Hisory: Father with COPD with history of tobacco use GI: Reports: Diverticulosis, GI bleed, Other (See Below) Other GI Family History: Brother with diverticulosis and lower GI bleed as below. : Reports: Dialysis, Renal Calculus, Renal Disease/Insufficiency, Other (See Below) Other Family History: Father with urolithiasis, mother with fatal renal disease/renal failure at about age 82 with history of dialysis. OBGYN: Reports: None Musculoskeletal: Reports: Arthritis, Osteoarthritis, Other (See Below) Other Musculoskeletal Family History: Mother with osteoarthritis Neurological: Reports: None Psychiatric: Reports: None Endocrine/Metabolic: Reports: Diabetes, Type I, Diabetes, type II, IDDM, Other (See Below) Other Endocrine/Metabolic Family History: Father and niece with type I IDDM both in their 20s, sister with IDDM, mother with AODM Hematologic: Reports: Anemia, Other (See Below) Other Hematologic Family History: Brother with history of lower GI bleed secondary to diverticulosis Immunologic: Reports: None Dermatologic: Reports: None Oncologic: Reports: Other (See Below) Other Oncologic Family History: Brother with unknown type of "blood" cancer at age 63 which did require stem cell implant. 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 [employer] ED ROS GENERAL - Review of Systems Review Of Systems: Comprehensive ROS is negative, except as noted in HPI. ED EXAM, GENERAL - Physical Exam Exam: See Below Exam Limited By: No Limitations General Appearance: Alert, Moderate Distress Eye Exam: Bilateral Eye: EOMI, PERRL Ears: Hearing Grossly Normal Nose: No: Nasal Deformity, Nasal Swelling, Nasal Drainage Throat/Mouth: Normal Lips, Normal Voice, No Airway Compromise Head: Atraumatic, Normocephalic Neck: Normal Inspection, Supple, Non-Tender, Full Range of Motion Respiratory/Chest: No Respiratory Distress, Lungs Clear, Normal Breath Sounds, No Accessory Muscle Use Cardiovascular: Regular Rate, Rhythm, No Murmur GI/Abdominal: Soft, Non-Tender (Male) Exam: Deferred Rectal (Males) Exam: Deferred Back Exam: No: CVA Tenderness (L), CVA Tenderness (R), Muscle Spasm Extremities: Normal Capillary Refill Neurological: Alert, Oriented, Normal Cognition, No Motor/Sensory Deficits Psychiatric: Anxious Skin Exam: Warm, Dry, Pallor #1 Interpretation EKG Date: 08/21/20 Time: 02:11 Rhythm: NSR Rate (Beats/Min): 77 [place]: Normal P-Wave: Present QRS: Normal ST-T: Normal QT: Normal Course - Vital Signs Last Recorded V/S: Last Vital Signs Temp 37.0 C 08/21/20 02:10 Pulse 92 08/21/20 03:23 Resp 18 08/21/20 03:23 BP 113/70 08/21/20 03:25 Pulse Ox 99 08/21/20 03:23 - Orders/Labs/Meds Meds: Medications Discontinued Medications Generic Name Dose Route Start Last Admin Trade Name Freq PRN Reason Stop Dose Admin Sodium Chloride 1,000 mls @ 200 mls/hr 08/21/20 03:15 08/21/20 03:19 Normal Saline IV 200 mls/hr ASDIRECTED REYES Administration Nitroglycerin 0.4 mg 08/21/20 02:55 08/21/20 03:06 Nitroglycerin 0.4 Mg Tab.Sl SL 08/21/20 02:56 0.4 mg ONETIME ONE Administration Nitroglycerin Confirm 08/21/20 02:54 08/21/20 03:06 Nitroglycerin 0.4 Mg Tab.Sl Administered 08/21/20 02:55 Not Given Dose 0.4 mg .ROUTE .STK-MED ONE Nitroglycerin 0.4 mg 08/21/20 03:24 08/21/20 03:25 Nitroglycerin 0.4 Mg Tab.Sl SL 08/21/20 03:25 0.4 mg ONETIME ONE Administration Sodium Chloride 10 ml 08/21/20 02:19 Sodium Chloride 0.9% 10 Ml Syringe FLUSH ASDIRECTED PRN Keep Vein Open - Re-Assessments/Exams Free Text/Narrative Re-Assessment/Exam: 08/21/20 03:11 No acute changes noted on EKG and chest xray. Patient takes daily beta meagan and ASA. 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 To avoid further delay in evaluation and care, it was decided to transfer the patient to [facility] ER to complete his workup. Patient and patient's requested this and given patient's recent bipass and extensive cardiac history the request was not unreasonable. Chest pain did get significantly improved after nitro. Free Text/Narrative Re-Assessment/Exam: 08/21/20 03:23 chest discomfort is returning. BP lowered after first nitro administered. Still mildly hypotensive. Additional nitro or morphine risks more severe hypotension. Fluid bolus initiated. Departure - Departure Time of Disposition: 03:11 Disposition: DC/Tfer to Acute Hospital 02 Reason for Transfer *Q: Other Condition: Fair Clinical Impression: Chest pain Qualifiers: Chest pain type: unspecified Qualified Code(s): R07.9 - Chest pain, unspecified Referrals: Kerline Raphael NP [Primary Care Provider] - Forms: ED Department Discharge Sepsis Event Note (ED) - Evaluation Sepsis Screening Result: No Definite Risk
[2020-08-21] MEDS ORDERED: Sodium Chloride 0.9% 1,000 ML IV SCH (03:15)
[2020-08-21 03:24] VITALS: BP 113/70; PULSE 92
== END 2020-08-21 03:35 ==
LOC: LL.ED 02:09
DX: R07.9 Chest pain, unspecified (principal); I25.10 Atherosclerotic heart disease of native coronary artery without angina pectoris; I10 Essential (primary) hypertension; J44.9 Chronic obstructive pulmonary disease, unspecified; K21.9 Gastro-esophageal reflux disease without esophagitis; M10.9 Gout, unspecified; E66.9 Obesity, unspecified; Z68.28 Body mass index [BMI] 28.0-28.9, adult; Z87.891 Personal history of nicotine dependence; Z88.1 Allergy status to other antibiotic agents; Z88.8 Allergy status to other drugs, medicaments and biological substances; Z91.041 Radiographic dye allergy status; Z79.82 Long term (current) use of aspirin; Z79.899 Other long term (current) drug therapy
CPT/HCPCS: 71045; 93005; 93010; 99284; 99285-25; A9270-GY; J7030

== ENCOUNTER 2021-01-25 14:04 | Inpatient (IN) | payer BC ==
[2021-01-25] MEDS ORDERED: Sodium Chloride 0.9% 10 ML Syringe FLUSH PRN (14:12)
[2021-01-25] MEDS ORDERED: Lactated Ringers 1,000 ML IV ONE (14:12)
[2021-01-25] MEDS ORDERED: Ketorolac 30 MG/ML SDV IVPUSH ONE (14:12)
[2021-01-25] MEDS ORDERED: Ondansetron 4 MG/2 ML SDV IVPUSH ONE (14:12)
--- NOTE | 2021-01-25 14:17 | EDM.PDOC ---
ED HPI GENERAL MEDICAL PROBLEM - General Chief Complaint: General Stated Complaint: R flank pain Time Seen by Provider: 01/25/21 14:11 Source of Information: Reports: Patient - History of Present Illness INITIAL COMMENTS - FREE TEXT/NARRATIVE: Aditya is a 56 y/o male who presents to the ER with complaints of right sided flank pain and right upper and lower abdominal pain. He reports the pain started on Thursday and has gotten worse. He has not taken any pain meds at home. No fever. No N/V/D. Denies any dysuria. Has had kidney stones in the past. He does repot that on Thursday his pain was more in the RLQ and then it migrated to the RUQ and around to the right flank regio. He felt very bloated ad nauseated. He denies any recent alcohol use. Right Flank Pain Score (Numeric/FACES): 8 - Related Data Allergies Allergy/AdvReac Type Severity Reaction Status Date / Time clarithromycin [From Biaxin] Allergy Rash Verified 01/25/21 14:12 Gadolinium-Containing Allergy Hives Verified 01/25/21 14:12 Contrast Medi gadoteridol [From Prohance] Allergy Hives Verified 01/25/21 14:12 Iodinated Contrast Media Allergy Hives Verified 01/25/21 14:12 ondansetron [From Zofran] Allergy Shortness Verified 01/25/21 14:12 of Breath, Hives ondansetron HCl Allergy Rash,Shortness Verified 01/25/21 14:12 [From Zofran (as of breath hydrochloride)] [id number]-Dft Reductase Allergy rabdomyalisis, Verified 01/25/21 14:12 Inhibitor muscle aches Home Meds: Home Meds traZODone HCl [Trazodone HCl] 100 mg PO BEDTIME 06/13/13 [History] Cholecalciferol (Vitamin D3) [Vitamin D3] 400 units PO QAM 03/12/15 [History] Aspirin 325 mg PO QAM 07/03/15 [History] Nitroglycerin [IJP: Nitroglycerin] 0.4 mg SL Q5M PRN tablet, sublingual 08/12/17 [Rx] Acetaminophen [Tylenol] 650 mg PO Q4H PRN tablet 10/29/18 [Rx] Pantoprazole Sodium [Protonix] 40 mg PO BID 01/26/19 [History] ClonazePAM [KlonoPIN] 1.5 mg PO BEDTIME PRN 02/20/20 [History] Metoprolol Tartrate [Lopressor] 25 mg PO Q12HR 01/25/21 [History] Past Medical History HEENT History: Reports: Allergic Rhinitis, Impaired Vision, Other (See Below) Other HEENT History: He wears glasses. Cardiovascular History: Reports: Angina, CAD, High Cholesterol, Hypertension, DE, PTCA, Stents, Syncope, Other (See Below) Other Cardiovascular History: stents x10 with most recent procedures as below, history of recurrent syncope, dyslipidemia Respiratory History: Reports: Bronchitis, Recurrent, COPD, Intubation, Previous, Other (See Below) Other Respiratory History: COPD by chest x-ray Gastrointestinal History: Reports: Bowel Obstruction, Cholelithiasis, GERD, Helicobacter Pylori, Other (See Below) Other Gastrointestinal History: Previous borderline ileus. Fatty liver. Genitourinary History: Reports: Renal Calculus, Other (See Below) Other Genitourinary History: History of hyperurcemia with recurrent right-sided urolithiasis with last episode about 2004, bilateral epididymal cysts left greater than right Musculoskeletal History: Reports: Arthritis, Back Pain, Chronic, Fracture, Gout, Neck Pain, Chronic, Osteoarthritis, Osteoporosis, Other (See Below) Other Musculoskeletal History: Left clavicular fracture and left scapular fracture in about 2007, right sided rib fractures x3 in about 2008, left-sided 12th rib fracture, hyperuricemia diagnosed on 05/23/14 with no previous history of gout attacks, history of previous spinal fusion as below with degenerative disc disease in the L2-L5 region by MRI as below with epidural steroid injection in the lumbar region in August 2018, polymyalgia rheumatica, left talar subchondral cyst. Bilateral pes planus. Lumbar surgery 2019. Neurological History: Reports: Concussion, Headaches, Chronic, Head Trauma, Migraines, Neuropathy, Peripheral, Other (See Below) Other Neuro History: Borderline cerebral atrophy by CT scan of the head on 02/09/14, previous head concussion in about 2008 Psychiatric History: Reports: Addiction, Anxiety, Depression, Other (See Below) Other Psychiatric History: Chronic Klonopin and trazodone use with previous of chronic narcotic use/seeking behavior secondary to his osteoarthritis Endocrine/Metabolic History: Reports: Obesity/BMI 30+, Osteoporosis, Vitamin D Deficiency, Other (See Below) Other Endocrine/Metabolic History: Hypoalbuminemia. Hyponatremia. Hematologic History: Reports: Polycythemia, Other (See Below) Other Hematologic History: Polycythemia requiring phlebotomies in the past Immunologic History: Reports: None Oncologic (Cancer) History: Reports: None Dermatologic History: Reports: Other (See Below) Other Dermatologic History: Benign lower subcutaneous lumbar lipomas with excisions as below. Left gluteal cystic lesion. - Infectious Disease History Infectious Disease History: Reports: Chicken Pox, Helicobacter Pylori, Other (See Below) Other Infectious Disease History: Salmonella sepsis/positive in blood cultures 12/24/17 without sequelae. - Past Surgical History Head Surgeries/Procedures: Reports: None HEENT Surgical History: Reports: None, Oral Surgery, Tonsillectomy, Other (See Below) Other HEENT Surgeries/Procedures: [place] teeth extraction 4 at about age 17. Multiple teeth extractions. Tonsillectomy at about age 24. Cardiovascular Surgical History: Reports: Coronary Artery Bypass, Coronary Artery Stent, Other (See Below) Other Cardiovascular Surgeries/Procedures: He has had a total of at least 10 previous cardiac stents initially at age 38 then in about [id number] with P TCA/stent 2 of the LAD in about 2004 with PTCA of the obtuse marginal artery at the same time. Subsequent PTCA/stent of the right coronary artery in about 2006. PTCA/stent [address] [facility] on 07/20/14. PTCA/stent 1 in August [address] [facility]. Bipass x 02 June 2020. Respiratory Surgical History: Reports: None GI Surgical History: Reports: Appendectomy, Cholecystectomy, Colonoscopy, EGD, Hernia, Inguinal, Other (See Below) Other GI Surgeries/Procedures: Appendectomy at about age 43 with subsequent laparoscopic cholecystectomy also at age 43. Last EGD and colonoscopy on 09/06/15. Bilateral inguinal hernia repair at about age 34. Male Surgical History: Reports: Circumcision, Renal Calculus, Other (See Below) Other Male Surgeries/Procedures: Circumcision as an infant. Right ureteral stone extraction at age 39. Endocrine Surgical History: Reports: None Neurological Surgical History: Reports: Lumbar Spine, Spinal Fusion, Other (See Below) Other Neurological Surgeries/Procedures: L5-S1 spinal fusion in about 2006. New hardware Jan 2020 Musculoskeletal Surgical History: Reports: Arthroscopic Procedure, Other (See Below) Other Musculoskeletal Surgeries/Procedures:: Left elbow arthroscopic surgery in about 2003. Oncologic Surgical History: Reports: None Dermatological Surgical History: Reports: Other (See Below) - Past Imaging History Past Imaging History: Reports: Angiography (August 2017 with results not available.), Cardiac Echo (Last echocardiogram on 08/18/17 with ejection fraction of 6065 percent.), CAT Scan (CT of the abdomen and pelvis on 12/23/17 and 10/09/17. CT of the head on 09/28/15 with previous evaluations on 02/09/14 and 01/18/13. Cardiac CT in August 2012. CT of the lumbar spine on 02/15/11. CT of the abdomen and pelvis with stone protocol negative on 07/23/10. [address] of the thoracic and lumbar region on 11/30/13 with previous evaluation on 10/11/11.), DEXA Scan (10/04/10.), HIDA Scan (10/19/11.), MRI (MRI of the lumbar spine on 05/24/18. MRI of the left ankle on 08/19/15 and the right ankle on 11/29/13. MRI of the right shoulder on 02/13/15. MRI of the lumbar spine on 12/20/13.), Stress Testing ([place] cardiac stress test on 10/15/17.), Ultrasound ([place] ultrasound on 04/30/88. Bilateral scrotal ultrasound on 02/11/15. Abdominal ultrasound on 11/13/09.) Social & Family History - Family History HEENT: Reports: Allergic Rhinitis, Other (See Below) Other HEENT Family History: 4 brothers with allergic rhinitis Cardiac: Reports: Afib, Arrhythmia, Bypass, CAD, Cardiomyopathy, Heart Failure, High Cholesterol, DE, Other (See Below) Other Cardiac Family History: Father with fatal CHF at age 64 with father having an DE and CABG x4 at age 45, brother with atrial fibrillation, parents with hyperlipidemia, father with hypertension Respiratory: Reports: COPD, Other (See Below) Other Respiratory Family Hisory: Father with COPD with history of tobacco use GI: Reports: Diverticulosis, GI bleed, Other (See Below) Other GI Family History: Brother with diverticulosis and lower GI bleed as below. : Reports: Dialysis, Renal Calculus, Renal Disease/Insufficiency, Other (See Below) Other Family History: Father with urolithiasis, mother with fatal renal disease/renal failure at about age 82 with history of dialysis. OBGYN: Reports: None Musculoskeletal: Reports: Arthritis, Osteoarthritis, Other (See Below) Other Musculoskeletal Family History: Mother with osteoarthritis Neurological: Reports: None Psychiatric: Reports: None Endocrine/Metabolic: Reports: Diabetes, Type I, Diabetes, type II, IDDM, Other (See Below) Other Endocrine/Metabolic Family History: Father and niece with type I IDDM both in their 20s, sister with IDDM, mother with AODM Hematologic: Reports: Anemia, Other (See Below) Other Hematologic Family History: Brother with history of lower GI bleed secondary to diverticulosis Immunologic: Reports: None Dermatologic: Reports: None Oncologic: Reports: Other (See Below) Other Oncologic Family History: Brother with unknown type of "blood" cancer at age 63 which did require stem cell implant. - Caffeine Use Caffeine Use: Reports: Soda Other Caffeine Use: 4 Caffeine Use Comment: 2 pops a day and 2 cups of coffee a day - Living Situation & Occupation Living situation: Reports: (Second since 1999 with 2 step children from this marriage), (First with no children from that marriage), with Spouse Occupation: Employed ([employer] department at [employer] ED ROS GENERAL - Review of Systems Review Of Systems: See Below Constitutional: Reports: No Symptoms HEENT: Reports: No Symptoms Respiratory: Reports: No Symptoms Cardiovascular: Reports: No Symptoms Endocrine: Reports: No Symptoms GI/Abdominal: Reports: Abdominal Pain, Mucous in Stool Musculoskeletal: Reports: Back Pain Skin: Reports: No Symptoms Neurological: Reports: No Symptoms ED EXAM, GENERAL - Physical Exam Exam: See Below General Appearance: Alert, WD/WN, No Apparent Distress (Adult male, sitting quietly on ER cart.) Eye Exam: Bilateral Eye: PERRL Ears: Hearing Grossly Normal Nose: Normal Inspection, Normal Mucosa Throat/Mouth: Normal Inspection, Normal Lips, Normal Oropharynx, Normal Voice Head: Atraumatic, Normocephalic Neck: Normal Inspection Respiratory/Chest: No Respiratory Distress, Lungs Clear, Chest Non-Tender Cardiovascular: Normal Peripheral Pulses, Regular Rate, Rhythm, No Murmur GI/Abdominal: Normal Bowel Sounds, Soft (Male) Exam: Deferred Rectal (Males) Exam: Deferred Back Exam: CVA Tenderness (R). No: CVA Tenderness (L) Extremities: Normal Inspection, Normal Range of Motion, No Pedal Edema, Normal Capillary Refill Neurological: Alert, Oriented, CN II-XII Intact, No Motor/Sensory Deficits Psychiatric: Normal Affect, Normal Mood Skin Exam: Warm, Dry, Intact, Normal Color Course - Vital Signs Text/Narrative:: 1411 The patient was seen by the CLINICAL TRIALS MANAGER. Labs ordered. He was given IV fluids,Toradol 30mg IVP, and Zofran 4mg IVP. Will await labs prior to CT imaging. 0300 Pain returning. Labs reviewed. CBC WBC=11.6, CMP BUN=22, Regulatory Affairs Director=1.21, T BIli=1.4. UA=Protein 30, Bili=small. CT Abd/Pelvis WO ordered to rule out renal calculi. Fentanyl 100mcg IVP given for pain. 1645 Had good pain relief from Fentanyl. CT results reviewed, notes acute pancreatitis. Additional labs ordered. Patient made NPO at this time. 1800 Amylse=26, Lipase 117. Still favor Acute Pancreatitis as Differential as Total Bili elevated along with mild Leukocytosis and elevated CRP. Pain good now, but returns. CLINICAL TRIALS MANAGER discussed option with patient. Since he will need to be NPO and continue Hydration and currently requires pain meds, will admit him to Acute care. Plan repeat labs in the AM. Higher level of care not considered at this since local tertiary facilities are on divert. Will treat sx, monitor labs, and if we can get patient feeling better, will plan outpatient GI consult which we can coordinate with his PCP. Admit to Acute Care tonight. See ordered. Last Recorded V/S: Last Vital Signs Temp 35.7 C L 01/25/21 14:06 Pulse 72 01/25/21 17:36 Resp 18 01/25/21 17:36 BP 127/66 01/25/21 17:36 Pulse Ox 95 01/25/21 17:36 - Orders/Labs/Meds Orders: Active Orders 24 hr Category Date Time Status Nothing per Oral Now Diet [DIET] Diet 01/25/21 Dinner Active Abdomen Pelvis wo Cont [CT] Stat Exams 01/25/21 15:14 Taken CULTURE BLOOD [BC] Stat Lab 01/25/21 16:55 Received CULTURE BLOOD [BC] Stat Lab 01/25/21 17:05 Received Sodium Chloride 0.9% [Normal Saline] 1,000 ml Med 01/25/21 16:45 Active IV ASDIRECTED Sodium Chloride 0.9% [Saline Flush] Med 01/25/21 14:12 Active 10 ml FLUSH ASDIRECTED PRN Blood Culture x2 Reflex Set [OM.PC] Stat Oth 01/25/21 16:44 Ordered Saline Lock Insert [OM.PC] Stat Oth 01/25/21 14:11 Ordered Medication Orders Sodium Chloride (Normal Saline) 1,000 mls @ 150 mls/hr IV ASDIRECTED REYES Last Admin: 01/25/21 16:52 Dose: 150 mls/hr Documented by: LINNEA Sodium Chloride (Sodium Chloride 0.9% 10 Ml Syringe) 10 ml FLUSH ASDIRECTED PRN PRN Reason: Keep Vein Open Labs: Laboratory Tests 01/25/21 01/25/21 01/25/21 Range/Units 14:20 14:20 14:20 WBC 11.6 H (4.0-10.2) K/uL RBC 5.66 H (4.33-5.41) M/uL Hgb 17.6 H (13.1-16.8) g/dL Hct 50.1 H (39.0-49.0) % MCV 88.5 (84.0-98.0) fL MCH 31.1 (28.2-33.3) pg MCHC 35.1 (31.7-36.0) g/dL RDW 14.3 H (11.2-14.1) % Plt Count 183 (150-350) K/uL Neut % (Auto) 65.1 (45.0-80.0) % Lymph % (Auto) 16.7 (10.0-50.0) % Antelope % (Auto) 16.5 H (2.0-14.0) % Eos % (Auto) 1.4 (0.0-5.0) % Baso % (Auto) 0.3 (0.0-2.0) % Neut # (Auto) 7.53 H (1.40-7.00) K/uL Lymph # (Auto) 1.93 (0.50-3.50) K/uL Antelope # (Auto) 1.91 H (0.00-1.00) K/uL Eos # (Auto) 0.16 (0.00-0.50) K/uL Baso # (Auto) 0.04 (0.00-0.20) K/uL Sodium 138 (136-145) mmol/L Potassium 3.9 (3.5-5.1) mmol/L Chloride 104 (98-107) mmol/L Carbon Dioxide 23.7 (21.0-32.0) mmol/L Anion Gap 10.3 (7-15) meq/L BUN 22 H (7-18) mg/dL Creatinine 1.21 H (0.51-1.17) mg/dL Est Cr Clr Drug Dosing 60.78 mL/min Estimated GFR (MDRD) > 60 mL/min Glucose 105 H (70-99) mg/dL Lactic Acid (0.4-2.0) mmol/L Calcium 9.1 (8.5-10.1) mg/dL Total Bilirubin 1.4 H (0.2-1.0) mg/dL AST 26 (15-37) U/L ALT 43 (12-78) U/L Alkaline Phosphatase 122 H (46-116) IU/L C-Reactive Protein 15.7 H (<=0.9) mg/dL Total Protein 7.7 (6.4-8.2) g/dL Albumin 3.6 (3.4-5.0) g/dL Amylase 26 (25-115) U/L Lipase 117 (73-393) U/L Specimen Type Urine Color Urine Appearance Urine pH (5.0-9.0) Ur Specific [place] (1.005-1.030) Urine Protein (NEGATIVE) mg/dL Urine Glucose (UA) (NEGATIVE) mg/dL Urine Ketones (NEGATIVE) mg/dL Urine Occult Blood (NEGATIVE) Urine Nitrite (NEGATIVE) Urine Bilirubin (NEGATIVE) Urine Urobilinogen (0.2-1.0) E.U./dL Ur Leukocyte Esterase (NEGATIVE) Urine RBC /HPF Urine WBC /HPF Ur Epithelial Cells /LPF Urine Bacteria (NONE TO FEW) /HPF Urine Mucus (NEGATIVE) /LPF Acetaminophen 0.0 L (10.0-30.0) ug/mL 01/25/21 01/25/21 Range/Units 14:40 16:55 WBC (4.0-10.2) K/uL RBC (4.33-5.41) M/uL Hgb (13.1-16.8) g/dL Hct (39.0-49.0) % MCV (84.0-98.0) fL MCH (28.2-33.3) pg MCHC (31.7-36.0) g/dL RDW (11.2-14.1) % Plt Count (150-350) K/uL Neut % (Auto) (45.0-80.0) % Lymph % (Auto) (10.0-50.0) % Antelope % (Auto) (2.0-14.0) % Eos % (Auto) (0.0-5.0) % Baso % (Auto) (0.0-2.0) % Neut # (Auto) (1.40-7.00) K/uL Lymph # (Auto) (0.50-3.50) K/uL Antelope # (Auto) (0.00-1.00) K/uL Eos # (Auto) (0.00-0.50) K/uL Baso # (Auto) (0.00-0.20) K/uL Sodium (136-145) mmol/L Potassium (3.5-5.1) mmol/L Chloride (98-107) mmol/L Carbon Dioxide (21.0-32.0) mmol/L Anion Gap (7-15) meq/L BUN (7-18) mg/dL Creatinine (0.51-1.17) mg/dL Est Cr Clr Drug Dosing mL/min Estimated GFR (MDRD) mL/min Glucose (70-99) mg/dL Lactic Acid 1.1 (0.4-2.0) mmol/L Calcium (8.5-10.1) mg/dL Total Bilirubin (0.2-1.0) mg/dL AST (15-37) U/L ALT (12-78) U/L Alkaline Phosphatase (46-116) IU/L C-Reactive Protein (<=0.9) mg/dL Total Protein (6.4-8.2) g/dL Albumin (3.4-5.0) g/dL Amylase (25-115) U/L Lipase (73-393) U/L Specimen Type Urincc Urine Color Dark yellow Urine Appearance Clear Urine pH 5.5 (5.0-9.0) Ur Specific [place] >= 1.030 (1.005-1.030) Urine Protein 30 H (NEGATIVE) mg/dL Urine Glucose (UA) Negative (NEGATIVE) mg/dL Urine Ketones Negative (NEGATIVE) mg/dL Urine Occult Blood Negative (NEGATIVE) Urine Nitrite Negative (NEGATIVE) Urine Bilirubin Small H (NEGATIVE) Urine Urobilinogen 1.0 (0.2-1.0) E.U./dL Ur Leukocyte Esterase Negative (NEGATIVE) Urine RBC 0-5 /HPF Urine WBC 0-5 /HPF Ur Epithelial Cells Few /LPF Urine Bacteria Few (NONE TO FEW) /HPF Urine Mucus Many H (NEGATIVE) /LPF Acetaminophen (10.0-30.0) ug/mL Meds: Medications Generic Name Dose Route Start Last Admin Trade Name Suresh PRN Reason Stop Dose Admin Sodium Chloride 1,000 mls @ 150 mls/hr 01/25/21 16:45 01/25/21 16:52 Normal Saline IV 150 mls/hr ASDIRECTED REYES Administration Sodium Chloride 10 ml 01/25/21 14:12 Sodium Chloride 0.9% 10 Ml Syringe FLUSH ASDIRECTED PRN Keep Vein Open Discontinued Medications Generic Name Dose Route Start Last Admin Trade Name Fremagnus PRN Reason Stop Dose Admin Fentanyl 100 mcg 01/25/21 16:00 01/25/21 16:25 Fentanyl 100 Mcg/2 Ml Sdv IVPUSH 01/25/21 16:01 100 mcg ONETIME ONE Administration Fentanyl 100 mcg 01/25/21 17:18 01/25/21 17:28 Fentanyl 100 Mcg/2 Ml Sdv IVPUSH 01/25/21 17:19 100 mcg ONETIME ONE Administration Lactated Ringer's 1,000 mls @ 500 mls/hr 01/25/21 14:12 01/25/21 14:40 Ringers, Lactated IV 01/25/21 16:11 500 mls/hr .BOLUS ONE Administration Ketorolac Tromethamine 30 mg 01/25/21 14:12 01/25/21 14:40 Ketorolac 30 Mg/Ml Sdv IVPUSH 01/25/21 14:13 30 mg ONETIME ONE Administration Ondansetron HCl 4 mg 01/25/21 14:12 01/25/21 14:32 Ondansetron 4 Mg/2 Ml Sdv IVPUSH 01/25/21 14:13 Not Given ONETIME ONE Departure - Departure Time of Disposition: 18:07 Disposition: DC/Tfer to Acute Hospital 02 Clinical Impression: Acute pancreatitis Qualifiers: Pancreatitis type: unspecified pancreatitis type Acute pancreatitis complication: unspecified Qualified Code(s): K85.90 - Acute pancreatitis without necrosis or infection, unspecified Abdominal pain Qualifiers: Abdominal location: right upper quadrant Qualified Code(s): R10.11 - Right upper quadrant pain - Discharge Information Instructions: Acute Pancreatitis Referrals: Kerline Raphael NP [Primary Care Provider] - Forms: ED Department Discharge Sepsis Event Note (ED) - Focused Exam Vital Signs: Vital Signs Temp Pulse Resp BP Pulse Ox 01/25/21 17:36 72 18 127/66 95 01/25/21 17:20 71 16 119/76 95 01/25/21 17:05 72 16 113/83 95 01/25/21 16:40 75 16 124/81 97 01/25/21 16:22 74 16 126/80 100 01/25/21 14:12 88 16 116/60 01/25/21 14:06 35.7 C L 90 16 133/92 H 16 L - Problem List & Annotations (1) Abdominal pain SNOMED Code(s): 94785338 Code(s): R10.9 - UNSPECIFIED ABDOMINAL PAIN Status: Acute Current Visit: Yes Annotation/Comment:: -Acute Pancreatitis noted in CT scan. See below. Qualifiers: Abdominal location: right upper quadrant Qualified Code(s): R10.11 - Right upper quadrant pain (2) Acute pancreatitis SNOMED Code(s): 083747482 Code(s): K85.90 - ACUTE PANCREATITIS WITHOUT NECROSIS OR INFECTION, UNSP Status: Acute Current Visit: Yes Annotation/Comment:: -Clinically patient presents like Acute Pancreatitis, this is his firt ever bout of this. -Amylase and Lipase are normal, but Total Bili=1.4. WBC also mildly elevated. -Will admit to acute care and continue IV fluids, antiemetics, and pain meds. -Repeat labs in the AM Qualifiers: Pancreatitis type: unspecified pancreatitis type Acute pancreatitis complication: unspecified Qualified Code(s): K85.90 - Acute pancreatitis without necrosis or infection, unspecified - Problem List Review Problem List Initiated/Reviewed/Updated: Yes - My Orders Last 24 Hours: My Active Orders 01/25/21 14:11 Saline Lock Insert [OM.PC] Stat 01/25/21 14:12 Sodium Chloride 0.9% [Saline Flush] 10 ml FLUSH ASDIRECTED PRN 01/25/21 15:14 Abdomen Pelvis wo Cont [CT] Stat 01/25/21 16:44 Blood Culture x2 Reflex Set [OM.PC] Stat 01/25/21 16:45 Sodium Chloride 0.9% [Normal Saline] 1,000 ml IV ASDIRECTED 01/25/21 16:55 CULTURE BLOOD [BC] Stat 01/25/21 17:05 CULTURE BLOOD [BC] Stat 01/25/21 Dinner Nothing per Oral Now Diet [DIET] - Assessment/Plan Admission H&P: Please use this note as an admission H&P Last 24 Hours: My Active Orders 01/25/21 14:11 Saline Lock Insert [OM.PC] Stat 01/25/21 14:12 Sodium Chloride 0.9% [Saline Flush] 10 ml FLUSH ASDIRECTED PRN 01/25/21 15:14 Abdomen Pelvis wo Cont [CT] Stat 01/25/21 16:44 Blood Culture x2 Reflex Set [OM.PC] Stat 01/25/21 16:45 Sodium Chloride 0.9% [Normal Saline] 1,000 ml IV ASDIRECTED 01/25/21 16:55 CULTURE BLOOD [BC] Stat 01/25/21 17:05 CULTURE BLOOD [BC] Stat 01/25/21 Dinner Nothing per Oral Now Diet [DIET] Plan: -See orders
[2021-01-25 14:53] LABS: ANION GAP 10.3 meq/L (7-15); CHLORIDE,CL 104 mmol/L (98-107); SODIUM,NA 138 mmol/L (136-145)
[2021-01-25] MEDS ORDERED: fentaNYL 100 MCG/2 ML SDV IVPUSH ONE ×2 (16:00→17:18)
[2021-01-25] MEDS: Sodium Chloride 0.9% 1,000 ML IV SCH ×2 (16:52→23:22)
[2021-01-25] MEDS ORDERED: Ondansetron 4 MG/2 ML SDV IVPUSH PRN (19:45)
[2021-01-25] MEDS ORDERED: Acetaminophen 325 MG Tab PO PRN (19:46)
[2021-01-25] MEDS ORDERED: ClonazePAM 0.5 MG Tab PO PRN (19:46)
[2021-01-25] MEDS: HYDROmorphone 1 MG/ML Syringe IVPUSH PRN ×2 (20:14→23:22)
[2021-01-25] MEDS: traZODone 50 MG Tab PO SCH (20:15)
[2021-01-25] MEDS: Metoprolol Tartrate 25 MG Tab PO SCH (20:16)
[2021-01-26] MEDS: HYDROmorphone 1 MG/ML Syringe IVPUSH PRN ×4 (03:15→20:10)
[2021-01-26] MEDS: Sodium Chloride 0.9% 1,000 ML IV SCH ×3 (06:11→20:09)
[2021-01-26] MEDS: Pantoprazole 40 MG Tab.CR PO SCH ×2 (07:52→16:59)
[2021-01-26] MEDS: Cholecalciferol (Vitamin D3) 10 MCG Tab PO SCH (07:52)
[2021-01-26] MEDS: Metoprolol Tartrate 25 MG Tab PO SCH ×2 (07:52→20:11)
[2021-01-26] MEDS: Aspirin 325 MG Tab.EC PO SCH (07:52)
--- NOTE | 2021-01-26 08:06 | PCM.PN ---
- General Info Date of Service: 01/26/21 Admission Dx/Problem (Free Text): Pancreatitis Subjective Update: Patient was admitted yesterday with abdominal pain felt secondary to pancreatitis. He is doing better this morning. Reports his pain at 3 out of 10 compared to 8 or 9/10 yesterday. No nausea or vomiting. He has been n.p.o. He has received 3 doses of Dilaudid through the night, last dose about 4 hours prior to interview. No fever or chills. No shortness of breath. No chest pain. He does report he has not had a bowel movement in 4 days. - Review of Systems General: Denies: Fever, Chills Pulmonary: Denies: Shortness of Breath, Cough Cardiovascular: Denies: Chest Pain, Palpitations Gastrointestinal: Reports: Abdominal Pain (Right upper and lower abdominal pain), Constipation, Decreased Appetite, Nausea. Denies: Diarrhea, Vomiting Neurological: Denies: Confusion - Patient Data Vitals - Most Recent: Last Vital Signs Temp 36.5 C 01/26/21 07:50 Pulse 68 01/26/21 07:52 Resp 16 01/26/21 07:50 BP 109/68 01/26/21 07:52 Pulse Ox 94 L 01/26/21 07:50 Weight - Most Recent: 81.465 kg I&O - Last 24 Hours: Intake & Output 01/25/21 01/26/21 01/26/21 22:59 06:59 14:59 Intake Total 1000 50 Balance 1000 50 Lab Results Last 24 Hours: Laboratory Results - last 24 hr 01/25/21 01/25/21 01/25/21 Range/Units 14:20 14:20 14:20 WBC 11.6 H (4.0-10.2) K/uL RBC 5.66 H (4.33-5.41) M/uL Hgb 17.6 H (13.1-16.8) g/dL Hct 50.1 H (39.0-49.0) % MCV 88.5 (84.0-98.0) fL MCH 31.1 (28.2-33.3) pg MCHC 35.1 (31.7-36.0) g/dL RDW 14.3 H (11.2-14.1) % Plt Count 183 (150-350) K/uL Neut % (Auto) 65.1 (45.0-80.0) % Lymph % (Auto) 16.7 (10.0-50.0) % [place] % (Auto) 16.5 H (2.0-14.0) % Eos % (Auto) 1.4 (0.0-5.0) % Baso % (Auto) 0.3 (0.0-2.0) % Neut # (Auto) 7.53 H (1.40-7.00) K/uL Lymph # (Auto) 1.93 (0.50-3.50) K/uL [place] # (Auto) 1.91 H (0.00-1.00) K/uL Eos # (Auto) 0.16 (0.00-0.50) K/uL Baso # (Auto) 0.04 (0.00-0.20) K/uL Sodium 138 (136-145) mmol/L Potassium 3.9 (3.5-5.1) mmol/L Chloride 104 (98-107) mmol/L Carbon Dioxide 23.7 (21.0-32.0) mmol/L Anion Gap 10.3 (7-15) meq/L BUN 22 H (7-18) mg/dL Creatinine 1.21 H (0.51-1.17) mg/dL Est Cr Clr Drug Dosing 60.78 mL/min Estimated GFR (MDRD) > 60 mL/min Glucose 105 H (70-99) mg/dL Lactic Acid (0.4-2.0) mmol/L Calcium 9.1 (8.5-10.1) mg/dL Total Bilirubin 1.4 H (0.2-1.0) mg/dL AST 26 (15-37) U/L ALT 43 (12-78) U/L Alkaline Phosphatase 122 H (46-116) IU/L C-Reactive Protein 15.7 H (<=0.9) mg/dL Total Protein 7.7 (6.4-8.2) g/dL Albumin 3.6 (3.4-5.0) g/dL Amylase 26 (25-115) U/L Lipase 117 (73-393) U/L Specimen Type Urine Color Urine Appearance Urine pH (5.0-9.0) Ur Specific [place] (1.005-1.030) Urine Protein (NEGATIVE) mg/dL Urine Glucose (UA) (NEGATIVE) mg/dL Urine Ketones (NEGATIVE) mg/dL Urine Occult Blood (NEGATIVE) Urine Nitrite (NEGATIVE) Urine Bilirubin (NEGATIVE) Urine Urobilinogen (0.2-1.0) E.U./dL Ur Leukocyte Esterase (NEGATIVE) Urine RBC /HPF Urine WBC /HPF Ur Epithelial Cells /LPF Urine Bacteria (NONE TO FEW) /HPF Urine Mucus (NEGATIVE) /LPF Acetaminophen 0.0 L (10.0-30.0) ug/mL 01/25/21 01/25/21 Range/Units 14:40 16:55 WBC (4.0-10.2) K/uL RBC (4.33-5.41) M/uL Hgb (13.1-16.8) g/dL Hct (39.0-49.0) % MCV (84.0-98.0) fL MCH (28.2-33.3) pg MCHC (31.7-36.0) g/dL RDW (11.2-14.1) % Plt Count (150-350) K/uL Neut % (Auto) (45.0-80.0) % Lymph % (Auto) (10.0-50.0) % [place] % (Auto) (2.0-14.0) % Eos % (Auto) (0.0-5.0) % Baso % (Auto) (0.0-2.0) % Neut # (Auto) (1.40-7.00) K/uL Lymph # (Auto) (0.50-3.50) K/uL [place] # (Auto) (0.00-1.00) K/uL Eos # (Auto) (0.00-0.50) K/uL Baso # (Auto) (0.00-0.20) K/uL Sodium (136-145) mmol/L Potassium (3.5-5.1) mmol/L Chloride (98-107) mmol/L Carbon Dioxide (21.0-32.0) mmol/L Anion Gap (7-15) meq/L BUN (7-18) mg/dL Creatinine (0.51-1.17) mg/dL Est Cr Clr Drug Dosing mL/min Estimated GFR (MDRD) mL/min Glucose (70-99) mg/dL Lactic Acid 1.1 (0.4-2.0) mmol/L Calcium (8.5-10.1) mg/dL Total Bilirubin (0.2-1.0) mg/dL AST (15-37) U/L ALT (12-78) U/L Alkaline Phosphatase (46-116) IU/L C-Reactive Protein (<=0.9) mg/dL Total Protein (6.4-8.2) g/dL Albumin (3.4-5.0) g/dL Amylase (25-115) U/L Lipase (73-393) U/L Specimen Type Urincc Urine Color Dark yellow Urine Appearance Clear Urine pH 5.5 (5.0-9.0) Ur Specific [place] >= 1.030 (1.005-1.030) Urine Protein 30 H (NEGATIVE) mg/dL Urine Glucose (UA) Negative (NEGATIVE) mg/dL Urine Ketones Negative (NEGATIVE) mg/dL Urine Occult Blood Negative (NEGATIVE) Urine Nitrite Negative (NEGATIVE) Urine Bilirubin Small H (NEGATIVE) Urine Urobilinogen 1.0 (0.2-1.0) E.U./dL Ur Leukocyte Esterase Negative (NEGATIVE) Urine RBC 0-5 /HPF Urine WBC 0-5 /HPF Ur Epithelial Cells Few /LPF Urine Bacteria Few (NONE TO FEW) /HPF Urine Mucus Many H (NEGATIVE) /LPF Acetaminophen (10.0-30.0) ug/mL Med Orders - Current: Current Medications Acetaminophen (Acetaminophen 325 Mg Tab) 650 mg PO Q4H PRN PRN Reason: Pain Aspirin (Aspirin 325 Mg Tab.Ec) 325 mg PO [facility] Last Admin: 01/26/21 07:52 Dose: 325 mg Documented by: Cholecalciferol (Cholecalciferol (Vitamin D3) 10 Mcg Tab) 10 mcg PO [facility] Last Admin: 01/26/21 07:52 Dose: 10 mcg Documented by: Clonazepam (Clonazepam 0.5 Mg Tab) 1.5 mg PO BEDTIME PRN PRN Reason: Insomnia Hydromorphone HCl (Hydromorphone 1 Mg/Ml Syringe) 1 mg IVPUSH Q3H PRN PRN Reason: Pain Last Admin: 01/26/21 03:15 Dose: 1 mg Documented by: Sodium Chloride (Normal Saline) 1,000 mls @ 150 mls/hr IV ASDIRECTED [facility] Last Admin: 01/26/21 06:11 Dose: 150 mls/hr Documented by: Metoprolol Tartrate (Metoprolol Tartrate 25 Mg Tab) 25 mg PO Q12HR [facility] Last Admin: 01/26/21 07:52 Dose: 25 mg Documented by: Pantoprazole Sodium (Pantoprazole 40 Mg Tab.Cr) 40 mg PO BID@0730,1800 [facility] Last Admin: 01/26/21 07:52 Dose: 40 mg Documented by: Sodium Chloride (Sodium Chloride 0.9% 10 Ml Syringe) 10 ml FLUSH ASDIRECTED PRN PRN Reason: Keep Vein Open Trazodone HCl (Trazodone 50 Mg Tab) 100 mg PO BEDTIME [facility] Last Admin: 01/25/21 20:15 Dose: 100 mg Documented by: Discontinued Medications Fentanyl (Fentanyl 100 Mcg/2 Ml Sdv) 100 mcg IVPUSH ONETIME ONE Stop: 01/25/21 16:01 Last Admin: 01/25/21 16:25 Dose: 100 mcg Documented by: Fentanyl (Fentanyl 100 Mcg/2 Ml Sdv) 100 mcg IVPUSH ONETIME ONE Stop: 01/25/21 17:19 Last Admin: 01/25/21 17:28 Dose: 100 mcg Documented by: Lactated Ringer's (Ringers, Lactated) 1,000 mls @ 500 mls/hr IV .BOLUS ONE Stop: 01/25/21 16:11 Last Admin: 01/25/21 14:40 Dose: 500 mls/hr Documented by: Ketorolac Tromethamine (Ketorolac 30 Mg/Ml Sdv) 30 mg IVPUSH ONETIME ONE Stop: 01/25/21 14:13 Last Admin: 01/25/21 14:40 Dose: 30 mg Documented by: Ondansetron HCl (Ondansetron 4 Mg/2 Ml Sdv) 4 mg IVPUSH ONETIME ONE Stop: 01/25/21 14:13 Last Admin: 01/25/21 14:32 Dose: Not Given Documented by: Ondansetron HCl (Ondansetron 4 Mg/2 Ml Sdv) 4 mg IVPUSH Q4H PRN PRN Reason: Nausea/Vomiting - Exam General: Alert, Oriented Lungs: Clear to Auscultation, Normal Respiratory Effort Cardiovascular: Regular Rate, Regular Rhythm, No Murmurs GI/Abdominal Exam: Normal Bowel Sounds, Soft, No Distention, No Mass, Tender (Mild to moderate tenderness in the right upper and lower quadrants. No left- sided tenderness. No rebound.) - Patient Data Lab Results Last 24 hrs: Laboratory Results - last 24 hr 01/25/21 01/25/21 01/25/21 Range/Units 14:20 14:20 14:20 WBC 11.6 H (4.0-10.2) K/uL RBC 5.66 H (4.33-5.41) M/uL Hgb 17.6 H (13.1-16.8) g/dL Hct 50.1 H (39.0-49.0) % MCV 88.5 (84.0-98.0) fL MCH 31.1 (28.2-33.3) pg MCHC 35.1 (31.7-36.0) g/dL RDW 14.3 H (11.2-14.1) % Plt Count 183 (150-350) K/uL Neut % (Auto) 65.1 (45.0-80.0) % Lymph % (Auto) 16.7 (10.0-50.0) % [place] % (Auto) 16.5 H (2.0-14.0) % Eos % (Auto) 1.4 (0.0-5.0) % Baso % (Auto) 0.3 (0.0-2.0) % Neut # (Auto) 7.53 H (1.40-7.00) K/uL Lymph # (Auto) 1.93 (0.50-3.50) K/uL [place] # (Auto) 1.91 H (0.00-1.00) K/uL Eos # (Auto) 0.16 (0.00-0.50) K/uL Baso # (Auto) 0.04 (0.00-0.20) K/uL Sodium 138 (136-145) mmol/L Potassium 3.9 (3.5-5.1) mmol/L Chloride 104 (98-107) mmol/L Carbon Dioxide 23.7 (21.0-32.0) mmol/L Anion Gap 10.3 (7-15) meq/L BUN 22 H (7-18) mg/dL Creatinine 1.21 H (0.51-1.17) mg/dL Est Cr Clr Drug Dosing 60.78 mL/min Estimated GFR (MDRD) > 60 mL/min Glucose 105 H (70-99) mg/dL Lactic Acid (0.4-2.0) mmol/L Calcium 9.1 (8.5-10.1) mg/dL Total Bilirubin 1.4 H (0.2-1.0) mg/dL AST 26 (15-37) U/L ALT 43 (12-78) U/L Alkaline Phosphatase 122 H (46-116) IU/L C-Reactive Protein 15.7 H (<=0.9) mg/dL Total Protein 7.7 (6.4-8.2) g/dL Albumin 3.6 (3.4-5.0) g/dL Amylase 26 (25-115) U/L Lipase 117 (73-393) U/L Specimen Type Urine Color Urine Appearance Urine pH (5.0-9.0) Ur Specific [place] (1.005-1.030) Urine Protein (NEGATIVE) mg/dL Urine Glucose (UA) (NEGATIVE) mg/dL Urine Ketones (NEGATIVE) mg/dL Urine Occult Blood (NEGATIVE) Urine Nitrite (NEGATIVE) Urine Bilirubin (NEGATIVE) Urine Urobilinogen (0.2-1.0) E.U./dL Ur Leukocyte Esterase (NEGATIVE) Urine RBC /HPF Urine WBC /HPF Ur Epithelial Cells /LPF Urine Bacteria (NONE TO FEW) /HPF Urine Mucus (NEGATIVE) /LPF Acetaminophen 0.0 L (10.0-30.0) ug/mL 01/25/21 01/25/21 Range/Units 14:40 16:55 WBC (4.0-10.2) K/uL RBC (4.33-5.41) M/uL Hgb (13.1-16.8) g/dL Hct (39.0-49.0) % MCV (84.0-98.0) fL MCH (28.2-33.3) pg MCHC (31.7-36.0) g/dL RDW (11.2-14.1) % Plt Count (150-350) K/uL Neut % (Auto) (45.0-80.0) % Lymph % (Auto) (10.0-50.0) % [place] % (Auto) (2.0-14.0) % Eos % (Auto) (0.0-5.0) % Baso % (Auto) (0.0-2.0) % Neut # (Auto) (1.40-7.00) K/uL Lymph # (Auto) (0.50-3.50) K/uL [place] # (Auto) (0.00-1.00) K/uL Eos # (Auto) (0.00-0.50) K/uL Baso # (Auto) (0.00-0.20) K/uL Sodium (136-145) mmol/L Potassium (3.5-5.1) mmol/L Chloride (98-107) mmol/L Carbon Dioxide (21.0-32.0) mmol/L Anion Gap (7-15) meq/L BUN (7-18) mg/dL Creatinine (0.51-1.17) mg/dL Est Cr Clr Drug Dosing mL/min Estimated GFR (MDRD) mL/min Glucose (70-99) mg/dL Lactic Acid 1.1 (0.4-2.0) mmol/L Calcium (8.5-10.1) mg/dL Total Bilirubin (0.2-1.0) mg/dL AST (15-37) U/L ALT (12-78) U/L Alkaline Phosphatase (46-116) IU/L C-Reactive Protein (<=0.9) mg/dL Total Protein (6.4-8.2) g/dL Albumin (3.4-5.0) g/dL Amylase (25-115) U/L Lipase (73-393) U/L Specimen Type Urincc Urine Color Dark yellow Urine Appearance Clear Urine pH 5.5 (5.0-9.0) Ur Specific [place] >= 1.030 (1.005-1.030) Urine Protein 30 H (NEGATIVE) mg/dL Urine Glucose (UA) Negative (NEGATIVE) mg/dL Urine Ketones Negative (NEGATIVE) mg/dL Urine Occult Blood Negative (NEGATIVE) Urine Nitrite Negative (NEGATIVE) Urine Bilirubin Small H (NEGATIVE) Urine Urobilinogen 1.0 (0.2-1.0) E.U./dL Ur Leukocyte Esterase Negative (NEGATIVE) Urine RBC 0-5 /HPF Urine WBC 0-5 /HPF Ur Epithelial Cells Few /LPF Urine Bacteria Few (NONE TO FEW) /HPF Urine Mucus Many H (NEGATIVE) /LPF Acetaminophen (10.0-30.0) ug/mL Result Diagrams: 01/26/21 07:30 01/25/21 14:20 Sepsis Event Note - Evaluation Sepsis Screening Result: No Definite Risk - Focused Exam Vital Signs: Vital Signs Temp Pulse Pulse Resp BP BP Pulse Ox 01/26/21 07:52 68 109/68 01/26/21 07:50 36.5 C 68 16 109/68 94 L 01/26/21 04:00 36.7 C 66 16 100/70 94 L 01/26/21 00:00 36.5 C 63 16 115/78 96 01/25/21 20:16 71 107/77 - Problem List & Annotations (1) Abdominal pain SNOMED Code(s): 37382615 Code(s): R10.9 - UNSPECIFIED ABDOMINAL PAIN Status: Acute Current Visit: Yes Qualifiers: Abdominal location: right upper quadrant Qualified Code(s): R10.11 - Right upper quadrant pain Annotation/Comment:: -Acute Pancreatitis noted in CT scan. See below. (2) Acute pancreatitis SNOMED Code(s): 670933790 Code(s): K85.90 - ACUTE PANCREATITIS WITHOUT NECROSIS OR INFECTION, UNSP Status: Acute Current Visit: Yes Qualifiers: Pancreatitis type: unspecified pancreatitis type Acute pancreatitis complication: unspecified Qualified Code(s): K85.90 - Acute pancreatitis without necrosis or infection, unspecified Annotation/Comment:: -Clinically patient presents like Acute Pancreatitis, this is his firt ever bout of this. -Amylase and Lipase are normal, but Total Bili=1.4. WBC also mildly elevated. -Will admit to acute care and continue IV fluids, antiemetics, and pain meds. -Repeat labs in the AM - Problem List Review Problem List Initiated/Reviewed/Updated: Yes - My Orders Last 24 Hours: My Active Orders 01/26/21 07:14 AMYLASE [CHEM] Routine CBC WITH AUTO DIFF [HEME] Routine CRP [C-REACTIVE PROTEIN] [CHEM] Routine LIPASE [CHEM] Routine - Assessment Assessment:: Overall improved. Amylase and lipase are decreased. WBC is normal. - Plan Plan:: Overall doing better this morning. Abdominal pain decreased. Continue n.p.o. status still can start giving sips of liquid and if his pain improves can start a clear liquid diet and advance as tolerated.
[2021-01-26] MEDS ORDERED: Promethazine 25 MG/ML SDV IM ONE (19:45)
[2021-01-26] MEDS: traZODone 50 MG Tab PO SCH (20:11)
[2021-01-27] MEDS: Sodium Chloride 0.9% 1,000 ML IV SCH ×2 (02:55→09:43)
[2021-01-27 08:52] LABS: CHLORIDE,CL 108 mmol/L (98-107); SODIUM,NA 138 mmol/L (136-145)
[2021-01-27 08:53] LABS: ANION GAP 10.5 meq/L (7-15)
[2021-01-27] MEDS: Metoprolol Tartrate 25 MG Tab PO SCH (09:38)
[2021-01-27] MEDS: Aspirin 325 MG Tab.EC PO SCH (09:39)
[2021-01-27] MEDS: Cholecalciferol (Vitamin D3) 10 MCG Tab PO SCH (09:39)
[2021-01-27] MEDS: Pantoprazole 40 MG Tab.CR PO SCH (09:40)
--- NOTE | 2021-01-27 09:49 | PCM.PN ---
- General Info Date of Service: 01/27/21 Admission Dx/Problem (Free Text): Pancreatitis Subjective Update: Feeling better this morning. Pain is completely resolved. No nausea or vomiting. He did have a good bowel movement yesterday. No chest pain or tightness. No shortness of breath. No fevers. Last dose of pain medication was yesterday about 8 PM. - Patient Data Vitals - Most Recent: Last Vital Signs Temp 36.8 C 01/26/21 20:00 Pulse 58 L 01/26/21 20:11 Resp 16 01/26/21 20:00 BP 116/75 01/26/21 20:11 Pulse Ox 98 01/26/21 20:00 Weight - Most Recent: 81.465 kg I&O - Last 24 Hours: Intake & Output 01/26/21 01/27/21 01/27/21 22:59 06:59 14:59 Intake Total 1515 Balance 1515 Lab Results Last 24 Hours: Laboratory Results - last 24 hr 01/27/21 01/27/21 Range/Units 07:30 07:30 WBC 6.6 (4.0-10.2) K/uL RBC 4.89 (4.33-5.41) M/uL Hgb 15.3 (13.1-16.8) g/dL Hct 44.1 (39.0-49.0) % MCV 90.2 (84.0-98.0) fL MCH 31.3 (28.2-33.3) pg MCHC 34.7 (31.7-36.0) g/dL RDW 13.4 (11.2-14.1) % Plt Count 179 (150-350) K/uL Neut % (Auto) 66.5 (45.0-80.0) % Lymph % (Auto) 20.5 (10.0-50.0) % [place] % (Auto) 9.8 (2.0-14.0) % Eos % (Auto) 2.9 (0.0-5.0) % Baso % (Auto) 0.3 (0.0-2.0) % Neut # (Auto) 4.40 (1.40-7.00) K/uL Lymph # (Auto) 1.36 (0.50-3.50) K/uL [place] # (Auto) 0.65 (0.00-1.00) K/uL Eos # (Auto) 0.19 (0.00-0.50) K/uL Baso # (Auto) 0.02 (0.00-0.20) K/uL Sodium 138 (136-145) mmol/L Potassium 3.9 (3.5-5.1) mmol/L Chloride 108 H (98-107) mmol/L Carbon Dioxide 23.4 (21.0-32.0) mmol/L Anion Gap 10.5 (7-15) meq/L BUN 13 (7-18) mg/dL Creatinine 1.00 (0.51-1.17) mg/dL Est Cr Clr Drug Dosing 73.55 mL/min Estimated GFR (MDRD) > 60 mL/min Glucose 84 (70-99) mg/dL Calcium 8.5 (8.5-10.1) mg/dL Total Bilirubin 1.0 (0.2-1.0) mg/dL AST 22 (15-37) U/L ALT 32 (12-78) U/L Alkaline Phosphatase 99 (46-116) IU/L Total Protein 6.3 L (6.4-8.2) g/dL Albumin 2.8 L (3.4-5.0) g/dL Amylase 18 L (25-115) U/L Lipase 73 (73-393) U/L Fred Results Last 24 Hours: Microbiology 01/25/21 17:05 Aerobic Blood Culture - Preliminary Blood - Venous - Lab Draw NO GROWTH AFTER 1 DAY Anaerobic Blood Culture - Preliminary NO GROWTH AFTER 1 DAY 01/25/21 16:55 Aerobic Blood Culture - Preliminary Blood - Venous NO GROWTH AFTER 1 DAY Anaerobic Blood Culture - Preliminary NO GROWTH AFTER 1 DAY Med Orders - Current: Current Medications Acetaminophen (Acetaminophen 325 Mg Tab) 650 mg PO Q4H PRN PRN Reason: Pain Aspirin (Aspirin 325 Mg Tab.Ec) [address] [facility] Last Admin: 01/26/21 07:52 Dose: 325 mg Documented by: Cholecalciferol (Cholecalciferol (Vitamin D3) 10 Mcg Tab) [address] [facility] Last Admin: 01/26/21 07:52 Dose: 10 mcg Documented by: Clonazepam (Clonazepam 0.5 Mg Tab) 1.5 mg PO BEDTIME PRN PRN Reason: Insomnia Hydromorphone HCl (Hydromorphone 1 Mg/Ml Syringe) 1 mg IVPUSH Q3H PRN PRN Reason: Pain Last Admin: 01/26/21 20:10 Dose: 1 mg Documented by: Sodium Chloride (Normal Saline) 1,000 mls @ 150 mls/hr IV ASDIRECTED [facility] Last Admin: 01/27/21 02:55 Dose: 150 mls/hr Documented by: Metoprolol Tartrate (Metoprolol Tartrate 25 Mg Tab) 25 mg PO Q12HR [facility] Last Admin: 01/26/21 20:11 Dose: 25 mg Documented by: Pantoprazole Sodium (Pantoprazole 40 Mg Tab.Cr) 40 mg PO BID@0730,1800 [facility] Last Admin: 01/26/21 16:59 Dose: 40 mg Documented by: Sodium Chloride (Sodium Chloride 0.9% 10 Ml Syringe) 10 ml FLUSH ASDIRECTED PRN PRN Reason: Keep Vein Open Trazodone HCl (Trazodone 50 Mg Tab) 100 mg PO BEDTIME [facility] Last Admin: 01/26/21 20:11 Dose: 100 mg Documented by: Discontinued Medications Fentanyl (Fentanyl 100 Mcg/2 Ml Sdv) 100 mcg IVPUSH ONETIME ONE Stop: 01/25/21 16:01 Last Admin: 01/25/21 16:25 Dose: 100 mcg Documented by: Fentanyl (Fentanyl 100 Mcg/2 Ml Sdv) 100 mcg IVPUSH ONETIME ONE Stop: 01/25/21 17:19 Last Admin: 01/25/21 17:28 Dose: 100 mcg Documented by: Lactated Ringer's (Ringers, Lactated) 1,000 mls @ 500 mls/hr IV .BOLUS ONE Stop: 01/25/21 16:11 Last Admin: 01/25/21 14:40 Dose: 500 mls/hr Documented by: Ketorolac Tromethamine (Ketorolac 30 Mg/Ml Sdv) 30 mg IVPUSH ONETIME ONE Stop: 01/25/21 14:13 Last Admin: 01/25/21 14:40 Dose: 30 mg Documented by: Ondansetron HCl (Ondansetron 4 Mg/2 Ml Sdv) 4 mg IVPUSH ONETIME ONE Stop: 01/25/21 14:13 Last Admin: 01/25/21 14:32 Dose: Not Given Documented by: Ondansetron HCl (Ondansetron 4 Mg/2 Ml Sdv) 4 mg IVPUSH Q4H PRN PRN Reason: Nausea/Vomiting Promethazine HCl (Promethazine 25 Mg/Ml Sdv) 25 mg IM ONETIME ONE Stop: 01/26/21 19:46 Last Admin: 01/26/21 20:10 Dose: 25 mg Documented by: - Exam General: Alert, Oriented (Looks good on you) Lungs: Clear to Auscultation, Normal Respiratory Effort Cardiovascular: Regular Rate, Regular Rhythm GI/Abdominal Exam: Normal Bowel Sounds, Soft, Non-Tender, No Organomegaly, No Distention Extremities: No Pedal Edema - Patient Data Lab Results Last 24 hrs: Laboratory Results - last 24 hr 01/27/21 01/27/21 Range/Units 07:30 07:30 WBC 6.6 (4.0-10.2) K/uL RBC 4.89 (4.33-5.41) M/uL Hgb 15.3 (13.1-16.8) g/dL Hct 44.1 (39.0-49.0) % MCV 90.2 (84.0-98.0) fL MCH 31.3 (28.2-33.3) pg MCHC 34.7 (31.7-36.0) g/dL RDW 13.4 (11.2-14.1) % Plt Count 179 (150-350) K/uL Neut % (Auto) 66.5 (45.0-80.0) % Lymph % (Auto) 20.5 (10.0-50.0) % [place] % (Auto) 9.8 (2.0-14.0) % Eos % (Auto) 2.9 (0.0-5.0) % Baso % (Auto) 0.3 (0.0-2.0) % Neut # (Auto) 4.40 (1.40-7.00) K/uL Lymph # (Auto) 1.36 (0.50-3.50) K/uL [place] # (Auto) 0.65 (0.00-1.00) K/uL Eos # (Auto) 0.19 (0.00-0.50) K/uL Baso # (Auto) 0.02 (0.00-0.20) K/uL Sodium 138 (136-145) mmol/L Potassium 3.9 (3.5-5.1) mmol/L Chloride 108 H (98-107) mmol/L Carbon Dioxide 23.4 (21.0-32.0) mmol/L Anion Gap 10.5 (7-15) meq/L BUN 13 (7-18) mg/dL Creatinine 1.00 (0.51-1.17) mg/dL Est Cr Clr Drug Dosing 73.55 mL/min Estimated GFR (MDRD) > 60 mL/min Glucose 84 (70-99) mg/dL Calcium 8.5 (8.5-10.1) mg/dL Total Bilirubin 1.0 (0.2-1.0) mg/dL AST 22 (15-37) U/L ALT 32 (12-78) U/L Alkaline Phosphatase 99 (46-116) IU/L Total Protein 6.3 L (6.4-8.2) g/dL Albumin 2.8 L (3.4-5.0) g/dL Amylase 18 L (25-115) U/L Lipase 73 (73-393) U/L Result Diagrams: 01/27/21 07:30 01/27/21 07:30 Fred Results Last 24 hrs: Microbiology 01/25/21 17:05 Aerobic Blood Culture - Preliminary Blood - Venous - Lab Draw NO GROWTH AFTER 1 DAY Anaerobic Blood Culture - Preliminary NO GROWTH AFTER 1 DAY 01/25/21 16:55 Aerobic Blood Culture - Preliminary Blood - Venous NO GROWTH AFTER 1 DAY Anaerobic Blood Culture - Preliminary NO GROWTH AFTER 1 DAY Sepsis Event Note - Evaluation Sepsis Screening Result: No Definite Risk - Problem List & Annotations (1) Abdominal pain SNOMED Code(s): 80106685 Code(s): R10.9 - UNSPECIFIED ABDOMINAL PAIN Status: Acute Qualifiers: Abdominal location: right upper quadrant Qualified Code(s): R10.11 - Right upper quadrant pain Annotation/Comment:: -Acute Pancreatitis noted in CT scan. See below. (2) Acute pancreatitis SNOMED Code(s): 692706360 Code(s): K85.90 - ACUTE PANCREATITIS WITHOUT NECROSIS OR INFECTION, UNSP Status: Acute Qualifiers: Pancreatitis type: unspecified pancreatitis type Acute pancreatitis complication: unspecified Qualified Code(s): K85.90 - Acute pancreatitis without necrosis or infection, unspecified Annotation/Comment:: -Clinically patient presents like Acute Pancreatitis, this is his firt ever bout of this. -Amylase and Lipase are normal, but Total Bili=1.4. WBC also mildly elevated. -Will admit to acute care and continue IV fluids, antiemetics, and pain meds. -Repeat labs in the AM - Problem List Review Problem List Initiated/Reviewed/Updated: Yes - Assessment Assessment:: Overall improved. Amylase and lipase normalized. WBC is normal. - Plan Plan:: Overall doing better this morning. Abdominal pain resolved. Start clear liquid diet this morning and advance as tolerated. If he is tolerating diet by later today may be able to discharge home today. 1315 Patient tolerated a full liquid diet and sandwich without any return of his pain. He is requesting discharge. We will discharged home today.
[2021-01-27 12:55] VITALS: BP 126/80; PULSE 57
--- NOTE | 2021-01-27 13:30 | PCM.DCSUM1 ---
Discharge Summary - Hospital Course Free Text/Narrative:: Patient was admitted January [address] indicated acute pancreatitis. Was made n.p.o. and given pain medication as needed. His pain was improved by the second day. On day of discharge he had no pain. His diet was advanced to the point he was eating regular food still without any recurrence of his symptoms. Amylase and lipase have returned to normal. White blood cell count that was initially elevated had returned to normal. He is di scharged home. - Discharge Data Discharge Date: 01/27/21 Discharge Disposition: Home, Self-Care 01 Condition: Good - Referral to Home Health Primary Care Physician: Kerline Raphael NP - Discharge Diagnosis/Problem(s) (1) Acute pancreatitis SNOMED Code(s): 797026151 ICD Code: K85.90 - ACUTE PANCREATITIS WITHOUT NECROSIS OR INFECTION, UNSP Status: Acute Current Visit: Yes Problem Details: -Clinically patient presents like Acute Pancreatitis, this is his firt ever bout of this. -Amylase and Lipase are normal, but Total Bili=1.4. WBC also mildly elevated. -Will admit to acute care and continue IV fluids, antiemetics, and pain meds. -Repeat labs in the AM Qualifiers: Pancreatitis type: unspecified pancreatitis type Acute pancreatitis complication: unspecified Qualified Code(s): K85.90 - Acute pancreatitis without necrosis or infection, unspecified (2) Abdominal pain SNOMED Code(s): 95681469 ICD Code: R10.9 - UNSPECIFIED ABDOMINAL PAIN Status: Acute Current Visit: Yes Problem Details: -Acute Pancreatitis noted in CT scan. See below. Qualifiers: Abdominal location: right upper quadrant Qualified Code(s): R10.11 - Right upper quadrant pain - Patient Instructions Diet: Usual Diet as Tolerated - Discharge Plan *PRESCRIPTION DRUG MONITORING PROGRAM REVIEWED*: Not Applicable *COPY OF PRESCRIPTION DRUG MONITORING REPORT IN PATIENT MORRO: Not Applicable Home Medications: Home Meds traZODone HCl [Trazodone HCl] 100 mg PO BEDTIME 06/13/13 [History] Cholecalciferol (Vitamin D3) [Vitamin D3] 400 units PO QAM 03/12/15 [History] Aspirin 325 mg PO QAM 07/03/15 [History] Nitroglycerin [IJP: Nitroglycerin] 0.4 mg SL Q5M PRN tablet, sublingual 08/12/17 [Rx] Acetaminophen [Tylenol] 650 mg PO Q4H PRN tablet 10/29/18 [Rx] Pantoprazole Sodium [Protonix] 40 mg PO BID 01/26/19 [History] ClonazePAM [KlonoPIN] 1.5 mg PO BEDTIME PRN 02/20/20 [History] Metoprolol Tartrate [Lopressor] 25 mg PO Q12HR 01/25/21 [History] Patient Handouts: Acute Pancreatitis Forms: ED Department Discharge Referrals: Kerline Raphael NP [Primary Care Provider] - - Discharge Summary/Plan Comment DC Time >30 min.: Yes Total # of Minutes for Discharge Time: 35 Discharge time 1335 - General Info Date of Service: 01/27/21 Admission Dx/Problem (Free Text: Pancreatitis Subjective Update: Feeling better this morning. Pain is completely resolved. No nausea or vomiting. He did have a good bowel movement yesterday. No chest pain or tightness. No shortness of breath. No fevers. Last dose of pain medication was yesterday about 8 PM. Diet was advanced. He tolerated regular diet without recurrence of his pain. At the time of discharge he was pain-free, no nausea, and requesting discharge. - Review of Systems General: Denies: Fever, Chills Pulmonary: Denies: Shortness of Breath, Cough Cardiovascular: Denies: Chest Pain, Palpitations Gastrointestinal: Denies: Abdominal Pain, Constipation, Nausea, Vomiting - Patient Data Vitals - Most Recent: Last Vital Signs Temp 36.8 C 01/27/21 12:55 Pulse 57 L 01/27/21 12:55 Resp 16 01/27/21 12:55 BP 126/80 01/27/21 12:55 Pulse Ox 97 01/27/21 12:55 Weight - Most Recent: 81.465 kg I&O - Last 24 hours: Intake & Output 01/26/21 01/27/21 01/27/21 22:59 06:59 14:59 Intake Total 1515 Balance 1515 Lab Results - Last 24 hrs: Laboratory Results - last 24 hr 01/27/21 01/27/21 Range/Units 07:30 07:30 WBC 6.6 (4.0-10.2) K/uL RBC 4.89 (4.33-5.41) M/uL Hgb 15.3 (13.1-16.8) g/dL Hct 44.1 (39.0-49.0) % MCV 90.2 (84.0-98.0) fL MCH 31.3 (28.2-33.3) pg MCHC 34.7 (31.7-36.0) g/dL RDW 13.4 (11.2-14.1) % Plt Count 179 (150-350) K/uL Neut % (Auto) 66.5 (45.0-80.0) % Lymph % (Auto) 20.5 (10.0-50.0) % [place] % (Auto) 9.8 (2.0-14.0) % Eos % (Auto) 2.9 (0.0-5.0) % Baso % (Auto) 0.3 (0.0-2.0) % Neut # (Auto) 4.40 (1.40-7.00) K/uL Lymph # (Auto) 1.36 (0.50-3.50) K/uL [place] # (Auto) 0.65 (0.00-1.00) K/uL Eos # (Auto) 0.19 (0.00-0.50) K/uL Baso # (Auto) 0.02 (0.00-0.20) K/uL Sodium 138 (136-145) mmol/L Potassium 3.9 (3.5-5.1) mmol/L Chloride 108 H (98-107) mmol/L Carbon Dioxide 23.4 (21.0-32.0) mmol/L Anion Gap 10.5 (7-15) meq/L BUN 13 (7-18) mg/dL Creatinine 1.00 (0.51-1.17) mg/dL Est Cr Clr Drug Dosing 73.55 mL/min Estimated GFR (MDRD) > 60 mL/min Glucose 84 (70-99) mg/dL Calcium 8.5 (8.5-10.1) mg/dL Total Bilirubin 1.0 (0.2-1.0) mg/dL AST 22 (15-37) U/L ALT 32 (12-78) U/L Alkaline Phosphatase 99 (46-116) IU/L Total Protein 6.3 L (6.4-8.2) g/dL Albumin 2.8 L (3.4-5.0) g/dL Amylase 18 L (25-115) U/L Lipase 73 (73-393) U/L DELROY Results - Last 24 hrs: Microbiology 01/25/21 17:05 Aerobic Blood Culture - Preliminary Blood - Venous - Lab Draw NO GROWTH AFTER 1 DAY Anaerobic Blood Culture - Preliminary NO GROWTH AFTER 1 DAY 01/25/21 16:55 Aerobic Blood Culture - Preliminary Blood - Venous NO GROWTH AFTER 1 DAY Anaerobic Blood Culture - Preliminary NO GROWTH AFTER 1 DAY Med Orders - Current: Current Medications Acetaminophen (Acetaminophen 325 Mg Tab) 650 mg PO Q4H PRN PRN Reason: Pain Aspirin (Aspirin 325 Mg Tab.Ec) [facility] [place] Admin: 01/27/21 09:39 Dose: 325 mg Documented by: Cholecalciferol (Cholecalciferol (Vitamin D3) 10 Mcg Tab) 10 mcg PO QAM [facility] Last Admin: 01/27/21 09:39 Dose: 10 mcg Documented by: Clonazepam (Clonazepam 0.5 Mg Tab) 1.5 mg PO BEDTIME PRN PRN Reason: Insomnia Hydromorphone HCl (Hydromorphone 1 Mg/Ml Syringe) 1 mg IVPUSH Q3H PRN PRN Reason: Pain Last Admin: 01/26/21 20:10 Dose: 1 mg Documented by: Sodium Chloride (Normal Saline) 1,000 mls @ 150 mls/hr IV ASDIRECTED [facility] Last Admin: 01/27/21 09:43 Dose: 150 mls/hr Documented by: Metoprolol Tartrate (Metoprolol Tartrate 25 Mg Tab) 25 mg PO Q12HR [facility] Last Admin: 01/27/21 09:38 Dose: 25 mg Documented by: Pantoprazole Sodium (Pantoprazole 40 Mg Tab.Cr) 40 mg PO BID@0730,1800 [facility] Last Admin: 01/27/21 09:40 Dose: 40 mg Documented by: Sodium Chloride (Sodium Chloride 0.9% 10 Ml Syringe) 10 ml FLUSH ASDIRECTED PRN PRN Reason: Keep Vein Open Trazodone HCl (Trazodone 50 Mg Tab) 100 mg PO BEDTIME [facility] Last Admin: 01/26/21 20:11 Dose: 100 mg Documented by: Discontinued Medications Fentanyl (Fentanyl 100 Mcg/2 Ml Sdv) 100 mcg IVPUSH ONETIME ONE Stop: 01/25/21 16:01 Last Admin: 01/25/21 16:25 Dose: 100 mcg Documented by: Fentanyl (Fentanyl 100 Mcg/2 Ml Sdv) 100 mcg IVPUSH ONETIME ONE Stop: 01/25/21 17:19 Last Admin: 01/25/21 17:28 Dose: 100 mcg Documented by: Lactated Ringer's (Ringers, Lactated) 1,000 mls @ 500 mls/hr IV .BOLUS ONE Stop: 01/25/21 16:11 Last Admin: 01/25/21 14:40 Dose: 500 mls/hr Documented by: Ketorolac Tromethamine (Ketorolac 30 Mg/Ml Sdv) 30 mg IVPUSH ONETIME ONE Stop: 01/25/21 14:13 Last Admin: 01/25/21 14:40 Dose: 30 mg Documented by: Ondansetron HCl (Ondansetron 4 Mg/2 Ml Sdv) 4 mg IVPUSH ONETIME ONE Stop: 01/25/21 14:13 Last Admin: 01/25/21 14:32 Dose: Not Given Documented by: Ondansetron HCl (Ondansetron 4 Mg/2 Ml Sdv) 4 mg IVPUSH Q4H PRN PRN Reason: Nausea/Vomiting Promethazine HCl (Promethazine 25 Mg/Ml Sdv) 25 mg IM ONETIME ONE Stop: 01/26/21 19:46 Last Admin: 01/26/21 20:10 Dose: 25 mg Documented by: - Exam General: Reports: Alert, Oriented Lungs: Reports: Clear to Auscultation, Normal Respiratory Effort Cardiovascular: Reports: Regular Rate, Regular Rhythm GI/Abdominal Exam: Normal Bowel Sounds, Soft, Non-Tender, No Organomegaly, No Mass
== END 2021-01-27 14:04 | disposition home or self-care (01) | DRG 282 ==
LOC: LL.ED 14:04 → LL.MS 18:00
PROVIDERS: ADMIT Nurse Practitioner Family; ATTEND Nurse Practitioner Family
DX: K85.90 Acute pancreatitis without necrosis or infection, unspecified (principal); H54.7 Unspecified visual loss; I25.10 Atherosclerotic heart disease of native coronary artery without angina pectoris; E78.00 Pure hypercholesterolemia, unspecified; I10 Essential (primary) hypertension; J44.9 Chronic obstructive pulmonary disease, unspecified; M54.9 Dorsalgia, unspecified; G89.29 Other chronic pain; K21.9 Gastro-esophageal reflux disease without esophagitis; M54.2 Cervicalgia; M81.0 Age-related osteoporosis without current pathological fracture; M19.90 Unspecified osteoarthritis, unspecified site; I25.119 Atherosclerotic heart disease of native coronary artery with unspecified angina pectoris; G62.9 Polyneuropathy, unspecified; F41.9 Anxiety disorder, unspecified; F32.9 Major depressive disorder, single episode, unspecified; Z88.1 Allergy status to other antibiotic agents; Z91.041 Radiographic dye allergy status; Z88.8 Allergy status to other drugs, medicaments and biological substances; Z79.82 Long term (current) use of aspirin; Z79.899 Other long term (current) drug therapy; I25.2 Old myocardial infarction; Z95.5 Presence of coronary angioplasty implant and graft; Z98.890 Other specified postprocedural states; Z90.49 Acquired absence of other specified parts of digestive tract
CPT/HCPCS: 36415; 74176; 80053; 80143; 81001; 82150; 83605; 83690; 85025; 86140; 87040; 96374; 96375; 96376; 99223; 99233; 99239; 99285-25; A9270-GY; J1170; J1885; J2550; J3010; J7030; J7120

== ENCOUNTER 2021-07-03 19:03 | Observation (INO) | payer BC ==
[2021-07-03] MEDS ORDERED: Aspirin 81 MG Tab.Chew PO ONE (19:05)
[2021-07-03] MEDS ORDERED: Sodium Chloride 0.9% 10 ML Syringe FLUSH PRN (19:05)
[2021-07-03] MEDS ORDERED: Aspirin 81 MG Tab.Chew ONE (19:08)
[2021-07-03] MEDS ORDERED: Morphine 2 MG/ML SYRINGE IVPUSH ONE (19:15)
[2021-07-03 19:41] LABS: ANION GAP 10.2 meq/L (7-15); CHLORIDE,CL 102 mmol/L (98-107); SODIUM,NA 137 mmol/L (136-145)
[2021-07-03 20:05] LABS: RESPIRATORY SYNCYTIAL VIR NAA NEGATIVE (NEGATIVE)
[2021-07-03 21:03] LABS: CORONAVIRUS COVID-19 NAA POSITIVE (NEGATIVE)
[2021-07-04] MEDS ORDERED: Enoxaparin 80 MG/0.8 ML Syringe SUBCUT SCH (02:00)
[2021-07-04] MEDS ORDERED: Acetaminophen 325 MG Tab PO PRN (02:18)
[2021-07-04] MEDS ORDERED: Nitroglycerin 0.4 MG Tab.SL SL PRN (02:18)
[2021-07-04] MEDS ORDERED: traZODone 50 MG Tab PO SCH (02:22)
[2021-07-04] MEDS: Metoprolol Tartrate 25 MG Tab PO SCH ×2 (02:40→08:11)
[2021-07-04] MEDS: Lactated Ringers 1,000 ML IV SCH ×2 (02:58→11:08)
[2021-07-04 07:43] LABS: CHLORIDE,CL 104 mmol/L (98-107); SODIUM,NA 136 mmol/L (136-145)
[2021-07-04] MEDS ORDERED: Aspirin 325 MG Tab PO SCH (08:00)
[2021-07-04] MEDS ORDERED: Lisinopril 5 MG Tab PO SCH (08:00)
[2021-07-04] MEDS ORDERED: Pantoprazole 40 MG Tab.CR PO SCH (08:00)
[2021-07-04] MEDS ORDERED: Nitroglycerin 2% Oint 1 GM UD Packet TOP STA (10:59)
[2021-07-04] MEDS ORDERED: Nitroglycerin 2% Oint 1 GM UD Packet TOP PRN (11:00)
[2021-07-04 11:21] VITALS: PULSE 66
[2021-07-04 12:18] VITALS: BP 135/66
[2021-07-04] MEDS ORDERED: Morphine 2 MG/ML SYRINGE ONE (12:18)
[2021-07-04] MEDS ORDERED: Heparin Sodium/0.45% NaCl 500 ML IV SCH ×2 (12:28→13:30)
[2021-07-04] MEDS ORDERED: Morphine 2 MG/ML SYRINGE IVPUSH ONE ×2 (12:30→12:31)
[2021-07-04 13:02] LABS: PTT,PARTIAL THROMBOPLSTIN TIME 28.9 SEC (23.6-29.8)
[2021-07-04] MEDS ORDERED: atorvaSTATin 10 MG Tab PO SCH (20:00)
[2021-07-04] MEDS ORDERED: ClonazePAM 0.5 MG Tab PO SCH (20:00)
== END 2021-07-04 13:28 ==
LOC: LL.ED 19:03 → LL.MS 07-04 01:55
PROVIDERS: ADMIT Hospitalist; ATTEND Hospitalist
DX: U07.1 COVID-19 (principal); I21.4 Non-ST elevation (NSTEMI) myocardial infarction; I25.10 Atherosclerotic heart disease of native coronary artery without angina pectoris; E78.00 Pure hypercholesterolemia, unspecified; I10 Essential (primary) hypertension; I25.2 Old myocardial infarction; J44.9 Chronic obstructive pulmonary disease, unspecified; K21.9 Gastro-esophageal reflux disease without esophagitis; F41.9 Anxiety disorder, unspecified; F32.A Depression, unspecified; E66.9 Obesity, unspecified; M81.0 Age-related osteoporosis without current pathological fracture; E55.9 Vitamin D deficiency, unspecified; Z98.890 Other specified postprocedural states; Z88.1 Allergy status to other antibiotic agents; Z91.041 Radiographic dye allergy status; Z88.8 Allergy status to other drugs, medicaments and biological substances; Z79.899 Other long term (current) drug therapy; Z79.82 Long term (current) use of aspirin; Z87.891 Personal history of nicotine dependence
CPT/HCPCS: 0241U; 36415; 71045; 80048; 80053; 83735; 84484; 85025; 85027; 85379; 85610; 85730; 86140; 93005; 96365; 96372; 96374; 96375; 96376; 99285-25; A9270-GY; G0378; J1644; J1650; J2270; J7120

== ENCOUNTER 2021-07-11 08:59 | Observation (INO) | payer BC ==
[2021-07-11] MEDS ORDERED: Sodium Chloride 0.9% 10 ML Syringe FLUSH PRN (09:27)
[2021-07-11 10:00] LABS: CHLORIDE,CL 102 mmol/L (98-107); SODIUM,NA 134 mmol/L (136-145)
[2021-07-11 10:02] LABS: ANION GAP 13.7 meq/L (7-15)
[2021-07-11] MEDS ORDERED: atorvaSTATin 10 MG Tab PO SCH ×2 (11:30→20:00)
[2021-07-11] MEDS ORDERED: Acetaminophen 325 MG Tab PO PRN (12:00)
[2021-07-11] MEDS: Fish Oil/Omega-3 Fatty Acids 1 Gm Cap PO SCH (12:40)
[2021-07-11 14:27] VITALS: BP 115/71; PULSE 96
[2021-07-11] MEDS ORDERED: Pantoprazole 40 MG Tab.CR PO SCH (18:00)
[2021-07-11] MEDS ORDERED: DHA PO SCH (20:00)
[2021-07-11] MEDS ORDERED: traZODone 50 MG Tab PO SCH (20:00)
[2021-07-11] MEDS ORDERED: FISH OIL PO SCH (20:00)
[2021-07-11] MEDS ORDERED: ClonazePAM 0.5 MG Tab PO SCH (20:00)
[2021-07-11] MEDS ORDERED: OMEGA PO SCH (20:00)
[2021-07-11] MEDS ORDERED: [UNRECOGNIZED DRUG - OTHER] PO SCH (20:00)
[2021-07-11] MEDS ORDERED: EPA PO SCH (20:00)
[2021-07-12] MEDS ORDERED: Cholecalciferol (Vitamin D3) 10 MCG Tab PO SCH (08:00)
[2021-07-12] MEDS ORDERED: Ezetimibe 10 MG Tab PO SCH (08:00)
[2021-07-12] MEDS ORDERED: Aspirin 81 MG Tab.EC PO SCH (08:00)
[2021-07-12] MEDS ORDERED: Metoprolol Succinate 50 MG Tab.ER PO SCH (08:00)
[2021-07-12] MEDS ORDERED: PRASUGREL HCL 10 MG PO SCH (08:00)
[2021-07-12] MEDS ORDERED: Lisinopril 5 MG Tab PO SCH (08:00)
[2021-07-12] MEDS ORDERED: atorvaSTATin 10 MG Tab PO SCH (20:00)
== END 2021-07-11 16:20 | disposition home or self-care (01) ==
LOC: LL.ED 08:59 → LL.MS 10:28
PROVIDERS: ADMIT Physician Assistant; ATTEND Physician Assistant
DX: I21.4 Non-ST elevation (NSTEMI) myocardial infarction (principal); I25.10 Atherosclerotic heart disease of native coronary artery without angina pectoris; E78.00 Pure hypercholesterolemia, unspecified; I10 Essential (primary) hypertension; J44.9 Chronic obstructive pulmonary disease, unspecified; K21.9 Gastro-esophageal reflux disease without esophagitis; F41.9 Anxiety disorder, unspecified; F32.A Depression, unspecified; E66.9 Obesity, unspecified; M81.0 Age-related osteoporosis without current pathological fracture; U07.1 COVID-19; E55.9 Vitamin D deficiency, unspecified; Z98.890 Other specified postprocedural states; Z88.1 Allergy status to other antibiotic agents; Z88.8 Allergy status to other drugs, medicaments and biological substances; Z91.041 Radiographic dye allergy status; Z79.899 Other long term (current) drug therapy; Z90.49 Acquired absence of other specified parts of digestive tract
CPT/HCPCS: 36415; 80053; 83735; 84100; 84443; 84484; 85025; 93005; 93010; 99236; 99285-25; A9270-GY; G0378

== ENCOUNTER 2022-01-16 21:37 | Observation (INO) | payer BC ==
[2022-01-16] MEDS ORDERED: Nitroglycerin 0.4 MG Tab.SL SL ONE (21:41)
[2022-01-16] MEDS ORDERED: Aspirin 81 MG Tab.Chew PO ONE (22:08)
[2022-01-16] MEDS ORDERED: Morphine 2 MG/ML SYRINGE IVPUSH ONE (22:19)
[2022-01-16 22:24] LABS: ANION GAP 6.2 meq/L (7-15); CHLORIDE,CL 106 mmol/L (98-107); SODIUM,NA 138 mmol/L (136-145)
[2022-01-16 22:25] LABS: ESTIMATED GFR 90 mL/min (>=60)
[2022-01-16] MEDS: Sodium Chloride 0.9% 10 ML Syringe FLUSH PRN ×2 (22:30→23:56)
[2022-01-16] MEDS ORDERED: Acetaminophen 325 MG Tab PO PRN (23:24)
[2022-01-16] MEDS ORDERED: Ondansetron 4 MG/2 ML SDV IVPUSH PRN (23:24)
[2022-01-16] MEDS ORDERED: Morphine 2 MG/ML SYRINGE IVPUSH PRN (23:30)
[2022-01-16] MEDS ORDERED: Ketorolac 15 MG/ML SDV IVPUSH ONE (23:32)
[2022-01-16] MEDS ORDERED: Nitroglycerin 0.4 MG Tab.SL SL PRN (23:33)
[2022-01-16] MEDS ORDERED: traZODone 50 MG Tab PO ONE (23:35)
[2022-01-17] MEDS ORDERED: Pantoprazole 40 MG Tab.CR PO SCH (07:30)
[2022-01-17 07:45] VITALS: BP 121/68; PULSE 60
[2022-01-17] MEDS ORDERED: Metoprolol Succinate 25 MG Tab.ER PO SCH (08:00)
[2022-01-17] MEDS ORDERED: Lisinopril 5 MG Tab PO SCH (08:00)
[2022-01-17] MEDS ORDERED: PRASUGREL HCL 10 MG PO SCH (08:00)
[2022-01-17 08:06] LABS: ANION GAP 5.4 meq/L (7-15)
[2022-01-17] MEDS ORDERED: traZODone 50 MG Tab PO SCH (20:00)
== END 2022-01-17 11:40 | disposition home or self-care (01) ==
LOC: LL.ED 21:37 → LL.MS 23:10
PROVIDERS: ADMIT Emergency Medicine; ATTEND Emergency Medicine
DX: R68.84 Jaw pain (principal); I25.10 Atherosclerotic heart disease of native coronary artery without angina pectoris; E78.00 Pure hypercholesterolemia, unspecified; I10 Essential (primary) hypertension; I25.2 Old myocardial infarction; J44.9 Chronic obstructive pulmonary disease, unspecified; F41.9 Anxiety disorder, unspecified; F32.A Depression, unspecified; E66.9 Obesity, unspecified; M81.0 Age-related osteoporosis without current pathological fracture; E55.9 Vitamin D deficiency, unspecified; Z88.8 Allergy status to other drugs, medicaments and biological substances; Z79.82 Long term (current) use of aspirin; Z91.040 Latex allergy status; Z88.1 Allergy status to other antibiotic agents; Z79.899 Other long term (current) drug therapy; Z90.49 Acquired absence of other specified parts of digestive tract
CPT/HCPCS: 36415; 71045; 80048; 80053; 83605; 83735; 83880; 84484; 85025; 85379; 93005; 96374; 96375; 96376; 99284-25; A9270-GY; G0378; J1885; J2270; J3490

== ENCOUNTER 2023-07-25 16:28 | Emergency (ER) | payer BC ==
[2023-07-25 17:05] LABS: BASOPHILS ABSOLUTE AUTO 0.05 K/uL (0.00-0.20); BASOPHILS PERCENT AUTO 0.6 % (0.0-2.0); EOSINOPHILS ABSOLUTE AUTO 0.25 K/uL (0.00-0.50); EOSINOPHILS PERCENT AUTO 2.9 % (0.0-5.0); HEMATOCRIT 48.7 % (39.0-49.0); HEMOGLOBIN 16.8 g/dL (13.1-16.8); LYMPHOCYTES ABSOLUTE AUTO 2.17 K/uL (0.50-3.50); LYMPHOCYTES PERCENT AUTO 25.1 % (10.0-50.0); MEAN CORPUSCULAR HEMOGLOBIN 31.3 pg (28.2-33.3); MEAN CORPUSCULAR HGB CONC 34.5 g/dL (31.7-36.0); MEAN CORPUSCULAR VOLUME 90.7 fL (84.0-98.0); MONOCYTES ABSOLUTE AUTO 0.93 K/uL (0.00-1.00); MONOCYTES PERCENT AUTO 10.8 % (2.0-14.0); NEUTROPHILS ABSOLUTE AUTO 5.23 K/uL (1.40-7.00); NEUTROPHILS PERCENT AUTO 60.6 % (45.0-80.0); PLATELET COUNT,PLT 157 K/uL (150-350); RED BLOOD CELL COUNT 5.37 M/uL (4.33-5.41); RED CELL DISTRIBUTION WIDTH 13.2 % (11.2-14.1); WHITE BLOOD CELL COUNT,WBC 8.6 K/uL (4.0-10.2)
[2023-07-25 17:24] LABS: ALBUMIN 3.9 g/dL (3.4-5.0); ANION GAP 6.4 meq/L (7-15); BILIRUBIN TOTAL 0.5 mg/dL (0.2-1.0); CALCIUM 9.4 mg/dL (8.5-10.1); CARBON DIOXIDE,CO2 28.6 mmol/L (21.0-32.0); CREATININE 1.26 mg/dL (0.51-1.17); EST CRCL DRUG DOSING (CG) 56.96 mL/min; PROTEIN TOTAL,TP 7.5 g/dL (6.4-8.2)
[2023-07-25] MEDS: diphenhydrAMINE 50 MG/ML SDV IVPUSH ONE (17:31)
[2023-07-25] MEDS: Sodium Chloride 0.9% 10 ML Syringe FLUSH PRN (17:31)
[2023-07-25 17:38] LABS: HEMOGLOBIN A1C 6.1 % (4.3-5.7)
[2023-07-25] MEDS ORDERED: Sodium Chloride 0.9% 500 ML IV SCH (17:45)
[2023-07-25] MEDS: Iopamidol 612 MG/ML 100 ML Bottle IVPUSH STA (18:01)
[2023-07-25 18:02] VITALS: BP 139/89
[2023-07-25] MEDS: Sodium Chloride 0.9% 1,000 ML IV ONE (18:10)
[2023-07-25 19:16] VITALS: PULSE 73
[2023-07-31 15:47] LABS: CHROMOGRANIN A 636 ng/mL (0-187)
== END 2023-07-25 19:10 | disposition home or self-care (01) ==
LOC: LL.ED 16:28
DX: K92.1 Melena (principal); R59.0 Localized enlarged lymph nodes; I10 Essential (primary) hypertension; E78.00 Pure hypercholesterolemia, unspecified; I25.10 Atherosclerotic heart disease of native coronary artery without angina pectoris; K21.9 Gastro-esophageal reflux disease without esophagitis; Z79.899 Other long term (current) drug therapy; Z91.041 Radiographic dye allergy status; Z88.8 Allergy status to other drugs, medicaments and biological substances; Z88.1 Allergy status to other antibiotic agents
CPT/HCPCS: 36415; 74177; 80053; 83036; 85025; 86316; 96361; 96374; 99284; 99284-25; J1200; J3490; J7030; Q9967

== ENCOUNTER 2023-10-01 07:26 | Day surgery (SDC) | payer BC ==
[~2023-10-01 07:26] MED LIST changes: -Lactated Ringers 1,000 ML IV SCH; +Midazolam 1 MG/ML 2 ML SDV ONE; +Propofol 200 MG/20 ML SDV ONE; -Sodium Chloride 0.9% 10 ML Syringe FLUSH PRN
[2023-10-01] MEDS ORDERED: Sodium Chloride 0.9% 10 ML Syringe FLUSH PRN (07:30)
[2023-10-01] MEDS: Lactated Ringers 1,000 ML IV SCH (07:45)
[2023-10-01 09:41] VITALS: BP 93/63; PULSE 68
== END 2023-10-01 09:50 | disposition home or self-care (01) ==
LOC: LL.SDS 07:26
PROVIDERS: ATTEND Surgery
DX: D12.5 Benign neoplasm of sigmoid colon (principal); K57.30 Diverticulosis of large intestine without perforation or abscess without bleeding; K64.8 Other hemorrhoids; I10 Essential (primary) hypertension; K21.9 Gastro-esophageal reflux disease without esophagitis; E78.00 Pure hypercholesterolemia, unspecified; J45.20 Mild intermittent asthma, uncomplicated; Z95.1 Presence of aortocoronary bypass graft; Z87.891 Personal history of nicotine dependence; Z79.82 Long term (current) use of aspirin; Z79.899 Other long term (current) drug therapy
CPT/HCPCS: 00811; J2250; J2704; J7120

== ENCOUNTER 2024-09-15 10:12 | Day surgery (SDC) | payer BC ==
[~2024-09-15 10:12] MED LIST changes: +Sodium Chloride 0.9% 10 ML Syringe FLUSH PRN
[2024-09-15] MEDS: Lactated Ringers 1,000 ML IV SCH (11:07)
[2024-09-15] MEDS ORDERED: Glycopyrrolate 0.2 MG/ML SDV IVPUSH ONE (11:28)
[2024-09-15 12:21] VITALS: BP 101/70; PULSE 74
== END 2024-09-15 12:53 | disposition home or self-care (01) ==
LOC: LL.SDS 10:12
PROVIDERS: ATTEND Surgery
DX: K21.00 Gastro-esophageal reflux disease with esophagitis, without bleeding (principal); I25.10 Atherosclerotic heart disease of native coronary artery without angina pectoris; J45.20 Mild intermittent asthma, uncomplicated; I10 Essential (primary) hypertension; Z79.899 Other long term (current) drug therapy; Z91.041 Radiographic dye allergy status
CPT/HCPCS: J1596; J2250; J2704; J7120